=== PATIENT | female | born 1935 | race Caucasian/White ===

== ENCOUNTER 2017-02-02 23:52 | Emergency (ER) | payer MEDICARE, BC ==
[~2017-02-02 23:52] MED LIST: Nitroglycerin/D5W 25 MG/250 ML BOTTLE IV ONE; Potassium Chloride 100 ML IV ONE; Sodium Chloride 0.9% 1,000 ML IV ONE
[2017-02-03 00:09] VITALS: BP 190/69
[2017-02-03] MEDS ORDERED: Sodium Chloride 0.9% 1,000 ML IV ONE (00:11)
[2017-02-03] MEDS ORDERED: Sodium Chloride 0.9% 1,000 ML ONE ×2 (00:27→02:48)
[2017-02-03] MEDS ORDERED: Insulin Regular, Human 100 Units/ML 3 ML Vial ONE ×2 (00:33→01:10)
[2017-02-03] MEDS ORDERED: Potassium Chloride 100 ML ONE (01:10)
[2017-02-03] MEDS ORDERED: Sodium Chloride 0.9% 100 ML ONE (01:14)
[2017-02-03] MEDS ORDERED: Nitroglycerin/D5W 25 MG/250 ML BOTTLE ONE (01:37)
--- NOTE | 2017-02-03 02:26 | EDM.PDOC ---
ED HPI DIABETIC EMERGENCY - General Chief Complaint: Diabetic Complaint Stated Complaint: [facility] Time Seen by Provider: 02/03/17 00:00 Source of Information: Reports: Patient, EMS History Limitations: Reports: Physical impairment - History of Present Illness INITIAL COMMENTS - FREE TEXT/NARRATIVE: 81 year old female presents to the ED per [place] [facility].She became very weak at home and went down to the floor gently. She reports her legs will not hold her up. She is a type 2 diabetic and medics identified a blood sugar of 504 on scene. She missed her lantus dose at 1600 hrs today. She takes about 8 units of regular insulin with each meal and 25 units of Lantus at about 1600hrs daily. No apparent injuries. Paramedics report they have been called to her residence quite frequently as of late due tosimmilar prolblems. Family is in the process of seeking an assisted living placement. She reports generalized weakness. No fever or chills. No cough or sputum production. Has urinary frequency . Symptom Onset Date: 01/31/17 (Feel she's been getting worse over the last 3-4 days.) Timing/Duration: Reports: Day(s):, Getting worse Location, General: Reports: generalized Severity: moderate Improves with: Reports: None Worsens with: Reports: Movement Associated Symptoms: Reports: confusion, shortness of breath, weakness, malaise , loss of appetite (Nausea with no vomiting), nausea/vomiting. Denies: headaches, seizure, syncope (Gen.), chest pain (Daughter believes that she seemed confused on the phone her tonight.), cough, sputum, fever/chills (Chronic ), diaphoresis, rash Associated Symptoms (General): Reports: confusion, diaphoresis, loss of appetite , malaise, nausea/vomiting, shortness of breath, weakness. Denies: chest pain, cough, cough w sputum, fever/chills, headaches, rash, seizure, syncope Treatments OPERATIONS AND MAINTENANCE SPECIALIST: Reports: Other (see below) (Nausea with no vomiting no) - Related Data Allergies/ADRs: Allergies Allergy/AdvReac Type Severity Reaction Status Date / Time No Known Allergies Allergy Verified 02/03/17 00:06 Home Meds: Home Meds Insulin Lispro [Humalog] 8 units SQ 1300 12/11/15 [History] Rosuvastatin Calcium [Crestor] 20 mg PO DAILY 12/11/15 [History] Valsartan [Diovan] 160 mg PO DAILY 12/11/15 [History] amLODIPine [Norvasc] 10 mg PO DAILY 12/11/15 [History] Denosumab [Prolia] 1 ml SUBCUT ASDIRECTED 12/12/15 [History] Omeprazole [Prilosec] 20 mg PO ACBREAKFAST 12/12/15 [History] Vitamin B Complex 1 each PO DAILY 12/12/15 [History] Aspirin 81 mg PO DAILY 12/24/15 [History] Insulin Glargine,Hum.Rec.Anlog [Lantus Solostar] 25 units SQ 1600 12/24/15 [ History] Insulin Lispro [HumaLOG] 8 units SQ DAILY 12/24/15 [History] Lutein/Minerals/Vit A,C & E [Ocuvite] 1 tab PO DAILY 12/24/15 [History] Furosemide [Lasix] 40 mg PO DAILY #0 12/28/15 [Rx] Kenalog Cream 0 mg TOP BID 11/22/16 [History] Past Medical History HEENT 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: Cataract, Hard of hearing, Impaired vision, Macular degeneration Cardiovascular 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: Heart Failure, High cholesterol, Hypertension, PVD Respiratory 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: SOB Gastrointestinal 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: GERD Genitourinary 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: Chronic renal insuffiency (Stage IV), Urinary incontinence Other Genitourinary History: polyuria - CKD III [employer]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: Musculoskeletal 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: Osteoarthritis, Osteoporosis, Other (see below ) Other Musculoskeletal History: sciatic nerve pain Neurological 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: Neuropathy, diabetic Endocrine/Metabolic 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: Diabetes, type II, Obesity/BMI 30+ Hematologic 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: Anemia Other Hematologic History: previous anemia 5-6 yrs ago Dermatologic 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: Urticaria - Infectious Disease History Infectious Disease 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: Chicken pox - Past Surgical History HEENT Surgical 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: Cataract surgery Cardiovascular Surgical 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: None GI Surgical 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: Appendectomy, Cholecystectomy Other GI Surgeries/Procedures: hiatal hernia, cholecysectomy-1960 Appendix 1947 Female Surgical 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: Hysterectomy Other Female Surgeries/Procedures: x4 stillborn Endocrine Surgical 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: None Neurological Surgical 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: None Other Musculoskeletal Surgeries/Procedures:: 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 Social & Family History - Family History HEENT: Reports: Cataract, Macular degeneration Other HEENT Family History: mom, sister Neurological: Reports: Alzheimers disease Other Neurological Family History: dad Endocrine/Metabolic: Reports: Diabetes, type II Other Endocrine/Metabolic Family History: sister Dermatologic: Reports: None Oncologic: Reports: Breast Other Oncologic Family History: mother - Tobacco Use Smoking Status *Q: Never Smoker Second Hand Smoke Exposure: No - Caffeine Use Caffeine Use: Reports: Coffee, Soda, Tea - Recreational Drug Use Recreational Drug Use: No - Living Situation & Occupation Living situation: Reports: alone Occupation: retired ED ROS GENERAL - Review of Systems Review Of Systems: See Below Constitutional: Reports: malaise, weakness, fatigue, decreased appetite. Denies : fever, chills HEENT: Reports: Glasses, Vision change (Blurry at times.) Respiratory: Reports: Shortness of Breath. Denies: Wheezing, Pleuritic Chest Pain, Cough, Sputum, Hemoptysis Cardiovascular: Reports: Blood pressure problem, Dyspnea on exertion, Edema, Lightheadedness. Denies: Chest pain, Claudication, Orthopnea (Chronic hypertension), Palpitations Endocrine: Reports: fatigue, high glucose, polydypsia, polyuria GI/Abdominal: Denies: Abdominal pain, Difficulty swallowing, Distension, Flatus , Hematemesis, Hematochezia, Melena, Mucous in stool, Stool incontinence : Reports: frequency. Denies: hematuria, irregular menses, pain, urgency, urinary retention Musculoskeletal: Reports: neck pain, shoulder pain, back pain, joint pain (Low back pain knees and hips at times) Skin: Reports: pallor (Mild. Chronic anemia did). Denies: diaphoresis ( renal disease) Neurological: Reports: Confusion (According to her daughter.), Dizziness, Difficulty Walking, Weakness. Denies: Headache, Numbness, Seizure, Syncope, Tingling, Tremors, Trouble Speaking, Change in Speech, Gait Disturbance Psychiatric: Reports: Confusion Hematologic/Lymphatic: Reports: anemia (Due to chronic renal disease) ED EXAM GENERAL NO PERIP PULSE - Physical Exam Exam: See Below Exam Limited By: Altered mental status (Mildly confused. She can answer most questions. She knew her doses of insulin.) General Appearance: lethargic, mild distress Eye Exam: bilateral eye: normal inspection, PERRL, other Ears: normal TMs ([place] margins are mildly patent.) Throat/Mouth: Normal inspection, Normal lips, Normal oropharynx. No: Normal teeth Head: atraumatic, normocephalic Neck: normal inspection, full range of motion, tender lateral. No: lymphadenopathy (L), lymphadenopathy (R) (Mild bilaterally.) Respiratory/Chest: respiratory distress, decreased breath sounds (Mild tachypnea at rest. Area treated was diminished to the lower 30% of lung de guzman bilaterally. Breathing is fairly shallow.). No: rales, rhonchi, wheezing Cardiovascular: no murmur, no rub, irregularly irregular. No: normal peripheral pulses GI/Abdominal: abnormal bowel sounds: (Hypoactive bowel sounds.), other ( Moderately obese limiting ability to palpate solid organs. Firm to palpation.) Back Exam: normal inspection, decreased range of motion. No: full range of motion, CVA tenderness (L), CVA tenderness (R), muscle spasm Extremities: normal inspection, pedal edema (2+ lower extremities.). No: increased warmth, mottled, pallor, redness Neurological: oriented, no motor/sensory deficits, confused (Mildly confused.), slow to respond. No: normal reflexes (Areflexic) Psychiatric: flat affect Skin Exam: Warm, Dry, Intact, Pallor (Mild pallor.) EKG INTERPRETATION EKG Date: 02/03/17 Time: 00:15 Rhythm: NSR (First-degree AV block) Rate (beats/min): 82 (Occasional PVCs) Metter: normal P-wave: present QRS: other (Poor R-wave progression. Near Q-wave leads V1 V2.) ST-T: other (ST depression noted in V4 to V6 and lead 2. Cannot rule out ischemia.) QT: normal ND/PQ Interval: First degree AV block. EKG Interpretation Comments: Wandering baseline. Course - Vital Signs Last Recorded V/S: Last Vital Signs Temp 36.4 C 02/03/17 00:06 Pulse 84 02/03/17 00:06 Resp 23 H 02/03/17 00:06 BP 190/69 H 02/03/17 00:06 Pulse Ox 95 02/03/17 00:06 - Orders/Labs/Meds Orders: Active Orders 24 hr Category Date Time Status Blood Glucose Check, Bedside [] ONETIME Care 02/03/17 00:19 Active EKG Documentation Completion [RC] STAT Care 02/03/17 00:10 Active Chest 1V Frontal [CR] Stat Exams 02/03/17 00:10 Taken CULTURE BLOOD [BC] Stat Lab 02/03/17 01:00 Received CULTURE BLOOD [BC] Stat Lab 02/03/17 01:13 Received CULTURE URINE [RM] Stat Lab 02/03/17 00:40 Received Blood Culture x2 Reflex Set [OM.PC] Stat Oth 02/03/17 00:10 Ordered Labs: Laboratory Tests 02/03/17 02/03/17 02/03/17 Range/Units 00:14 00:14 00:14 WBC 9.96 (3.98-10.04) K/mm3 RBC 3.38 L (3.98-5.22) M/mm3 Hgb 10.1 L (11.2-15.7) gm/L Hct 27.8 L (34.1-44.9) % MCV 82.2 (79.4-94.8) fl MCH 29.9 (25.6-32.2) pg MCHC 36.3 H (32.2-35.5) g/dl RDW Std Deviation 34.6 L (36.4-46.3) fL Plt Count 170 L (182-369) K/mm3 MPV 10.7 (9.4-12.3) fl Neutrophils % (Manual) 84 H (40-60) % Band Neutrophils % 0 (0-10) % Lymphocytes % (Manual) 10 L (20-40) % Atypical Lymphs % 0 % Monocytes % (Manual) 4 (2-10) % Eosinophils % (Manual) 2 (0.7-5.8) % Basophils % (Manual) 0 L (0.1-1.2) Platelet Estimate Adequate RBC Morph Comment Normal PT 11.1 (8.0-13.0) SECONDS INR 1.02 Sodium 109 L* (136-145) mEq/L Potassium 3.5 (3.5-5.1) mEq/L Chloride 74 L (98-107) mEq/L Carbon Dioxide 24 (21-32) mEq/L Anion Gap 14.5 (5-15) BUN 62 H (7-18) mg/dL Creatinine 3.3 H (0.55-1.02) mg/dL Est Cr Clr Drug Dosing 10.93 mL/min Estimated GFR (MDRD) 13 (>60) mL/min BUN/Creatinine Ratio 18.8 H (14-18) Glucose 451 H (83-115) mg/dL Serum Osmolality 273 L (280-300) mosm/kg Calcium 8.4 L (8.5-10.1) mg/dL Magnesium 2.4 (1.8-2.4) mg/dl Total Bilirubin 0.6 (0.2-1.0) mg/dL AST 30 (15-37) U/L ALT 23 (14-59) U/L Alkaline Phosphatase 112 (46-116) U/L CK-MB (CK-2) 3.7 H (0-3.6) ng/ml Troponin I 0.034 (0.00-0.056) ng/mL C-Reactive Protein 0.9 (<1.0) mg/dL B-Natriuretic Peptide (0-100) pg/mL Total Protein 6.6 (6.4-8.2) g/dl Albumin 3.2 L (3.4-5.0) g/dl Globulin 3.4 gm/dL Albumin/Globulin Ratio 0.9 L (1-2) Urine Color (Yellow) Urine Appearance (Clear) Urine pH (5.0-8.0) Ur Specific [place] (1.005-1.030) Urine Protein (Negative) Urine Glucose (UA) (Negative) Urine Ketones (Negative) Urine Occult Blood (Negative) Urine Nitrite (Negative) Urine Bilirubin (Negative) Urine Urobilinogen (0.2-1.0) Ur Leukocyte Esterase (Negative) Urine RBC (0-5) /hpf Urine WBC (0-5) /hpf Ur Epithelial Cells (0-5) /hpf Ur Squamous Epith Cells (0-5) /hpf Urine Bacteria (FEW) /hpf Urine Mucus (FEW) /hpf Ketones (0.0-0.3) mM 02/03/17 02/03/17 02/03/17 Range/Units 00:14 00:14 00:40 WBC (3.98-10.04) K/mm3 RBC (3.98-5.22) M/mm3 Hgb (11.2-15.7) gm/L Hct (34.1-44.9) % MCV (79.4-94.8) fl MCH (25.6-32.2) pg MCHC (32.2-35.5) g/dl RDW Std Deviation (36.4-46.3) fL Plt Count (182-369) K/mm3 MPV (9.4-12.3) fl Neutrophils % (Manual) (40-60) % Band Neutrophils % (0-10) % Lymphocytes % (Manual) (20-40) % Atypical Lymphs % % Monocytes % (Manual) (2-10) % Eosinophils % (Manual) (0.7-5.8) % Basophils % (Manual) (0.1-1.2) Platelet Estimate RBC Morph Comment PT (8.0-13.0) SECONDS INR Sodium (136-145) mEq/L Potassium (3.5-5.1) mEq/L Chloride (98-107) mEq/L Carbon Dioxide (21-32) mEq/L Anion Gap (5-15) BUN (7-18) mg/dL Creatinine (0.55-1.02) mg/dL Est Cr Clr Drug Dosing mL/min Estimated GFR (MDRD) (>60) mL/min BUN/Creatinine Ratio (14-18) Glucose (83-115) mg/dL Serum Osmolality (280-300) mosm/kg Calcium (8.5-10.1) mg/dL Magnesium (1.8-2.4) mg/dl Total Bilirubin (0.2-1.0) mg/dL AST (15-37) U/L ALT (14-59) U/L Alkaline Phosphatase (46-116) U/L CK-MB (CK-2) (0-3.6) ng/ml Troponin I (0.00-0.056) ng/mL C-Reactive Protein (<1.0) mg/dL B-Natriuretic Peptide 134 H (0-100) pg/mL Total Protein (6.4-8.2) g/dl Albumin (3.4-5.0) g/dl Globulin gm/dL Albumin/Globulin Ratio (1-2) Urine Color Yellow (Yellow) Urine Appearance Clear (Clear) Urine pH 5.5 (5.0-8.0) Ur Specific [place] 1.010 (1.005-1.030) Urine Protein 1+ H (Negative) Urine Glucose (UA) 1+ H (Negative) Urine Ketones Negative (Negative) Urine Occult Blood 1+ H (Negative) Urine Nitrite Negative (Negative) Urine Bilirubin Negative (Negative) Urine Urobilinogen 0.2 (0.2-1.0) Ur Leukocyte Esterase Negative (Negative) Urine RBC Not seen (0-5) /hpf Urine WBC 0-5 (0-5) /hpf Ur Epithelial Cells 0-5 (0-5) /hpf Ur Squamous Epith Cells 0-5 (0-5) /hpf Urine Bacteria Not seen (FEW) /hpf Urine Mucus Not seen (FEW) /hpf Ketones 0.16 (0.0-0.3) mM Meds: Medications Discontinued Medications Generic Name Dose Route Start Last Admin Trade Name Freq PRN Reason Stop Dose Admin Sodium Chloride Confirm 02/03/17 00:27 Normal Saline Administered 02/03/17 00:28 Dose 1,000 mls @ as directed .ROUTE .STK-MED ONE Potassium Chloride Confirm 02/03/17 01:10 Kcl 10 Meq In Water 100 Ml Administered 02/03/17 01:11 Dose 100 mls @ as directed .ROUTE .STK-MED ONE Sodium Chloride Confirm 02/03/17 01:14 Normal Saline Administered 02/03/17 01:15 Dose 100 mls @ as directed .ROUTE .STK-MED ONE Nitroglycerin/Dextrose Confirm 02/03/17 01:37 Nitroglycerin 25 Mg/D5w 250 Ml Administered 02/03/17 01:38 Dose 25 mg in 250 mls @ as directed .ROUTE .STK-MED ONE Sodium Chloride 1,000 mls @ 500 mls/hr 02/03/17 00:11 Normal Saline IV 02/03/17 02:10 ONETIME ONE Sodium Chloride Confirm 02/03/17 02:48 Normal Saline Administered 02/03/17 02:49 Dose 1,000 mls @ as directed .ROUTE .STK-MED ONE Insulin Human Regular Confirm 02/03/17 00:33 Humulin R Administered 02/03/17 00:34 Dose 300 unit .ROUTE .STK-MED ONE Insulin Human Regular Confirm 02/03/17 01:10 Humulin R Administered 02/03/17 01:11 Dose 300 unit .ROUTE .STK-MED ONE - Radiology Interpretation Free Text/Narrative:: 81-year-old female presents to the ED per [place] [facility]. She had developed generalized weakness in her lower extremities and felt that she could no longer walk and let her self down to the floor be a furniture. She called 911. Has had frequent similar type problems the paramedics indicated that her home about 6 times in the last 10 days to help get her up off the floor. He is in the process of seeking assisted living program. Blood sugar on scene was to be 504. Paramedics administered nearly 500 mils of normal saline en route to [place]. Plan routine labs one view chest x-ray urinalysis by catheter. Our blood sugar recording in the ED was greater than 400. She'll therefore be given 10 units of Humalog regular insulin IV bolus. I will await the true lab value before considering insulin drip. Will continue to run normal saline at open. - Re-Assessments/Exams Free Text/Narrative Re-Assessment/Exam: 02/03/17 01:00 chest x-ray reveals mild cardiomegaly. Visualized portions of the lung de guzman suggest diffuse vascular congestion pattern with no pleural effusions. The computer system or [employer] system is down at this time for 3 hours of repair. Therefore labs will be coming piecemeal have to be put in by hand. Lab called over and serum potassium level was found to be 3.4. Therefore she will be given potassium chloride 10 mEq IV over 30 minutes. 02/03/17 01;10: Blood sugar recorded by lab was 452. We'll therefore start insulin drip at 2 units per hour. Blood pressure remains high on systolic side anywhere between 190 and 210. Will await to see if it settles down and see how bad her heart failure is. 02/03/17 01:35: Blood pressure remains around 202 systolic over 84. He'll start nitro drip at 10 mcg per minute. Her BNP returned at 134. White count was recorded at 9.96 with 74% neutrophils and no bands. Hemoglobin is 10.1 with hematocrit of 27.8. Platelets 170,000. CV is 82.2. Chemistry revealed albumin to be 3.2 AST is 30 BUN was elevated at 62 creatinine is elevated at 3.3 EGFR is not available at this time. Sodium was 109 potassium 3.5. Chloride 74 bicarbonate was 23.8. Glucose was 453. Magnesium 2.4 total protein 6.6. CRP was 0.9. Urinalysis returned showing 1+ blood 1+ glucose but no signs of infection. Serum ketones are elevated at 0.16 with normal being up to 0.3. Serum osmolality is low at 273. Hospitals currently on ICU and MedSurg diversion. Patient will require admission to hospital elsewhere and they have been to [facility] in [facility] in the past. He says with the daughter wishes month ago. I will therefore discuss case with on-call coordinator at [place]. 02/03/17 02:40: Care has been accepted by Dr. Zimmer colon and rectal surgeon hospitalist at [facility]. Patient will be transported to that facility per ground ambulance. Blood sugar is 350 at this time. We'll continue insulin drip at 2 units per hour. IV is currently only running at 100 mils per hour to 2 insulin drip and nitro drip. Blood pressure slowly came down to 139/54. Nitro drip was therefore reduced to 5 mcg per minute. Departure - Departure Time of Disposition: 02:55 Disposition: DC/Tfer to Acute Hospital 02 Condition: fair Clinical Impression: Hyperglycemia, Hyponatremia with decreased serum osmolality, Renal insufficiency, Chronic renal insufficiency, stage IV (severe), Systolic hypertension Forms: ED Department Discharge Additional Instructions: Patient transferred to [facility] in [place] per patient's request. Of note transfer was done because we are on diversion. - My Orders Last 24 Hours: My Active Orders 02/03/17 00:10 EKG Documentation Completion [RC] STAT Chest 1V Frontal [CR] Stat Blood Culture x2 Reflex Set [OM.PC] Stat 02/03/17 00:19 Blood Glucose Check, Bedside [RC] ONETIME 02/03/17 00:40 CULTURE URINE [RM] Stat 02/03/17 01:00 CULTURE BLOOD [BC] Stat 02/03/17 01:13 CULTURE BLOOD [BC] Stat - Assessment/Plan Last 24 Hours: My Active Orders 02/03/17 00:10 EKG Documentation Completion [RC] STAT Chest 1V Frontal [CR] Stat Blood Culture x2 Reflex Set [OM.PC] Stat 02/03/17 00:19 Blood Glucose Check, Bedside [RC] ONETIME 02/03/17 00:40 CULTURE URINE [RM] Stat 02/03/17 01:00 CULTURE BLOOD [BC] Stat 02/03/17 01:13 CULTURE BLOOD [BC] Stat
--- NOTE | 2017-02-03 09:12 | CR ---
Chest: Portable view of the chest was obtained. Comparison: Previous chest x-ray of 11/22/16. Heart size and mediastinum are within normal limits for portable technique. Bony structures are osteopenic. Degenerative spurring is noted within the spine. Questionable nodule within the right mid chest remains. Impression: 1. Continuing nodular density within the right mid chest. Chest CT has been previously recommended. Has this been performed? 2. Nothing acute is otherwise seen on portable chest x-ray. Diagnostic code #9
== END 2017-02-03 02:59 ==
LOC: JD.ED 23:52
DX: I13.0 Hypertensive heart and chronic kidney disease with heart failure and stage 1 through stage 4 chronic kidney disease, or unspecified chronic kidney disease (principal); E11.22 Type 2 diabetes mellitus with diabetic chronic kidney disease; E11.65 Type 2 diabetes mellitus with hyperglycemia; N18.4 Chronic kidney disease, stage 4 (severe); E87.1 Hypo-osmolality and hyponatremia; Z79.4 Long term (current) use of insulin; K21.9 Gastro-esophageal reflux disease without esophagitis; E78.00 Pure hypercholesterolemia, unspecified; M19.90 Unspecified osteoarthritis, unspecified site; M81.0 Age-related osteoporosis without current pathological fracture; Z79.82 Long term (current) use of aspirin; Z79.899 Other long term (current) drug therapy; Z90.49 Acquired absence of other specified parts of digestive tract; Z98.890 Other specified postprocedural states; Z90.710 Acquired absence of both cervix and uterus; Z89.422 Acquired absence of other left toe(s)
CPT/HCPCS: 36415; 71010; 80053; 81001; 82009; 82553; 82962; 83735; 83880; 83930; 84484; 85025; 85610; 86140; 87040; 87086; 93005; 96361; 96365; 96367; 96368; 96375; 99285; J1817; J3480; J7030; J7040

== ENCOUNTER 2018-10-06 14:09 | Inpatient (IN) | payer MEDICARE, BC, MEDICAID ==
[2018-10-06] MEDS ORDERED: Sodium Chloride 0.9% 500 ML IV ONE (14:46)
[2018-10-06] MEDS ORDERED: Sodium Chloride 0.9% 10 ML Syringe FLUSH PRN (14:46)
--- NOTE | 2018-10-06 15:10 | EDM.PDOC ---
ED HPI GENERAL MEDICAL PROBLEM - General Chief Complaint: General Stated Complaint: WEAKNESS AND ABNORMAL LABS Time Seen by Provider: 10/06/18 14:35 Source of Information: Reports: Patient, RN Notes Reviewed - History of Present Illness INITIAL COMMENTS - FREE TEXT/NARRATIVE: 83-year-old female has been brought here by wheelchair van for evaluation of generalized weakness, hyponatremia, elevated creatinine. She apparently had some labs done yesterday and showed a creatinine of 3.49, sodium 1:30. Also according to family and [facility] staff she is more weak, less alert than typical. There is no documentation of fever, vomiting or diarrhea. Patient does deny chest or abdominal pain on arrival to ED. - Related Data Allergies Allergy/AdvReac Type Severity Reaction Status Date / Time No Known Allergies Allergy Verified 07/14/18 15:12 Home Meds: Home Meds Rosuvastatin Calcium [Crestor] 20 mg PO DAILY 12/11/15 [History] amLODIPine [Norvasc] 10 mg PO DAILY 12/11/15 [History] Omeprazole [Prilosec] 20 mg PO ASDIRECTED 12/12/15 [History] Aspirin 81 mg PO DAILY 12/24/15 [History] Acetaminophen [Tylenol] 650 mg PO Q6H 07/14/18 [History] Furosemide [Lasix] 60 mg PO BID 07/14/18 [History] Insulin Aspart [NovoLOG] 8 units SUBCUT BID 07/14/18 [History] Losartan [Cozaar] 50 mg PO DAILY 07/14/18 [History] Nystatin [Nystatin Crm] 1 applic TOP BID PRN 07/14/18 [History] Tresiba Flextouch. 20 units SUBCUT DAILY 07/14/18 [History] Vit C/E/Zn/Coppr/Lutein/Zeaxan [Preservision Areds 2 Softgel] 1 tab PO BID 07/14 [History] guaiFENesin [Mucinex] 600 mg PO BID 07/14/18 [History] Bacitracin [Bacitracin Oint 1 GM] 22 gm TOP BID 3 Days #1 packet 07/18/18 [Rx] Saccharomyces Boulardii [Florastor] 250 mg PO BID #14 cap 07/18/18 [Rx] cephALEXin [Keflex] 500 mg PO Q12H #14 cap 10/21/18 [Rx] Past Medical History HEENT 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: Cataract, Hard of Hearing, Impaired Vision, Macular Degeneration Cardiovascular 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: Heart Failure, High Cholesterol, Hypertension, PVD Respiratory 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: SOB Gastrointestinal 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: GERD, Hiatal Hernia Genitourinary 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: Chronic Renal Insuffiency, Urinary Incontinence Other Genitourinary History: polyuria - CKD III [employer]IGN [employer]TE[employer]CE [employer]ER 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: Musculoskeletal 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: Osteoarthritis, Osteoporosis, Other (See Below ) Other Musculoskeletal History: sciatic nerve pain Neurological 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: Neuropathy, Diabetic Other Neuro History: hypo-osmolality, hyponatremia Endocrine/Metabolic 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: Diabetes, Type II, Obesity/BMI 30+ Other Endocrine/Metabolic History: chronic kidney disease Hematologic 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: Anemia Other Hematologic History: previous anemia 5-6 yrs ago Dermatologic 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: Urticaria - Infectious Disease History Infectious Disease 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: Chicken Pox - Past Surgical History HEENT Surgical 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: Cataract Surgery Cardiovascular Surgical 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: None Respiratory Surgical 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: None GI Surgical 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: Colonoscopy Female Surgical 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: Hysterectomy Endocrine Surgical 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: None Musculoskeletal Surgical 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: None Social & Family History - Family History HEENT: Reports: Cataract, Macular Degeneration Other HEENT Family History: mom, sister Neurological: Reports: Alzheimers Disease Other Neurological Family History: dad Endocrine/Metabolic: Reports: Diabetes, type II Other Endocrine/Metabolic Family History: sister Dermatologic: Reports: None Oncologic: Reports: Breast Other Oncologic Family History: mother - Tobacco Use Smoking Status *Q: Never Smoker - Caffeine Use Caffeine Use: Reports: None, Soda - Recreational Drug Use Recreational Drug Use: No - Living Situation & Occupation Living situation: Reports: Alone Occupation: Retired ED ROS GENERAL - Review of Systems Review Of Systems: See Below Constitutional: Denies: Fever, Chills HEENT: Denies: Throat Pain Respiratory: Denies: Shortness of Breath Cardiovascular: Denies: Chest Pain GI/Abdominal: Denies: Abdominal Pain, Diarrhea, Nausea, Vomiting Musculoskeletal: Reports: No Symptoms Skin: Reports: No Symptoms Neurological: Reports: Dizziness, Weakness (Generalized) ED EXAM, GENERAL - Physical Exam Exam: See Below General Appearance: Other (Somewhat drowsy, does open eyes when spoken to and does answer simple questions with simple yes and no type answers) Eye Exam: Bilateral Eye: PERRL Throat/Mouth: Normal Inspection, Normal Oropharynx Head: Atraumatic Neck: Supple, Full Range of Motion Respiratory/Chest: No Respiratory Distress, Lungs Clear, Normal Breath Sounds. No: Rhonchi, Wheezing Cardiovascular: Regular Rate, Rhythm GI/Abdominal: Soft, Non-Tender. No: Guarding Extremities: Normal Inspection, Normal Range of Motion. No: Pedal Edema, Leg Pain Neurological: No Motor/Sensory Deficits, Other (Awake, somewhat drowsy) Skin Exam: Warm, Dry, Normal Color, No Rash Course - Vital Signs Last Recorded V/S: Last Vital Signs Temp 98.2 F 10/06/18 14:33 Pulse 73 10/06/18 14:33 Resp 20 10/06/18 14:33 BP 157/58 H 10/06/18 14:33 Pulse Ox 92 L 10/06/18 14:33 - Orders/Labs/Meds Orders: Active Orders 24 hr Category Date Time Status Peripheral IV Care [RC] . DIRECTED Care 10/06/18 14:46 Active Chest 1V Frontal [CR] Stat Exams 10/06/18 15:10 Taken CULTURE URINE [RM] Stat Lab 10/06/18 16:26 Ordered Sodium Chloride 0.9% [Normal Saline] 250 ml Med 10/06/18 16:42 Active IV .BOLUS Sodium Chloride 0.9% [Saline Flush] Med 10/06/18 14:46 Active 10 ml FLUSH ASDIRECTED PRN cefTRIAXone [Rocephin] 1 gm Med 10/06/18 16:26 Active Sodium Chloride 0.9% [Normal Saline] 100 ml IV ONETIME Peripheral IV Insertion Adult [OM.PC] Stat Oth 10/06/18 14:46 Ordered Medication Orders Ceftriaxone Sodium 1 gm/ (Sodium Chloride) 100 mls @ 200 mls/hr IV ONETIME ONE Stop: 10/06/18 16:55 Last Admin: 10/06/18 16:31 Dose: 200 mls/hr Sodium Chloride (Normal Saline) 250 mls @ 999 mls/hr IV .BOLUS ONE Stop: 10/06/18 16:57 Sodium Chloride (Saline Flush) 10 ml FLUSH ASDIRECTED PRN PRN Reason: Keep Vein Open Last Admin: 10/06/18 15:05 Dose: 10 ml Labs: Laboratory Tests 10/06/18 10/06/18 10/06/18 Range/Units 14:25 14:55 14:55 WBC 3.46 L (3.98-10.04) K/mm3 RBC 3.45 L (3.98-5.22) M/mm3 Hgb 9.5 L (11.2-15.7) gm/L Hct 28.9 L (34.1-44.9) % MCV 83.8 (79.4-94.8) fl MCH 27.5 (25.6-32.2) pg MCHC 32.9 (32.2-35.5) g/dl RDW Std Deviation 45.5 (36.4-46.3) fL Plt Count 167 L (182-369) K/mm3 MPV 9.0 L (9.4-12.3) fl Neut % (Auto) 65.0 (34.0-71.1) % Lymph % (Auto) 15.6 L (19.3-51.7) % Swain % (Auto) 18.8 H (4.7-12.5) % Eos % (Auto) 0.3 L (0.7-5.8) Baso % (Auto) 0.0 L (0.1-1.2) % Neut # (Auto) 2.25 (1.56-6.13) K/mm3 Lymph # (Auto) 0.54 L (1.18-3.74) K/mm3 Swain # (Auto) 0.65 H (0.24-0.36) K/mm3 Eos # (Auto) 0.01 L (0.04-0.36) K/mm3 Baso # (Auto) 0.00 L (0.01-0.08) K/mm3 Manual Slide Review Abnormal smear Sodium (136-145) mEq/L Potassium (3.5-5.1) mEq/L Chloride (98-107) mEq/L Carbon Dioxide (21-32) mEq/L Anion Gap (5-15) BUN (7-18) mg/dL Creatinine (0.55-1.02) mg/dL Est Cr Clr Drug Dosing mL/min Estimated GFR (MDRD) (>60) mL/min BUN/Creatinine Ratio (14-18) Glucose (83-115) mg/dL Calcium (8.5-10.1) mg/dL Total Bilirubin (0.2-1.0) mg/dL AST (15-37) U/L ALT (14-59) U/L Alkaline Phosphatase (46-116) U/L C-Reactive Protein 12.7 H* (<1.0) mg/dL Total Protein (6.4-8.2) g/dl Albumin (3.4-5.0) g/dl Globulin gm/dL Albumin/Globulin Ratio (1-2) Urine Color Light yellow (Yellow) Urine Appearance Cloudy H (Clear) Urine pH 7.0 (5.0-8.0) Ur Specific [place] 1.020 (1.005-1.030) Urine Protein 2+ H (Negative) Urine Glucose (UA) Negative (Negative) Urine Ketones Negative (Negative) Urine Occult Blood 2+ H (Negative) Urine Nitrite Negative (Negative) Urine Bilirubin Negative (Negative) Urine Urobilinogen 0.2 (0.2-1.0) Ur Leukocyte Esterase 3+ H (Negative) Urine RBC 5-10 H (0-5) /hpf Urine WBC Too numerous to cnt H (0-5) /hpf Ur Epithelial Cells 0-5 (0-5) /hpf Urine Bacteria Many H (FEW) /hpf Urine Mucus Few (FEW) /hpf 10/06/18 Range/Units 14:55 WBC (3.98-10.04) K/mm3 RBC (3.98-5.22) M/mm3 Hgb (11.2-15.7) gm/L Hct (34.1-44.9) % MCV (79.4-94.8) fl MCH (25.6-32.2) pg MCHC (32.2-35.5) g/dl RDW Std Deviation (36.4-46.3) fL Plt Count (182-369) K/mm3 MPV (9.4-12.3) fl Neut % (Auto) (34.0-71.1) % Lymph % (Auto) (19.3-51.7) % Swain % (Auto) (4.7-12.5) % Eos % (Auto) (0.7-5.8) Baso % (Auto) (0.1-1.2) % Neut # (Auto) (1.56-6.13) K/mm3 Lymph # (Auto) (1.18-3.74) K/mm3 [place]ain # (Auto) (0.24-0.36) K/mm3 Eos # (Auto) (0.04-0.36) K/mm3 Baso # (Auto) (0.01-0.08) K/mm3 Manual Slide Review Sodium 125 L (136-145) mEq/L Potassium 3.5 (3.5-5.1) mEq/L Chloride 84 L (98-107) mEq/L Carbon Dioxide 32 (21-32) mEq/L Anion Gap 12.5 (5-15) BUN 92 H (7-18) mg/dL Creatinine 3.7 H (0.55-1.02) mg/dL Est Cr Clr Drug Dosing 9.43 mL/min Estimated GFR (MDRD) 12 (>60) mL/min BUN/Creatinine Ratio 24.9 H (14-18) Glucose 152 H (83-115) mg/dL Calcium 8.6 (8.5-10.1) mg/dL Total Bilirubin 0.4 (0.2-1.0) mg/dL AST 37 (15-37) U/L ALT 26 (14-59) U/L Alkaline Phosphatase 137 H (46-116) U/L C-Reactive Protein (<1.0) mg/dL Total Protein 8.0 (6.4-8.2) g/dl Albumin 2.7 L (3.4-5.0) g/dl Globulin 5.3 gm/dL Albumin/Globulin Ratio 0.5 L (1-2) Urine Color (Yellow) Urine Appearance (Clear) Urine pH (5.0-8.0) Ur Specific [place] (1.005-1.030) Urine Protein (Negative) Urine Glucose (UA) (Negative) Urine Ketones (Negative) Urine Occult Blood (Negative) Urine Nitrite (Negative) Urine Bilirubin (Negative) Urine Urobilinogen (0.2-1.0) Ur Leukocyte Esterase (Negative) Urine RBC (0-5) /hpf Urine WBC (0-5) /hpf Ur Epithelial Cells (0-5) /hpf Urine Bacteria (FEW) /hpf Urine Mucus (FEW) /hpf Meds: Medications Generic Name Dose Route Start Last Admin Trade Name Freq PRN Reason Stop Dose Admin Ceftriaxone Sodium 1 gm/ 100 mls @ 200 mls/hr 10/06/18 16:26 10/06/18 16:31 Sodium Chloride IV 10/06/18 16:55 200 mls/hr ONETIME ONE Administration Sodium Chloride 250 mls @ 999 mls/hr 10/06/18 16:42 Normal Saline IV 10/06/18 16:57 .BOLUS ONE Sodium Chloride 10 ml 10/06/18 14:46 10/06/18 15:05 Saline Flush FLUSH 10 ml ASDIRECTED PRN Administration Keep Vein Open Discontinued Medications Generic Name Dose Route Start Last Admin Trade Name David PRN Reason Stop Dose Admin Sodium Chloride 500 mls @ 999 mls/hr 10/06/18 14:46 10/06/18 15:04 Normal Saline IV 10/06/18 15:16 999 mls/hr .BOLUS ONE Administration - Re-Assessments/Exams Free Text/Narrative Re-Assessment/Exam: 10/06/18 16:25. UA does show significant UTI with increased WBCs and bacteria. White blood count 3500, creatinine today 3.7, BUN 92. Potassium 3.5. Estimated GFR only 12. We have given 1 L of normal saline, will give a further 250 mL bolus and then drop rate 150 an hour for now. Urine culture has been ordered and Rocephin 1 g IV is currently running. We'll admit Batsheva for further treatment. Her CODE STATUS is DNR/DNI. Family states that they and she do not want her to be a consideration for dialysis. Departure - Departure Time of Disposition: 16:47 Disposition: Admitted As Inpatient 68 Condition: Serious Clinical Impression: Hyponatremia Renal failure Qualifiers: Renal failure chronicity: acute on chronic Acute renal failure type: unspecified Chronic kidney disease stage: stage 5, not on chronic dialysis Qualified Code(s): N17.9 - Acute kidney failure, unspecified; N18.5 - Chronic kidney disease, stage 5 UTI (urinary tract infection) Qualifiers: Urinary tract infection type: acute cystitis Hematuria presence: without hematuria Qualified Code(s): N30.00 - Acute cystitis without hematuria - Discharge Information Referrals: Naren Kim MD [Primary Care Provider] - Forms: ED Department Discharge ED Communication - Discussed Case With (1) Discussed Case With (1): Admitting Provider (Dr Nguyen, decision to admit at about 16:40) - My Orders Last 24 Hours: My Active Orders 10/06/18 14:46 Peripheral IV Care [RC] . DIRECTED Sodium Chloride 0.9% [Saline Flush] 10 ml FLUSH ASDIRECTED PRN Peripheral IV Insertion Adult [OM.PC] Stat 10/06/18 15:10 Chest 1V Frontal [CR] Stat 10/06/18 16:26 CULTURE URINE [RM] Stat cefTRIAXone [Rocephin] 1 gm Sodium Chloride 0.9% [Normal Saline] 100 ml IV ONETIME 10/06/18 16:42 Sodium Chloride 0.9% [Normal Saline] 250 ml IV .BOLUS - Assessment/Plan Last 24 Hours: My Active Orders 10/06/18 14:46 Peripheral IV Care [RC] . DIRECTED Sodium Chloride 0.9% [Saline Flush] 10 ml FLUSH ASDIRECTED PRN Peripheral IV Insertion Adult [OM.PC] Stat 10/06/18 15:10 Chest 1V Frontal [CR] Stat 10/06/18 16:26 CULTURE URINE [RM] Stat cefTRIAXone [Rocephin] 1 gm Sodium Chloride 0.9% [Normal Saline] 100 ml IV ONETIME 10/06/18 16:42 Sodium Chloride 0.9% [Normal Saline] 250 ml IV .BOLUS
[2018-10-06] MEDS ORDERED: cefTRIAXone 1 GM in Sodium Chloride 0.9% 100 ML IV ONE (16:26)
[2018-10-06] MEDS ORDERED: Sodium Chloride 0.9% 250 ML IV ONE (16:42)
--- NOTE | 2018-10-06 16:54 | CR ---
Chest: Portable view of the chest was obtained. Comparison: Prior chest x-ray of 02/03/17. Heart size and mediastinum are normal. Lungs are clear. Bony structures are grossly intact. Impression: 1. Nothing acute is appreciated on portable chest x-ray. Diagnostic code #1
--- NOTE | 2018-10-06 18:01 | PCM.HP ---
H&P History of Present Illness - General Date of Service: 10/06/18 Admit Problem/Dx: Admission Diagnosis/Problem Admission Diagnosis/Problem Urinary tract infection Source of Information: Patient, Family, Old Records, Provider, RN Notes Reviewed History Limitations: Reports: Altered Mental Status - History of Present Illness Initial Comments - Free Text/Narative: This is an 83 yo elderly white female with past medical hx/o Impaired Hearing/ Vision, HF w/ Preserved EF of 65% 12/13/2015. HTN, HLD, PVD, SOB, GERD, Hital Hernia, CKD Stage 3, Urinary Incontinence, OA/DJD, Osteoporosis, DM2, Chronic Hyponatremia, Anemia, Urticaria and Obesity with BMI > 35 who comes in for evaluation of generalized weakness and reduced level of consciousness associated with elevated Cr but moderately low level of serum sodium. She had a repeat lab yesterday with similar abnormalities. No report of fever, chills, diarrhea or change in bowel habits. No further report of neurological deficits. Her initial work up in ED shows a CBC remarkable for WBC of 3.46, RBC of 3.45, Hgb of 9.5, Hct of 28.9, Platelet count of 167, MPV of 9.0, Lymphocyte of 15.6% , Monocytes of 18.8%, and Eosinophils of 0.3. Her chemistry is significant for Na of 125, Cl of 84, BUN of 92, Cr of 3.7, BS of 152, Alk Phos of 137, CRP of 12.7, and Albumin of 2.7. Her UA is suggestive of UTI. She is positive for MRSA screening. Patient is coming in primarily for Generalized Weakness 2/2 UTI, MECHELLE along with Moderate Hyponatremia. She is DNR/DNI. - Related Data Allergies/Adverse Reactions: Allergies Allergy/AdvReac Type Severity Reaction Status Date / Time No Known Allergies Allergy Verified 10/06/18 17:50 Home Medications: Home Meds Rosuvastatin Calcium [Crestor] 20 mg PO DAILY 12/11/15 [History] amLODIPine [Norvasc] 10 mg PO DAILY 12/11/15 [History] Omeprazole [Prilosec] 20 mg PO ASDIRECTED 12/12/15 [History] Aspirin 81 mg PO DAILY 12/24/15 [History] Acetaminophen [Tylenol] 650 mg PO Q6H 07/14/18 [History] Furosemide [Lasix] 60 mg PO BID 07/14/18 [History] Insulin Aspart [NovoLOG] 8 units SUBCUT BID 07/14/18 [History] Losartan [Cozaar] 50 mg PO DAILY 07/14/18 [History] Nystatin [Nystatin Crm] 1 applic TOP BID PRN 07/14/18 [History] Tresiba Flextouch. 20 units SUBCUT DAILY 07/14/18 [History] Vit C/E/Zn/Coppr/Lutein/Zeaxan [Preservision Areds 2 Softgel] 1 tab PO BID 07/14 [History] guaiFENesin [Mucinex] 600 mg PO BID 07/14/18 [History] Acetaminophen [Tylenol] 650 mg PO BID PRN 10/06/18 [History] Benzocaine/Menthol [Cepacol Sore Throat Lozenge] 1 each PO Q1H PRN 10/06/18 [ History] Calcium Carbonate [Tums] 1 - 2 tab PO Q6HR PRN 10/06/18 [History] Carbamide Peroxide [Debrox 6.5% Otic Soln] 5 drop EARBOTH BID 10/06/18 [History] Lutein/Minerals/Vit A,C & E [Ocuvite] 1 tab PO DAILY 10/06/18 [History] Polyvinyl Alcohol/Povidone/Pf [Refresh Classic Eye Drops] 1 drop EYEBOTH DAILY PRN 10/06/18 [History] metOLazone [Metolazone] 2.5 mg PO DAILY 10/06/18 [History] Past Medical History HEENT 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: Cataract, Hard of Hearing, Impaired Vision, Macular Degeneration Cardiovascular 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: Heart Failure, High Cholesterol, Hypertension, PVD Respiratory 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: SOB Gastrointestinal 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: GERD, Hiatal Hernia Genitourinary 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: Chronic Renal Insuffiency, Urinary Incontinence Other Genitourinary History: polyuria - CKD III [employer] 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: Musculoskeletal 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: Osteoarthritis, Osteoporosis, Other (See Below ) Other Musculoskeletal History: sciatic nerve pain Neurological 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: Neuropathy, Diabetic Other Neuro History: hypo-osmolality, hyponatremia Endocrine/Metabolic 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: Diabetes, Type II, Obesity/BMI 30+ Other Endocrine/Metabolic History: chronic kidney disease Hematologic 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: Anemia Other Hematologic History: previous anemia 5-6 yrs ago Dermatologic 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: Urticaria - Infectious Disease History Infectious Disease 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: Chicken Pox - Past Surgical History HEENT Surgical 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: Cataract Surgery Cardiovascular Surgical 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: None Respiratory Surgical 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: None GI Surgical 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: Colonoscopy Female Surgical 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: Hysterectomy Endocrine Surgical 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: None Musculoskeletal Surgical 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: None Social & Family History - Family History HEENT: Reports: Cataract, Macular Degeneration Other HEENT Family History: mom, sister Neurological: Reports: Alzheimers Disease Other Neurological Family History: dad Endocrine/Metabolic: Reports: Diabetes, type II Other Endocrine/Metabolic Family History: sister Dermatologic: Reports: None Oncologic: Reports: Breast Other Oncologic Family History: mother - Tobacco Use Smoking Status *Q: Never Smoker - Caffeine Use Caffeine Use: Reports: None, Soda - Recreational Drug Use Recreational Drug Use: No - Living Situation & Occupation Living situation: Reports: Alone Occupation: Retired H&P Review of Systems - Review of Systems: Review Of Systems: See Below General: Reports: Malaise, Weakness, Fatigue, Other (lethargic). Denies: Fever , Chills HEENT: Reports: No Symptoms Pulmonary: Denies: Shortness of Breath Cardiovascular: Reports: Edema. Denies: Chest Pain Gastrointestinal: Reports: Decreased Appetite. Denies: Abdominal Pain, Nausea, Vomiting Musculoskeletal: Denies: Neck Pain, Muscle Stiffness Skin: Denies: Cyanosis, Mottled, Pallor, Diaphoresis, Bruising Psychiatric: Denies: Anxiety, Agitation Neurological: Reports: Difficulty Walking, Weakness, Gait Disturbance. Denies: Confusion Hematologic/Lymphatic: Reports: No Symptoms Immunologic: Reports: No Symptoms Exam - Exam Exam: See Below - Vital Signs Vital Signs: Last Vital Signs Temp 36.8 C 10/06/18 14:33 Pulse 73 10/06/18 14:33 Resp 20 10/06/18 14:33 BP 157/58 H 10/06/18 14:33 Pulse Ox 92 L 10/06/18 14:33 Weight: 94.971 kg - Exam General: Alert, Cooperative, Mild Distress, Lethargic HEENT: Conjunctiva Clear, EACs Clear, EOMI, Hearing Intact, Mucosa Moist & [place]ar[place] , Nares Patent, Normal Nasal Septum, Posterior Pharynx Clear, Pupils Equal Neck: Supple, Trachea Midline Lungs: Normal Respiratory Effort, Decreased Breath Sounds Cardiovascular: Regular Rhythm, Irregular Rhythm, Gallop/S4 GI/Abdominal Exam: Normal Bowel Sounds, Soft, Non-Tender, No Distention, No Abnormal Bruit (Female) Exam: Deferred Rectal (Female) Exam: Deferred Back Exam: Normal Inspection, Decreased Range of Motion Extremities: Normal Inspection, Normal Range of Motion, Non-Tender, Normal Capillary Refill, Pedal Edema Peripheral Pulses: 2+: Dorsalis Pedis (L), Dorsalis Pedis (R) Skin: Warm, Dry, Intact Neuro Extensive - Mental Status: Oriented x3, Normal Cognition, Memory Intact Neuro Extensive - Motor, Sensory, Reflexes: CN II-XII Intact. No: Normal Gait Psychiatric: Alert, Normal Affect, Normal Mood - Patient Data Lab Results Last 24 hrs: Laboratory Results - last 24 hr 10/06/18 10/06/18 10/06/18 Range/Units 14:25 14:55 14:55 WBC 3.46 L (3.98-10.04) K/mm3 RBC 3.45 L (3.98-5.22) M/mm3 Hgb 9.5 L (11.2-15.7) gm/L Hct 28.9 L (34.1-44.9) % MCV 83.8 (79.4-94.8) fl MCH 27.5 (25.6-32.2) pg MCHC 32.9 (32.2-35.5) g/dl RDW Std Deviation 45.5 (36.4-46.3) fL Plt Count 167 L (182-369) K/mm3 MPV 9.0 L (9.4-12.3) fl Neut % (Auto) 65.0 (34.0-71.1) % Lymph % (Auto) 15.6 L (19.3-51.7) % [place] % (Auto) 18.8 H (4.7-12.5) % Eos % (Auto) 0.3 L (0.7-5.8) Baso % (Auto) 0.0 L (0.1-1.2) % Neut # (Auto) 2.25 (1.56-6.13) K/mm3 Lymph # (Auto) 0.54 L (1.18-3.74) K/mm3 [place] # (Auto) 0.65 H (0.24-0.36) K/mm3 Eos # (Auto) 0.01 L (0.04-0.36) K/mm3 Baso # (Auto) 0.00 L (0.01-0.08) K/mm3 Manual Slide Review Abnormal smear Sodium (136-145) mEq/L Potassium (3.5-5.1) mEq/L Chloride (98-107) mEq/L Carbon Dioxide (21-32) mEq/L Anion Gap (5-15) BUN (7-18) mg/dL Creatinine (0.55-1.02) mg/dL Est Cr Clr Drug Dosing mL/min Estimated GFR (MDRD) (>60) mL/min BUN/Creatinine Ratio (14-18) Glucose (83-115) mg/dL POC Glucose (83-110) mg/dL Calcium (8.5-10.1) mg/dL Total Bilirubin (0.2-1.0) mg/dL AST (15-37) U/L ALT (14-59) U/L Alkaline Phosphatase (46-116) U/L C-Reactive Protein 12.7 H* (<1.0) mg/dL Total Protein (6.4-8.2) g/dl Albumin (3.4-5.0) g/dl Globulin gm/dL Albumin/Globulin Ratio (1-2) Urine Color Light yellow (Yellow) Urine Appearance Cloudy H (Clear) Urine pH 7.0 (5.0-8.0) Ur Specific [place] 1.020 (1.005-1.030) Urine Protein 2+ H (Negative) Urine Glucose (UA) Negative (Negative) Urine Ketones Negative (Negative) Urine Occult Blood 2+ H (Negative) Urine Nitrite Negative (Negative) Urine Bilirubin Negative (Negative) Urine Urobilinogen 0.2 (0.2-1.0) Ur Leukocyte Esterase 3+ H (Negative) Urine RBC 5-10 H (0-5) /hpf Urine WBC Too numerous to cnt H (0-5) /hpf Ur Epithelial Cells 0-5 (0-5) /hpf Urine Bacteria Many H (FEW) /hpf Urine Mucus Few (FEW) /hpf 10/06/18 10/06/18 Range/Units 14:55 17:48 WBC (3.98-10.04) K/mm3 RBC (3.98-5.22) M/mm3 Hgb (11.2-15.7) gm/L Hct (34.1-44.9) % MCV (79.4-94.8) fl MCH (25.6-32.2) pg MCHC (32.2-35.5) g/dl RDW Std Deviation (36.4-46.3) fL Plt Count (182-369) K/mm3 MPV (9.4-12.3) fl Neut % (Auto) (34.0-71.1) % Lymph % (Auto) (19.3-51.7) % [place] % (Auto) (4.7-12.5) % Eos % (Auto) (0.7-5.8) Baso % (Auto) (0.1-1.2) % Neut # (Auto) (1.56-6.13) K/mm3 Lymph # (Auto) (1.18-3.74) K/mm3 [place] # (Auto) (0.24-0.36) K/mm3 Eos # (Auto) (0.04-0.36) K/mm3 Baso # (Auto) (0.01-0.08) K/mm3 Manual Slide Review Sodium 125 L (136-145) mEq/L Potassium 3.5 (3.5-5.1) mEq/L Chloride 84 L (98-107) mEq/L Carbon Dioxide 32 (21-32) mEq/L Anion Gap 12.5 (5-15) BUN 92 H (7-18) mg/dL Creatinine 3.7 H (0.55-1.02) mg/dL Est Cr Clr Drug Dosing 9.43 mL/min Estimated GFR (MDRD) 12 (>60) mL/min BUN/Creatinine Ratio 24.9 H (14-18) Glucose 152 H (83-115) mg/dL POC Glucose 128 H (83-110) mg/dL Calcium 8.6 (8.5-10.1) mg/dL Total Bilirubin 0.4 (0.2-1.0) mg/dL AST 37 (15-37) U/L ALT 26 (14-59) U/L Alkaline Phosphatase 137 H (46-116) U/L C-Reactive Protein (<1.0) mg/dL Total Protein 8.0 (6.4-8.2) g/dl Albumin 2.7 L (3.4-5.0) g/dl Globulin 5.3 gm/dL Albumin/Globulin Ratio 0.5 L (1-2) Urine Color (Yellow) Urine Appearance (Clear) Urine pH (5.0-8.0) Ur Specific [place] (1.005-1.030) Urine Protein (Negative) Urine Glucose (UA) (Negative) Urine Ketones (Negative) Urine Occult Blood (Negative) Urine Nitrite (Negative) Urine Bilirubin (Negative) Urine Urobilinogen (0.2-1.0) Ur Leukocyte Esterase (Negative) Urine RBC (0-5) /hpf Urine WBC (0-5) /hpf Ur Epithelial Cells (0-5) /hpf Urine Bacteria (FEW) /hpf Urine Mucus (FEW) /hpf Result Diagrams: 10/07/18 05:45 10/07/18 05:45 Problem List Initiated/Reviewed/Updated: Yes Orders Last 24hrs: Active Orders 24 hr Category Date Time Status Admission Status [Patient Status] [ADT] Routine ADT 10/06/18 16:53 Active ADA Diabetic [[place] [employer] Diet] [DIET Diet 10/06/18 Dinner Active ] Heart Healthy Diet [DIET] Diet 10/06/18 Dinner Active Renal Non-Dialysis Diet [DIET] Diet 10/06/18 Dinner Active CULTURE URINE [RM] Stat Lab 10/06/18 14:25 Received METH-RESIST S.AUR,MRSA BY PCR [MOLEC] Routine Lab 10/06/18 17:40 Received Sodium Chloride 0.9% [Saline Flush] Med 10/06/18 14:46 Active 10 ml FLUSH ASDIRECTED PRN Peripheral IV Insertion Adult [OM.PC] Stat Oth 10/06/18 14:46 Ordered Resuscitation Status Routine Resus Stat 10/06/18 17:48 Ordered Medication Orders Sodium Chloride (Saline Flush) 10 ml FLUSH ASDIRECTED PRN PRN Reason: Keep Vein Open Last Admin: 10/06/18 15:05 Dose: 10 ml Assessment/Plan Comment:: Assessment/Plan: Acute: UTI - Risk Factors: Urinary Incontinence - UA strongly positive - Received IV Rocephin in ED; will continue - Pending UA Cx/Sx MECHELLE - Acute on CKD - Risk Factors: on dual diuretics plus underlying chronic renal insufficiency - Baseline CKD Stage 3 - Cr 3.7; baseline of 2.5 07/18/2018 - Renal U/S in AM - IV hydration - Monitor renal function - Avoid nephrotoxic agents Moderate Hyponatremia - Na is 125 - She is on diuretics: lasix and metolazone - Hold diuretics - IV hydration and Thermotabs - Goal: Na at 135 or higher Generalized Weakness - 2/2 Above - PT/OT once she improve clinically Chronic: Impaired Hearing/Vision, HF w/ Preserved EF of 65% 12/13/2015. HTN, HLD , PVD, SOB, GERD, Hital Hernia, CKD Stage 3, Urinary Incontinence, OA/DJD, Osteoporosis, DM2, Chronic Hyponatremia, Anemia, Urticaria and Obesity with BMI > 35 Plan: Admit to [facility] Routine AM Labs Resume Some Home Meds PT/OT eval Mupirocine topical BIS to apply both nares for 5 days Accu-check AC/HS w/ ISS coverage Aspiration and Fall Precautions DVT/GI PPx: SCDs/H2B Renal U/S in AM r/o obstructive uropathy SW/CM for d/c planning Code status: DNR/DNI
[2018-10-06] MEDS ORDERED: Acetaminophen 325 MG Tab PO SCH (20:00)
[2018-10-06] MEDS ORDERED: Calcium Carbonate 500 MG Tab.Chew PO PRN (20:00)
[2018-10-06] MEDS ORDERED: Acetaminophen 325 MG Tab PO PRN ×2 (20:00→20:01)
[2018-10-06] MEDS ORDERED: Carboxymethylcellulose Sodium 1% Ophth Gel 15 ML Bottle EYEBOTH PRN (20:00)
[2018-10-06] MEDS ORDERED: HYDROmorphone 1 MG/ML Syringe IVPUSH PRN (20:05)
[2018-10-06] MEDS ORDERED: Acetaminophen/HYDROcodone 325-5 MG Tab PO PRN (20:05)
[2018-10-06] MEDS ORDERED: Ondansetron 4 MG/2 ML SDV IV PRN (20:05)
[2018-10-06] MEDS ORDERED: Bisacodyl 5 MG Tab PO PRN (20:05)
[2018-10-06] MEDS ORDERED: Docusate Sodium 100 MG Cap PO PRN (20:05)
[2018-10-06] MEDS ORDERED: Polyethylene Glycol 3350 Powder 17 GM Packet PO PRN (20:05)
[2018-10-06] MEDS ORDERED: LORazepam 2 MG/ML SDV IV PRN (20:05)
[2018-10-06] MEDS ORDERED: Temazepam 7.5 MG Cap PO PRN (20:05)
[2018-10-06] MEDS ORDERED: Albuterol/Ipratropium 3.0-0.5 MG/3 ML Neb Soln NEB PRN (20:05)
[2018-10-06] MEDS ORDERED: Promethazine 6.25 MG in Sodium Chloride 0.9% 50 ML IV PRN (20:05)
[2018-10-06] MEDS ORDERED: Sodium Chloride/Potassium Chloride Tab PO STA (20:30)
[2018-10-06] MEDS ORDERED: Sodium Chloride/Potassium Chloride Tab PO SCH (20:30)
[2018-10-06] MEDS ORDERED: Nystatin Crm 30 GM Tube TOP PRN (20:45)
[2018-10-06] MEDS ORDERED: Benzocaine/Cetylpyridinium/Menthol Lozenge MUCMEM PRN (20:45)
[2018-10-06] MEDS ORDERED: Famotidine 20 MG/2 ML SDV IVPUSH ONE (20:46)
[2018-10-06] MEDS: Bacitracin Oint 15 GM Tube TOP SCH (21:39)
[2018-10-06] MEDS: guaiFENesin 600 MG Tab.ER PO SCH (21:40)
[2018-10-06] MEDS: Multivitamins with Minerals/Folic Acid/Lutein/Zeaxanth Tab PO SCH (21:40)
[2018-10-06] MEDS: Carbamide Peroxide 6.5% Otic Soln 15 ML Bottle EARBOTH SCH (21:43)
[2018-10-06] MEDS: Sodium Chloride 0.9% 1,000 ML IV SCH (21:54)
[2018-10-06] MEDS: Insulin Lispro 100 Unit/ML 3 ML KwikPen SUBCUT SCH (21:55)
[2018-10-07] MEDS: Sodium Chloride 0.9% 1,000 ML IV SCH ×2 (06:08→21:58)
[2018-10-07] MEDS: Acetaminophen 325 MG Tab PO SCH ×3 (06:08→18:04)
[2018-10-07] MEDS: Insulin Lispro 100 Unit/ML 3 ML KwikPen SUBCUT SCH ×4 (06:15→21:59)
[2018-10-07] MEDS ORDERED: Non-Formulary Medication 1 Each (Lutein/Minerals/Vit A,C & E 1 TAB) PO SCH (09:00)
[2018-10-07] MEDS ORDERED: Insulin Glarg,Human.Rec.Analog 100 UNIT/ML ML SUBCUT SCH (09:00)
[2018-10-07] MEDS ORDERED: TRESIBA 20 UNIT SUBCUT SCH (09:00)
--- NOTE | 2018-10-07 09:23 | PCM.PN ---
- General Info Date of Service: 10/07/18 Admission Dx/Problem (Free Text): Admission Diagnosis/Problem Admission Diagnosis/Problem Urinary tract infection Subjective Update: Follow Up Functional Status: Reports: Pain Controlled, Tolerating Diet, Urinating. Denies : New Symptoms - Review of Systems General: Reports: Fatigue, Malaise, Other (somnolence). Denies: Fever, Chills HEENT: Reports: No Symptoms Pulmonary: Reports: Cough. Denies: Shortness of Breath Cardiovascular: Denies: Chest Pain, Dyspnea on Exertion, Edema, Lightheadedness Gastrointestinal: Denies: Abdominal Pain, Nausea, Vomiting Genitourinary: Reports: No Symptoms Musculoskeletal: Reports: No Symptoms Skin: Reports: Bruising (on knee). Denies: Cyanosis, Mottled, Pallor, Diaphoresis Neurological: Reports: Difficulty Walking, Weakness, Gait Disturbance. Denies: Confusion Psychiatric: Denies: No Symptoms, Depression, Anxiety, Hallucinations Systems Review Comment:: No significant overnight issues. She feels tired and exhausted after PT/OT session this morning. She requires 2 person assist with pivots. Her WBC and Na have improved. However her K dropped to 3. - Patient Data Vitals - Most Recent: Last Vital Signs Temp 37.4 C 10/07/18 07:29 Pulse 66 10/07/18 07:29 Resp 16 10/07/18 07:29 BP 148/54 H 10/07/18 07:29 Pulse Ox 89 L 10/07/18 07:29 Weight - Most Recent: 97.477 kg I&O - Last 24 Hours: Intake & Output 10/06/18 10/07/18 10/07/18 22:59 06:59 14:59 Intake Total 2480 Output Total 1100 Balance 1380 Lab Results Last 24 Hours: Laboratory Results - last 24 hr 10/06/18 10/06/18 10/06/18 Range/Units 14:25 14:55 14:55 WBC 3.46 L (3.98-10.04) K/mm3 RBC 3.45 L (3.98-5.22) M/mm3 Hgb 9.5 L (11.2-15.7) gm/L Hct 28.9 L (34.1-44.9) % MCV 83.8 (79.4-94.8) fl MCH 27.5 (25.6-32.2) pg MCHC 32.9 (32.2-35.5) g/dl RDW Std Deviation 45.5 (36.4-46.3) fL Plt Count 167 L (182-369) K/mm3 MPV 9.0 L (9.4-12.3) fl Neut % (Auto) 65.0 (34.0-71.1) % Lymph % (Auto) 15.6 L (19.3-51.7) % Williamson % (Auto) 18.8 H (4.7-12.5) % Eos % (Auto) 0.3 L (0.7-5.8) Baso % (Auto) 0.0 L (0.1-1.2) % Neut # (Auto) 2.25 (1.56-6.13) K/mm3 Lymph # (Auto) 0.54 L (1.18-3.74) K/mm3 Williamson # (Auto) 0.65 H (0.24-0.36) K/mm3 Eos # (Auto) 0.01 L (0.04-0.36) K/mm3 Baso # (Auto) 0.00 L (0.01-0.08) K/mm3 Manual Slide Review Abnormal smear Sodium (136-145) mEq/L Potassium (3.5-5.1) mEq/L Chloride (98-107) mEq/L Carbon Dioxide (21-32) mEq/L Anion Gap (5-15) BUN (7-18) mg/dL Creatinine (0.55-1.02) mg/dL Est Cr Clr Drug Dosing mL/min Estimated GFR (MDRD) (>60) mL/min BUN/Creatinine Ratio (14-18) Glucose (83-115) mg/dL POC Glucose (83-110) mg/dL Calcium (8.5-10.1) mg/dL Magnesium (1.8-2.4) mg/dl Total Bilirubin (0.2-1.0) mg/dL AST (15-37) U/L ALT (14-59) U/L Alkaline Phosphatase (46-116) U/L C-Reactive Protein 12.7 H* (<1.0) mg/dL Total Protein (6.4-8.2) g/dl Albumin (3.4-5.0) g/dl Globulin gm/dL Albumin/Globulin Ratio (1-2) Urine Color Light yellow (Yellow) Urine Appearance Cloudy H (Clear) Urine pH 7.0 (5.0-8.0) Ur Specific [place] 1.020 (1.005-1.030) Urine Protein 2+ H (Negative) Urine Glucose (UA) Negative (Negative) Urine Ketones Negative (Negative) Urine Occult Blood 2+ H (Negative) Urine Nitrite Negative (Negative) Urine Bilirubin Negative (Negative) Urine Urobilinogen 0.2 (0.2-1.0) Ur Leukocyte Esterase 3+ H (Negative) Urine RBC 5-10 H (0-5) /hpf Urine WBC Too numerous to cnt H (0-5) /hpf Ur Epithelial Cells 0-5 (0-5) /hpf Urine Bacteria Many H (FEW) /hpf Urine Mucus Few (FEW) /hpf MRSA (PCR) 10/06/18 10/06/18 10/06/18 Range/Units 14:55 17:40 17:48 WBC (3.98-10.04) K/mm3 RBC (3.98-5.22) M/mm3 Hgb (11.2-15.7) gm/L Hct (34.1-44.9) % MCV (79.4-94.8) fl MCH (25.6-32.2) pg MCHC (32.2-35.5) g/dl RDW Std Deviation (36.4-46.3) fL Plt Count (182-369) K/mm3 MPV (9.4-12.3) fl Neut % (Auto) (34.0-71.1) % Lymph % (Auto) (19.3-51.7) % Williamson % (Auto) (4.7-12.5) % Eos % (Auto) (0.7-5.8) Baso % (Auto) (0.1-1.2) % Neut # (Auto) (1.56-6.13) K/mm3 Lymph # (Auto) (1.18-3.74) K/mm3 Williamson # (Auto) (0.24-0.36) K/mm3 Eos # (Auto) (0.04-0.36) K/mm3 Baso # (Auto) (0.01-0.08) K/mm3 Manual Slide Review Sodium 125 L (136-145) mEq/L Potassium 3.5 (3.5-5.1) mEq/L Chloride 84 L (98-107) mEq/L Carbon Dioxide 32 (21-32) mEq/L Anion Gap 12.5 (5-15) BUN 92 H (7-18) mg/dL Creatinine 3.7 H (0.55-1.02) mg/dL Est Cr Clr Drug Dosing 9.43 mL/min Estimated GFR (MDRD) 12 (>60) mL/min BUN/Creatinine Ratio 24.9 H (14-18) Glucose 152 H (83-115) mg/dL POC Glucose 128 H (83-110) mg/dL Calcium 8.6 (8.5-10.1) mg/dL Magnesium (1.8-2.4) mg/dl Total Bilirubin 0.4 (0.2-1.0) mg/dL AST 37 (15-37) U/L ALT 26 (14-59) U/L Alkaline Phosphatase 137 H (46-116) U/L C-Reactive Protein (<1.0) mg/dL Total Protein 8.0 (6.4-8.2) g/dl Albumin 2.7 L (3.4-5.0) g/dl Globulin 5.3 gm/dL Albumin/Globulin Ratio 0.5 L (1-2) Urine Color (Yellow) Urine Appearance (Clear) Urine pH (5.0-8.0) Ur Specific [place] (1.005-1.030) Urine Protein (Negative) Urine Glucose (UA) (Negative) Urine Ketones (Negative) Urine Occult Blood (Negative) Urine Nitrite (Negative) Urine Bilirubin (Negative) Urine Urobilinogen (0.2-1.0) Ur Leukocyte Esterase (Negative) Urine RBC (0-5) /hpf Urine WBC (0-5) /hpf Ur Epithelial Cells (0-5) /hpf Urine Bacteria (FEW) /hpf Urine Mucus (FEW) /hpf MRSA (PCR) Positive H 10/06/18 10/07/18 10/07/18 Range/Units 21:42 05:45 05:45 WBC 5.11 (3.98-10.04) K/mm3 RBC 3.46 L (3.98-5.22) M/mm3 Hgb 9.3 L (11.2-15.7) gm/L Hct 29.0 L (34.1-44.9) % MCV 83.8 (79.4-94.8) fl MCH 26.9 (25.6-32.2) pg MCHC 32.1 L (32.2-35.5) g/dl RDW Std Deviation 45.1 (36.4-46.3) fL Plt Count 142 L (182-369) K/mm3 MPV 9.0 L (9.4-12.3) fl Neut % (Auto) 66.5 (34.0-71.1) % Lymph % (Auto) 14.3 L (19.3-51.7) % Williamson % (Auto) 18.2 H (4.7-12.5) % Eos % (Auto) 0.2 L (0.7-5.8) Baso % (Auto) 0.2 (0.1-1.2) % Neut # (Auto) 3.40 (1.56-6.13) K/mm3 Lymph # (Auto) 0.73 L (1.18-3.74) K/mm3 Williamson # (Auto) 0.93 H (0.24-0.36) K/mm3 Eos # (Auto) 0.01 L (0.04-0.36) K/mm3 Baso # (Auto) 0.01 (0.01-0.08) K/mm3 Manual Slide Review Normal smear Sodium 129 L (136-145) mEq/L Potassium 3.0 L (3.5-5.1) mEq/L Chloride 89 L (98-107) mEq/L Carbon Dioxide 30 (21-32) mEq/L Anion Gap 13.0 (5-15) BUN 85 H (7-18) mg/dL Creatinine 3.2 H (0.55-1.02) mg/dL Est Cr Clr Drug Dosing 10.90 mL/min Estimated GFR (MDRD) 14 (>60) mL/min BUN/Creatinine Ratio 26.6 H (14-18) Glucose 118 H (83-115) mg/dL POC Glucose 144 H (83-110) mg/dL Calcium 8.0 L (8.5-10.1) mg/dL Magnesium 2.2 (1.8-2.4) mg/dl Total Bilirubin (0.2-1.0) mg/dL AST (15-37) U/L ALT (14-59) U/L Alkaline Phosphatase (46-116) U/L C-Reactive Protein 11.0 H* (<1.0) mg/dL Total Protein (6.4-8.2) g/dl Albumin (3.4-5.0) g/dl Globulin gm/dL Albumin/Globulin Ratio (1-2) Urine Color (Yellow) Urine Appearance (Clear) Urine pH (5.0-8.0) Ur Specific [place] (1.005-1.030) Urine Protein (Negative) Urine Glucose (UA) (Negative) Urine Ketones (Negative) Urine Occult Blood (Negative) Urine Nitrite (Negative) Urine Bilirubin (Negative) Urine Urobilinogen (0.2-1.0) Ur Leukocyte Esterase (Negative) Urine RBC (0-5) /hpf Urine WBC (0-5) /hpf Ur Epithelial Cells (0-5) /hpf Urine Bacteria (FEW) /hpf Urine Mucus (FEW) /hpf MRSA (PCR) 10/07/18 Range/Units 05:45 WBC (3.98-10.04) K/mm3 RBC (3.98-5.22) M/mm3 Hgb (11.2-15.7) gm/L Hct (34.1-44.9) % MCV (79.4-94.8) fl MCH (25.6-32.2) pg MCHC (32.2-35.5) g/dl RDW Std Deviation (36.4-46.3) fL Plt Count (182-369) K/mm3 MPV (9.4-12.3) fl Neut % (Auto) (34.0-71.1) % Lymph % (Auto) (19.3-51.7) % [place] % (Auto) (4.7-12.5) % Eos % (Auto) (0.7-5.8) Baso % (Auto) (0.1-1.2) % Neut # (Auto) (1.56-6.13) K/mm3 Lymph # (Auto) (1.18-3.74) K/mm3 [place] # (Auto) (0.24-0.36) K/mm3 Eos # (Auto) (0.04-0.36) K/mm3 Baso # (Auto) (0.01-0.08) K/mm3 Manual Slide Review Sodium (136-145) mEq/L Potassium (3.5-5.1) mEq/L Chloride (98-107) mEq/L Carbon Dioxide (21-32) mEq/L Anion Gap (5-15) BUN (7-18) mg/dL Creatinine (0.55-1.02) mg/dL Est Cr Clr Drug Dosing mL/min Estimated GFR (MDRD) (>60) mL/min BUN/Creatinine Ratio (14-18) Glucose (83-115) mg/dL POC Glucose 147 H (83-110) mg/dL Calcium (8.5-10.1) mg/dL Magnesium (1.8-2.4) mg/dl Total Bilirubin (0.2-1.0) mg/dL AST (15-37) U/L ALT (14-59) U/L Alkaline Phosphatase (46-116) U/L C-Reactive Protein (<1.0) mg/dL Total Protein (6.4-8.2) g/dl Albumin (3.4-5.0) g/dl Globulin gm/dL Albumin/Globulin Ratio (1-2) Urine Color (Yellow) Urine Appearance (Clear) Urine pH (5.0-8.0) Ur Specific [place] (1.005-1.030) Urine Protein (Negative) Urine Glucose (UA) (Negative) Urine Ketones (Negative) Urine Occult Blood (Negative) Urine Nitrite (Negative) Urine Bilirubin (Negative) Urine Urobilinogen (0.2-1.0) Ur Leukocyte Esterase (Negative) Urine RBC (0-5) /hpf Urine WBC (0-5) /hpf Ur Epithelial Cells (0-5) /hpf Urine Bacteria (FEW) /hpf Urine Mucus (FEW) /hpf MRSA (PCR) Gopi Results Last 24 Hours: Microbiology 10/06/18 14:25 Urine Culture - Preliminary Urine, Catheterized Gram Negative Rods Med Orders - Current: Current Medications Acetaminophen (Tylenol) 650 mg PO BID PRN PRN Reason: Pain Acetaminophen (Tylenol) 650 mg PO Q6H SANJIV Last Admin: 10/07/18 06:08 Dose: 650 mg Hydrocodone Bitart/Acetaminophen (Jameson 325-5 Mg) 1 tab PO Q4H PRN PRN Reason: Pain (moderate 4-6) Albuterol/Ipratropium (Duoneb 3.0-0.5 Mg/3 Ml) 3 ml NEB Q4H PRN PRN Reason: Shortness Of Breath/wheezing Amlodipine Besylate (Norvasc) 10 mg PO DAILY [facility] Artificial Tears (Refresh Liquigel 1%) 0 ml EYEBOTH DAILY PRN PRN Reason: Dry Eyes Aspirin (Halfprin) 81 mg PO DAILY [facility] Bacitracin (Bacitracin Oint) 2 gm TOP TID [facility] Stop: 10/10/18 21:00 Last Admin: 10/06/18 21:39 Dose: 1 applic Benzocaine/Menthol (Cepacol Sore Throat) 1 lozenge MUCMEM Q1H PRN PRN Reason: SORE THROATE Bisacodyl (Dulcolax) 5 mg PO DAILY PRN PRN Reason: Constipation Calcium Carbonate/Glycine (Tums) 500 mg PO Q6H PRN PRN Reason: Indigestion Carbamide Perox/Anhydrous Glycerin (Debrox 6.5% Otic Soln) 0 ml EARBOTH BID [facility] Last Admin: 10/06/18 21:43 Dose: Not Given Docusate Sodium (Colace) 100 mg PO BID PRN PRN Reason: Constipation Famotidine (Pepcid) 20 mg PO Q48H [facility] Guaifenesin (Mucinex) 600 mg PO BID [facility] Last Admin: 10/06/18 21:40 Dose: 600 mg Hydromorphone HCl (Dilaudid) 0.25 mg IVPUSH Q2H PRN PRN Reason: Pain (severe 7-10) Promethazine HCl 6.25 mg/ (Sodium Chloride) 50.25 mls @ 100 mls/hr IV Q6H PRN PRN Reason: Nausea/Vomiting Sodium Chloride (Normal Saline) 1,000 mls @ 125 mls/hr IV ASDIRECTED [facility] Last Admin: 10/07/18 06:08 Dose: 125 mls/hr Ceftriaxone Sodium 1 gm/ (Sodium Chloride) 100 mls @ 200 mls/hr IV Q24H [facility] Insulin Glargine (Lantus) 20 unit SUBCUT DAILY [facility] Insulin Human Lispro (Humalog) 0 unit SUBCUT QIDACANDBED [facility]; Protocol Last Admin: 10/07/18 06:15 Dose: Not Given Lorazepam (Ativan) 0.25 mg IV Q6H PRN PRN Reason: Anxiety Losartan Potassium (Cozaar) 50 mg PO DAILY [facility] Metolazone (Zaroxolyn) 2.5 mg PO DAILY [facility] Nystatin (Nystatin Crm) 0 gm TOP BID PRN PRN Reason: ITCHING Ondansetron HCl (Zofran) 4 mg IV Q6H PRN PRN Reason: Nausea/Vomiting Oral Electrolytes (Thermotabs) 2 each PO TID [facility] Pantoprazole Sodium (Protonix) 40 mg PO Q48H [facility] Polyethylene Glycol (Miralax) 17 gm PO DAILY PRN PRN Reason: Constipation Rosuvastatin Calcium (Crestor) 20 mg PO DAILY [facility] Senna/Docusate Sodium (Senna Plus) 1 tab PO BID PRN PRN Reason: Constipation Sodium Chloride (Saline Flush) 10 ml FLUSH ASDIRECTED PRN PRN Reason: Keep Vein Open Last Admin: 10/06/18 15:05 Dose: 10 ml Temazepam (Restoril) 7.5 mg PO BEDTIME PRN PRN Reason: Sleep Vit A/Vit C/Vit E/Selen/Cu/Zn/Lutei (Icaps Mv) 1 tab PO BID [facility] Last Admin: 10/06/18 21:40 Dose: 1 tab Discontinued Medications Acetaminophen (Tylenol) 650 mg PO Q6H [facility] Last Admin: 10/06/18 20:13 Dose: 650 mg Acetaminophen (Tylenol) 650 mg PO Q4H PRN PRN Reason: Pain Famotidine (Pepcid) 20 mg IVPUSH ONETIME ONE Stop: 10/06/18 20:47 Last Admin: 10/06/18 21:40 Dose: 20 mg Sodium Chloride (Normal Saline) 500 mls @ 999 mls/hr IV .BOLUS ONE Stop: 10/06/18 15:16 Last Admin: 10/06/18 15:04 Dose: 999 mls/hr Ceftriaxone Sodium 1 gm/ (Sodium Chloride) 100 mls @ 200 mls/hr IV ONETIME ONE Stop: 10/06/18 16:55 Last Admin: 10/06/18 16:31 Dose: 200 mls/hr Sodium Chloride (Normal Saline) 250 mls @ 999 mls/hr IV .BOLUS ONE Stop: 10/06/18 16:57 Last Admin: 10/06/18 16:51 Dose: 300 mls/hr Non-Formulary Medication (Lutein/Minerals/Vit A,C & E) 1 tab PO DAILY SANJIV Oral Electrolytes (Thermotabs) 2 each PO ASDIRECTED SANJIV Oral Electrolytes (Thermotabs) 1 each PO NOW STA Stop: 10/06/18 20:31 Last Admin: 10/06/18 21:40 Dose: 1 each - Exam General: Alert, Cooperative, No Acute Distress HEENT: Pupils Equal, Pupils Reactive, Mucous Membr. Moist/[place] Neck: Supple Lungs: Normal Respiratory Effort, Decreased Breath Sounds Cardiovascular: Regular Rate, Regular Rhythm GI/Abdominal Exam: Normal Bowel Sounds, Soft, Non-Tender, No Organomegaly, No Distention, No Abnormal Bruit (Female) Exam: Deferred Back Exam: Normal Inspection, Decreased Range of Motion Extremities: Normal Range of Motion, Non-Tender, No Pedal Edema, Normal Capillary Refill Skin: Warm, Dry, Intact Neurological: No New Focal Deficit Psy/Mental Status: Alert, Normal Affect, Normal Mood - Problem List Review Problem List Initiated/Reviewed/Updated: Yes - My Orders Last 24 Hours: My Active Orders 10/06/18 17:48 Resuscitation Status Routine 10/06/18 18:09 Accu Check [Blood Glucose Check, Bedside] [RC] QIDACANDBED 10/06/18 20:00 Acetaminophen [Tylenol] 650 mg PO BID PRN Calcium Carbonate [Tums] 500 mg PO Q6H PRN Carboxymethylcellulose Sodium [Refresh Liquigel 1%] 0 ml EYEBOTH DAILY PRN 10/06/18 20:05 Oxygen Therapy [RC] PRN Up With Assistance [RC] ASDIRECTED VTE/DVT Education [RC] PER UNIT ROUTINE Vital Signs [RC] Q4H Consult to Case Management/Application Packaging Consultant [CONS] Routine Consult to Spiritual Care [CONS] Routine OT Evaluation and Treatment [CONS] Routine PT Evaluation and Treatment [CONS] Routine Acetaminophen/HYDROcodone [Jameson 325-5 MG] 1 tab PO Q4H PRN Albuterol/Ipratropium [DuoNeb 3.0-0.5 MG/3 ML] 3 ml NEB Q4H PRN Bisacodyl [Dulcolax] 5 mg PO DAILY PRN Docusate Sodium [Colace] 100 mg PO BID PRN Docusate Sodium/Sennosides [Senna Plus] 1 tab PO BID PRN HYDROmorphone [Dilaudid] 0.25 mg IVPUSH Q2H PRN LORazepam [Ativan] 0.25 mg IV Q6H PRN Ondansetron [Zofran] 4 mg IV Q6H PRN Polyethylene Glycol 3350 [MiraLAX] 17 gm PO DAILY PRN Promethazine [Phenergan] 6.25 mg Sodium Chloride 0.9% [Normal Saline] 50 ml IV Q6H Temazepam [Restoril] 7.5 mg PO BEDTIME PRN 10/06/18 20:07 RT Aerosol Therapy [RC] ASDIRECTED 10/06/18 20:15 Sodium Chloride 0.9% [Normal Saline] 1,000 ml IV ASDIRECTED 10/06/18 20:41 Sequential Compression Device [OM.PC] Routine 10/06/18 20:45 Benzocaine/Cetylpyrd/Menthol [Cepacol Sore Throat] 1 lozenge MUCMEM Q1H PRN Nystatin [Nystatin Crm] 0 gm TOP BID PRN 10/06/18 20:47 Precautions [COMM] Routine 10/06/18 21:00 Bacitracin [Bacitracin Oint] 2 gm TOP TID Carbamide Peroxide [Debrox 6.5% Otic Soln] 0 ml EARBOTH BID Multivitamins/Min/FA/Lut/Zeax [ICaps MV] 1 tab PO BID guaiFENesin [Mucinex] 600 mg PO BID 10/06/18 22:00 Insulin Lispro [HumaLOG] See Protocol SUBCUT QIDACANDBED 10/06/18 Dinner ADA Diabetic [[employer] Diet] [DIET] Heart Healthy Diet [DIET] Renal Non-Dialysis Diet [DIET] 10/07/18 06:00 Acetaminophen [Tylenol] 650 mg PO Q6H 10/07/18 09:00 Aspirin [Halfprin] 81 mg PO DAILY Famotidine [Pepcid] 20 mg PO Q48H Insulin Glarg,Human.Rec.Analog [LantUS] 20 unit SUBCUT DAILY Losartan [Cozaar] 50 mg PO DAILY Rosuvastatin [Crestor] 20 mg PO DAILY Sodium Chloride/KCl [Thermotabs] 2 each PO TID amLODIPine [Norvasc] 10 mg PO DAILY 10/07/18 16:00 cefTRIAXone [Rocephin] 1 gm Sodium Chloride 0.9% [Normal Saline] 100 ml IV Q24H 10/08/18 05:11 BASIC METABOLIC PANEL,BMP [CHEM] AM C-REACTIVE PROTEIN [CHEM] AM CBC WITH AUTO DIFF [HEME] AM MAGNESIUM [CHEM] AM 10/08/18 07:00 Pantoprazole [ProTONIX] 40 mg PO Q48H 10/09/18 05:11 BASIC METABOLIC PANEL,BMP [CHEM] AM C-REACTIVE PROTEIN [CHEM] AM CBC WITH AUTO DIFF [HEME] AM MAGNESIUM [CHEM] AM 10/10/18 05:11 BASIC METABOLIC PANEL,BMP [CHEM] AM C-REACTIVE PROTEIN [CHEM] AM CBC WITH AUTO DIFF [HEME] AM MAGNESIUM [CHEM] AM 10/10/18 09:00 metOLazone [Zaroxolyn] 2.5 mg PO DAILY - Plan Plan:: Assessment/Plan: Acute: UTI 2/2 GNR - Risk Factors: Urinary Incontinence - UA strongly positive - Received IV Rocephin in ED; will continue - Pending UA Cx/Sx MECHELLE, Slowly Improving - Acute on CKD - Risk Factors: on dual diuretics plus underlying chronic renal insufficiency - Baseline CKD Stage 3 - Cr 3.7--> 3.2; baseline of 2.5 07/18/2018 - Renal U/S in AM - IV hydration - Monitor Renal function - Avoid nephrotoxic agents Moderate Hyponatremia, Improved - Na is 125 --> 129 - She is on diuretics: lasix and metolazone - Hold diuretics - Continue IV hydration and Thermotabs - Goal: Na at 135 or higher Generalized Weakness - 2/2 Above - PT/OT once she improve clinically Chronic: Impaired Hearing/Vision, HF w/ Preserved EF of 65% 12/13/2015. HTN, HLD , PVD, SOB, GERD, Hital Hernia, CKD Stage 3, Urinary Incontinence, OA/DJD, Osteoporosis, DM2, Chronic Hyponatremia, Anemia, Urticaria and Obesity with BMI > 35 Plan: She is clinically stable Continue current treatment Routine AM Labs PT/OT eval Mupirocine topical BIS to apply both nares for 5 days Accu-check AC/HS w/ ISS coverage Aspiration and Fall Precautions DVT/GI PPx: SCDs/H2B Renal U/S in AM r/o obstructive uropathy SW/CM for d/c planning Code status: DNR/DNI
[2018-10-07] MEDS: Carbamide Peroxide 6.5% Otic Soln 15 ML Bottle EARBOTH SCH ×2 (09:25→21:57)
[2018-10-07] MEDS: Multivitamins with Minerals/Folic Acid/Lutein/Zeaxanth Tab PO SCH ×2 (09:26→21:58)
[2018-10-07] MEDS: Bacitracin Oint 15 GM Tube TOP SCH (09:26)
[2018-10-07] MEDS: Sodium Chloride/Potassium Chloride Tab PO SCH ×3 (09:27→21:58)
[2018-10-07] MEDS: amLODIPine 10 MG Tab PO SCH (09:29)
[2018-10-07] MEDS: Losartan 25 MG Tab PO SCH (09:29)
[2018-10-07] MEDS: Rosuvastatin 10 MG Tab PO SCH (09:29)
[2018-10-07] MEDS: Aspirin 81 MG Tab.EC PO SCH (09:29)
[2018-10-07] MEDS: guaiFENesin 600 MG Tab.ER PO SCH ×2 (09:30→21:58)
[2018-10-07] MEDS: Famotidine 20 MG Tab PO SCH (12:05)
[2018-10-07] MEDS: cefTRIAXone 1 GM in Sodium Chloride 0.9% 100 ML IV SCH (15:10)
[2018-10-07] MEDS: Mupirocin Oint 22 GM Tube TOP SCH (21:56)
[2018-10-08] MEDS: Acetaminophen 325 MG Tab PO SCH ×4 (01:02→17:56)
[2018-10-08] MEDS: Insulin Lispro 100 Unit/ML 3 ML KwikPen SUBCUT SCH ×4 (06:29→21:21)
[2018-10-08] MEDS: Modafinil 200 MG Tab PO SCH ×2 (06:36→09:58)
[2018-10-08] MEDS ORDERED: Pantoprazole 40 MG Tab.CR PO SCH (07:00)
--- NOTE | 2018-10-08 09:15 | PCM.PN ---
- General Info Date of Service: 10/08/18 Admission Dx/Problem (Free Text): Admission Diagnosis/Problem Admission Diagnosis/Problem Urinary tract infection Subjective Update: Follow Up Functional Status: Reports: Pain Controlled, Tolerating Diet, Urinating. Denies : New Symptoms - Review of Systems General: Denies: Fever, Chills Pulmonary: Reports: Cough. Denies: Shortness of Breath Cardiovascular: Denies: Chest Pain, Dyspnea on Exertion, Lightheadedness Gastrointestinal: Denies: Abdominal Pain, Nausea, Vomiting Genitourinary: Reports: No Symptoms Musculoskeletal: Reports: No Symptoms Skin: Reports: Bruising. Denies: Cyanosis, Pallor, Diaphoresis Neurological: Reports: Difficulty Walking, Weakness, Gait Disturbance. Denies: Confusion Psychiatric: Reports: No Symptoms. Denies: Depression, Anxiety, Agitation, Hallucinations Systems Review Comment:: No significant overnight or acute issues. She rested well and has not complaints this AM. She is more alert and wake. She ate her breakfast fairly. Her NA is now at 131. She is still a 2 person assist. - Patient Data Vitals - Most Recent: Last Vital Signs Temp 36.6 C 10/08/18 07:49 Pulse 72 10/08/18 07:49 Resp 14 10/08/18 07:49 BP 147/55 H 10/08/18 07:49 Pulse Ox 97 10/08/18 07:49 Weight - Most Recent: 99.11 kg I&O - Last 24 Hours: Intake & Output 10/07/18 10/08/18 10/08/18 22:59 06:59 14:59 Intake Total 2057 280 Output Total 600 Balance 1457 280 Lab Results Last 24 Hours: Laboratory Results - last 24 hr 10/07/18 10/07/18 10/07/18 Range/Units 10:41 17:59 21:12 WBC (3.98-10.04) K/mm3 RBC (3.98-5.22) M/mm3 Hgb (11.2-15.7) gm/L Hct (34.1-44.9) % MCV (79.4-94.8) fl MCH (25.6-32.2) pg MCHC (32.2-35.5) g/dl RDW Std Deviation (36.4-46.3) fL Plt Count (182-369) K/mm3 MPV (9.4-12.3) fl Neut % (Auto) (34.0-71.1) % Lymph % (Auto) (19.3-51.7) % [place] % (Auto) (4.7-12.5) % Eos % (Auto) (0.7-5.8) Baso % (Auto) (0.1-1.2) % Neut # (Auto) (1.56-6.13) K/mm3 Lymph # (Auto) (1.18-3.74) K/mm3 [place]ent # (Auto) (0.24-0.36) K/mm3 Eos # (Auto) (0.04-0.36) K/mm3 Baso # (Auto) (0.01-0.08) K/mm3 Manual Slide Review Sodium (136-145) mEq/L Potassium (3.5-5.1) mEq/L Chloride (98-107) mEq/L Carbon Dioxide (21-32) mEq/L Anion Gap (5-15) BUN (7-18) mg/dL Creatinine (0.55-1.02) mg/dL Est Cr Clr Drug Dosing mL/min Estimated GFR (MDRD) (>60) mL/min BUN/Creatinine Ratio (14-18) Glucose (83-115) mg/dL POC Glucose 131 H 233 H 184 H (83-110) mg/dL Calcium (8.5-10.1) mg/dL Magnesium (1.8-2.4) mg/dl C-Reactive Protein (<1.0) mg/dL 10/08/18 10/08/18 10/08/18 Range/Units 06:25 06:25 06:25 WBC 6.76 (3.98-10.04) K/mm3 RBC 3.43 L (3.98-5.22) M/mm3 Hgb 9.3 L (11.2-15.7) gm/L Hct 28.9 L (34.1-44.9) % MCV 84.3 (79.4-94.8) fl MCH 27.1 (25.6-32.2) pg MCHC 32.2 (32.2-35.5) g/dl RDW Std Deviation 45.9 (36.4-46.3) fL Plt Count 149 L (182-369) K/mm3 MPV 9.3 L (9.4-12.3) fl Neut % (Auto) 74.2 H (34.0-71.1) % Lymph % (Auto) 8.4 L (19.3-51.7) % [place] % (Auto) 11.7 (4.7-12.5) % Eos % (Auto) 5.2 (0.7-5.8) Baso % (Auto) 0.1 (0.1-1.2) % Neut # (Auto) 5.01 (1.56-6.13) K/mm3 Lymph # (Auto) 0.57 L (1.18-3.74) K/mm3 [place]ent # (Auto) 0.79 H (0.24-0.36) K/mm3 Eos # (Auto) 0.35 (0.04-0.36) K/mm3 Baso # (Auto) 0.01 (0.01-0.08) K/mm3 Manual Slide Review Abnormal smear Sodium 131 L (136-145) mEq/L Potassium 3.2 L (3.5-5.1) mEq/L Chloride 93 L (98-107) mEq/L Carbon Dioxide 27 (21-32) mEq/L Anion Gap 14.2 (5-15) BUN 76 H (7-18) mg/dL Creatinine 2.9 H (0.55-1.02) mg/dL Est Cr Clr Drug Dosing 12.03 mL/min Estimated GFR (MDRD) 16 (>60) mL/min BUN/Creatinine Ratio 26.2 H (14-18) Glucose 75 L (83-115) mg/dL POC Glucose 86 (83-110) mg/dL Calcium 7.9 L (8.5-10.1) mg/dL Magnesium 2.3 (1.8-2.4) mg/dl C-Reactive Protein 11.6 H* (<1.0) mg/dL Gopi Results Last 24 Hours: Microbiology 10/06/18 14:25 Urine Culture - Preliminary Urine, Catheterized Gram Negative Rods Med Orders - Current: Current Medications Acetaminophen (Tylenol) 650 mg PO BID PRN PRN Reason: Pain Acetaminophen (Tylenol) 650 mg PO Q6H [facility] Last Admin: 10/08/18 06:36 Dose: 650 mg Hydrocodone Bitart/Acetaminophen ([place] 325-5 Mg) 1 tab PO Q4H PRN PRN Reason: Pain (moderate 4-6) Albuterol/Ipratropium (Duoneb 3.0-0.5 Mg/3 Ml) 3 ml NEB Q4H PRN PRN Reason: Shortness Of Breath/wheezing Amlodipine Besylate (Norvasc) 10 mg PO DAILY [facility] Last Admin: 10/07/18 09:29 Dose: 10 mg Artificial Tears (Refresh Liquigel 1%) 0 ml EYEBOTH DAILY PRN PRN Reason: Dry Eyes Aspirin (Halfprin) 81 mg PO DAILY [facility] Last Admin: 10/07/18 09:29 Dose: 81 mg Benzocaine/Menthol (Cepacol Sore Throat) 1 lozenge MUCMEM Q1H PRN PRN Reason: SORE THROATE Bisacodyl (Dulcolax) 5 mg PO DAILY PRN PRN Reason: Constipation Calcium Carbonate/Glycine (Tums) 500 mg PO Q6H PRN PRN Reason: Indigestion Carbamide Perox/Anhydrous Glycerin (Debrox 6.5% Otic Soln) 0 ml EARBOTH BID [facility] Last Admin: 10/07/18 21:57 Dose: 5 drop Docusate Sodium (Colace) 100 mg PO BID PRN PRN Reason: Constipation Famotidine (Pepcid) 20 mg PO Q48H [facility] Last Admin: 10/07/18 12:05 Dose: 20 mg Guaifenesin (Mucinex) 600 mg PO BID [facility] Last Admin: 10/07/18 21:58 Dose: 600 mg Hydromorphone HCl (Dilaudid) 0.25 mg IVPUSH Q2H PRN PRN Reason: Pain (severe 7-10) Promethazine HCl 6.25 mg/ (Sodium Chloride) 50.25 mls @ 100 mls/hr IV Q6H PRN PRN Reason: Nausea/Vomiting Ceftriaxone Sodium 1 gm/ (Sodium Chloride) 100 mls @ 200 mls/hr IV Q24H [facility] Last Admin: 10/07/18 15:10 Dose: 200 mls/hr Sodium Chloride (Normal Saline) 1,000 mls @ 15 mls/hr IV ASDIRECTED [facility] Last Admin: 10/07/18 21:58 Dose: 15 mls/hr Insulin Glargine (Lantus) 20 unit SUBCUT DAILY [facility] Insulin Human Lispro (Humalog) 0 unit SUBCUT QIDACANDBED [facility]; Protocol Last Admin: 10/08/18 06:29 Dose: Not Given Lorazepam (Ativan) 0.25 mg IV Q6H PRN PRN Reason: Anxiety Losartan Potassium (Cozaar) 50 mg PO DAILY [facility] Last Admin: 10/07/18 09:29 Dose: 50 mg Metolazone (Zaroxolyn) 2.5 mg PO DAILY [facility] Modafinil (Provigil) 100 mg PO DAILY@0700 [facility] Mupirocin (Bactroban Oint) 0 gm TOP BID [facility] Stop: 10/12/18 09:01 Last Admin: 10/07/18 21:56 Dose: 1 applic Nystatin (Nystatin Crm) 0 gm TOP BID PRN PRN Reason: ITCHING Ondansetron HCl (Zofran) 4 mg IV Q6H PRN PRN Reason: Nausea/Vomiting Oral Electrolytes (Thermotabs) 2 each PO TID [facility] Last Admin: 10/07/18 21:58 Dose: 2 each Polyethylene Glycol (Miralax) 17 gm PO DAILY PRN PRN Reason: Constipation Rosuvastatin Calcium (Crestor) 20 mg PO DAILY [facility] Last Admin: 10/07/18 09:29 Dose: 20 mg Senna/Docusate Sodium (Senna Plus) 1 tab PO BID PRN PRN Reason: Constipation Sodium Chloride (Saline Flush) 10 ml FLUSH ASDIRECTED PRN PRN Reason: Keep Vein Open Last Admin: 10/06/18 15:05 Dose: 10 ml Temazepam (Restoril) 7.5 mg PO BEDTIME PRN PRN Reason: Sleep Vit A/Vit C/Vit E/Selen/Cu/Zn/Lutei (Icaps Mv) 1 tab PO BID [facility] Last Admin: 10/07/18 21:58 Dose: 1 tab Discontinued Medications Acetaminophen (Tylenol) 650 mg PO Q6H [facility] Last Admin: 10/06/18 20:13 Dose: 650 mg Acetaminophen (Tylenol) 650 mg PO Q4H PRN PRN Reason: Pain Bacitracin (Bacitracin Oint) 2 gm TOP TID [facility] Stop: 10/10/18 21:00 Last Admin: 10/07/18 09:26 Dose: 1 applic Famotidine (Pepcid) 20 mg IVPUSH ONETIME ONE Stop: 10/06/18 20:47 Last Admin: 10/06/18 21:40 Dose: 20 mg Sodium Chloride (Normal Saline) 500 mls @ 999 mls/hr IV .BOLUS ONE Stop: 10/06/18 15:16 Last Admin: 10/06/18 15:04 Dose: 999 mls/hr Ceftriaxone Sodium 1 gm/ (Sodium Chloride) 100 mls @ 200 mls/hr IV ONETIME ONE Stop: 10/06/18 16:55 Last Admin: 10/06/18 16:31 Dose: 200 mls/hr Sodium Chloride (Normal Saline) 250 mls @ 999 mls/hr IV .BOLUS ONE Stop: 10/06/18 16:57 Last Admin: 10/06/18 16:51 Dose: 300 mls/hr Sodium Chloride (Normal Saline) 1,000 mls @ 125 mls/hr IV ASDIRECTED [facility] Last Admin: 10/07/18 06:08 Dose: 125 mls/hr Insulin Glargine (Lantus) 20 unit SUBCUT DAILY [facility] Last Admin: 10/07/18 09:27 Dose: 20 unit Modafinil (Provigil) 100 mg PO DAILY [facility] Last Admin: 10/08/18 06:36 Dose: 100 mg Non-Formulary Medication (Lutein/Minerals/Vit A,C & E) 1 tab PO DAILY [facility] Oral Electrolytes (Thermotabs) 2 each PO ASDIRECTED [facility] Oral Electrolytes (Thermotabs) 1 each PO NOW STA Stop: 10/06/18 20:31 Last Admin: 10/06/18 21:40 Dose: 1 each Pantoprazole Sodium (Protonix) 40 mg PO Q48H [facility] - Exam General: Alert, Cooperative, No Acute Distress HEENT: Pupils Equal, Pupils Reactive, EOMI, Mucous Membr. Moist/[place] Neck: Supple Lungs: Decreased Breath Sounds Cardiovascular: Regular Rate, Regular Rhythm GI/Abdominal Exam: Normal Bowel Sounds, Soft, Non-Tender, No Organomegaly, No Distention, No Abnormal Bruit (Female) Exam: Deferred Back Exam: Normal Inspection, Decreased Range of Motion Extremities: Normal Inspection, Normal Range of Motion, Non-Tender, Normal Capillary Refill, Pedal Edema Peripheral Pulses: 1+: Dorsalis Pedis (L), Dorsalis Pedis (R) Skin: Warm, Dry, Intact Neurological: No New Focal Deficit Psy/Mental Status: Alert, Normal Affect, Normal Mood - Problem List Review Problem List Initiated/Reviewed/Updated: Yes - My Orders Last 24 Hours: My Active Orders 10/07/18 09:00 Aspirin [Halfprin] 81 mg PO DAILY Famotidine [Pepcid] 20 mg PO Q48H Losartan [Cozaar] 50 mg PO DAILY Rosuvastatin [Crestor] 20 mg PO DAILY Sodium Chloride/KCl [Thermotabs] 2 each PO TID amLODIPine [Norvasc] 10 mg PO DAILY 10/07/18 12:30 Sodium Chloride 0.9% [Normal Saline] 1,000 ml IV ASDIRECTED 10/07/18 12:50 Insulin Glarg,Human.Rec.Analog [LantUS] 20 unit SUBCUT DAILY 10/07/18 16:00 cefTRIAXone [Rocephin] 1 gm Sodium Chloride 0.9% [Normal Saline] 100 ml IV Q24H 10/07/18 21:00 Mupirocin Oint [Bactroban Oint] 0 gm TOP BID 10/07/18 23:18 Up With Assistance [RC] ASDIRECTED 10/07/18 Lunch Consistent Carbohydrate Diet [DIET] Protein Restricted Diet [DIET] 10/09/18 05:11 BASIC METABOLIC PANEL,BMP [CHEM] AM C-REACTIVE PROTEIN [CHEM] AM CBC WITH AUTO DIFF [HEME] AM MAGNESIUM [CHEM] AM 10/09/18 07:00 Modafinil [Provigil] 100 mg PO DAILY@0700 10/10/18 05:11 BASIC METABOLIC PANEL,BMP [CHEM] AM C-REACTIVE PROTEIN [CHEM] AM CBC WITH AUTO DIFF [HEME] AM MAGNESIUM [CHEM] AM 10/10/18 09:00 metOLazone [Zaroxolyn] 2.5 mg PO DAILY - Plan Plan:: Assessment/Plan: Acute: UTI 2/2 GNR - Risk Factors: Urinary Incontinence - UA strongly positive - Received IV Rocephin in ED; will continue - Pending UA Cx/Sx -pending further info MECHELLE, Continues to Improve - Acute on CKD - Risk Factors: on dual diuretics plus underlying chronic renal insufficiency - Baseline CKD Stage 3 - Cr 3.7--> 3.2 --> 2.9; baseline of 2.5 07/18/2018 - Renal U/S pending - IV hydration at KVO - Monitor Renal function - Avoid nephrotoxic agents Moderate Hyponatremia, Continues Improve - Na is 125 --> 129--> 131 - She is on diuretics: lasix and metolazone - Hold diuretics - Continue IV hydration and Thermotabs - Goal: Na at 135 or higher Generalized Weakness - 2/2 Above - Essentially the same - Encourage to eat more; nursing to assist with feeding - PT/OT once she improve clinically Chronic: Impaired Hearing/Vision, HF w/ Preserved EF of 65% 12/13/2015. HTN, HLD , PVD, SOB, GERD, Hital Hernia, CKD Stage 3, Urinary Incontinence, OA/DJD, Osteoporosis, DM2, Chronic Hyponatremia, Anemia, Urticaria and Obesity with BMI > 35 Plan: She remains clinically stable Continue current treatment Routine AM Labs PT/OT treatment Continue oral stimulant Accu-check AC/HS w/ ISS coverage Aspiration and Fall Precautions DVT/GI PPx: SCDs/H2B Renal U/S in AM r/o obstructive uropathy SW/CM for d/c planning Code status: DNR/DNI
[2018-10-08] MEDS ORDERED: Potassium Chloride 20 MEQ Tab.ER PO ONE (09:30)
[2018-10-08] MEDS: Losartan 25 MG Tab PO SCH (09:37)
[2018-10-08] MEDS: Rosuvastatin 10 MG Tab PO SCH (09:38)
[2018-10-08] MEDS: Multivitamins with Minerals/Folic Acid/Lutein/Zeaxanth Tab PO SCH ×2 (09:39→21:14)
[2018-10-08] MEDS: amLODIPine 10 MG Tab PO SCH (09:39)
[2018-10-08] MEDS: Sodium Chloride/Potassium Chloride Tab PO SCH ×3 (09:39→21:14)
[2018-10-08] MEDS: Aspirin 81 MG Tab.EC PO SCH (09:40)
[2018-10-08] MEDS: guaiFENesin 600 MG Tab.ER PO SCH ×2 (09:40→21:14)
[2018-10-08] MEDS: Mupirocin Oint 22 GM Tube TOP SCH ×2 (09:47→21:19)
[2018-10-08] MEDS: Insulin Glarg,Human.Rec.Analog 100 UNIT/ML ML SUBCUT SCH (09:50)
[2018-10-08] MEDS: Carbamide Peroxide 6.5% Otic Soln 15 ML Bottle EARBOTH SCH ×2 (09:51→21:19)
[2018-10-08] MEDS: cefTRIAXone 1 GM in Sodium Chloride 0.9% 100 ML IV SCH (15:02)
--- NOTE | 2018-10-08 15:07 | US ---
Renal ultrasound: Multiple real-time images of the kidneys were obtained. Comparison: Previous renal ultrasound of 12/12/15. Kidneys show no hydronephrosis. Cortices of both kidneys are slightly echogenic. Resistivity indices are elevated within both kidneys. Right kidney length is 10.4 cm and left kidney length is 9.5 cm. Prevoid bladder volume is 635 mL and postvoid bladder volume is 543 mL. Impression: 1. Findings within both kidneys compatible with nonspecific medical renal disease. 2. Significant post void residual within the bladder. Diagnostic code #3
[2018-10-08] MEDS: Sodium Chloride 0.9% 1,000 ML IV SCH (21:51)
[2018-10-09] MEDS: Acetaminophen 325 MG Tab PO SCH ×4 (00:22→17:33)
[2018-10-09] MEDS ORDERED: Modafinil 200 MG Tab PO SCH (07:00)
[2018-10-09] MEDS: Insulin Lispro 100 Unit/ML 3 ML KwikPen SUBCUT SCH ×4 (07:03→21:26)
[2018-10-09] MEDS: Multivitamins with Minerals/Folic Acid/Lutein/Zeaxanth Tab PO SCH ×2 (09:02→21:25)
[2018-10-09] MEDS: Rosuvastatin 10 MG Tab PO SCH (09:02)
[2018-10-09] MEDS: Sodium Chloride/Potassium Chloride Tab PO SCH ×3 (09:03→21:24)
--- NOTE | 2018-10-09 09:03 | PCM.PN ---
- General Info Date of Service: 10/09/18 Admission Dx/Problem (Free Text): Admission Diagnosis/Problem Admission Diagnosis/Problem Urinary tract infection Subjective Update: Follow Up Functional Status: Reports: Pain Controlled, Tolerating Diet, Ambulating, Urinating. Denies: New Symptoms - Review of Systems General: Reports: Weakness, Fatigue, Malaise. Denies: Fever, Chills HEENT: Denies: No Symptoms Pulmonary: Denies: Shortness of Breath, Cough Cardiovascular: Denies: Chest Pain, Palpitations, Dyspnea on Exertion, Edema, Lightheadedness Gastrointestinal: Denies: Abdominal Pain, Decreased Appetite, Nausea, Vomiting Genitourinary: Reports: No Symptoms Musculoskeletal: Reports: No Symptoms Skin: Denies: Cyanosis, Mottled, Pallor, Diaphoresis, Bruising, Rash Neurological: Reports: Difficulty Walking, Weakness, Gait Disturbance. Denies: Pre-Existing Deficit Psychiatric: Denies: Depression, Anxiety, Agitation, Hallucinations Systems Review Comment:: No significant overnight or acute issues. Her renal function continues to improve. She is afebrile w/o leukocytosis. She remains 2 person assist and with stand aid. She has not complaints this AM. - Patient Data Vitals - Most Recent: Last Vital Signs Temp 36.8 C 10/09/18 04:56 Pulse 81 10/09/18 04:56 Resp 16 10/09/18 04:56 BP 142/41 H 10/09/18 04:56 Pulse Ox 94 L 10/09/18 04:56 Weight - Most Recent: 99.11 kg I&O - Last 24 Hours: Intake & Output 10/08/18 10/09/18 10/09/18 22:59 06:59 14:59 Intake Total 1426 458 Output Total 750 Balance 1426 -292 Lab Results Last 24 Hours: Laboratory Results - last 24 hr 10/08/18 10/08/18 10/08/18 Range/Units 11:06 16:46 20:46 WBC (3.98-10.04) K/mm3 RBC (3.98-5.22) M/mm3 Hgb (11.2-15.7) gm/L Hct (34.1-44.9) % MCV (79.4-94.8) fl MCH (25.6-32.2) pg MCHC (32.2-35.5) g/dl RDW Std Deviation (36.4-46.3) fL Plt Count (182-369) K/mm3 MPV (9.4-12.3) fl Neut % (Auto) (34.0-71.1) % Lymph % (Auto) (19.3-51.7) % [place] % (Auto) (4.7-12.5) % Eos % (Auto) (0.7-5.8) Baso % (Auto) (0.1-1.2) % Neut # (Auto) (1.56-6.13) K/mm3 Lymph # (Auto) (1.18-3.74) K/mm3 [place] # (Auto) (0.24-0.36) K/mm3 Eos # (Auto) (0.04-0.36) K/mm3 Baso # (Auto) (0.01-0.08) K/mm3 Manual Slide Review Sodium (136-145) mEq/L Potassium (3.5-5.1) mEq/L Chloride (98-107) mEq/L Carbon Dioxide (21-32) mEq/L Anion Gap (5-15) BUN (7-18) mg/dL Creatinine (0.55-1.02) mg/dL Est Cr Clr Drug Dosing mL/min Estimated GFR (MDRD) (>60) mL/min BUN/Creatinine Ratio (14-18) Glucose (83-115) mg/dL POC Glucose 213 H 170 H 175 H (83-110) mg/dL Calcium (8.5-10.1) mg/dL Magnesium (1.8-2.4) mg/dl C-Reactive Protein (<1.0) mg/dL 10/09/18 10/09/18 10/09/18 Range/Units 06:12 06:12 06:48 WBC 6.70 (3.98-10.04) K/mm3 RBC 3.53 L (3.98-5.22) M/mm3 Hgb 9.6 L (11.2-15.7) gm/L Hct 29.7 L (34.1-44.9) % MCV 84.1 (79.4-94.8) fl MCH 27.2 (25.6-32.2) pg MCHC 32.3 (32.2-35.5) g/dl RDW Std Deviation 46.1 (36.4-46.3) fL Plt Count 137 L (182-369) K/mm3 MPV 8.4 L (9.4-12.3) fl Neut % (Auto) 72.1 H (34.0-71.1) % Lymph % (Auto) 9.1 L (19.3-51.7) % [place] % (Auto) 10.4 (4.7-12.5) % Eos % (Auto) 8.1 H (0.7-5.8) Baso % (Auto) 0.0 L (0.1-1.2) % Neut # (Auto) 4.83 (1.56-6.13) K/mm3 Lymph # (Auto) 0.61 L (1.18-3.74) K/mm3 [place] # (Auto) 0.70 H (0.24-0.36) K/mm3 Eos # (Auto) 0.54 H (0.04-0.36) K/mm3 Baso # (Auto) 0.00 L (0.01-0.08) K/mm3 Manual Slide Review Abnormal smear Sodium 129 L (136-145) mEq/L Potassium 3.9 (3.5-5.1) mEq/L Chloride 93 L (98-107) mEq/L Carbon Dioxide 27 (21-32) mEq/L Anion Gap 12.9 (5-15) BUN 54 H (7-18) mg/dL Creatinine 2.5 H (0.55-1.02) mg/dL Est Cr Clr Drug Dosing 13.96 mL/min Estimated GFR (MDRD) 18 (>60) mL/min BUN/Creatinine Ratio 21.6 H (14-18) Glucose 92 (83-115) mg/dL POC Glucose 107 (83-110) mg/dL Calcium 8.1 L (8.5-10.1) mg/dL Magnesium 2.1 (1.8-2.4) mg/dl C-Reactive Protein 8.0 H* (<1.0) mg/dL Gopi Results Last 24 Hours: Microbiology 10/06/18 14:25 Urine Culture - Preliminary Urine, Catheterized Gram Negative Rods Med Orders - Current: Current Medications Acetaminophen (Tylenol) 650 mg PO BID PRN PRN Reason: Pain Acetaminophen (Tylenol) 650 mg PO Q6H [facility] Last Admin: 10/09/18 07:30 Dose: 650 mg Hydrocodone Bitart/Acetaminophen (Thayne 325-5 Mg) 1 tab PO Q4H PRN PRN Reason: Pain (moderate 4-6) Albuterol/Ipratropium (Duoneb 3.0-0.5 Mg/3 Ml) 3 ml NEB Q4H PRN PRN Reason: Shortness Of Breath/wheezing Amlodipine Besylate (Norvasc) 10 mg PO DAILY [facility] Last Admin: 10/08/18 09:39 Dose: 10 mg Artificial Tears (Refresh Liquigel 1%) 0 ml EYEBOTH DAILY PRN PRN Reason: Dry Eyes Aspirin (Halfprin) 81 mg PO DAILY [facility] Last Admin: 10/08/18 09:40 Dose: 81 mg Benzocaine/Menthol (Cepacol Sore Throat) 1 lozenge MUCMEM Q1H PRN PRN Reason: SORE THROATE Bisacodyl (Dulcolax) 5 mg PO DAILY PRN PRN Reason: Constipation Calcium Carbonate/Glycine (Tums) 500 mg PO Q6H PRN PRN Reason: Indigestion Carbamide Perox/Anhydrous Glycerin (Debrox 6.5% Otic Soln) 0 ml EARBOTH BID [facility] Last Admin: 10/08/18 21:19 Dose: 5 drop Docusate Sodium (Colace) 100 mg PO BID PRN PRN Reason: Constipation Famotidine (Pepcid) 20 mg PO Q48H [facility] Last Admin: 10/07/18 12:05 Dose: 20 mg Guaifenesin (Mucinex) 600 mg PO BID [facility] Last Admin: 10/08/18 21:14 Dose: 600 mg Hydromorphone HCl (Dilaudid) 0.25 mg IVPUSH Q2H PRN PRN Reason: Pain (severe 7-10) Promethazine HCl 6.25 mg/ (Sodium Chloride) 50.25 mls @ 100 mls/hr IV Q6H PRN PRN Reason: Nausea/Vomiting Ceftriaxone Sodium 1 gm/ (Sodium Chloride) 100 mls @ 200 mls/hr IV Q24H [facility] Last Admin: 10/08/18 15:02 Dose: 200 mls/hr Sodium Chloride (Normal Saline) 1,000 mls @ 15 mls/hr IV ASDIRECTED [facility] Last Admin: 10/08/18 21:51 Dose: 15 mls/hr Insulin Glargine (Lantus) 20 unit SUBCUT DAILY [facility] Last Admin: 10/08/18 09:50 Dose: 20 units Insulin Human Lispro (Humalog) 0 unit SUBCUT QIDACANDBED [facility]; Protocol Last Admin: 10/09/18 07:03 Dose: Not Given Lorazepam (Ativan) 0.25 mg IV Q6H PRN PRN Reason: Anxiety Losartan Potassium (Cozaar) 50 mg PO DAILY [facility] Last Admin: 10/08/18 09:37 Dose: 50 mg Magnesium Sulfate (Pharmacy To Dose - Magnesium Replacement) 0 dose .XX ASDIRECTED PRN PRN Reason: RX TO WATCH MAG Metolazone (Zaroxolyn) 2.5 mg PO DAILY [facility] Modafinil (Provigil) 100 mg PO DAILY@0700 [facility] Last Admin: 10/09/18 07:30 Dose: 100 mg Mupirocin (Bactroban Oint) 0 gm TOP BID [facility] Stop: 10/12/18 09:01 Last Admin: 10/08/18 21:19 Dose: 1 applic Nystatin (Nystatin Crm) 0 gm TOP BID PRN PRN Reason: ITCHING Ondansetron HCl (Zofran) 4 mg IV Q6H PRN PRN Reason: Nausea/Vomiting Oral Electrolytes (Thermotabs) 2 each PO TID [facility] Last Admin: 10/08/18 21:14 Dose: 2 each Polyethylene Glycol (Miralax) 17 gm PO DAILY PRN PRN Reason: Constipation Potassium Chloride (Pharmacy To Dose - Potassium Replacement) 0 dose .XX ASDIRECTED PRN PRN Reason: RX TO WATCH K Rosuvastatin Calcium (Crestor) 20 mg PO DAILY [facility] Last Admin: 10/08/18 09:38 Dose: 20 mg Senna/Docusate Sodium (Senna Plus) 1 tab PO BID PRN PRN Reason: Constipation Sodium Chloride (Saline Flush) 10 ml FLUSH ASDIRECTED PRN PRN Reason: Keep Vein Open Last Admin: 10/06/18 15:05 Dose: 10 ml Temazepam (Restoril) 7.5 mg PO BEDTIME PRN PRN Reason: Sleep Vit A/Vit C/Vit E/Selen/Cu/Zn/Lutei (Icaps Mv) 1 tab PO BID [facility] Last Admin: 10/08/18 21:14 Dose: 1 tab Discontinued Medications Acetaminophen (Tylenol) 650 mg PO Q6H [facility] Last Admin: 10/06/18 20:13 Dose: 650 mg Acetaminophen (Tylenol) 650 mg PO Q4H PRN PRN Reason: Pain Bacitracin (Bacitracin Oint) 2 gm TOP TID SANJIV Stop: 10/10/18 21:00 Last Admin: 10/07/18 09:26 Dose: 1 applic Famotidine (Pepcid) 20 mg IVPUSH ONETIME ONE Stop: 10/06/18 20:47 Last Admin: 10/06/18 21:40 Dose: 20 mg Sodium Chloride (Normal Saline) 500 mls @ 999 mls/hr IV .BOLUS ONE Stop: 10/06/18 15:16 Last Admin: 10/06/18 15:04 Dose: 999 mls/hr Ceftriaxone Sodium 1 gm/ (Sodium Chloride) 100 mls @ 200 mls/hr IV ONETIME ONE Stop: 10/06/18 16:55 Last Admin: 10/06/18 16:31 Dose: 200 mls/hr Sodium Chloride (Normal Saline) 250 mls @ 999 mls/hr IV .BOLUS ONE Stop: 10/06/18 16:57 Last Admin: 10/06/18 16:51 Dose: 300 mls/hr Sodium Chloride (Normal Saline) 1,000 mls @ 125 mls/hr IV ASDIRECTED [facility] Last Admin: 10/07/18 06:08 Dose: 125 mls/hr Insulin Glargine (Lantus) 20 unit SUBCUT DAILY [facility] Last Admin: 10/07/18 09:27 Dose: 20 unit Modafinil (Provigil) 100 mg PO DAILY [facility] Last Admin: 10/08/18 09:58 Dose: Not Given Non-Formulary Medication (Lutein/Minerals/Vit A,C & E) 1 tab PO DAILY [facility] Oral Electrolytes (Thermotabs) 2 each PO ASDIRECTED [facility] Oral Electrolytes (Thermotabs) 1 each PO NOW STA Stop: 10/06/18 20:31 Last Admin: 10/06/18 21:40 Dose: 1 each Pantoprazole Sodium (Protonix) 40 mg PO Q48H [facility] Potassium Chloride (Klor-Con M20) 40 meq PO ONETIME ONE Stop: 10/08/18 09:31 Last Admin: 10/08/18 09:36 Dose: 40 meq - Exam General: Alert, Oriented (x 2 only), Cooperative, No Acute Distress, Sedated HEENT: Pupils Equal, Pupils Reactive, EOMI, Mucous Membr. Moist/[place] Neck: Supple, Trachea Midline Lungs: Normal Respiratory Effort, Decreased Breath Sounds Cardiovascular: Regular Rate, Regular Rhythm GI/Abdominal Exam: Normal Bowel Sounds, Non-Tender, No Organomegaly, No Distention, No Abnormal Bruit, No Mass (Female) Exam: Deferred Back Exam: Normal Inspection, Decreased Range of Motion Extremities: Normal Inspection, Normal Range of Motion, Non-Tender, No Pedal Edema, Normal Capillary Refill Peripheral Pulses: 2+: Dorsalis Pedis (L), Dorsalis Pedis (R) Skin: Warm, Dry, Intact Neurological: No New Focal Deficit Psy/Mental Status: Alert, Normal Affect, Normal Mood - Problem List Review Problem List Initiated/Reviewed/Updated: Yes - My Orders Last 24 Hours: My Active Orders 10/08/18 09:30 Pharmacy to Dose - Magnesium R [Pharmacy to Dose - Magnesium Replacement] 0 dose .XX ASDIRECTED PRN Pharmacy to Dose - Potassium R [Pharmacy to Dose - Potassium Replacement] 0 dose .XX ASDIRECTED PRN 10/09/18 07:00 Modafinil [Provigil] 100 mg PO DAILY@0700 10/10/18 05:11 BASIC METABOLIC PANEL,BMP [CHEM] AM C-REACTIVE PROTEIN [CHEM] AM CBC WITH AUTO DIFF [HEME] AM MAGNESIUM [CHEM] AM 10/10/18 09:00 metOLazone [Zaroxolyn] 2.5 mg PO DAILY - Plan Plan:: Assessment/Plan: Acute: UTI 2/2 Pseudomonas Aeruginosa, Improving - Risk Factors: Urinary Incontinence - UA strongly positive - CRP is 12.7 --> 11.6 --> 8 - Received IV Rocephin in ED; d/c and switch to low dose levaquin MECHELLE, Continues to Improve - Acute on CKD - Risk Factors: on dual diuretics plus underlying chronic renal insufficiency - Baseline CKD Stage 3 - Hold ARB - Cr 3.7--> 3.2 --> 2.9--> 2.5; baseline of 2.5 07/18/2018 - Renal U/S showed no obstructive uropathy - IV hydration at KVO - Continue to monitor renal function and avoid nephrotoxic agents Moderate Hyponatremia, Persistent - Na is 125 --> 129--> 131--> 129 - She is on diuretics: lasix and metolazone - Hold diuretics - Continue IV hydration and Thermotabs - Goal: Na at 135 or higher Generalized Weakness - 2/2 Above - Essentially the same - Check Vit D and Thyroid Panel - Encourage to eat more; nursing to assist with feeding - PT/OT once she improve clinically Hyperglycemia with DM2 - BS is fairly controlled - On ISS and LA Insulin Chronic: Impaired Hearing/Vision, HF w/ Preserved EF of 65% 12/13/2015. HTN, HLD , PVD, SOB, GERD, Hital Hernia, CKD Stage 3, Urinary Incontinence, OA/DJD, Osteoporosis, Chronic Hyponatremia, Anemia, Urticaria and Obesity with BMI > 35 Plan: She remains clinically stable Continue current treatment Routine AM Labs PT/OT treatment Continue oral stimulant; will up dose to 200 mg po daily Accu-check AC/HS w/ ISS coverage Aspiration and Fall Precautions DVT/GI PPx: SCDs/H2B SW/CM for d/c planning Code status: DNR/DNI LOS anticipate > 96hrs due to slow response to treatment
[2018-10-09] MEDS: Aspirin 81 MG Tab.EC PO SCH (09:04)
[2018-10-09] MEDS: Losartan 25 MG Tab PO SCH (09:05)
[2018-10-09] MEDS: guaiFENesin 600 MG Tab.ER PO SCH ×2 (09:06→21:24)
[2018-10-09] MEDS: amLODIPine 10 MG Tab PO SCH (09:07)
[2018-10-09] MEDS: Famotidine 20 MG Tab PO SCH (09:16)
[2018-10-09] MEDS: Mupirocin Oint 22 GM Tube TOP SCH ×2 (09:17→21:25)
[2018-10-09] MEDS: Carbamide Peroxide 6.5% Otic Soln 15 ML Bottle EARBOTH SCH ×2 (09:19→21:26)
[2018-10-09] MEDS: Insulin Glarg,Human.Rec.Analog 100 UNIT/ML ML SUBCUT SCH (09:20)
[2018-10-09] MEDS ORDERED: Levofloxacin/Dextrose 5%-Water 250 MG in Premix Bag 1 BAG IV ONE (11:22)
[2018-10-09] MEDS: Sodium Chloride 0.9% 1,000 ML IV SCH (21:34)
[2018-10-10] MEDS: Acetaminophen 325 MG Tab PO SCH ×4 (00:16→17:08)
[2018-10-10] MEDS: Insulin Lispro 100 Unit/ML 3 ML KwikPen SUBCUT SCH ×4 (06:13→21:23)
[2018-10-10] MEDS: Modafinil 200 MG Tab PO SCH (06:13)
--- NOTE | 2018-10-10 08:01 | PCM.PN ---
- General Info Date of Service: 10/10/18 Admission Dx/Problem (Free Text): Admission Diagnosis/Problem Admission Diagnosis/Problem Urinary tract infection Subjective Update: Follow Up Functional Status: Reports: Pain Controlled, Tolerating Diet, Ambulating, Urinating. Denies: New Symptoms - Review of Systems General: Reports: Weakness. Denies: Fever, Fatigue, Malaise, Chills HEENT: Reports: No Symptoms Pulmonary: Reports: Cough (chronic). Denies: Shortness of Breath Cardiovascular: Denies: Chest Pain, Palpitations, Dyspnea on Exertion, Edema, Lightheadedness Gastrointestinal: Denies: Abdominal Pain, Decreased Appetite, Nausea, Vomiting Genitourinary: Reports: No Symptoms Musculoskeletal: Reports: No Symptoms Skin: Denies: Cyanosis, Diaphoresis, Bruising Neurological: Reports: Difficulty Walking, Weakness, Gait Disturbance. Denies: Confusion Psychiatric: Denies: Depression, Anxiety, Agitation, Hallucinations Systems Review Comment:: No overnight or acute issues. She is alert, awake and engaging this AM. She is afebrile w/o leukocytosis. Her sodium remains at 129 but CRP is down to 5.3. She has no complaints this AM. - Patient Data Vitals - Most Recent: Last Vital Signs Temp 37.5 C 10/10/18 07:48 Pulse 72 10/10/18 07:48 Resp 16 10/10/18 07:48 BP 154/84 H 10/10/18 07:48 Pulse Ox 94 L 10/10/18 07:48 Weight - Most Recent: 100.561 kg I&O - Last 24 Hours: Intake & Output 10/09/18 10/10/18 10/10/18 22:59 06:59 14:59 Intake Total 1100 835 Output Total 3 600 Balance 1097 235 Lab Results Last 24 Hours: Laboratory Results - last 24 hr 10/09/18 10/09/18 10/09/18 Range/Units 06:12 11:05 16:33 WBC (3.98-10.04) K/mm3 RBC (3.98-5.22) M/mm3 Hgb (11.2-15.7) gm/L Hct (34.1-44.9) % MCV (79.4-94.8) fl MCH (25.6-32.2) pg MCHC (32.2-35.5) g/dl RDW Std Deviation (36.4-46.3) fL Plt Count (182-369) K/mm3 MPV (9.4-12.3) fl Neut % (Auto) (34.0-71.1) % Lymph % (Auto) (19.3-51.7) % [place] % (Auto) (4.7-12.5) % Eos % (Auto) (0.7-5.8) Baso % (Auto) (0.1-1.2) % Neut # (Auto) (1.56-6.13) K/mm3 Lymph # (Auto) (1.18-3.74) K/mm3 [place] # (Auto) (0.24-0.36) K/mm3 Eos # (Auto) (0.04-0.36) K/mm3 Baso # (Auto) (0.01-0.08) K/mm3 Sodium 129 L (136-145) mEq/L Potassium 3.9 (3.5-5.1) mEq/L Chloride 93 L (98-107) mEq/L Carbon Dioxide 27 (21-32) mEq/L Anion Gap 12.9 (5-15) BUN (7-18) mg/dL Creatinine (0.55-1.02) mg/dL Est Cr Clr Drug Dosing mL/min Estimated GFR (MDRD) (>60) mL/min BUN/Creatinine Ratio (14-18) Glucose (83-115) mg/dL POC Glucose 201 H 168 H (83-110) mg/dL Calcium (8.5-10.1) mg/dL Magnesium (1.8-2.4) mg/dl C-Reactive Protein (<1.0) mg/dL Free T4 (0.76-1.46) ng/dL TSH 3rd Generation (0.358-3.74) uIU/mL 10/09/18 10/10/18 10/10/18 Range/Units 21:20 05:21 05:21 WBC 6.38 (3.98-10.04) K/mm3 RBC 3.48 L (3.98-5.22) M/mm3 Hgb 9.4 L (11.2-15.7) gm/L Hct 29.3 L (34.1-44.9) % MCV 84.2 (79.4-94.8) fl MCH 27.0 (25.6-32.2) pg MCHC 32.1 L (32.2-35.5) g/dl RDW Std Deviation 45.8 (36.4-46.3) fL Plt Count 145 L (182-369) K/mm3 MPV 8.5 L (9.4-12.3) fl Neut % (Auto) 69.2 (34.0-71.1) % Lymph % (Auto) 11.4 L (19.3-51.7) % [place] % (Auto) 12.4 (4.7-12.5) % Eos % (Auto) 6.3 H (0.7-5.8) Baso % (Auto) 0.2 (0.1-1.2) % Neut # (Auto) 4.42 (1.56-6.13) K/mm3 Lymph # (Auto) 0.73 L (1.18-3.74) K/mm3 [place] # (Auto) 0.79 H (0.24-0.36) K/mm3 Eos # (Auto) 0.40 H (0.04-0.36) K/mm3 Baso # (Auto) 0.01 (0.01-0.08) K/mm3 Sodium 129 L (136-145) mEq/L Potassium 4.0 (3.5-5.1) mEq/L Chloride 94 L (98-107) mEq/L Carbon Dioxide 26 (21-32) mEq/L Anion Gap 13.0 (5-15) BUN 60 H (7-18) mg/dL Creatinine 2.3 H (0.55-1.02) mg/dL Est Cr Clr Drug Dosing 15.17 mL/min Estimated GFR (MDRD) 20 (>60) mL/min BUN/Creatinine Ratio 26.1 H (14-18) Glucose 71 L (83-115) mg/dL POC Glucose 85 (83-110) mg/dL Calcium 8.4 L (8.5-10.1) mg/dL Magnesium 2.2 (1.8-2.4) mg/dl C-Reactive Protein 5.3 H* (<1.0) mg/dL Free T4 1.22 (0.76-1.46) ng/dL TSH 3rd Generation 0.901 (0.358-3.74) uIU/mL 10/10/18 Range/Units 06:07 WBC (3.98-10.04) K/mm3 RBC (3.98-5.22) M/mm3 Hgb (11.2-15.7) gm/L Hct (34.1-44.9) % MCV (79.4-94.8) fl MCH (25.6-32.2) pg MCHC (32.2-35.5) g/dl RDW Std Deviation (36.4-46.3) fL Plt Count (182-369) K/mm3 MPV (9.4-12.3) fl Neut % (Auto) (34.0-71.1) % Lymph % (Auto) (19.3-51.7) % [place] % (Auto) (4.7-12.5) % Eos % (Auto) (0.7-5.8) Baso % (Auto) (0.1-1.2) % Neut # (Auto) (1.56-6.13) K/mm3 Lymph # (Auto) (1.18-3.74) K/mm3 [place] # (Auto) (0.24-0.36) K/mm3 Eos # (Auto) (0.04-0.36) K/mm3 Baso # (Auto) (0.01-0.08) K/mm3 Sodium (136-145) mEq/L Potassium (3.5-5.1) mEq/L Chloride (98-107) mEq/L Carbon Dioxide (21-32) mEq/L Anion Gap (5-15) BUN (7-18) mg/dL Creatinine (0.55-1.02) mg/dL Est Cr Clr Drug Dosing mL/min Estimated GFR (MDRD) (>60) mL/min BUN/Creatinine Ratio (14-18) Glucose (83-115) mg/dL POC Glucose 87 (83-110) mg/dL Calcium (8.5-10.1) mg/dL Magnesium (1.8-2.4) mg/dl C-Reactive Protein (<1.0) mg/dL Free T4 (0.76-1.46) ng/dL TSH 3rd Generation (0.358-3.74) uIU/mL Gopi Results Last 24 Hours: Microbiology 10/06/18 14:25 Urine Culture - Final Urine, Catheterized Pseudomonas Aeruginosa Med Orders - Current: Current Medications Acetaminophen (Tylenol) 650 mg PO BID PRN PRN Reason: Pain Acetaminophen (Tylenol) 650 mg PO Q6H [facility] Last Admin: 10/10/18 06:13 Dose: 650 mg Hydrocodone Bitart/Acetaminophen (Letcher 325-5 Mg) 1 tab PO Q4H PRN PRN Reason: Pain (moderate 4-6) Albuterol/Ipratropium (Duoneb 3.0-0.5 Mg/3 Ml) 3 ml NEB Q4H PRN PRN Reason: Shortness Of Breath/wheezing Amlodipine Besylate (Norvasc) 10 mg PO DAILY [facility] Last Admin: 10/09/18 09:07 Dose: 10 mg Artificial Tears (Refresh Liquigel 1%) 0 ml EYEBOTH DAILY PRN PRN Reason: Dry Eyes Aspirin (Halfprin) 81 mg PO DAILY [facility] Last Admin: 10/09/18 09:04 Dose: 81 mg Benzocaine/Menthol (Cepacol Sore Throat) 1 lozenge MUCMEM Q1H PRN PRN Reason: SORE THROATE Bisacodyl (Dulcolax) 5 mg PO DAILY PRN PRN Reason: Constipation Calcium Carbonate/Glycine (Tums) 500 mg PO Q6H PRN PRN Reason: Indigestion Carbamide Perox/Anhydrous Glycerin (Debrox 6.5% Otic Soln) 0 ml EARBOTH BID [facility] Last Admin: 10/09/18 21:26 Dose: 5 drop Docusate Sodium (Colace) 100 mg PO BID PRN PRN Reason: Constipation Famotidine (Pepcid) 20 mg PO Q48H [facility] Last Admin: 10/09/18 09:16 Dose: 20 mg Guaifenesin (Mucinex) 600 mg PO BID [facility] Last Admin: 10/09/18 21:24 Dose: 600 mg Hydromorphone HCl (Dilaudid) 0.25 mg IVPUSH Q2H PRN PRN Reason: Pain (severe 7-10) Promethazine HCl 6.25 mg/ (Sodium Chloride) 50.25 mls @ 100 mls/hr IV Q6H PRN PRN Reason: Nausea/Vomiting Sodium Chloride (Normal Saline) 1,000 mls @ 15 mls/hr IV ASDIRECTED [facility] Last Admin: 10/09/18 21:34 Dose: 15 mls/hr Insulin Glargine (Lantus) 20 unit SUBCUT DAILY [facility] Last Admin: 10/09/18 09:20 Dose: 20 units Insulin Human Lispro (Humalog) 0 unit SUBCUT QIDACANDBED [facility]; Protocol Last Admin: 10/10/18 06:13 Dose: Not Given Levofloxacin (Levaquin) 250 mg PO Q24H [facility] Lorazepam (Ativan) 0.25 mg IV Q6H PRN PRN Reason: Anxiety Losartan Potassium (Cozaar) 50 mg PO DAILY [facility] Magnesium Sulfate (Pharmacy To Dose - Magnesium Replacement) 0 dose .XX ASDIRECTED PRN PRN Reason: RX TO WATCH MAG Metolazone (Zaroxolyn) 2.5 mg PO DAILY [facility] Modafinil (Provigil) 200 mg PO DAILY@0700 [facility] Last Admin: 10/10/18 06:13 Dose: 200 mg Mupirocin (Bactroban Oint) 0 gm TOP BID [facility] Stop: 10/12/18 09:01 Last Admin: 10/09/18 21:25 Dose: 1 applic Nystatin (Nystatin Crm) 0 gm TOP BID PRN PRN Reason: ITCHING Ondansetron HCl (Zofran) 4 mg IV Q6H PRN PRN Reason: Nausea/Vomiting Oral Electrolytes (Thermotabs) 2 each PO TID [facility] Last Admin: 10/09/18 21:24 Dose: 2 each Polyethylene Glycol (Miralax) 17 gm PO DAILY PRN PRN Reason: Constipation Potassium Chloride (Pharmacy To Dose - Potassium Replacement) 0 dose .XX ASDIRECTED PRN PRN Reason: RX TO WATCH K Rosuvastatin Calcium (Crestor) 20 mg PO DAILY [facility] Last Admin: 10/09/18 09:02 Dose: 20 mg Senna/Docusate Sodium (Senna Plus) 1 tab PO BID PRN PRN Reason: Constipation Sodium Chloride (Saline Flush) 10 ml FLUSH ASDIRECTED PRN PRN Reason: Keep Vein Open Last Admin: 10/06/18 15:05 Dose: 10 ml Temazepam (Restoril) 7.5 mg PO BEDTIME PRN PRN Reason: Sleep Vit A/Vit C/Vit E/Selen/Cu/Zn/Lutei (Icaps Mv) 1 tab PO BID [facility] Last Admin: 10/09/18 21:25 Dose: 1 tab Discontinued Medications Acetaminophen (Tylenol) 650 mg PO Q6H [facility] Last Admin: 10/06/18 20:13 Dose: 650 mg Acetaminophen (Tylenol) 650 mg PO Q4H PRN PRN Reason: Pain Bacitracin (Bacitracin Oint) 2 gm TOP TID SANJIV Stop: 10/10/18 21:00 Last Admin: 10/07/18 09:26 Dose: 1 applic Famotidine (Pepcid) 20 mg IVPUSH ONETIME ONE Stop: 10/06/18 20:47 Last Admin: 10/06/18 21:40 Dose: 20 mg Sodium Chloride (Normal Saline) 500 mls @ 999 mls/hr IV .BOLUS ONE Stop: 10/06/18 15:16 Last Admin: 10/06/18 15:04 Dose: 999 mls/hr Ceftriaxone Sodium 1 gm/ (Sodium Chloride) 100 mls @ 200 mls/hr IV ONETIME ONE Stop: 10/06/18 16:55 Last Admin: 10/06/18 16:31 Dose: 200 mls/hr Sodium Chloride (Normal Saline) 250 mls @ 999 mls/hr IV .BOLUS ONE Stop: 10/06/18 16:57 Last Admin: 10/06/18 16:51 Dose: 300 mls/hr Sodium Chloride (Normal Saline) 1,000 mls @ 125 mls/hr IV ASDIRECTED [facility] Last Admin: 10/07/18 06:08 Dose: 125 mls/hr Ceftriaxone Sodium 1 gm/ (Sodium Chloride) 100 mls @ 200 mls/hr IV Q24H [facility] Last Admin: 10/08/18 15:02 Dose: 200 mls/hr Levofloxacin/Dextrose 250 mg/ (Premix) 50 mls @ 50 mls/hr IV ONETIME ONE Stop: 10/09/18 12:21 Last Admin: 10/09/18 12:11 Dose: 50 mls/hr Insulin Glargine (Lantus) 20 unit SUBCUT DAILY [facility] Last Admin: 10/07/18 09:27 Dose: 20 unit Losartan Potassium (Cozaar) 50 mg PO DAILY [facility] Last Admin: 10/09/18 09:05 Dose: 50 mg Modafinil (Provigil) 100 mg PO DAILY [facility] Last Admin: 10/08/18 09:58 Dose: Not Given Modafinil (Provigil) 100 mg PO DAILY@0700 [facility] Last Admin: 10/09/18 07:30 Dose: 100 mg Non-Formulary Medication (Lutein/Minerals/Vit A,C & E) 1 tab PO DAILY [facility] Oral Electrolytes (Thermotabs) 2 each PO ASDIRECTED [facility] Oral Electrolytes (Thermotabs) 1 each PO NOW STA Stop: 10/06/18 20:31 Last Admin: 10/06/18 21:40 Dose: 1 each Pantoprazole Sodium (Protonix) 40 mg PO Q48H [facility] Potassium Chloride (Klor-Con M20) 40 meq PO ONETIME ONE Stop: 10/08/18 09:31 Last Admin: 10/08/18 09:36 Dose: 40 meq - Exam General: Alert, Cooperative, No Acute Distress, Other (Morbidly Obese) HEENT: Pupils Equal, Pupils Reactive, EOMI, Mucous Membr. Moist/[place] Neck: Supple, No JVD, No Thyromegaly Lungs: Clear to Auscultation, Normal Respiratory Effort, Decreased Breath Sounds Cardiovascular: Regular Rate, Regular Rhythm GI/Abdominal Exam: Normal Bowel Sounds, Soft, Non-Tender, No Organomegaly, No Distention, No Abnormal Bruit, No Mass (Female) Exam: Deferred Back Exam: Normal Inspection, Decreased Range of Motion Extremities: Normal Inspection, Normal Range of Motion, Non-Tender, No Pedal Edema, Normal Capillary Refill Peripheral Pulses: 2+: Dorsalis Pedis (L), Dorsalis Pedis (R) Skin: Warm, Dry, Intact Neurological: No New Focal Deficit (limited due to body habitus and baseline generlaized weakness). No: Normal Gait Psy/Mental Status: Alert, Normal Affect, Normal Mood - Problem List Review Problem List Initiated/Reviewed/Updated: Yes - My Orders Last 24 Hours: My Active Orders 10/10/18 05:21 BASIC METABOLIC PANEL,BMP [CHEM] AM C-REACTIVE PROTEIN [CHEM] AM MAGNESIUM [CHEM] AM T4 FREE [CHEM] AM TSH [CHEM] AM VITAMIN D,25-HYDROXY [CHEM] AM 10/10/18 07:00 Modafinil [Provigil] 200 mg PO DAILY@0700 10/10/18 09:00 metOLazone [Zaroxolyn] 2.5 mg PO DAILY 10/10/18 12:00 levoFLOXacin [Levaquin] 250 mg PO Q24H 10/11/18 09:00 Losartan [Cozaar] 50 mg PO DAILY - Plan Plan:: Assessment/Plan: Acute: UTI 2/2 Pseudomonas Aeruginosa, Improving - Risk Factors: Urinary Incontinence - UA strongly positive - CRP is 12.7 --> 11.6 --> 8 - Received IV Rocephin in ED; d/c and switch to low dose levaquin Moderate Hyponatremia, Persistent - Na is 125 --> 129--> 131--> 129 - She is on diuretics: lasix and metolazone - Hold diuretics - Continue IV hydration and Thermotabs - She is also on salt restrictions duet to heart healthy diet - Goal: Na at 135 or higher Hypersomnolence, Improved - This is chronic per her NH caregiver/nurse - She is not receiving sleeping pills, narcotic or benzos - She has been getting stimulant; more alert/awake and engaging Chronic Cough - This is chronic per NH caregiver/nurse and has been going on for over a year now w/o formally evaluation - She is on Mucinex 600 mg po BID; will continue - THREAD DRESSER eval for underlying oropharyngeal dysfunction to prevent aspiration in the setting of hypersomnolence Generalized Weakness - 2/2 Above - Essentially the same; she at baseline e/ pivot and 2 person assists per NH caregiver who knows her very well - Vit D- pending - Thyroid Panel (normal) - Encourage to eat more; nursing to assist with feeding - PT/OT once she improve clinically Resolved: S/p MECHELLE, - Acute on CKD - Risk Factors: on dual diuretics plus underlying chronic renal insufficiency - Baseline CKD Stage 3 - Hold ARB but resume lasix; start metolazone at a later date - Cr 3.7--> 3.2 --> 2.9--> 2.5--> 2.3; baseline of 2.5 07/18/2018 - Renal U/S showed no obstructive uropathy - IV hydration at KVO - Continue to monitor renal function and avoid nephrotoxic agents S/p Hyperglycemia with DM2 - BS is fairly controlled - On ISS and LA Insulin Chronic: Impaired Hearing/Vision, HF w/ Preserved EF of 65% 12/13/2015, HTN, HLD , PVD, SOB, GERD, Hiatal Hernia, CKD Stage 3, Urinary Incontinence, OA/DJD, Osteoporosis, Chronic Hyponatremia, Anemia, Urticaria and Obesity with BMI > 35 Plan: She remains clinically stable Continue current treatment Routine AM Labs PT/OT if services available Accu-check AC/HS w/ ISS coverage Aspiration and Fall Precautions THREAD DRESSER consult DVT/GI PPx: SCDs/H2B SW/CM for d/c planning Code status: DNR/DNI LOS > 96hrs due to slow response to treatment w/ possible discharge in AM
[2018-10-10] MEDS ORDERED: Metolazone 2.5 MG Tab PO SCH (09:00)
[2018-10-10] MEDS: amLODIPine 10 MG Tab PO SCH (09:05)
[2018-10-10] MEDS: Sodium Chloride/Potassium Chloride Tab PO SCH ×3 (09:05→21:18)
[2018-10-10] MEDS: Rosuvastatin 10 MG Tab PO SCH (09:05)
[2018-10-10] MEDS: Aspirin 81 MG Tab.EC PO SCH (09:05)
[2018-10-10] MEDS: Multivitamins with Minerals/Folic Acid/Lutein/Zeaxanth Tab PO SCH ×2 (09:05→21:18)
[2018-10-10] MEDS: Bumetanide 1 MG/4 ML MDV IVPUSH SCH (09:06)
[2018-10-10] MEDS: guaiFENesin 600 MG Tab.ER PO SCH ×2 (09:06→21:18)
[2018-10-10] MEDS: Mupirocin Oint 22 GM Tube TOP SCH ×2 (09:07→21:21)
[2018-10-10] MEDS: Carbamide Peroxide 6.5% Otic Soln 15 ML Bottle EARBOTH SCH ×2 (09:07→21:18)
[2018-10-10] MEDS: Insulin Glarg,Human.Rec.Analog 100 UNIT/ML ML SUBCUT SCH (09:08)
[2018-10-10] MEDS: Levofloxacin 250 MG Tab PO SCH (11:35)
[2018-10-11] MEDS: Acetaminophen 325 MG Tab PO SCH ×3 (01:35→11:00)
[2018-10-11] MEDS: Modafinil 200 MG Tab PO SCH (06:37)
[2018-10-11] MEDS: Insulin Lispro 100 Unit/ML 3 ML KwikPen SUBCUT SCH (06:59)
[2018-10-11] MEDS: guaiFENesin 600 MG Tab.ER PO SCH (08:44)
[2018-10-11] MEDS: Aspirin 81 MG Tab.EC PO SCH (08:44)
[2018-10-11] MEDS: amLODIPine 10 MG Tab PO SCH (08:45)
[2018-10-11 08:46] VITALS: BP 152/82
[2018-10-11] MEDS: Sodium Chloride/Potassium Chloride Tab PO SCH (08:46)
[2018-10-11] MEDS: Multivitamins with Minerals/Folic Acid/Lutein/Zeaxanth Tab PO SCH (08:46)
[2018-10-11] MEDS: Rosuvastatin 10 MG Tab PO SCH (08:46)
[2018-10-11] MEDS: Carbamide Peroxide 6.5% Otic Soln 15 ML Bottle EARBOTH SCH (08:47)
[2018-10-11] MEDS: Mupirocin Oint 22 GM Tube TOP SCH (08:48)
[2018-10-11] MEDS: Bumetanide 1 MG/4 ML MDV IVPUSH SCH (08:51)
[2018-10-11] MEDS: Insulin Glarg,Human.Rec.Analog 100 UNIT/ML ML SUBCUT SCH (08:53)
[2018-10-11] MEDS: Famotidine 20 MG Tab PO SCH (08:58)
[2018-10-11] MEDS ORDERED: Losartan 25 MG Tab PO SCH (09:00)
--- NOTE | 2018-10-11 09:29 | PCM.DCSUM1 ---
Discharge Summary - Hospital Course HPI Initial Comments: 83-year-old female has been brought here by wheelchair van for evaluation of generalized weakness, hyponatremia, elevated creatinine. She apparently had some labs done yesterday and showed a creatinine of 3.49, sodium 1:30. Also according to family and correction staff she is more weak, less alert than typical. There is no documentation of fever, vomiting or diarrhea. Patient does deny chest or abdominal pain on arrival to ED. Diagnosis: Stroke: No Modified [place] Scale: No Symptoms at All Modified [place] Scale Score: 0 - Discharge Data Discharge Date: 10/11/18 (ADMIT 10/06/18) Discharge Disposition: DC/Tfer to SNF 03 Condition: Fair - Patient Summary/Data Operative Procedure(s) Performed: none Complications: none Consults: Consultations 10/06/18 20:05 Consult to Case Management/Section Leader [CONS] Routine Consult to Spiritual Care [CONS] Routine OT Evaluation and Treatment [CONS] Routine PT Evaluation and Treatment [CONS] Routine 10/10/18 09:22 ACCOUNTANT Eval and Treat [ACCOUNTANT Evaluation and Treatment] [CONS] Routine Labs Pending at D/C: Vit D Recommended Follow-up Testing/Procedures: Skilled PT & OT to eval and treat when returning to [facility]. Follow up with PCP in 7-10 days: -Recommend discussing Lantus dosage; AM glucose down to 60's-80's but stable throughout day -Refills of Provigil Planned Operative Procedure(s) after DC: none Hospital Course: Assessment/Plan: Acute: UTI 2/2 Pseudomonas Aeruginosa, Improving - Risk Factors: Urinary Incontinence - UA strongly positive - CRP is 12.7 --> 11.6 --> 8--> 4.1 - Received IV Rocephin in ED; d/c and switch to low dose levaquin Moderate Hyponatremia, Persistent - Na is 125 --> 129--> 131--> 129--> 130 - She is on diuretics: lasix and metolazone - Hold diuretics - Continue IV hydration and Thermotabs - She is also on salt restrictions duet to heart healthy diet - Goal: Na at 135 or higher Hypersomnolence, Improved - This is chronic per her NH caregiver/nurse - She is not receiving sleeping pills, narcotic or benzos - She has been getting stimulant; more alert/awake and engaging Chronic Cough - This is chronic per NH caregiver/nurse and has been going on for over a year now w/o formally evaluation - She is on Mucinex 600 mg po BID; will continue - ACCOUNTANT eval for underlying oropharyngeal dysfunction to prevent aspiration in the setting of hypersomnolence Generalized Weakness - 2/2 Above - Essentially the same; she at baseline e/ pivot and 2 person assists per NH caregiver who knows her very well - Vit D- pending - Thyroid Panel (normal) - Encourage to eat more; nursing to assist with feeding - PT/OT once she improve clinically Resolved: S/p MECHELLE, - Acute on CKD - Risk Factors: on dual diuretics plus underlying chronic renal insufficiency - Baseline CKD Stage 3 - Hold ARB but resume lasix; start metolazone at a later date - Cr 3.7--> 3.2 --> 2.9--> 2.5--> 2.3; baseline of 2.5 07/18/2018 - Renal U/S showed no obstructive uropathy - IV hydration at O - Continue to monitor renal function and avoid nephrotoxic agents S/p Hyperglycemia with DM2 - BS is fairly controlled - On ISS and LA Insulin Chronic: Impaired Hearing/Vision, HF w/ Preserved EF of 65% 12/13/2015, HTN, HLD , PVD, SOB, GERD, Hiatal Hernia, CKD Stage 3, Urinary Incontinence, OA/DJD, Osteoporosis, Chronic Hyponatremia, Anemia, Urticaria and Obesity with BMI > 35 Plan: She remains clinically stable Continue current treatment Routine AM Labs PT/OT if services available Accu-check AC/HS w/ ISS coverage Aspiration and Fall Precautions ACCOUNTANT consult DVT/GI PPx: SCDs/H2B SW/CM for d/c planning Code status: DNR/DNI LOS > 96hrs due to slow response to treatment w/ possible discharge in AM Sara did OK here after being admitted for UTI 2/2 Pseudomonas Aeruginosa. She was given Levaquin, which the culture showed sensitivity to, and will continue this treatment for 2 more days after discharge for completion of treatment. She will also be sent home with bactroban BID x1 more day to complete treatment of MRSA in the nares. She was also found to have hypersomnolence while here and was started on Provigil with much improvement. Will send her home with a prescription for 10 days, and she can then receive refills from her PCP in the future. Recommended to f/u with PCP in 7-10 days; can recheck sodium at that time, as she was hyponatremic while here. Also recommend discussing Lantus dosage with PCP, as her AM glucose goes down to 60's-80's but then is stable throughout day. With her generalized weakness, it is recommended by PT that PT & OT to eval and treat when returning to [facility]. - Patient Instructions Diet: Diabetic Diet Activity: As Tolerated Driving: Do Not Drive Showering/Bathing: May Shower Notify Provider of: Fever, Nausea and/or Vomiting - Discharge Plan *PRESCRIPTION DRUG MONITORING PROGRAM REVIEWED*: Not Applicable *COPY OF PRESCRIPTION DRUG MONITORING REPORT IN PATIENT ALAINA: Not Applicable Prescriptions/Med Rec: levoFLOXacin [Levaquin] 250 mg PO Q24H 2 Days #2 tablet Modafinil [Provigil] 100 mg PO DAILY@0700 10 Days #10 tablet Mupirocin Oint [Bactroban Oint] 0 gm TOP BID 1 Days #1 tube Saccharomyces Boulardii [Florastor] 250 mg PO BID 12 Days #24 capsule Home Medications: Home Meds Rosuvastatin Calcium [Crestor] 20 mg PO DAILY 12/11/15 [History] amLODIPine [Norvasc] 10 mg PO DAILY 12/11/15 [History] Omeprazole [Prilosec] 20 mg PO ASDIRECTED 12/12/15 [History] Aspirin 81 mg PO DAILY 12/24/15 [History] Acetaminophen [Tylenol] 650 mg PO Q6H 07/14/18 [History] Furosemide [Lasix] 60 mg PO BID 07/14/18 [History] Insulin Aspart [NovoLOG] 8 units SUBCUT BID 07/14/18 [History] Losartan [Cozaar] 50 mg PO DAILY 07/14/18 [History] Nystatin [Nystatin Crm] 1 applic TOP BID PRN 07/14/18 [History] Tresiba Flextouch. 20 units SUBCUT DAILY 07/14/18 [History] Vit C/E/Zn/Coppr/Lutein/Zeaxan [Preservision Areds 2 Softgel] 1 tab PO BID 07/14 [History] guaiFENesin [Mucinex] 600 mg PO BID 07/14/18 [History] Acetaminophen [Tylenol] 650 mg PO BID PRN 10/06/18 [History] Benzocaine/Menthol [Cepacol Sore Throat Lozenge] 1 each PO Q1H PRN 10/06/18 [ History] Calcium Carbonate [Tums] 1 - 2 tab PO Q6HR PRN 10/06/18 [History] Carbamide Peroxide [Debrox 6.5% Otic Soln] 5 drop EARBOTH BID 10/06/18 [History] Lutein/Minerals/Vit A,C & E [Ocuvite] 1 tab PO DAILY 10/06/18 [History] Polyvinyl Alcohol/Povidone/Pf [Refresh Classic Eye Drops] 1 drop EYEBOTH DAILY PRN 10/06/18 [History] metOLazone [Metolazone] 2.5 mg PO DAILY 10/06/18 [History] Modafinil [Provigil] 100 mg PO DAILY@0700 10 Days #10 tablet 10/11/18 [Rx] Mupirocin Oint [Bactroban Oint] 0 gm TOP BID 1 Days #1 tube 10/11/18 [Rx] Saccharomyces Boulardii [Florastor] 250 mg PO BID 12 Days #24 capsule 10/11/18 [ Rx] levoFLOXacin [Levaquin] 250 mg PO Q24H 2 Days #2 tablet 10/11/18 [Rx] Oxygen Therapy Mode: Room Air Patient Handouts: Hyponatremia, [id number], Urinary Tract Infection, Adult, [id number] Referrals: Naren Kim MD [Primary Care Provider] - (please schedule follow up appointment within 1-2 weeks) - Discharge Summary/Plan Comment DC Time >30 min.: Yes (40) - General Info Date of Service: 10/11/18 Admission Dx/Problem (Free Text: Admission Diagnosis/Problem Admission Diagnosis/Problem Urinary tract infection Subjective Update: In to see Sara. She is laying in bed and is sleeping. She awakens when I call her name. She is a bit groggy, but it is early and she just woke up. She states she is feeling well today and is ready to go back to [facility].All questions were answered. She will be going home with Provigil for energy, Bactroban x1 day for completion of MRSA tx, and Levaquin x2 days for completion of UTI treatment. Functional Status: Reports: Pain Controlled, Tolerating Diet, Ambulating ( assistance and FWW), Urinating - Review of Systems General: Reports: Weakness, Fatigue. Denies: Fever, Chills HEENT: Reports: No Symptoms Pulmonary: Reports: Cough (chronic). Denies: Shortness of Breath Cardiovascular: Reports: No Symptoms. Denies: Chest Pain Gastrointestinal: Reports: No Symptoms. Denies: Abdominal Pain, Diarrhea, Nausea, Vomiting Genitourinary: Reports: No Symptoms. Denies: Dysuria, Frequency, Burning, Pain , Urgency Musculoskeletal: Reports: No Symptoms Skin: Reports: No Symptoms Neurological: Reports: Difficulty Walking, Weakness, Gait Disturbance Psychiatric: Reports: No Symptoms - Patient Data Vitals - Most Recent: Last Vital Signs Temp 97.7 F 10/11/18 08:31 Pulse 74 10/11/18 08:31 Resp 12 10/11/18 08:31 BP 152/82 H 10/11/18 08:45 Pulse Ox 100 10/11/18 08:31 Weight - Most Recent: 215 lb 1.6 oz I&O - Last 24 hours: Intake & Output 10/10/18 10/11/18 10/11/18 22:59 06:59 14:59 Intake Total 829 280 Output Total 700 300 Balance 129 -20 Lab Results - Last 24 hrs: Laboratory Results - last 24 hr 10/10/18 10/10/18 10/10/18 Range/Units 11:17 17:07 20:37 WBC (3.98-10.04) K/mm3 RBC (3.98-5.22) M/mm3 Hgb (11.2-15.7) gm/L Hct (34.1-44.9) % MCV (79.4-94.8) fl MCH (25.6-32.2) pg MCHC (32.2-35.5) g/dl RDW Std Deviation (36.4-46.3) fL Plt Count (182-369) K/mm3 MPV (9.4-12.3) fl Neut % (Auto) (34.0-71.1) % Lymph % (Auto) (19.3-51.7) % Logan % (Auto) (4.7-12.5) % Eos % (Auto) (0.7-5.8) Baso % (Auto) (0.1-1.2) % Neut # (Auto) (1.56-6.13) K/mm3 Lymph # (Auto) (1.18-3.74) K/mm3 Logan # (Auto) (0.24-0.36) K/mm3 Eos # (Auto) (0.04-0.36) K/mm3 Baso # (Auto) (0.01-0.08) K/mm3 POC Glucose 180 H 176 H 205 H (83-110) mg/dL 10/11/18 10/11/18 10/11/18 Range/Units 06:32 07:43 09:10 WBC 5.77 (3.98-10.04) K/mm3 RBC 3.36 L (3.98-5.22) M/mm3 Hgb 9.2 L (11.2-15.7) gm/L Hct 28.4 L (34.1-44.9) % MCV 84.5 (79.4-94.8) fl MCH 27.4 (25.6-32.2) pg MCHC 32.4 (32.2-35.5) g/dl RDW Std Deviation 46.7 H (36.4-46.3) fL Plt Count 169 L (182-369) K/mm3 MPV 9.4 (9.4-12.3) fl Neut % (Auto) 63.2 (34.0-71.1) % Lymph % (Auto) 15.3 L (19.3-51.7) % Logan % (Auto) 12.7 H (4.7-12.5) % Eos % (Auto) 8.1 H (0.7-5.8) Baso % (Auto) 0.2 (0.1-1.2) % Neut # (Auto) 3.65 (1.56-6.13) K/mm3 Lymph # (Auto) 0.88 L (1.18-3.74) K/mm3 Logan # (Auto) 0.73 H (0.24-0.36) K/mm3 Eos # (Auto) 0.47 H (0.04-0.36) K/mm3 Baso # (Auto) 0.01 (0.01-0.08) K/mm3 POC Glucose 64 L 80 L (83-110) mg/dL Med Orders - Current: Current Medications Acetaminophen (Tylenol) 650 mg PO BID PRN PRN Reason: Pain Acetaminophen (Tylenol) 650 mg PO Q6H [facility] Last Admin: 10/11/18 06:37 Dose: 650 mg Hydrocodone Bitart/Acetaminophen ([place] 325-5 Mg) 1 tab PO Q4H PRN PRN Reason: Pain (moderate 4-6) Albuterol/Ipratropium (Duoneb 3.0-0.5 Mg/3 Ml) 3 ml NEB Q4H PRN PRN Reason: Shortness Of Breath/wheezing Amlodipine Besylate (Norvasc) 10 mg PO DAILY [facility] Last Admin: 10/11/18 08:45 Dose: 10 mg Artificial Tears (Refresh Liquigel 1%) 0 ml EYEBOTH DAILY PRN PRN Reason: Dry Eyes Aspirin (Halfprin) 81 mg PO DAILY [facility] Last Admin: 10/11/18 08:44 Dose: 81 mg Benzocaine/Menthol (Cepacol Sore Throat) 1 lozenge MUCMEM Q1H PRN PRN Reason: SORE THROATE Bisacodyl (Dulcolax) 5 mg PO DAILY PRN PRN Reason: Constipation Last Admin: 10/10/18 17:12 Dose: 5 mg Bumetanide (Bumex) 0.5 mg IVPUSH DAILY [facility] Last Admin: 10/11/18 08:51 Dose: 0.5 mg Calcium Carbonate/Glycine (Tums) 500 mg PO Q6H PRN PRN Reason: Indigestion Carbamide Perox/Anhydrous Glycerin (Debrox 6.5% Otic Soln) 0 ml EARBOTH BID [facility] Last Admin: 10/11/18 08:47 Dose: 5 drop Docusate Sodium (Colace) 100 mg PO BID PRN PRN Reason: Constipation Famotidine (Pepcid) 20 mg PO Q48H [facility] Last Admin: 10/11/18 08:58 Dose: 20 mg Guaifenesin (Mucinex) 600 mg PO BID [facility] Last Admin: 10/11/18 08:44 Dose: 600 mg Hydromorphone HCl (Dilaudid) 0.25 mg IVPUSH Q2H PRN PRN Reason: Pain (severe 7-10) Promethazine HCl 6.25 mg/ (Sodium Chloride) 50.25 mls @ 100 mls/hr IV Q6H PRN PRN Reason: Nausea/Vomiting Insulin Glargine (Lantus) 20 unit SUBCUT DAILY [facility] Last Admin: 10/11/18 08:53 Dose: 20 units Insulin Human Lispro (Humalog) 0 unit SUBCUT QIDACANDBED [facility]; Protocol Last Admin: 10/11/18 06:59 Dose: Not Given Levofloxacin (Levaquin) 250 mg PO Q24H [facility] Last Admin: 10/10/18 11:35 Dose: 250 mg Lorazepam (Ativan) 0.25 mg IV Q6H PRN PRN Reason: Anxiety Losartan Potassium (Cozaar) 50 mg PO DAILY [facility] Last Admin: 10/11/18 08:45 Dose: 50 mg Magnesium Sulfate (Pharmacy To Dose - Magnesium Replacement) 0 dose .XX ASDIRECTED PRN PRN Reason: RX TO WATCH MAG Metolazone (Zaroxolyn) 2.5 mg PO DAILY [facility] Modafinil (Provigil) 200 mg PO DAILY@0700 [facility] Last Admin: 10/11/18 06:37 Dose: 200 mg Mupirocin (Bactroban Oint) 0 gm TOP BID [facility] Stop: 10/12/18 09:01 Last Admin: 10/11/18 08:48 Dose: 1 applic Nystatin (Nystatin Crm) 0 gm TOP BID PRN PRN Reason: ITCHING Ondansetron HCl (Zofran) 4 mg IV Q6H PRN PRN Reason: Nausea/Vomiting Oral Electrolytes (Thermotabs) 2 each PO TID [facility] Last Admin: 10/11/18 08:46 Dose: 2 each Polyethylene Glycol (Miralax) 17 gm PO DAILY PRN PRN Reason: Constipation Potassium Chloride (Pharmacy To Dose - Potassium Replacement) 0 dose .XX ASDIRECTED PRN PRN Reason: RX TO WATCH K Rosuvastatin Calcium (Crestor) 20 mg PO DAILY [facility] Last Admin: 10/11/18 08:46 Dose: 20 mg Senna/Docusate Sodium (Senna Plus) 1 tab PO BID PRN PRN Reason: Constipation Last Admin: 10/11/18 06:37 Dose: 1 tab Sodium Chloride (Saline Flush) 10 ml FLUSH ASDIRECTED PRN PRN Reason: Keep Vein Open Last Admin: 10/06/18 15:05 Dose: 10 ml Temazepam (Restoril) 7.5 mg PO BEDTIME PRN PRN Reason: Sleep Vit A/Vit C/Vit E/Selen/Cu/Zn/Lutei (Icaps Mv) 1 tab PO BID [facility] Last Admin: 10/11/18 08:46 Dose: 1 tab Discontinued Medications Acetaminophen (Tylenol) 650 mg PO Q6H [facility] Last Admin: 10/06/18 20:13 Dose: 650 mg Acetaminophen (Tylenol) 650 mg PO Q4H PRN PRN Reason: Pain Bacitracin (Bacitracin Oint) 2 gm TOP TID [facility] Stop: 10/10/18 21:00 Last Admin: 10/07/18 09:26 Dose: 1 applic Famotidine (Pepcid) 20 mg IVPUSH ONETIME ONE Stop: 10/06/18 20:47 Last Admin: 10/06/18 21:40 Dose: 20 mg Sodium Chloride (Normal Saline) 500 mls @ 999 mls/hr IV .BOLUS ONE Stop: 10/06/18 15:16 Last Admin: 10/06/18 15:04 Dose: 999 mls/hr Ceftriaxone Sodium 1 gm/ (Sodium Chloride) 100 mls @ 200 mls/hr IV ONETIME ONE Stop: 10/06/18 16:55 Last Admin: 10/06/18 16:31 Dose: 200 mls/hr Sodium Chloride (Normal Saline) 250 mls @ 999 mls/hr IV .BOLUS ONE Stop: 10/06/18 16:57 Last Admin: 10/06/18 16:51 Dose: 300 mls/hr Sodium Chloride (Normal Saline) 1,000 mls @ 125 mls/hr IV ASDIRECTED [facility] Last Admin: 10/07/18 06:08 Dose: 125 mls/hr Ceftriaxone Sodium 1 gm/ (Sodium Chloride) 100 mls @ 200 mls/hr IV Q24H [facility] Last Admin: 10/08/18 15:02 Dose: 200 mls/hr Sodium Chloride (Normal Saline) 1,000 mls @ 15 mls/hr IV ASDIRECTED [facility] Last Admin: 10/09/18 21:34 Dose: 15 mls/hr Levofloxacin/Dextrose 250 mg/ (Premix) 50 mls @ 50 mls/hr IV ONETIME ONE Stop: 10/09/18 12:21 Last Admin: 10/09/18 12:11 Dose: 50 mls/hr Insulin Glargine (Lantus) 20 unit SUBCUT DAILY [facility] Last Admin: 10/07/18 09:27 Dose: 20 unit Losartan Potassium (Cozaar) 50 mg PO DAILY [facility] Last Admin: 10/09/18 09:05 Dose: 50 mg Metolazone (Zaroxolyn) 2.5 mg PO DAILY [facility] Modafinil (Provigil) 100 mg PO DAILY [facility] Last Admin: 10/08/18 09:58 Dose: Not Given Modafinil (Provigil) 100 mg PO DAILY@0700 [facility] Last Admin: 10/09/18 07:30 Dose: 100 mg Non-Formulary Medication (Lutein/Minerals/Vit A,C & E) 1 tab PO DAILY [facility] Oral Electrolytes (Thermotabs) 2 each PO ASDIRECTED [facility] Oral Electrolytes (Thermotabs) 1 each PO NOW STA Stop: 10/06/18 20:31 Last Admin: 10/06/18 21:40 Dose: 1 each Pantoprazole Sodium (Protonix) 40 mg PO Q48H [facility] Potassium Chloride (Klor-Con M20) 40 meq PO ONETIME ONE Stop: 10/08/18 09:31 Last Admin: 10/08/18 09:36 Dose: 40 meq - Exam Quality Assessment: Reports: DVT Prophylaxis General: Reports: Alert, Oriented, Cooperative, No Acute Distress HEENT: Reports: Pupils Equal, Pupils Reactive, EOMI, Mucous Membr. Moist/[place] Neck: Reports: Supple Lungs: Reports: Normal Respiratory Effort, Wheezing Cardiovascular: Reports: Regular Rate, Regular Rhythm GI/Abdominal Exam: Normal Bowel Sounds, Soft, Non-Tender, No Organomegaly, No Distention, No Abnormal Bruit, No Mass, Pelvis Stable (Female) Exam: Deferred Rectal (Female) Exam: Deferred Back Exam: Reports: Normal Inspection Extremities: Normal Inspection, Normal Range of Motion, Non-Tender, No Pedal Edema, Normal Capillary Refill Skin: Reports: Warm, Dry, Intact Neurological: Reports: No New Focal Deficit Psy/Mental Status: Reports: Alert, Normal Affect, Normal Mood
[2018-10-11] MEDS: Levofloxacin 250 MG Tab PO SCH (11:00)
[2018-10-11 15:59] LABS: VITAMIN D,25-HYDROXY 13.1 ng/ml (30.0-100.0)
[2018-10-12] MEDS ORDERED: Metolazone 2.5 MG Tab PO SCH (09:00)
== END 2018-10-11 11:30 | DRG 690 ==
LOC: JD.ED 14:09 → JD.MS 16:53
PROVIDERS: ADMIT Internal Medicine; ATTEND Internal Medicine
DX: N39.0 Urinary tract infection, site not specified (principal); N17.9 Acute kidney failure, unspecified; N30.00 Acute cystitis without hematuria; E87.1 Hypo-osmolality and hyponatremia; I13.2 Hypertensive heart and chronic kidney disease with heart failure and with stage 5 chronic kidney disease, or end stage renal disease; N18.5 Chronic kidney disease, stage 5; R06.02 Shortness of breath; I50.32 Chronic diastolic (congestive) heart failure; I13.0 Hypertensive heart and chronic kidney disease with heart failure and stage 1 through stage 4 chronic kidney disease, or unspecified chronic kidney disease; B96.5 Pseudomonas (aeruginosa) (mallei) (pseudomallei) as the cause of diseases classified elsewhere; I50.9 Heart failure, unspecified; I73.9 Peripheral vascular disease, unspecified; K21.9 Gastro-esophageal reflux disease without esophagitis; E11.22 Type 2 diabetes mellitus with diabetic chronic kidney disease; R32 Unspecified urinary incontinence; M19.90 Unspecified osteoarthritis, unspecified site; M81.0 Age-related osteoporosis without current pathological fracture; E11.40 Type 2 diabetes mellitus with diabetic neuropathy, unspecified; E78.5 Hyperlipidemia, unspecified; E86.0 Dehydration; E78.00 Pure hypercholesterolemia, unspecified; N18.3 Chronic kidney disease, stage 3 (moderate); R05 Cough; E11.65 Type 2 diabetes mellitus with hyperglycemia; E66.9 Obesity, unspecified; R42 Dizziness and giddiness; R53.1 Weakness; Z68.38 Body mass index [BMI] 38.0-38.9, adult; D64.9 Anemia, unspecified; K44.9 Diaphragmatic hernia without obstruction or gangrene; L50.9 Urticaria, unspecified; H35.30 Unspecified macular degeneration; H54.7 Unspecified visual loss; H91.90 Unspecified hearing loss, unspecified ear; Z66 Do not resuscitate; Z90.710 Acquired absence of both cervix and uterus; Z79.899 Other long term (current) drug therapy; Z79.4 Long term (current) use of insulin; Z79.82 Long term (current) use of aspirin; Z22.322 Carrier or suspected carrier of Methicillin resistant Staphylococcus aureus
CPT/HCPCS: 36415; 71045; 71045-26; 76770; 76770-26; 80048; 80053; 81001; 82306; 82962; 83735; 84439; 84443; 85025; 86140; 87086; 87088; 87186; 87641; 92610-GN; 96361; 96365; 97110-GO; 97110-GP; 97162-GP; 97166-GO; 97530-GO; 97530-GP; 99284; 99285-25; A9270-GY; J0696; J1815; J1956; J3490; J7030; J7040

== ENCOUNTER 2018-11-22 14:53 | Inpatient (IN) | payer MEDICARE, BC, MEDICAID ==
[2018-11-22] MEDS ORDERED: Sodium Chloride 0.9% 10 ML Syringe FLUSH PRN (15:38)
--- NOTE | 2018-11-22 15:50 | EDM.PDOC ---
ED HPI GENERAL MEDICAL PROBLEM - General Chief Complaint: General Stated Complaint: [facility] Time Seen by Provider: 11/22/18 15:05 Source of Information: Reports: Patient, Family, Correction Records, RN Notes Reviewed (Daughter) - History of Present Illness INITIAL COMMENTS - FREE TEXT/NARRATIVE: 83-year-old female spends brought over by ambulance from [facility] for evaluation of altered mental status, generalized weakness, hyponatremia , hypokalemia, continued anemia. She does have history of chronic anemia, quite severe renal insufficiency, diabetes, hypertension. Did have a hospital admission in about 6 weeks ago with similar symptoms and findings. She had lab work drawn at the [facility] this past morning is stated to have revealed low sodium of 121, low potassium of 3.1, hemoglobin 7.7. Daughter states that she seems rolled drowsy today although not as severe as it was 6 weeks ago. In at her admission record for 6 weeks ago she also did have significant UTI at that time. There is no report of recent fever. Patient is not aware, there is no stated history of vomiting or diarrhea. She denies current chest or abdominal discomfort. - Related Data Allergies Allergy/AdvReac Type Severity Reaction Status Date / Time No Known Allergies Allergy Verified 11/22/18 20:09 Home Meds: Home Meds Rosuvastatin Calcium [Crestor] 20 mg PO DAILY 12/11/15 [History] amLODIPine [Norvasc] 10 mg PO DAILY 12/11/15 [History] Omeprazole [Prilosec] 20 mg PO ASDIRECTED 12/12/15 [History] Aspirin 81 mg PO DAILY 12/24/15 [History] Acetaminophen [Tylenol] 650 mg PO Q6H 07/14/18 [History] Furosemide [Lasix] 60 mg PO BID 07/14/18 [History] Insulin Aspart [NovoLOG] 8 units SUBCUT BID 07/14/18 [History] Losartan [Cozaar] 50 mg PO DAILY 07/14/18 [History] Nystatin [Nystatin Crm] 1 applic TOP BID PRN 07/14/18 [History] Tresiba Flextouch. 20 units SUBCUT DAILY 07/14/18 [History] Vit C/E/Zn/Coppr/Lutein/Zeaxan [Preservision Areds 2 Softgel] 1 tab PO BID 07/14 [History] guaiFENesin [Mucinex] 600 mg PO BID 07/14/18 [History] Acetaminophen [Tylenol] 650 mg PO BID PRN 10/06/18 [History] Benzocaine/Menthol [Cepacol Sore Throat Lozenge] 1 each PO Q1H PRN 10/06/18 [ History] Calcium Carbonate [Tums] 1 - 2 tab PO Q6HR PRN 10/06/18 [History] Carbamide Peroxide [Debrox 6.5% Otic Soln] 5 drop EARBOTH BID 10/06/18 [History] Lutein/Minerals/Vit A,C & E [Ocuvite] 1 tab PO DAILY 10/06/18 [History] Polyvinyl Alcohol/Povidone/Pf [Refresh Classic Eye Drops] 1 drop EYEBOTH DAILY PRN 10/06/18 [History] metOLazone [Metolazone] 2.5 mg PO DAILY 10/06/18 [History] Modafinil [Provigil] 100 mg PO DAILY@0700 10 Days #10 tablet 10/11/18 [Rx] Mupirocin Oint [Bactroban Oint] 0 gm TOP BID 1 Days #1 tube 10/11/18 [Rx] Saccharomyces Boulardii [Florastor] 250 mg PO BID 12 Days #24 capsule 10/11/18 [ Rx] levoFLOXacin [Levaquin] 250 mg PO Q24H 2 Days #2 tablet 10/11/18 [Rx] Past Medical History HEENT 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: Cataract, Hard of Hearing, Impaired Vision, Macular Degeneration Other HEENT History: cough Cardiovascular 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: Heart Failure, High Cholesterol, Hypertension, PVD Respiratory 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: SOB Gastrointestinal 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: GERD, Hiatal Hernia Genitourinary 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: Chronic Renal Insuffiency, Urinary Incontinence Other Genitourinary History: polyuria - CKD III 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: Musculoskeletal 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: Osteoarthritis, Osteoporosis, Other (See Below ) Other Musculoskeletal History: sciatic nerve pain Neurological 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: Neuropathy, Diabetic Other Neuro History: hypo-osmolality, hyponatremia Endocrine/Metabolic 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: Diabetes, Type II, Obesity/BMI 30+ Other Endocrine/Metabolic History: chronic kidney disease Hematologic 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: Anemia Other Hematologic History: previous anemia 5-6 yrs ago Dermatologic 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: Urticaria Other Dermatologic History: tinea unguium-onchomycosis - Infectious Disease History Infectious Disease 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: Chicken Pox - Past Surgical History HEENT Surgical 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: Cataract Surgery Cardiovascular Surgical 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: None Respiratory Surgical 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: None GI Surgical 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: Colonoscopy Female Surgical 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: Hysterectomy Endocrine Surgical 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: None Musculoskeletal Surgical 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: None Social & Family History - Family History HEENT: Reports: Cataract, Macular Degeneration Other HEENT Family History: mom, sister Neurological: Reports: Alzheimers Disease Other Neurological Family History: dad Endocrine/Metabolic: Reports: Diabetes, type II Other Endocrine/Metabolic Family History: sister Dermatologic: Reports: None Oncologic: Reports: Breast Other Oncologic Family History: mother - Tobacco Use Smoking Status *Q: Unknown Ever Smoked - Caffeine Use Caffeine Use: Reports: None - Recreational Drug Use Recreational Drug Use: No - Living Situation & Occupation Living situation: Reports: Alone Occupation: Retired ED ROS GENERAL - Review of Systems Review Of Systems: See Below Constitutional: Denies: Fever, Chills, Diaphoresis HEENT: Denies: Sinus Problem, Throat Pain Respiratory: Reports: Cough. Denies: Shortness of Breath Cardiovascular: Denies: Chest Pain (Occasional) GI/Abdominal: Denies: Abdominal Pain, Diarrhea, Nausea, Vomiting : Reports: No Symptoms Musculoskeletal: Reports: No Symptoms Skin: Denies: Rash Neurological: Reports: Dizziness, Difficulty Walking, Weakness (Generalized), Other (Decreased alertness today, onset unknown at this time). Denies: Trouble Speaking ED EXAM, GENERAL - Physical Exam Exam: See Below General Appearance: Alert, No Apparent Distress, Other (Moderately drowsy, she does make eye contact does answer simple questions) Eye Exam: Bilateral Eye: PERRL Throat/Mouth: Normal Inspection, Normal Oropharynx Head: Atraumatic, Facial Swelling (Mild) Neck: Supple Respiratory/Chest: No Respiratory Distress, Lungs Clear, Normal Breath Sounds Cardiovascular: Regular Rate, Rhythm GI/Abdominal: Soft, Non-Tender. No: Guarding Extremities: Pedal Edema (Moderate bilateral) Neurological: No Motor/Sensory Deficits, Other (Moderately drowsy, she does answer simple questions appropriately) Skin Exam: Warm, Dry, Normal Color Course - Vital Signs Last Recorded V/S: Last Vital Signs Temp 97.3 F 11/22/18 15:05 Pulse 57 L 11/22/18 15:05 Resp 12 11/22/18 15:05 BP 127/46 L 11/22/18 15:05 Pulse Ox 94 L 11/22/18 15:05 - Orders/Labs/Meds Orders: Active Orders 24 hr Category Date Time Status Insert Beckman Catheter [Insert Urinary Catheter] [OM.PC] Care 11/22/18 16:38 Ordered Stat CULTURE URINE [RM] Stat Lab 11/22/18 16:01 Received Sodium Chloride 0.9% [Saline Flush] Med 11/22/18 15:38 Active 10 ml FLUSH ASDIRECTED PRN Peripheral IV Insertion Adult [OM.PC] Stat Oth 11/22/18 15:38 Ordered Medication Orders Acetaminophen (Tylenol) 650 mg PO Q4H PRN PRN Reason: Pain (Mild 1-3)/fever Albuterol (Proventil Neb Soln) 2.5 mg NEB Q2H PRN PRN Reason: Shortness Of Breath/wheezing Albuterol/Ipratropium (Duoneb 3.0-0.5 Mg/3 Ml) 3 ml NEB Q4H PRN PRN Reason: Shortness Of Breath/wheezing Bisacodyl (Dulcolax) 5 mg PO DAILY PRN PRN Reason: Constipation Dextrose/Water (Dextrose 50% In Water) 50 ml IVPUSH ASDIRECTED PRN PRN Reason: Hypoglycemia Docusate Sodium (Colace) 100 mg PO BID PRN PRN Reason: Constipation Famotidine (Pepcid) 20 mg PO BID [facility] Promethazine HCl 6.25 mg/ (Sodium Chloride) 50.25 mls @ 100 mls/hr IV Q6H PRN PRN Reason: Nausea/Vomiting Sodium Chloride (Normal Saline) 1,000 mls @ 125 mls/hr IV ASDIRECTED SANJIV Potassium Chloride 10 meq/ (Premix) 100 mls @ 100 mls/hr IV Q1H SANJIV Stop: 11/22/18 23:44 Ceftriaxone Sodium 1 gm/ (Sodium Chloride) 100 mls @ 200 mls/hr IV Q24H [facility] Insulin Human Lispro (Humalog) 0 unit SUBCUT QIDACANDBED [facility]; Protocol Lorazepam (Ativan) 2 mg IVPUSH Q4H PRN PRN Reason: Seizures Magnesium Hydroxide (Milk Of Magnesia) 30 ml PO Q12H PRN PRN Reason: Constipation Oral Electrolytes (Thermotabs) 2 each PO TID SANJIV Polyethylene Glycol (Miralax) 17 gm PO DAILY PRN PRN Reason: Constipation Promethazine HCl (Phenergan) 25 mg PO Q6H PRN PRN Reason: Nausea/Vomiting Saccharomyces Boulardii (Florastor) 250 mg PO BID SANJIV Senna/Docusate Sodium (Senna Plus) 1 tab PO BID PRN PRN Reason: Constipation Sodium Chloride (Saline Flush) 10 ml FLUSH ASDIRECTED PRN PRN Reason: Keep Vein Open Last Admin: 11/22/18 16:58 Dose: 10 ml Labs: Laboratory Tests 11/22/18 11/22/18 11/22/18 Range/Units 16:24 16:32 16:41 WBC (3.98-10.04) K/mm3 RBC (3.98-5.22) M/mm3 Hgb (11.2-15.7) gm/L Hct (34.1-44.9) % MCV (79.4-94.8) fl MCH (25.6-32.2) pg MCHC (32.2-35.5) g/dl RDW Std Deviation (36.4-46.3) fL Plt Count (182-369) K/mm3 MPV (9.4-12.3) fl Neut % (Auto) (34.0-71.1) % Lymph % (Auto) (19.3-51.7) % [place] % (Auto) (4.7-12.5) % Eos % (Auto) (0.7-5.8) Baso % (Auto) (0.1-1.2) % Neut # (Auto) (1.56-6.13) K/mm3 Lymph # (Auto) (1.18-3.74) K/mm3 [place] # (Auto) (0.24-0.36) K/mm3 Eos # (Auto) (0.04-0.36) K/mm3 Baso # (Auto) (0.01-0.08) K/mm3 Sodium (136-145) mEq/L Potassium (3.5-5.1) mEq/L Chloride (98-107) mEq/L Carbon Dioxide (21-32) mEq/L Anion Gap (5-15) BUN (7-18) mg/dL Creatinine (0.55-1.02) mg/dL Est Cr Clr Drug Dosing Estimated GFR (MDRD) (>60) mL/min BUN/Creatinine Ratio (14-18) Glucose (83-115) mg/dL POC Glucose 94 (83-110) mg/dL Calcium (8.5-10.1) mg/dL Total Bilirubin (0.2-1.0) mg/dL AST (15-37) U/L ALT (14-59) U/L Alkaline Phosphatase (46-116) U/L C-Reactive Protein 2.8 H* (<1.0) mg/dL Total Protein (6.4-8.2) g/dl Albumin (3.4-5.0) g/dl Globulin gm/dL Albumin/Globulin Ratio (1-2) Urine Color Light yellow (Yellow) Urine Appearance Cloudy H (Clear) Urine pH 6.5 (5.0-8.0) Ur Specific [place] 1.015 (1.005-1.030) Urine Protein 2+ H (Negative) Urine Glucose (UA) Negative (Negative) Urine Ketones Negative (Negative) Urine Occult Blood 2+ H (Negative) Urine Nitrite Negative (Negative) Urine Bilirubin Negative (Negative) Urine Urobilinogen 0.2 (0.2-1.0) Ur Leukocyte Esterase 3+ H (Negative) Urine RBC 5-10 H (0-5) /hpf Urine WBC >100 H (0-5) /hpf Ur Epithelial Cells Not seen (0-5) /hpf Urine Bacteria Moderate H (FEW) /hpf Urine Mucus Not seen (FEW) /hpf 11/22/18 11/22/18 Range/Units 16:41 16:41 WBC 6.08 (3.98-10.04) K/mm3 RBC 2.95 L (3.98-5.22) M/mm3 Hgb 8.2 L (11.2-15.7) gm/L Hct 24.7 L (34.1-44.9) % MCV 83.7 (79.4-94.8) fl MCH 27.8 (25.6-32.2) pg MCHC 33.2 (32.2-35.5) g/dl RDW Std Deviation 43.9 (36.4-46.3) fL Plt Count 130 L (182-369) K/mm3 MPV 9.1 L (9.4-12.3) fl Neut % (Auto) 59.1 (34.0-71.1) % Lymph % (Auto) 21.5 (19.3-51.7) % [place] % (Auto) 14.8 H (4.7-12.5) % Eos % (Auto) 4.1 (0.7-5.8) Baso % (Auto) 0.3 (0.1-1.2) % Neut # (Auto) 3.59 (1.56-6.13) K/mm3 Lymph # (Auto) 1.31 (1.18-3.74) K/mm3 [place] # (Auto) 0.90 H (0.24-0.36) K/mm3 Eos # (Auto) 0.25 (0.04-0.36) K/mm3 Baso # (Auto) 0.02 (0.01-0.08) K/mm3 Sodium 120 L (136-145) mEq/L Potassium 3.0 L (3.5-5.1) mEq/L Chloride 81 L (98-107) mEq/L Carbon Dioxide 29 (21-32) mEq/L Anion Gap 13.0 (5-15) BUN 89 H (7-18) mg/dL Creatinine 3.5 H (0.55-1.02) mg/dL Est Cr Clr Drug Dosing TNP Estimated GFR (MDRD) 13 (>60) mL/min BUN/Creatinine Ratio 25.4 H (14-18) Glucose 78 L (83-115) mg/dL POC Glucose (83-110) mg/dL Calcium 9.1 (8.5-10.1) mg/dL Total Bilirubin 0.4 (0.2-1.0) mg/dL AST 28 (15-37) U/L ALT 28 (14-59) U/L Alkaline Phosphatase 169 H (46-116) U/L C-Reactive Protein (<1.0) mg/dL Total Protein 7.2 (6.4-8.2) g/dl Albumin 2.7 L (3.4-5.0) g/dl Globulin 4.5 gm/dL Albumin/Globulin Ratio 0.6 L (1-2) Urine Color (Yellow) Urine Appearance (Clear) Urine pH (5.0-8.0) Ur Specific [place] (1.005-1.030) Urine Protein (Negative) Urine Glucose (UA) (Negative) Urine Ketones (Negative) Urine Occult Blood (Negative) Urine Nitrite (Negative) Urine Bilirubin (Negative) Urine Urobilinogen (0.2-1.0) Ur Leukocyte Esterase (Negative) Urine RBC (0-5) /hpf Urine WBC (0-5) /hpf Ur Epithelial Cells (0-5) /hpf Urine Bacteria (FEW) /hpf Urine Mucus (FEW) /hpf Meds: Medications Generic Name Dose Route Start Last Admin Trade Name Freq PRN Reason Stop Dose Admin Acetaminophen 650 mg 11/22/18 18:32 Tylenol PO Q4H PRN Pain (Mild 1-3)/fever Albuterol 2.5 mg 11/22/18 18:32 Proventil Neb Soln NEB Q2H PRN Shortness Of Breath/wheezing Albuterol/Ipratropium 3 ml 11/22/18 18:32 Duoneb 3.0-0.5 Mg/3 Ml NEB Q4H PRN Shortness Of Breath/wheezing Bisacodyl 5 mg 11/22/18 18:32 Dulcolax PO DAILY PRN Constipation Dextrose/Water 50 ml 11/22/18 18:39 Dextrose 50% In Water IVPUSH ASDIRECTED PRN Hypoglycemia Docusate Sodium 100 mg 11/22/18 18:32 Colace PO BID PRN Constipation Famotidine 20 mg 11/23/18 09:00 Pepcid PO BID [facility] Promethazine HCl 6.25 mg/ 50.25 mls @ 100 mls/hr 11/22/18 18:32 Sodium Chloride IV Q6H PRN Nausea/Vomiting Sodium Chloride 1,000 mls @ 125 mls/hr 11/22/18 18:45 Normal Saline IV ASDIRECTED [facility] Potassium Chloride 10 meq/ 100 mls @ 100 mls/hr 11/22/18 18:45 Premix IV 11/22/18 23:44 Q1H [facility] Ceftriaxone Sodium 1 gm/ 100 mls @ 200 mls/hr 11/23/18 09:00 Sodium Chloride IV Q24H [facility] Insulin Human Lispro 0 unit 11/22/18 22:00 Humalog SUBCUT QIDACANDBED [facility] Protocol Lorazepam 2 mg 11/22/18 19:27 Ativan IVPUSH Q4H PRN Seizures Magnesium Hydroxide 30 ml 11/22/18 18:32 Milk Of Magnesia PO Q12H PRN Constipation Oral Electrolytes 2 each 11/22/18 21:00 Thermotabs PO TID SANJIV Polyethylene Glycol 17 gm 11/22/18 18:32 Miralax PO DAILY PRN Constipation Promethazine HCl 25 mg 11/22/18 18:32 Phenergan PO Q6H PRN Nausea/Vomiting Saccharomyces Boulardii 250 mg 11/22/18 21:00 Florastor PO BID SANJIV Senna/Docusate Sodium 1 tab 11/22/18 18:32 Senna Plus PO BID PRN Constipation Sodium Chloride 10 ml 11/22/18 15:38 11/22/18 16:58 Saline Flush FLUSH 10 ml ASDIRECTED PRN Administration Keep Vein Open Discontinued Medications Generic Name Dose Route Start Last Admin Trade Name Freq PRN Reason Stop Dose Admin Sodium Chloride 500 mls @ 999 mls/hr 11/22/18 16:14 11/22/18 16:56 Normal Saline IV 11/22/18 16:44 999 mls/hr .BOLUS ONE Administration Potassium Chloride 10 meq/ 100 mls @ 50 mls/hr 11/22/18 16:15 11/22/18 16:56 Premix IV 11/22/18 18:14 100 mls/hr ASDIRECTED ONE Administration Ceftriaxone Sodium 1 gm/ 100 mls @ 200 mls/hr 11/22/18 17:42 11/22/18 18:11 Sodium Chloride IV 11/22/18 18:11 200 mls/hr ONETIME ONE Administration Departure - Departure Time of Disposition: 17:25 Disposition: Admitted As Inpatient 68 Clinical Impression: Hyponatremia, UTI, Urinary tract infectious disease, Hypokalemia, Renal insufficiency Altered mental status Qualifiers: Altered mental status type: transient alteration of awareness Qualified Code(s) : R40.4 - Transient alteration of awareness - Discharge Information ED Communication - Discussed Case With (1) Discussed Case With (1): Admitting Provider (Dr Nguyen, decision to admit at about 17:25) - My Orders Last 24 Hours: My Active Orders 11/22/18 15:38 Sodium Chloride 0.9% [Saline Flush] 10 ml FLUSH ASDIRECTED PRN Peripheral IV Insertion Adult [OM.PC] Stat 11/22/18 16:01 CULTURE URINE [RM] Stat 11/22/18 16:38 Insert Beckman Catheter [Insert Urinary Catheter] [OM.PC] Stat - Assessment/Plan Last 24 Hours: My Active Orders 11/22/18 15:38 Sodium Chloride 0.9% [Saline Flush] 10 ml FLUSH ASDIRECTED PRN Peripheral IV Insertion Adult [OM.PC] Stat 11/22/18 16:01 CULTURE URINE [RM] Stat 11/22/18 16:38 Insert Beckman Catheter [Insert Urinary Catheter] [OM.PC] Stat
[2018-11-22] MEDS ORDERED: Sodium Chloride 0.9% 500 ML IV ONE (16:14)
[2018-11-22] MEDS ORDERED: Potassium Chloride 10 MEQ in Premix Bag 1 BAG IV ONE (16:15)
[2018-11-22] MEDS ORDERED: cefTRIAXone 1 GM in Sodium Chloride 0.9% 100 ML IV ONE (17:42)
--- NOTE | 2018-11-22 18:27 | PCM.HP ---
H&P History of Present Illness - General Date of Service: 11/22/18 Admit Problem/Dx: Admission Diagnosis/Problem Admission Diagnosis/Problem Hyponatremia Source of Information: Family, Provider History Limitations: Reports: Altered Mental Status - History of Present Illness Initial Comments - Free Text/Narative: This is an 83 yo female well known to this service with past medical h/o Impaired Hearing/Vision, HF w/ Preserved EF of 65% (), HTN, HLD, PVD, SOB, GERD, Hiatal Hernia, CKD III, Urinary Incontinence, OA/DJD, Osteoporosis, DM2, Chronic Hyponatremia, Anemia, Urticaria and Obesity with BMI > 35 who comes in for Anemia, Generalized Weakness, AMS, Hyponatremia, Hypokalemia. She had similar issues at her prior hospital admission about 6 weeks ago. History obtained in ED by [facility] staff and daughter. Daughter states she was very drowsy today, but not as severe as it was 6 weeks ago. No F/C, abdominal pain, N /V/D, CP, SOB, or other GI/ complaints. She had lab work drawn at the [facility] this past morning is stated to have revealed low sodium of 121, low potassium of 3.1, hemoglobin 7.7. Her initial work up in ED shows a CBC remarkable for WBC for RBC 2.95, Hgb 8.2, Hct 24.7, Plt 130, MPV 9.1, [place] 14.8%. Her chemistry is significant for Na 120, K 3, Cl 81, BUN 89, Cr 3.5, GFR 13, Glu 78, Alk Phos 169, CRP 2.8, Albumin 2.7. Her UA is suggestive of UTI. She is subsequently admitted to the medical floor. She is DNR/DNI. Her PCP is Dr. Kim. She is from [facility]. - Related Data Allergies/Adverse Reactions: Allergies Allergy/AdvReac Type Severity Reaction Status Date / Time No Known Allergies Allergy Verified 11/22/18 20:09 Home Medications: Home Meds Rosuvastatin Calcium [Crestor] 20 mg PO DAILY 12/11/15 [History] amLODIPine [Norvasc] 10 mg PO DAILY 12/11/15 [History] Omeprazole [Prilosec] 20 mg PO ASDIRECTED 03/16/16 [History] Aspirin 81 mg PO DAILY 12/24/15 [History] Acetaminophen [Tylenol] 650 mg PO Q6H 07/14/18 [History] Furosemide [Lasix] 60 mg PO BID 07/14/18 [History] Insulin Aspart [NovoLOG] 8 units SUBCUT BID 07/14/18 [History] Losartan [Cozaar] 50 mg PO DAILY 07/14/18 [History] Nystatin [Nystatin Crm] 1 applic TOP BID PRN 07/14/18 [History] Tresiba Flextouch. 20 units SUBCUT DAILY 07/14/18 [History] Vit C/E/Zn/Coppr/Lutein/Zeaxan [Preservision Areds 2 Softgel] 1 tab PO BID 07/14 [History] guaiFENesin [Mucinex] 600 mg PO BID 07/14/18 [History] Acetaminophen [Tylenol] 650 mg PO BID PRN 10/06/18 [History] Benzocaine/Menthol [Cepacol Sore Throat Lozenge] 1 each PO Q1H PRN 10/06/18 [ History] Calcium Carbonate [Tums] 1 - 2 tab PO Q6HR PRN 10/06/18 [History] Carbamide Peroxide [Debrox 6.5% Otic Soln] 5 drop EARBOTH BID 10/06/18 [History] Lutein/Minerals/Vit A,C & E [Ocuvite] 1 tab PO DAILY 10/06/18 [History] Polyvinyl Alcohol/Povidone/Pf [Refresh Classic Eye Drops] 1 drop EYEBOTH DAILY PRN 10/06/18 [History] metOLazone [Metolazone] 2.5 mg PO DAILY 10/06/18 [History] Modafinil [Provigil] 100 mg PO DAILY@0700 10 Days #10 tablet 10/11/18 [Rx] Mupirocin Oint [Bactroban Oint] 0 gm TOP BID 1 Days #1 tube 10/11/18 [Rx] Saccharomyces Boulardii [Florastor] 250 mg PO BID 12 Days #24 capsule 10/11/18 [ Rx] levoFLOXacin [Levaquin] 250 mg PO Q24H 2 Days #2 tablet 10/11/18 [Rx] Past Medical History HEENT 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: Cataract, Hard of Hearing, Impaired Vision, Macular Degeneration Other HEENT History: cough Cardiovascular 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: Heart Failure, High Cholesterol, Hypertension, PVD Respiratory 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: SOB Gastrointestinal 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: GERD, Hiatal Hernia Genitourinary 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: Chronic Renal Insuffiency, Urinary Incontinence Other Genitourinary History: polyuria - CKD III MANAGER GAMING 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: Musculoskeletal 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: Osteoarthritis, Osteoporosis, Other (See Below ) Other Musculoskeletal History: sciatic nerve pain Neurological 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: Neuropathy, Diabetic Other Neuro History: hypo-osmolality, hyponatremia Endocrine/Metabolic 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: Diabetes, Type II, Obesity/BMI 30+ Other Endocrine/Metabolic History: chronic kidney disease Hematologic 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: Anemia Other Hematologic History: previous anemia 5-6 yrs ago Dermatologic 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: Urticaria Other Dermatologic History: tinea unguium-onchomycosis - Infectious Disease History Infectious Disease 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: Chicken Pox - Past Surgical History HEENT Surgical 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: Cataract Surgery Cardiovascular Surgical 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: None Respiratory Surgical 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: None GI Surgical 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: Colonoscopy Female Surgical 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: Hysterectomy Endocrine Surgical 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: None Musculoskeletal Surgical 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: None Social & Family History - Family History HEENT: Reports: Cataract, Macular Degeneration Other HEENT Family History: mom, sister Neurological: Reports: Alzheimers Disease Other Neurological Family History: dad Endocrine/Metabolic: Reports: Diabetes, type II Other Endocrine/Metabolic Family History: sister Dermatologic: Reports: None Oncologic: Reports: Breast Other Oncologic Family History: mother - Tobacco Use Smoking Status *Q: Unknown Ever Smoked - Caffeine Use Caffeine Use: Reports: None - Recreational Drug Use Recreational Drug Use: No - Living Situation & Occupation Living situation: Reports: Alone Occupation: Retired H&P Review of Systems - Review of Systems: Review Of Systems: See Below General: Reports: Weakness, Fatigue. Denies: Fever, Chills HEENT: Reports: No Symptoms Pulmonary: Reports: No Symptoms. Denies: Shortness of Breath, Cough Cardiovascular: Reports: Edema, Blood Pressure Problem. Denies: Chest Pain Gastrointestinal: Reports: No Symptoms. Denies: Abdominal Pain, Diarrhea, Nausea, Vomiting Genitourinary: Reports: No Symptoms. Denies: Dysuria, Frequency, Burning, Pain , Urgency Musculoskeletal: Reports: No Symptoms Skin: Reports: No Symptoms Psychiatric: Reports: No Symptoms, Confusion (mild; unsure of year) Neurological: Reports: Confusion (mild; unsure of year), Dizziness, Trouble Speaking, Difficulty Walking, Weakness Hematologic/Lymphatic: Reports: No Symptoms Immunologic: Reports: No Symptoms Exam - Exam Exam: See Below - Vital Signs Vital Signs: Last Vital Signs Temp 97.3 F 11/22/18 15:05 Pulse 57 L 11/22/18 15:05 Resp 12 11/22/18 15:05 BP 127/46 L 11/22/18 15:05 Pulse Ox 94 L 11/22/18 15:05 Weight: 215 lb - Exam Quality Assessment: Urinary Catheter, DVT Prophylaxis General: Alert. No: Oriented (unsure of date) HEENT: Conjunctiva Clear, EACs Clear, EOMI, Hearing Intact, Mucosa Moist & [place] , Nares Patent, Normal Nasal Septum, Posterior Pharynx Clear, PERRLA Neck: Supple, Trachea Midline, 2 Lungs: Clear to Auscultation, Normal Respiratory Effort Cardiovascular: Regular Rate, Regular Rhythm GI/Abdominal Exam: Normal Bowel Sounds, Soft, Non-Tender, No Organomegaly, No Distention, No Abnormal Bruit, No Mass, Pelvis Stable (Female) Exam: Deferred Rectal (Female) Exam: Deferred Back Exam: Normal Inspection Extremities: Normal Inspection, Normal Range of Motion, Non-Tender, Normal Capillary Refill, Pedal Edema Peripheral Pulses: 1+: Posterior Tibial (L), Posterior Tibial (R), Dorsalis Pedis (L), Dorsalis Pedis (R) Skin: Warm, Dry, Intact Neurological: Cranial Nerves Intact (grossly) Neuro Extensive - Mental Status: No: Alert Psychiatric: No: Alert (unsure of date) - Patient Data Lab Results Last 24 hrs: Laboratory Results - last 24 hr 11/22/18 11/22/18 11/22/18 Range/Units 16:24 16:32 16:41 WBC (3.98-10.04) K/mm3 RBC (3.98-5.22) M/mm3 Hgb (11.2-15.7) gm/L Hct (34.1-44.9) % MCV (79.4-94.8) fl MCH (25.6-32.2) pg MCHC (32.2-35.5) g/dl RDW Std Deviation (36.4-46.3) fL Plt Count (182-369) K/mm3 MPV (9.4-12.3) fl Neut % (Auto) (34.0-71.1) % Lymph % (Auto) (19.3-51.7) % [place] % (Auto) (4.7-12.5) % Eos % (Auto) (0.7-5.8) Baso % (Auto) (0.1-1.2) % Neut # (Auto) (1.56-6.13) K/mm3 Lymph # (Auto) (1.18-3.74) K/mm3 [place] # (Auto) (0.24-0.36) K/mm3 Eos # (Auto) (0.04-0.36) K/mm3 Baso # (Auto) (0.01-0.08) K/mm3 Sodium (136-145) mEq/L Potassium (3.5-5.1) mEq/L Chloride (98-107) mEq/L Carbon Dioxide (21-32) mEq/L Anion Gap (5-15) BUN (7-18) mg/dL Creatinine (0.55-1.02) mg/dL Est Cr Clr Drug Dosing Estimated GFR (MDRD) (>60) mL/min BUN/Creatinine Ratio (14-18) Glucose (83-115) mg/dL POC Glucose 94 (83-110) mg/dL Calcium (8.5-10.1) mg/dL Total Bilirubin (0.2-1.0) mg/dL AST (15-37) U/L ALT (14-59) U/L Alkaline Phosphatase (46-116) U/L C-Reactive Protein 2.8 H* (<1.0) mg/dL Total Protein (6.4-8.2) g/dl Albumin (3.4-5.0) g/dl Globulin gm/dL Albumin/Globulin Ratio (1-2) Urine Color Light yellow (Yellow) Urine Appearance Cloudy H (Clear) Urine pH 6.5 (5.0-8.0) Ur Specific [place] 1.015 (1.005-1.030) Urine Protein 2+ H (Negative) Urine Glucose (UA) Negative (Negative) Urine Ketones Negative (Negative) Urine Occult Blood 2+ H (Negative) Urine Nitrite Negative (Negative) Urine Bilirubin Negative (Negative) Urine Urobilinogen 0.2 (0.2-1.0) Ur Leukocyte Esterase 3+ H (Negative) Urine RBC 5-10 H (0-5) /hpf Urine WBC >100 H (0-5) /hpf Ur Epithelial Cells Not seen (0-5) /hpf Urine Bacteria Moderate H (FEW) /hpf Urine Mucus Not seen (FEW) /hpf 11/22/18 11/22/18 Range/Units 16:41 16:41 WBC 6.08 (3.98-10.04) K/mm3 RBC 2.95 L (3.98-5.22) M/mm3 Hgb 8.2 L (11.2-15.7) gm/L Hct 24.7 L (34.1-44.9) % MCV 83.7 (79.4-94.8) fl MCH 27.8 (25.6-32.2) pg MCHC 33.2 (32.2-35.5) g/dl RDW Std Deviation 43.9 (36.4-46.3) fL Plt Count 130 L (182-369) K/mm3 MPV 9.1 L (9.4-12.3) fl Neut % (Auto) 59.1 (34.0-71.1) % Lymph % (Auto) 21.5 (19.3-51.7) % [place] % (Auto) 14.8 H (4.7-12.5) % Eos % (Auto) 4.1 (0.7-5.8) Baso % (Auto) 0.3 (0.1-1.2) % Neut # (Auto) 3.59 (1.56-6.13) K/mm3 Lymph # (Auto) 1.31 (1.18-3.74) K/mm3 [place] # (Auto) 0.90 H (0.24-0.36) K/mm3 Eos # (Auto) 0.25 (0.04-0.36) K/mm3 Baso # (Auto) 0.02 (0.01-0.08) K/mm3 Sodium 120 L (136-145) mEq/L Potassium 3.0 L (3.5-5.1) mEq/L Chloride 81 L (98-107) mEq/L Carbon Dioxide 29 (21-32) mEq/L Anion Gap 13.0 (5-15) BUN 89 H (7-18) mg/dL Creatinine 3.5 H (0.55-1.02) mg/dL Est Cr Clr Drug Dosing TNP Estimated GFR (MDRD) 13 (>60) mL/min BUN/Creatinine Ratio 25.4 H (14-18) Glucose 78 L (83-115) mg/dL POC Glucose (83-110) mg/dL Calcium 9.1 (8.5-10.1) mg/dL Total Bilirubin 0.4 (0.2-1.0) mg/dL AST 28 (15-37) U/L ALT 28 (14-59) U/L Alkaline Phosphatase 169 H (46-116) U/L C-Reactive Protein (<1.0) mg/dL Total Protein 7.2 (6.4-8.2) g/dl Albumin 2.7 L (3.4-5.0) g/dl Globulin 4.5 gm/dL Albumin/Globulin Ratio 0.6 L (1-2) Urine Color (Yellow) Urine Appearance (Clear) Urine pH (5.0-8.0) Ur Specific [place] (1.005-1.030) Urine Protein (Negative) Urine Glucose (UA) (Negative) Urine Ketones (Negative) Urine Occult Blood (Negative) Urine Nitrite (Negative) Urine Bilirubin (Negative) Urine Urobilinogen (0.2-1.0) Ur Leukocyte Esterase (Negative) Urine RBC (0-5) /hpf Urine WBC (0-5) /hpf Ur Epithelial Cells (0-5) /hpf Urine Bacteria (FEW) /hpf Urine Mucus (FEW) /hpf Result Diagrams: 11/22/18 16:41 11/22/18 16:41 - Problem List (1) Hypokalemia SNOMED Code(s): 72566011 ICD Code: E87.6 - HYPOKALEMIA Status: Acute Priority: High Current Visit: Yes (2) Hyponatremia SNOMED Code(s): 08842158 ICD Code: E87.1 - HYPO-OSMOLALITY AND HYPONATREMIA Status: Acute Priority : High Current Visit: Yes (3) Mental status change SNOMED Code(s): 450656616 ICD Code: R41.82 - ALTERED MENTAL STATUS, UNSPECIFIED Status: Acute Priority: High Current Visit: Yes Qualifiers: Altered mental status type: transient alteration of awareness Qualified Code(s): R40.4 - Transient alteration of awareness (4) Renal insufficiency SNOMED Code(s): 560144787, 382161341 ICD Code: N28.9 - DISORDER OF KIDNEY AND URETER, UNSPECIFIED Status: Acute Priority: High Current Visit: Yes Onset Date: 12/11/15 Problem Details : - Acute on Chronic Kidney Disease (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) - Baseline Cr is 1.9 as of Jun 2015 (2.6 on admission); Today Cr is 2.2 - Renal U/S: No hydronephrosis or mass - Continue Strict Is/Os - Continue to avoid nephrotoxic agents if all possible - Has overt proteinuria (5) UTI, Urinary tract infectious disease SNOMED Code(s): 24250778 ICD Code: N39.0 - URINARY TRACT INFECTION, SITE NOT SPECIFIED Status: Acute Priority: High Current Visit: Yes Onset Date: 12/11/15 Problem Details: - UA + - On Levaquin IV - x 3 more doses to complete treatment - Was GPC+ last time (6) Anemia SNOMED Code(s): 857154695 ICD Code: D64.9 - ANEMIA, UNSPECIFIED Status: Acute Priority: High Current Visit: Yes Qualifiers: Anemia type: unspecified type Qualified Code(s): D64.9 - Anemia, unspecified Problem List Initiated/Reviewed/Updated: Yes Orders Last 24hrs: Active Orders 24 hr Category Date Time Status Admission Status [Patient Status] [ADT] Routine ADT 11/22/18 18:12 Active EKG 12 Lead [EKG Documentation Completion] [RC] STAT Care 11/22/18 15:38 Active Insert Beckman Catheter [Insert Urinary Catheter] [OM.PC] Care 11/22/18 16:38 Ordered Stat POC Glucose [Blood Glucose Check, Bedside] [RC] ONETIME Care 11/22/18 16:13 Active Peripheral IV Care [RC] . DIRECTED Care 11/22/18 15:38 Active Urinary Catheter Assessment [RC] ASDIRECTED Care 11/22/18 16:38 Active CULTURE URINE [RM] Stat Lab 11/22/18 16:01 Received Sodium Chloride 0.9% [Saline Flush] Med 11/22/18 15:38 Active 10 ml FLUSH ASDIRECTED PRN Peripheral IV Insertion Adult [OM.PC] Stat Oth 11/22/18 15:38 Ordered Medication Orders Sodium Chloride (Saline Flush) 10 ml FLUSH ASDIRECTED PRN PRN Reason: Keep Vein Open Last Admin: 11/22/18 16:58 Dose: 10 ml Assessment/Plan Comment:: Assessment/Plan: Acute: UTI - Risk Factors: Urinary Incontinence - UA strongly positive - CRP 2.8 - Received IV Rocephin in ED; will continue - Urine culture pending - Beckman catheter MECHELLE - Acute on CKD - Risk Factors: on dual diuretics plus underlying chronic renal insufficiency - Baseline CKD Stage 3 - Cr 3.5; baseline usually around 2.5 per past labs - Renal U/S on 10/08/18: -1. Findings within both kidneys compatible with nonspecific medical renal disease. -2. Significant post void residual within the bladder. - IVF - Monitor renal function - Avoid nephrotoxic agents Hyponatremia - Na is 120 - She is on diuretics: lasix and metolazone - Hold diuretics - IVF and Thermotabs - Goal: Na at 135 or higher Hypokalemia -K is 3 -Monitor -Replenish PRN Anemia, Improving -Acute on Chronic -Hgb 7.7 at [facility], 8.2 in ED -Monitor; Replenish w/ PRBCs PRN Generalized Weakness - 2/2 Above - PT/OT once she improve clinically Mild Confusion -Likely 2/2 above -Aspiration and Fall precautions -Bedside swallow eval -INTERNATIONAL ACCOUNT EXECUTIVE 10/11/18 recommends NDD2 diet w/ thin liquids--> NPO until bedside complete Chronic: Impaired Hearing/Vision HF w/ Preserved EF of 65% 12/13/2015 HTN HLD -Lipid Panel Pending PVD SOB GERD Hiatal Hernia CKD III Urinary Incontinence OA/DJD Osteoporosis DM2 -A1C pending -Glucose check QID and ISS Chronic Hyponatremia Anemia Urticaria Obesity with BMI > 35 Plan: Admit to [facility] w/ telemetry Contact (MRSA positive in past), Aspiration, and Fall Precautions Routine AM Labs Resume Some Home Meds ADA, Heart Healthy Diet DVT/GI Prophylaxis: SCDs/H2B SW/CM PT/OT Code status: DNR/DNI; PCP: Dr. Julio Casarez is from [facility]
[2018-11-22] MEDS ORDERED: Albuterol/Ipratropium 3.0-0.5 MG/3 ML Neb Soln NEB PRN (18:32)
[2018-11-22] MEDS ORDERED: Polyethylene Glycol 3350 Powder 17 GM Packet PO PRN (18:32)
[2018-11-22] MEDS ORDERED: Docusate Sodium 100 MG Cap PO PRN (18:32)
[2018-11-22] MEDS ORDERED: Promethazine 25 MG Tab PO PRN (18:32)
[2018-11-22] MEDS ORDERED: Bisacodyl 5 MG Tab PO PRN (18:32)
[2018-11-22] MEDS ORDERED: Albuterol 0.083% 2.5 MG/3 ML Neb Soln NEB PRN (18:32)
[2018-11-22] MEDS ORDERED: Acetaminophen 325 MG Tab PO PRN (18:32)
[2018-11-22] MEDS ORDERED: Magnesium Hydroxide 400 MG/5 ML Susp 30 ML Cup PO PRN (18:32)
[2018-11-22] MEDS ORDERED: Promethazine 6.25 MG in Sodium Chloride 0.9% 50 ML IV PRN (18:32)
[2018-11-22] MEDS ORDERED: 50% Dextrose in Water 50 ML Syringe IVPUSH PRN (18:39)
[2018-11-22] MEDS ORDERED: Potassium Chloride 10 MEQ in Premix Bag 1 BAG IV SCH (18:45)
[2018-11-22] MEDS ORDERED: LORazepam 2 MG/ML SDV IVPUSH PRN (19:27)
[2018-11-22] MEDS: Sodium Chloride/Potassium Chloride Tab PO SCH (21:33)
[2018-11-22] MEDS: Saccharomyces Boulardii (Probiotic) 250 MG Cap PO SCH (21:33)
[2018-11-22] MEDS: Potassium Chloride 10 MEQ in Premix Bag 1 BAG IV SCH ×3 (21:33→23:40)
[2018-11-22] MEDS: Insulin Lispro 100 UNIT/ML 10 ML VIAL SUBCUT SCH (21:36)
[2018-11-23] MEDS: Potassium Chloride 10 MEQ in Premix Bag 1 BAG IV SCH ×2 (00:43→01:40)
[2018-11-23] MEDS: Sodium Chloride 0.9% 1,000 ML IV SCH ×3 (01:39→17:12)
[2018-11-23] MEDS: Insulin Lispro 100 UNIT/ML 10 ML VIAL SUBCUT SCH ×4 (06:38→21:46)
[2018-11-23 07:53] LABS: HEMOGLOBIN A1C 7.7 % (4.50-6.20)
[2018-11-23] MEDS: Saccharomyces Boulardii (Probiotic) 250 MG Cap PO SCH ×2 (08:17→21:28)
[2018-11-23] MEDS: Sodium Chloride/Potassium Chloride Tab PO SCH ×3 (08:17→21:28)
[2018-11-23] MEDS: Famotidine 20 MG Tab PO SCH (08:22)
[2018-11-23] MEDS ORDERED: Nystatin Crm 30 GM Tube TOP PRN (12:18)
[2018-11-23] MEDS ORDERED: Carboxymethylcellulose Sodium 1% Ophth Gel 15 ML Bottle EYEBOTH PRN (12:18)
[2018-11-23] MEDS ORDERED: Acetaminophen 325 MG Tab PO PRN (12:18)
--- NOTE | 2018-11-23 13:07 | PCM.SN ---
- Free Text/Narrative Note: Patient low blood glucose levels have been brought to my attention. We reviewed her MAR overnight and she has not gotten any diabetic medications. She in fact on hypoglycemic protocol. The only inpatient medication concerning to me was her low dose ISS. I suspect this was due to her being npo status (she was altered on presentation) and lingering effects of her Tresiba she had from the [facility] before she was brought over. She is now alert, awake and actively having her lunch in bed. I do not expect her current trend of glucose will continue.
[2018-11-23] MEDS: Acetaminophen 325 MG Tab PO SCH ×4 (14:28→23:35)
[2018-11-23] MEDS ORDERED: cefTRIAXone 1 GM in Sodium Chloride 0.9% 100 ML IV SCH (17:30)
[2018-11-23] MEDS ORDERED: Saccharomyces Boulardii (Probiotic) 250 MG Cap PO SCH (21:00)
--- NOTE | 2018-11-23 21:13 | PCM.PN ---
- General Info Date of Service: 11/23/18 Admission Dx/Problem (Free Text): Admission Diagnosis/Problem Admission Diagnosis/Problem Hyponatremia Subjective Update: Sara is overall doing well, no current complaints. Sodium improving, continue Thermotabs. Urine culture pending- continue Rocephin. Updated by nursing there is maria alejandra blood coming out of urinary catheter. Bonner will be D/C'd for now as this is likely 2/2 trauma, as she apparently pulls on the bonner when she has episodes of confusion. No other concerns at this time. - Review of Systems General: Reports: Weakness, Fatigue. Denies: Fever, Chills HEENT: Reports: No Symptoms Pulmonary: Reports: No Symptoms. Denies: Shortness of Breath, Cough Cardiovascular: Reports: Edema. Denies: Chest Pain Gastrointestinal: Reports: No Symptoms. Denies: Abdominal Pain, Diarrhea, Nausea, Vomiting Genitourinary: Reports: No Symptoms. Denies: Dysuria, Frequency, Burning, Pain , Urgency Musculoskeletal: Reports: No Symptoms Skin: Reports: No Symptoms Neurological: Reports: No Symptoms Psychiatric: Reports: No Symptoms - Patient Data Vitals - Most Recent: Last Vital Signs Temp 98.1 F 11/23/18 15:18 Pulse 63 11/23/18 20:23 Resp 16 11/23/18 20:23 BP 137/88 11/23/18 20:23 Pulse Ox 100 11/23/18 20:23 Weight - Most Recent: 214 lb 6.393 oz I&O - Last 24 Hours: Intake & Output 11/23/18 11/23/18 11/23/18 06:59 14:59 22:59 Intake Total 1372 889 Output Total 1050 600 Balance 322 289 Lab Results Last 24 Hours: Laboratory Results - last 24 hr 11/22/18 11/23/18 11/23/18 Range/Units 21:27 06:27 06:29 WBC 6.04 (3.98-10.04) K/mm3 RBC 2.87 L (3.98-5.22) M/mm3 Hgb 8.1 L (11.2-15.7) gm/L Hct 24.1 L (34.1-44.9) % MCV 84.0 (79.4-94.8) fl MCH 28.2 (25.6-32.2) pg MCHC 33.6 (32.2-35.5) g/dl RDW Std Deviation 44.5 (36.4-46.3) fL Plt Count 113 L (182-369) K/mm3 MPV 10.0 (9.4-12.3) fl Neut % (Auto) 69.3 (34.0-71.1) % Lymph % (Auto) 15.9 L (19.3-51.7) % [place] % (Auto) 9.9 (4.7-12.5) % Eos % (Auto) 4.5 (0.7-5.8) Baso % (Auto) 0.2 (0.1-1.2) % Neut # (Auto) 4.19 (1.56-6.13) K/mm3 Lymph # (Auto) 0.96 L (1.18-3.74) K/mm3 [place] # (Auto) 0.60 H (0.24-0.36) K/mm3 Eos # (Auto) 0.27 (0.04-0.36) K/mm3 Baso # (Auto) 0.01 (0.01-0.08) K/mm3 Sodium (136-145) mEq/L Potassium (3.5-5.1) mEq/L Chloride (98-107) mEq/L Carbon Dioxide (21-32) mEq/L Anion Gap (5-15) BUN (7-18) mg/dL Creatinine (0.55-1.02) mg/dL Est Cr Clr Drug Dosing mL/min Estimated GFR (MDRD) (>60) mL/min BUN/Creatinine Ratio (14-18) Glucose (83-115) mg/dL POC Glucose 72 L 57 L (83-110) mg/dL Hemoglobin A1c (4.50-6.20) % Calcium (8.5-10.1) mg/dL Magnesium (1.8-2.4) mg/dl C-Reactive Protein (<1.0) mg/dL Triglycerides (<150) mg/dL Cholesterol (<200) mg/dL LDL Cholesterol Direct (<100) mg/dL HDL Cholesterol (40-59) mg/dL 11/23/18 11/23/18 11/23/18 Range/Units 06:29 06:29 08:03 WBC (3.98-10.04) K/mm3 RBC (3.98-5.22) M/mm3 Hgb (11.2-15.7) gm/L Hct (34.1-44.9) % MCV (79.4-94.8) fl MCH (25.6-32.2) pg MCHC (32.2-35.5) g/dl RDW Std Deviation (36.4-46.3) fL Plt Count (182-369) K/mm3 MPV (9.4-12.3) fl Neut % (Auto) (34.0-71.1) % Lymph % (Auto) (19.3-51.7) % [place] % (Auto) (4.7-12.5) % Eos % (Auto) (0.7-5.8) Baso % (Auto) (0.1-1.2) % Neut # (Auto) (1.56-6.13) K/mm3 Lymph # (Auto) (1.18-3.74) K/mm3 [place] # (Auto) (0.24-0.36) K/mm3 Eos # (Auto) (0.04-0.36) K/mm3 Baso # (Auto) (0.01-0.08) K/mm3 Sodium 124 L (136-145) mEq/L Potassium 3.5 (3.5-5.1) mEq/L Chloride 88 L (98-107) mEq/L Carbon Dioxide 27 (21-32) mEq/L Anion Gap 12.5 (5-15) BUN 80 H (7-18) mg/dL Creatinine 2.9 H (0.55-1.02) mg/dL Est Cr Clr Drug Dosing 12.03 mL/min Estimated GFR (MDRD) 16 (>60) mL/min BUN/Creatinine Ratio 27.6 H (14-18) Glucose 45 L (83-115) mg/dL POC Glucose 70 L (83-110) mg/dL Hemoglobin A1c 7.70 H (4.50-6.20) % Calcium 8.6 (8.5-10.1) mg/dL Magnesium 2.2 (1.8-2.4) mg/dl C-Reactive Protein 3.0 H* (<1.0) mg/dL Triglycerides 25 (<150) mg/dL Cholesterol 56 (<200) mg/dL LDL Cholesterol Direct 24 (<100) mg/dL HDL Cholesterol 34.0 L (40-59) mg/dL 11/23/18 11/23/18 11/23/18 Range/Units 08:55 11:40 17:07 WBC (3.98-10.04) K/mm3 RBC (3.98-5.22) M/mm3 Hgb (11.2-15.7) gm/L Hct (34.1-44.9) % MCV (79.4-94.8) fl MCH (25.6-32.2) pg MCHC (32.2-35.5) g/dl RDW Std Deviation (36.4-46.3) fL Plt Count (182-369) K/mm3 MPV (9.4-12.3) fl Neut % (Auto) (34.0-71.1) % Lymph % (Auto) (19.3-51.7) % [place] % (Auto) (4.7-12.5) % Eos % (Auto) (0.7-5.8) Baso % (Auto) (0.1-1.2) % Neut # (Auto) (1.56-6.13) K/mm3 Lymph # (Auto) (1.18-3.74) K/mm3 [place] # (Auto) (0.24-0.36) K/mm3 Eos # (Auto) (0.04-0.36) K/mm3 Baso # (Auto) (0.01-0.08) K/mm3 Sodium (136-145) mEq/L Potassium (3.5-5.1) mEq/L Chloride (98-107) mEq/L Carbon Dioxide (21-32) mEq/L Anion Gap (5-15) BUN (7-18) mg/dL Creatinine (0.55-1.02) mg/dL Est Cr Clr Drug Dosing mL/min Estimated GFR (MDRD) (>60) mL/min BUN/Creatinine Ratio (14-18) Glucose (83-115) mg/dL POC Glucose 83 80 L 158 H (83-110) mg/dL Hemoglobin A1c (4.50-6.20) % Calcium (8.5-10.1) mg/dL Magnesium (1.8-2.4) mg/dl C-Reactive Protein (<1.0) mg/dL Triglycerides (<150) mg/dL Cholesterol (<200) mg/dL LDL Cholesterol Direct (<100) mg/dL HDL Cholesterol (40-59) mg/dL Med Orders - Current: Current Medications Acetaminophen (Tylenol) 650 mg PO Q4H PRN PRN Reason: Pain (Mild 1-3)/fever Acetaminophen (Tylenol) 650 mg PO Q6H [facility] Last Admin: 11/23/18 18:13 Dose: Not Given Albuterol (Proventil Neb Soln) 2.5 mg NEB Q2H PRN PRN Reason: Shortness Of Breath/wheezing Albuterol/Ipratropium (Duoneb 3.0-0.5 Mg/3 Ml) 3 ml NEB Q4H PRN PRN Reason: Shortness Of Breath/wheezing Amlodipine Besylate (Norvasc) 10 mg PO DAILY [facility] Artificial Tears (Refresh Liquigel 1%) 0 ml EYEBOTH DAILY PRN PRN Reason: Dry Eyes Aspirin (Aspirin) 81 mg PO DAILY [facility] Bisacodyl (Dulcolax) 5 mg PO DAILY PRN PRN Reason: Constipation Dextrose/Water (Dextrose 50% In Water) 50 ml IVPUSH ASDIRECTED PRN PRN Reason: Hypoglycemia Docusate Sodium (Colace) 100 mg PO BID PRN PRN Reason: Constipation Famotidine (Pepcid) 20 mg PO Q48H [facility] Last Admin: 11/23/18 08:22 Dose: 20 mg Guaifenesin (Mucinex) 600 mg PO BID [facility] Promethazine HCl 6.25 mg/ (Sodium Chloride) 50.25 mls @ 100 mls/hr IV Q6H PRN PRN Reason: Nausea/Vomiting Sodium Chloride (Normal Saline) 1,000 mls @ 125 mls/hr IV ASDIRECTED [facility] Last Admin: 11/23/18 17:12 Dose: 125 mls/hr Ceftriaxone Sodium 1 gm/ (Sodium Chloride) 100 mls @ 200 mls/hr IV Q24H [facility] Last Admin: 11/23/18 17:12 Dose: 200 mls/hr Insulin Human Lispro (Humalog) 0 unit SUBCUT QIDACANDBED [facility]; Protocol Last Admin: 11/23/18 17:31 Dose: 1 unit Lorazepam (Ativan) 2 mg IVPUSH Q4H PRN PRN Reason: Seizures Magnesium Hydroxide (Milk Of Magnesia) 30 ml PO Q12H PRN PRN Reason: Constipation Modafinil (Provigil) 100 mg PO DAILY@0700 [facility] Nystatin (Nystatin Crm) 0 gm TOP BID PRN PRN Reason: Itching Oral Electrolytes (Thermotabs) 2 each PO TID [facility] Last Admin: 11/23/18 14:28 Dose: 2 each Polyethylene Glycol (Miralax) 17 gm PO DAILY PRN PRN Reason: Constipation Promethazine HCl (Phenergan) 25 mg PO Q6H PRN PRN Reason: Nausea/Vomiting Saccharomyces Boulardii (Florastor) 250 mg PO BID [facility] Last Admin: 11/23/18 08:17 Dose: 250 mg Senna/Docusate Sodium (Senna Plus) 1 tab PO BID PRN PRN Reason: Constipation Sodium Chloride (Saline Flush) 10 ml FLUSH ASDIRECTED PRN PRN Reason: Keep Vein Open Last Admin: 11/22/18 16:58 Dose: 10 ml Discontinued Medications Acetaminophen (Tylenol) 650 mg PO BID PRN PRN Reason: Pain Sodium Chloride (Normal Saline) 500 mls @ 999 mls/hr IV .BOLUS ONE Stop: 11/22/18 16:44 Last Admin: 11/22/18 16:56 Dose: 999 mls/hr Potassium Chloride 10 meq/ (Premix) 100 mls @ 50 mls/hr IV ASDIRECTED ONE Stop: 11/22/18 18:14 Last Admin: 11/22/18 16:56 Dose: 100 mls/hr Ceftriaxone Sodium 1 gm/ (Sodium Chloride) 100 mls @ 200 mls/hr IV ONETIME ONE Stop: 11/22/18 18:11 Last Admin: 11/22/18 18:11 Dose: 200 mls/hr Potassium Chloride 10 meq/ (Premix) 100 mls @ 100 mls/hr IV Q1H [facility] Stop: 11/23/18 02:29 Last Admin: 11/23/18 01:40 Dose: 100 mls/hr Saccharomyces Boulardii (Florastor) 250 mg PO BID [facility] - Exam Quality Assessment: DVT Prophylaxis. No: Urine Catheter (D/C'd; had maria alejandra blood coming out today likely 2/2 trauma) General: Alert HEENT: Pupils Equal, Pupils Reactive, EOMI, Mucous Membr. Moist/Bernice Neck: Supple Lungs: Clear to Auscultation, Normal Respiratory Effort Cardiovascular: Regular Rate, Regular Rhythm GI/Abdominal Exam: Normal Bowel Sounds, Soft, Non-Tender, No Organomegaly, No Distention, No Abnormal Bruit, No Mass, Pelvis Stable (Female) Exam: Deferred Back Exam: Normal Inspection Extremities: Normal Inspection, Normal Range of Motion, Non-Tender, Normal Capillary Refill, Pedal Edema Peripheral Pulses: 1+: Posterior Tibial (L), Posterior Tibial (R), Dorsalis Pedis (L), Dorsalis Pedis (R) Skin: Warm, Dry, Intact Neurological: No New Focal Deficit Psy/Mental Status: Alert - Problem List & Annotations (1) Hypokalemia SNOMED Code(s): 45180408 Code(s): E87.6 - HYPOKALEMIA Status: Acute Priority: High Current Visit : Yes (2) Hyponatremia SNOMED Code(s): 35029926 Code(s): E87.1 - HYPO-OSMOLALITY AND HYPONATREMIA Status: Acute Priority : High Current Visit: Yes (3) Mental status change SNOMED Code(s): 168187497 Code(s): R41.82 - ALTERED MENTAL STATUS, UNSPECIFIED Status: Acute Priority: High Current Visit: Yes Qualifiers: Altered mental status type: transient alteration of awareness Qualified Code(s): R40.4 - Transient alteration of awareness (4) Renal insufficiency SNOMED Code(s): 278819147, 253372781 Code(s): N28.9 - DISORDER OF KIDNEY AND URETER, UNSPECIFIED Status: Acute Priority: High Current Visit: Yes Onset Date: 12/11/15 Annotation/ Comment:: - Acute on Chronic Kidney Disease (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) - Baseline Cr is 1.9 as of Jun 2015 (2.6 on admission); Today Cr is 2.2 - Renal U/S: No hydronephrosis or mass - Continue Strict Is/Os - Continue to avoid nephrotoxic agents if all possible - Has overt proteinuria (5) UTI, Urinary tract infectious disease SNOMED Code(s): 38783747 Code(s): N39.0 - URINARY TRACT INFECTION, SITE NOT SPECIFIED Status: Acute Priority: High Current Visit: Yes Onset Date: 12/11/15 Annotation/ Comment:: - UA + - On Levaquin IV - x 3 more doses to complete treatment - Was GPC+ last time (6) Anemia SNOMED Code(s): 576015935 Code(s): D64.9 - ANEMIA, UNSPECIFIED Status: Acute Priority: High Current Visit: Yes Qualifiers: Anemia type: unspecified type Qualified Code(s): D64.9 - Anemia, unspecified - Problem List Review Problem List Initiated/Reviewed/Updated: Yes - My Orders Last 24 Hours: My Active Orders 11/22/18 21:00 Saccharomyces Boulardii [Florastor] 250 mg PO BID Sodium Chloride/KCl [Thermotabs] 2 each PO TID 11/22/18 22:00 Insulin Lispro [HumaLOG] See Protocol SUBCUT QIDACANDBED 11/23/18 09:00 Famotidine [Pepcid] 20 mg PO Q48H 11/23/18 17:30 cefTRIAXone [Rocephin] 1 gm Sodium Chloride 0.9% [Normal Saline] 100 ml IV Q24H 11/23/18 18:50 Remove Bonner Catheter [Urinary Catheter Removal] [RC] Per Unit Routine 11/24/18 05:11 BASIC METABOLIC PANEL,BMP [CHEM] AM C-REACTIVE PROTEIN [CHEM] AM CBC WITH AUTO DIFF [HEME] AM MAGNESIUM [CHEM] AM 11/25/18 05:11 BASIC METABOLIC PANEL,BMP [CHEM] AM C-REACTIVE PROTEIN [CHEM] AM CBC WITH AUTO DIFF [HEME] AM MAGNESIUM [CHEM] AM 11/26/18 05:11 BASIC METABOLIC PANEL,BMP [CHEM] AM C-REACTIVE PROTEIN [CHEM] AM CBC WITH AUTO DIFF [HEME] AM MAGNESIUM [CHEM] AM 11/27/18 05:11 BASIC METABOLIC PANEL,BMP [CHEM] AM C-REACTIVE PROTEIN [CHEM] AM CBC WITH AUTO DIFF [HEME] AM MAGNESIUM [CHEM] AM - Plan Plan:: Assessment/Plan: Acute: UTI - Risk Factors: Urinary Incontinence - UA strongly positive - CRP 2.8--> 3 - Received IV Rocephin in ED; will continue - Urine culture pending - Bonner catheter--> D/C'd today d/t maria alejandra blood likely 2/2 trauma (gets confused at times and pulls on it) MECHELLE, Improving - Acute on CKD - Risk Factors: on dual diuretics plus underlying chronic renal insufficiency - Baseline CKD Stage 3 - Cr 3.5-->2.9; baseline usually around 2.5 per past labs - Renal U/S on 10/08/18: -1. Findings within both kidneys compatible with nonspecific medical renal disease. -2. Significant post void residual within the bladder. - IVF - Monitor renal function - Avoid nephrotoxic agents Hyponatremia, Improving - Na is 120-->124 - She is on diuretics: lasix and metolazone - Hold diuretics - IVF and Thermotabs - Goal: Na at 135 or higher Anemia, Stable -Acute on Chronic -Hgb 7.7 at [facility], 8.2 in ED -Monitor; Replenish w/ PRBCs PRN Generalized Weakness - 2/2 Above - PT/OT once she improve clinically Mild Confusion -Likely 2/2 above -Aspiration and Fall precautions -Bedside swallow eval -GENETIC COUNSELOR 10/11/18 recommends NDD2 diet w/ thin liquids--> NPO until bedside complete Resolved: Hypokalemia -K is 3-->3.5 -Monitor -Replenish PRN Chronic: Impaired Hearing/Vision HF w/ Preserved EF of 65% 12/13/2015 HTN HLD -Lipid Panel WNL except HDL low at 34 PVD SOB GERD Hiatal Hernia CKD III Urinary Incontinence OA/DJD Osteoporosis DM2, Uncontrolled -A1C 7.7 -Glucose check QID and ISS -Diabetic Education Chronic Hyponatremia Anemia Urticaria Obesity with BMI > 35 Plan: Admit to [facility] w/ telemetry Contact (MRSA positive in past), Aspiration, and Fall Precautions Routine AM Labs Resume Some Home Meds ADA, Heart Healthy Diet DVT/GI Prophylaxis: SCDs/H2B SW/CM PT/OT Code status: DNR/DNI; PCP: Dr. Julio Casarez is from [facility]
[2018-11-23] MEDS: guaiFENesin 600 MG Tab.ER PO SCH (21:28)
[2018-11-24] MEDS: Sodium Chloride 0.9% 1,000 ML IV SCH ×2 (02:08→09:04)
[2018-11-24] MEDS: Acetaminophen 325 MG Tab PO SCH ×3 (06:31→17:46)
[2018-11-24] MEDS: Modafinil 200 MG Tab PO SCH (06:31)
[2018-11-24] MEDS: guaiFENesin 600 MG Tab.ER PO SCH ×2 (09:03→21:22)
[2018-11-24] MEDS: Aspirin 81 MG Tab.Chew PO SCH (09:03)
[2018-11-24] MEDS: amLODIPine 10 MG Tab PO SCH (09:03)
[2018-11-24] MEDS: Saccharomyces Boulardii (Probiotic) 250 MG Cap PO SCH ×2 (09:03→21:22)
[2018-11-24] MEDS: Insulin Lispro 100 UNIT/ML 10 ML VIAL SUBCUT SCH (09:04)
[2018-11-24] MEDS: Sodium Chloride/Potassium Chloride Tab PO SCH ×3 (09:23→21:22)
[2018-11-24] MEDS ORDERED: Piperacillin/Tazobactam 4.5 GM in Sodium Chloride 0.9% 100 ML IV ONE (10:00)
[2018-11-24] MEDS ORDERED: Sodium Chloride 0.9% 250 ML IV SCH (11:15)
[2018-11-24] MEDS: Insulin Lispro 100 Units/ML 3 ML Vial SUBCUT SCH ×3 (12:47→22:08)
[2018-11-24] MEDS ORDERED: Furosemide 40 MG/4 ML VIAL IVPUSH ONE (17:20)
--- NOTE | 2018-11-24 19:55 | PCM.PN ---
- General Info Date of Service: 11/24/18 Admission Dx/Problem (Free Text): Admission Diagnosis/Problem Admission Diagnosis/Problem Hyponatremia Subjective Update: In to see Sara. She is sitting up in bed watching TV. No current complaints. She seems to be situationally confused as she wasn't sure why she was here. However, she is A+O x3. She did have maria alejandra blood coming out of her urinary catheter yesterday likely 2/2 trauma (she gets confused at time and pulls it), so it was D/C'd. However, this AM she continues to bleed and her Hgb dropped to 6.9. Therefore she was given 2U of blood today and her ASA was held. She will be on SCDs for DVT ppx. She is now on continuous bladder irrigation with improvement. Will continue to monitor her Hgb and give PRBCs PRN. No other concerns from nursing at this time. Functional Status: Reports: Pain Controlled, Tolerating Diet, Ambulating, Urinating - Review of Systems General: Reports: Weakness, Fatigue HEENT: Reports: No Symptoms Pulmonary: Reports: No Symptoms Cardiovascular: Reports: Edema Gastrointestinal: Reports: No Symptoms Genitourinary: Reports: No Symptoms Musculoskeletal: Reports: No Symptoms Skin: Reports: No Symptoms Neurological: Reports: Confusion (mild; situational confusion) Psychiatric: Reports: Confusion (mild; situational confusion) - Patient Data Vitals - Most Recent: Last Vital Signs Temp 97.7 F 11/24/18 15:09 Pulse 78 11/24/18 15:09 Resp 20 11/24/18 15:09 BP 113/51 L 11/24/18 15:09 Pulse Ox 98 11/24/18 15:09 Weight - Most Recent: 120 lb 1.6 oz I&O - Last 24 Hours: Intake & Output 11/24/18 11/24/18 11/24/18 06:59 14:59 22:59 Intake Total 2060 200 1865 Output Total 1100 Balance 862 314 1520 Lab Results Last 24 Hours: Laboratory Results - last 24 hr 11/23/18 11/24/18 11/24/18 Range/Units 21:36 06:22 06:22 WBC 7.76 (3.98-10.04) K/mm3 RBC 2.51 L (3.98-5.22) M/mm3 Hgb 6.9 L* (11.2-15.7) gm/L Hct 21.7 L (34.1-44.9) % MCV 86.5 (79.4-94.8) fl MCH 27.5 (25.6-32.2) pg MCHC 31.8 L (32.2-35.5) g/dl RDW Std Deviation 46.1 (36.4-46.3) fL Plt Count 124 L (182-369) K/mm3 MPV 9.7 (9.4-12.3) fl Neut % (Auto) 77.2 H (34.0-71.1) % Lymph % (Auto) 10.6 L (19.3-51.7) % Giles % (Auto) 8.0 (4.7-12.5) % Eos % (Auto) 3.5 (0.7-5.8) Baso % (Auto) 0.3 (0.1-1.2) % Neut # (Auto) 6.00 (1.56-6.13) K/mm3 Lymph # (Auto) 0.82 L (1.18-3.74) K/mm3 Giles # (Auto) 0.62 H (0.24-0.36) K/mm3 Eos # (Auto) 0.27 (0.04-0.36) K/mm3 Baso # (Auto) 0.02 (0.01-0.08) K/mm3 Manual Slide Review Abnormal smear Sodium 125 L (136-145) mEq/L Potassium 3.9 (3.5-5.1) mEq/L Chloride 92 L (98-107) mEq/L Carbon Dioxide 24 (21-32) mEq/L Anion Gap 12.9 (5-15) BUN 74 H (7-18) mg/dL Creatinine 2.7 H (0.55-1.02) mg/dL Est Cr Clr Drug Dosing 12.81 mL/min Estimated GFR (MDRD) 17 (>60) mL/min BUN/Creatinine Ratio 27.4 H (14-18) Glucose 134 H (83-115) mg/dL POC Glucose 215 H (83-110) mg/dL Calcium 8.4 L (8.5-10.1) mg/dL Magnesium 2.1 (1.8-2.4) mg/dl C-Reactive Protein 4.3 H* (<1.0) mg/dL Blood Type Gel Antibody Screen Crossmatch 11/24/18 11/24/18 11/24/18 Range/Units 06:22 06:49 11:08 WBC (3.98-10.04) K/mm3 RBC (3.98-5.22) M/mm3 Hgb (11.2-15.7) gm/L Hct (34.1-44.9) % MCV (79.4-94.8) fl MCH (25.6-32.2) pg MCHC (32.2-35.5) g/dl RDW Std Deviation (36.4-46.3) fL Plt Count (182-369) K/mm3 MPV (9.4-12.3) fl Neut % (Auto) (34.0-71.1) % Lymph % (Auto) (19.3-51.7) % Giles % (Auto) (4.7-12.5) % Eos % (Auto) (0.7-5.8) Baso % (Auto) (0.1-1.2) % Neut # (Auto) (1.56-6.13) K/mm3 Lymph # (Auto) (1.18-3.74) K/mm3 Giles # (Auto) (0.24-0.36) K/mm3 Eos # (Auto) (0.04-0.36) K/mm3 Baso # (Auto) (0.01-0.08) K/mm3 Manual Slide Review Sodium (136-145) mEq/L Potassium (3.5-5.1) mEq/L Chloride (98-107) mEq/L Carbon Dioxide (21-32) mEq/L Anion Gap (5-15) BUN (7-18) mg/dL Creatinine (0.55-1.02) mg/dL Est Cr Clr Drug Dosing mL/min Estimated GFR (MDRD) (>60) mL/min BUN/Creatinine Ratio (14-18) Glucose (83-115) mg/dL POC Glucose 156 H 242 H (83-110) mg/dL Calcium (8.5-10.1) mg/dL Magnesium (1.8-2.4) mg/dl C-Reactive Protein (<1.0) mg/dL Blood Type O POSITIVE Gel Antibody Screen Negative Crossmatch See Detail 11/24/18 Range/Units 17:37 WBC (3.98-10.04) K/mm3 RBC (3.98-5.22) M/mm3 Hgb (11.2-15.7) gm/L Hct (34.1-44.9) % MCV (79.4-94.8) fl MCH (25.6-32.2) pg MCHC (32.2-35.5) g/dl RDW Std Deviation (36.4-46.3) fL Plt Count (182-369) K/mm3 MPV (9.4-12.3) fl Neut % (Auto) (34.0-71.1) % Lymph % (Auto) (19.3-51.7) % Giles % (Auto) (4.7-12.5) % Eos % (Auto) (0.7-5.8) Baso % (Auto) (0.1-1.2) % Neut # (Auto) (1.56-6.13) K/mm3 Lymph # (Auto) (1.18-3.74) K/mm3 Giles # (Auto) (0.24-0.36) K/mm3 Eos # (Auto) (0.04-0.36) K/mm3 Baso # (Auto) (0.01-0.08) K/mm3 Manual Slide Review Sodium (136-145) mEq/L Potassium (3.5-5.1) mEq/L Chloride (98-107) mEq/L Carbon Dioxide (21-32) mEq/L Anion Gap (5-15) BUN (7-18) mg/dL Creatinine (0.55-1.02) mg/dL Est Cr Clr Drug Dosing mL/min Estimated GFR (MDRD) (>60) mL/min BUN/Creatinine Ratio (14-18) Glucose (83-115) mg/dL POC Glucose 228 H (83-110) mg/dL Calcium (8.5-10.1) mg/dL Magnesium (1.8-2.4) mg/dl C-Reactive Protein (<1.0) mg/dL Blood Type Gel Antibody Screen Crossmatch Gopi Results Last 24 Hours: Microbiology 11/22/18 16:01 Urine Culture - Preliminary Urine, Catheterized Gram Negative Rods Gram Negative Rods#2 Med Orders - Current: Current Medications Acetaminophen (Tylenol) 650 mg PO Q4H PRN PRN Reason: Pain (Mild 1-3)/fever Acetaminophen (Tylenol) 650 mg PO Q6H [facility] Last Admin: 11/24/18 17:46 Dose: 650 mg Albuterol (Proventil Neb Soln) 2.5 mg NEB Q2H PRN PRN Reason: Shortness Of Breath/wheezing Albuterol/Ipratropium (Duoneb 3.0-0.5 Mg/3 Ml) 3 ml NEB Q4H PRN PRN Reason: Shortness Of Breath/wheezing Amlodipine Besylate (Norvasc) 10 mg PO DAILY [facility] Last Admin: 11/24/18 09:03 Dose: 10 mg Artificial Tears (Refresh Liquigel 1%) 0 ml EYEBOTH DAILY PRN PRN Reason: Dry Eyes Aspirin (Aspirin) 81 mg PO DAILY [facility] Last Admin: 11/24/18 09:03 Dose: 81 mg Bisacodyl (Dulcolax) 5 mg PO DAILY PRN PRN Reason: Constipation Last Admin: 11/24/18 06:31 Dose: 5 mg Dextrose/Water (Dextrose 50% In Water) 50 ml IVPUSH ASDIRECTED PRN PRN Reason: Hypoglycemia Docusate Sodium (Colace) 100 mg PO BID PRN PRN Reason: Constipation Famotidine (Pepcid) 20 mg PO Q48H [facility] Last Admin: 11/23/18 08:22 Dose: 20 mg Guaifenesin (Mucinex) 600 mg PO BID [facility] Last Admin: 11/24/18 09:03 Dose: 600 mg Promethazine HCl 6.25 mg/ (Sodium Chloride) 50.25 mls @ 100 mls/hr IV Q6H PRN PRN Reason: Nausea/Vomiting Sodium Chloride (Normal Saline) 1,000 mls @ 125 mls/hr IV ASDIRECTED [facility] Last Admin: 11/24/18 09:04 Dose: 125 mls/hr Piperacillin Sod/Tazobactam (Sod 4.5 gm/ Sodium Chloride) 100 mls @ 25 mls/hr IV Q12H [facility] Insulin Human Lispro (Humalog) 0 unit SUBCUT QIDACANDBED [facility]; Protocol Last Admin: 02/27/19 17:46 Dose: 4 units Lorazepam (Ativan) 2 mg IVPUSH Q4H PRN PRN Reason: Seizures Magnesium Hydroxide (Milk Of Magnesia) 30 ml PO Q12H PRN PRN Reason: Constipation Modafinil (Provigil) 100 mg PO DAILY@0700 [facility] Last Admin: 11/24/18 06:31 Dose: 100 mg Nystatin (Nystatin Crm) 0 gm TOP BID PRN PRN Reason: Itching Oral Electrolytes (Thermotabs) 2 each PO TID [facility] Last Admin: 11/24/18 16:54 Dose: 2 each Polyethylene Glycol (Miralax) 17 gm PO DAILY PRN PRN Reason: Constipation Promethazine HCl (Phenergan) 25 mg PO Q6H PRN PRN Reason: Nausea/Vomiting Saccharomyces Boulardii (Florastor) 250 mg PO BID [facility] Last Admin: 11/24/18 09:03 Dose: 250 mg Senna/Docusate Sodium (Senna Plus) 1 tab PO BID PRN PRN Reason: Constipation Sodium Chloride (Saline Flush) 10 ml FLUSH ASDIRECTED PRN PRN Reason: Keep Vein Open Last Admin: 11/22/18 16:58 Dose: 10 ml Discontinued Medications Acetaminophen (Tylenol) 650 mg PO BID PRN PRN Reason: Pain Furosemide (Lasix) 40 mg IVPUSH NOW ONE Stop: 11/24/18 17:21 Last Admin: 11/24/18 17:46 Dose: 40 mg Sodium Chloride (Normal Saline) 500 mls @ 999 mls/hr IV .BOLUS ONE Stop: 11/22/18 16:44 Last Admin: 11/22/18 16:56 Dose: 999 mls/hr Potassium Chloride 10 meq/ (Premix) 100 mls @ 50 mls/hr IV ASDIRECTED ONE Stop: 11/22/18 18:14 Last Admin: 11/22/18 16:56 Dose: 100 mls/hr Ceftriaxone Sodium 1 gm/ (Sodium Chloride) 100 mls @ 200 mls/hr IV ONETIME ONE Stop: 11/22/18 18:11 Last Admin: 11/22/18 18:11 Dose: 200 mls/hr Ceftriaxone Sodium 1 gm/ (Sodium Chloride) 100 mls @ 200 mls/hr IV Q24H [facility] Last Admin: 11/23/18 17:12 Dose: 200 mls/hr Potassium Chloride 10 meq/ (Premix) 100 mls @ 100 mls/hr IV Q1H [facility] Stop: 11/23/18 02:29 Last Admin: 11/23/18 01:40 Dose: 100 mls/hr Piperacillin Sod/Tazobactam (Sod 4.5 gm/ Sodium Chloride) 100 mls @ 200 mls/hr IV ONETIME ONE Stop: 11/24/18 10:29 Last Admin: 11/24/18 09:23 Dose: 200 mls/hr Sodium Chloride (Normal Saline) 250 mls @ 150 mls/hr IV ASDIRECTED [facility] Stop: 11/24/18 18:00 Insulin Human Lispro (Humalog) 0 unit SUBCUT QIDACANDBED [facility]; Protocol Last Admin: 11/24/18 09:04 Dose: 2 unit Saccharomyces Boulardii (Florastor) 250 mg PO BID SANJIV - Exam Quality Assessment: Urine Catheter (slightly tinged with blood; improved since yesterday), DVT Prophylaxis General: Alert, Oriented (x3; situationally confused) HEENT: Pupils Equal, Pupils Reactive, EOMI, Mucous Membr. Moist/[place] Neck: Supple Lungs: Clear to Auscultation, Normal Respiratory Effort Cardiovascular: Regular Rate, Regular Rhythm GI/Abdominal Exam: Normal Bowel Sounds, Soft, Non-Tender, No Organomegaly, No Distention, No Abnormal Bruit, No Mass, Pelvis Stable (Female) Exam: Deferred Back Exam: Normal Inspection Extremities: Normal Inspection, Normal Range of Motion, Non-Tender, Normal Capillary Refill, Pedal Edema Peripheral Pulses: 1+: Posterior Tibial (L), Posterior Tibial (R), Dorsalis Pedis (L), Dorsalis Pedis (R) Skin: Warm, Dry, Intact Neurological: No New Focal Deficit Psy/Mental Status: Alert - Problem List & Annotations (1) Hypokalemia SNOMED Code(s): 00527122 Code(s): E87.6 - HYPOKALEMIA Status: Acute Priority: High Current Visit : Yes (2) Hyponatremia SNOMED Code(s): 68762511 Code(s): E87.1 - HYPO-OSMOLALITY AND HYPONATREMIA Status: Acute Priority : High Current Visit: Yes (3) Mental status change SNOMED Code(s): 405245941 Code(s): R41.82 - ALTERED MENTAL STATUS, UNSPECIFIED Status: Acute Priority: High Current Visit: Yes Qualifiers: Altered mental status type: transient alteration of awareness Qualified Code(s): R40.4 - Transient alteration of awareness (4) Renal insufficiency SNOMED Code(s): 513387301, 020353751 Code(s): N28.9 - DISORDER OF KIDNEY AND URETER, UNSPECIFIED Status: Acute Priority: High Current Visit: Yes Onset Date: 12/11/15 Annotation/ Comment:: - Acute on Chronic Kidney Disease (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) - Baseline Cr is 1.9 as of Jun 2015 (2.6 on admission); Today Cr is 2.2 - Renal U/S: No hydronephrosis or mass - Continue Strict Is/Os - Continue to avoid nephrotoxic agents if all possible - Has overt proteinuria (5) UTI, Urinary tract infectious disease SNOMED Code(s): 93709247 Code(s): N39.0 - URINARY TRACT INFECTION, SITE NOT SPECIFIED Status: Acute Priority: High Current Visit: Yes Onset Date: 12/11/15 Annotation/ Comment:: - UA + - On Levaquin IV - x 3 more doses to complete treatment - Was GPC+ last time (6) Anemia SNOMED Code(s): 030965406 Code(s): D64.9 - ANEMIA, UNSPECIFIED Status: Acute Priority: High Current Visit: Yes Qualifiers: Anemia type: unspecified type Qualified Code(s): D64.9 - Anemia, unspecified - Problem List Review Problem List Initiated/Reviewed/Updated: Yes - My Orders Last 24 Hours: My Active Orders 11/24/18 10:21 Insulin Lispro [HumaLOG] 0 unit SUBCUT QIDACANDBED 11/24/18 17:26 Antiembolic Devices [RC] 09,21 SCD [Sequential Compression Device] [OM.PC] Routine 11/25/18 05:11 BASIC METABOLIC PANEL,BMP [CHEM] AM C-REACTIVE PROTEIN [CHEM] AM CBC WITH AUTO DIFF [HEME] AM MAGNESIUM [CHEM] AM 11/26/18 05:11 BASIC METABOLIC PANEL,BMP [CHEM] AM C-REACTIVE PROTEIN [CHEM] AM CBC WITH AUTO DIFF [HEME] AM MAGNESIUM [CHEM] AM 11/27/18 05:11 BASIC METABOLIC PANEL,BMP [CHEM] AM C-REACTIVE PROTEIN [CHEM] AM CBC WITH AUTO DIFF [HEME] AM MAGNESIUM [CHEM] AM - Plan Plan:: Assessment/Plan: Acute: UTI - Risk Factors: Urinary Incontinence - UA strongly positive - CRP 2.8--> 3--> 4.3 - Received IV Rocephin in ED; will continue - Urine culture pending - Beckman catheter--> D/C'd today d/t maria alejandra blood likely 2/2 trauma (gets confused at times and pulls on it) MECHELLE, Improving - Acute on CKD - Risk Factors: on dual diuretics plus underlying chronic renal insufficiency - Baseline CKD Stage 3 - Cr 3.5-->2.9-->2.7; baseline usually around 2.5 per past labs - Renal U/S on 10/08/18: -1. Findings within both kidneys compatible with nonspecific medical renal disease. -2. Significant post void residual within the bladder. - IVF - Monitor renal function - Avoid nephrotoxic agents Hyponatremia, Improving - Na is 120-->124-->125 - She is on diuretics: lasix and metolazone - Hold diuretics - IVF and Thermotabs - Goal: Na at 135 or higher Anemia, Stable -Acute on Chronic -Hgb 7.7 at [facility], 8.2 in ED--> 6.2 today 2/2 hematuria likely 2/2 from urinary catheter trauma (she gets confused and pulls on it) -Monitor; Replenish w/ PRBCs PRN Generalized Weakness - 2/2 Above - PT/OT once she improve clinically Mild Confusion -Likely 2/2 above -Aspiration and Fall precautions -Bedside swallow eval -[employer] 10/11/18 recommends NDD2 diet w/ thin liquids--> NPO until bedside complete Resolved: Hypokalemia -K is 3-->3.5 -Monitor -Replenish PRN Chronic: Impaired Hearing/Vision HF w/ Preserved EF of 65% 12/13/2015 HTN HLD -Lipid Panel WNL except HDL low at 34 PVD SOB GERD Hiatal Hernia CKD III Urinary Incontinence OA/DJD Osteoporosis DM2, Uncontrolled -A1C 7.7 -Glucose check QID and ISS -Diabetic Education Chronic Hyponatremia Anemia Urticaria Obesity with BMI > 35 Plan: Admit to [facility]SP w/ telemetry Contact (MRSA positive in past), Aspiration, and Fall Precautions Routine AM Labs Resume Some Home Meds ADA, Heart Healthy Diet DVT/GI Prophylaxis: SCDs/H2B SW/CM PT/OT Code status: DNR/DNI; PCP: Dr. Kim She is from [facility]
[2018-11-24] MEDS: Piperacillin/Tazobactam 4.5 GM in Sodium Chloride 0.9% 100 ML IV SCH (21:22)
[2018-11-25] MEDS: Acetaminophen 325 MG Tab PO SCH ×4 (00:12→18:24)
[2018-11-25] MEDS: Sodium Chloride 0.9% 1,000 ML IV SCH ×2 (00:16→08:50)
[2018-11-25] MEDS: Modafinil 200 MG Tab PO SCH (06:10)
[2018-11-25] MEDS: Insulin Lispro 100 Units/ML 3 ML Vial SUBCUT SCH ×4 (06:30→21:03)
[2018-11-25] MEDS: guaiFENesin 600 MG Tab.ER PO SCH ×2 (09:12→20:28)
[2018-11-25] MEDS: Sodium Chloride/Potassium Chloride Tab PO SCH ×3 (09:12→20:33)
[2018-11-25] MEDS: Saccharomyces Boulardii (Probiotic) 250 MG Cap PO SCH ×2 (09:12→20:28)
[2018-11-25] MEDS: Piperacillin/Tazobactam 4.5 GM in Sodium Chloride 0.9% 100 ML IV SCH (09:13)
[2018-11-25] MEDS: amLODIPine 10 MG Tab PO SCH (09:19)
[2018-11-25] MEDS: Famotidine 20 MG Tab PO SCH (10:00)
[2018-11-25] MEDS ORDERED: Sodium Chloride 0.9% 1,000 ML IV SCH (18:00)
--- NOTE | 2018-11-25 18:57 | PCM.PN ---
- General Info Date of Service: 11/25/18 Admission Dx/Problem (Free Text): Admission Diagnosis/Problem Admission Diagnosis/Problem Hyponatremia Subjective Update: In to see Sara. She is sitting up in a chair watching tv and resting. She has no complaints at this time. Bladder irrigation has been successful, her bonner is no longer showing hematuria. We will D/C bonner tomorrow. Urine culture has come back sensitive for pseudomonas sensitive to Levaquin- will change antibiotic to Levaquin. No concerns from nursing. Functional Status: Reports: Pain Controlled, Tolerating Diet, Ambulating, Urinating - Review of Systems General: Reports: Weakness, Fatigue HEENT: Reports: No Symptoms Pulmonary: Reports: No Symptoms. Denies: Shortness of Breath, Cough Cardiovascular: Reports: Edema. Denies: Chest Pain Gastrointestinal: Reports: No Symptoms. Denies: Abdominal Pain, Diarrhea, Nausea, Vomiting Genitourinary: Reports: No Symptoms. Denies: Dysuria, Frequency, Burning, Pain , Urgency, Hematuria Musculoskeletal: Reports: No Symptoms Skin: Reports: No Symptoms Neurological: Reports: Confusion (mild; situational confusio) Psychiatric: Reports: Confusion (mild; situational confusio) - Patient Data Vitals - Most Recent: Last Vital Signs Temp 97.9 F 11/25/18 15:00 Pulse 62 11/25/18 15:00 Resp 14 11/25/18 15:00 BP 140/97 H 11/25/18 15:00 Pulse Ox 99 11/25/18 15:00 Weight - Most Recent: 227 lb 3 oz I&O - Last 24 Hours: Intake & Output 11/25/18 11/25/18 11/25/18 06:59 14:59 22:59 Intake Total 1984 171 6368 Output Total 850 Balance 710 377 5035 Lab Results Last 24 Hours: Laboratory Results - last 24 hr 11/24/18 11/24/18 11/25/18 Range/Units 06:22 21:16 06:13 WBC (3.98-10.04) K/mm3 RBC (3.98-5.22) M/mm3 Hgb (11.2-15.7) gm/L Hct (34.1-44.9) % MCV (79.4-94.8) fl MCH (25.6-32.2) pg MCHC (32.2-35.5) g/dl RDW Std Deviation (36.4-46.3) fL Plt Count (182-369) K/mm3 MPV (9.4-12.3) fl Neut % (Auto) (34.0-71.1) % Lymph % (Auto) (19.3-51.7) % Sutton % (Auto) (4.7-12.5) % Eos % (Auto) (0.7-5.8) Baso % (Auto) (0.1-1.2) % Neut # (Auto) (1.56-6.13) K/mm3 Lymph # (Auto) (1.18-3.74) K/mm3 Sutton # (Auto) (0.24-0.36) K/mm3 Eos # (Auto) (0.04-0.36) K/mm3 Baso # (Auto) (0.01-0.08) K/mm3 Sodium (136-145) mEq/L Potassium (3.5-5.1) mEq/L Chloride (98-107) mEq/L Carbon Dioxide (21-32) mEq/L Anion Gap (5-15) BUN (7-18) mg/dL Creatinine (0.55-1.02) mg/dL Est Cr Clr Drug Dosing mL/min Estimated GFR (MDRD) (>60) mL/min BUN/Creatinine Ratio (14-18) Glucose (83-115) mg/dL POC Glucose 244 H 136 H (83-110) mg/dL Calcium (8.5-10.1) mg/dL Magnesium (1.8-2.4) mg/dl C-Reactive Protein (<1.0) mg/dL Crossmatch See Detail 11/25/18 11/25/18 11/25/18 Range/Units 06:15 06:15 11:02 WBC 6.84 (3.98-10.04) K/mm3 RBC 3.08 L (3.98-5.22) M/mm3 Hgb 8.6 L (11.2-15.7) gm/L Hct 26.4 L (34.1-44.9) % MCV 85.7 (79.4-94.8) fl MCH 27.9 (25.6-32.2) pg MCHC 32.6 (32.2-35.5) g/dl RDW Std Deviation 46.2 (36.4-46.3) fL Plt Count 107 L (182-369) K/mm3 MPV 9.8 (9.4-12.3) fl Neut % (Auto) 65.9 (34.0-71.1) % Lymph % (Auto) 12.7 L (19.3-51.7) % Sutton % (Auto) 10.7 (4.7-12.5) % Eos % (Auto) 9.8 H (0.7-5.8) Baso % (Auto) 0.3 (0.1-1.2) % Neut # (Auto) 4.51 (1.56-6.13) K/mm3 Lymph # (Auto) 0.87 L (1.18-3.74) K/mm3 Sutton # (Auto) 0.73 H (0.24-0.36) K/mm3 Eos # (Auto) 0.67 H (0.04-0.36) K/mm3 Baso # (Auto) 0.02 (0.01-0.08) K/mm3 Sodium 133 L (136-145) mEq/L Potassium 3.7 (3.5-5.1) mEq/L Chloride 98 (98-107) mEq/L Carbon Dioxide 26 (21-32) mEq/L Anion Gap 12.7 (5-15) BUN 63 H (7-18) mg/dL Creatinine 2.6 H (0.55-1.02) mg/dL Est Cr Clr Drug Dosing 13.31 mL/min Estimated GFR (MDRD) 18 (>60) mL/min BUN/Creatinine Ratio 24.2 H (14-18) Glucose 129 H (83-115) mg/dL POC Glucose 226 H (83-110) mg/dL Calcium 8.6 (8.5-10.1) mg/dL Magnesium 2.1 (1.8-2.4) mg/dl C-Reactive Protein 4.1 H* (<1.0) mg/dL Crossmatch 11/25/18 11/25/18 Range/Units 16:03 17:36 WBC (3.98-10.04) K/mm3 RBC (3.98-5.22) M/mm3 Hgb (11.2-15.7) gm/L Hct (34.1-44.9) % MCV (79.4-94.8) fl MCH (25.6-32.2) pg MCHC (32.2-35.5) g/dl RDW Std Deviation (36.4-46.3) fL Plt Count (182-369) K/mm3 MPV (9.4-12.3) fl Neut % (Auto) (34.0-71.1) % Lymph % (Auto) (19.3-51.7) % Sutton % (Auto) (4.7-12.5) % Eos % (Auto) (0.7-5.8) Baso % (Auto) (0.1-1.2) % Neut # (Auto) (1.56-6.13) K/mm3 Lymph # (Auto) (1.18-3.74) K/mm3 Sutton # (Auto) (0.24-0.36) K/mm3 Eos # (Auto) (0.04-0.36) K/mm3 Baso # (Auto) (0.01-0.08) K/mm3 Sodium (136-145) mEq/L Potassium (3.5-5.1) mEq/L Chloride (98-107) mEq/L Carbon Dioxide (21-32) mEq/L Anion Gap (5-15) BUN (7-18) mg/dL Creatinine (0.55-1.02) mg/dL Est Cr Clr Drug Dosing mL/min Estimated GFR (MDRD) (>60) mL/min BUN/Creatinine Ratio (14-18) Glucose (83-115) mg/dL POC Glucose 178 H 197 H (83-110) mg/dL Calcium (8.5-10.1) mg/dL Magnesium (1.8-2.4) mg/dl C-Reactive Protein (<1.0) mg/dL Crossmatch Gopi Results Last 24 Hours: Microbiology 11/22/18 16:01 Urine Culture - Preliminary Urine, Catheterized Pseudomonas Aeruginosa Pseudomonas Aeruginosa#2 Med Orders - Current: Current Medications Acetaminophen (Tylenol) 650 mg PO Q4H PRN PRN Reason: Pain (Mild 1-3)/fever Acetaminophen (Tylenol) 650 mg PO Q6H SANJIV Last Admin: 11/25/18 18:24 Dose: 650 mg Albuterol (Proventil Neb Soln) 2.5 mg NEB Q2H PRN PRN Reason: Shortness Of Breath/wheezing Albuterol/Ipratropium (Duoneb 3.0-0.5 Mg/3 Ml) 3 ml NEB Q4H PRN PRN Reason: Shortness Of Breath/wheezing Amlodipine Besylate (Norvasc) 10 mg PO DAILY [facility] Last Admin: 11/25/18 09:19 Dose: 10 mg Artificial Tears (Refresh Liquigel 1%) 0 ml EYEBOTH DAILY PRN PRN Reason: Dry Eyes Aspirin (Aspirin) 81 mg PO DAILY [facility] Last Admin: 11/24/18 09:03 Dose: 81 mg Bisacodyl (Dulcolax) 5 mg PO DAILY PRN PRN Reason: Constipation Last Admin: 11/24/18 06:31 Dose: 5 mg Dextrose/Water (Dextrose 50% In Water) 50 ml IVPUSH ASDIRECTED PRN PRN Reason: Hypoglycemia Docusate Sodium (Colace) 100 mg PO BID PRN PRN Reason: Constipation Famotidine (Pepcid) 20 mg PO Q48H [facility] Last Admin: 11/25/18 10:00 Dose: 20 mg Guaifenesin (Mucinex) 600 mg PO BID [facility] Last Admin: 11/25/18 09:12 Dose: 600 mg Promethazine HCl 6.25 mg/ (Sodium Chloride) 50.25 mls @ 100 mls/hr IV Q6H PRN PRN Reason: Nausea/Vomiting Piperacillin Sod/Tazobactam (Sod 4.5 gm/ Sodium Chloride) 100 mls @ 25 mls/hr IV Q12H [facility] Last Admin: 11/25/18 09:13 Dose: 25 mls/hr Sodium Chloride (Normal Saline) 1,000 mls @ 75 mls/hr IV ASDIRECTED [facility] Last Admin: 11/25/18 18:25 Dose: 75 mls/hr Insulin Human Lispro (Humalog) 0 unit SUBCUT QIDACANDBED [facility]; Protocol Last Admin: 11/25/18 18:23 Dose: 2 units Lorazepam (Ativan) 2 mg IVPUSH Q4H PRN PRN Reason: Seizures Magnesium Hydroxide (Milk Of Magnesia) 30 ml PO Q12H PRN PRN Reason: Constipation Modafinil (Provigil) 100 mg PO DAILY@0700 [facility] Last Admin: 11/25/18 06:10 Dose: 100 mg Nystatin (Nystatin Crm) 0 gm TOP BID PRN PRN Reason: Itching Oral Electrolytes (Thermotabs) 2 each PO TID [facility] Last Admin: 11/25/18 16:18 Dose: 2 each Polyethylene Glycol (Miralax) 17 gm PO DAILY PRN PRN Reason: Constipation Promethazine HCl (Phenergan) 25 mg PO Q6H PRN PRN Reason: Nausea/Vomiting Saccharomyces Boulardii (Florastor) 250 mg PO BID [facility] Last Admin: 11/25/18 09:12 Dose: 250 mg Senna/Docusate Sodium (Senna Plus) 1 tab PO BID PRN PRN Reason: Constipation Sodium Chloride (Saline Flush) 10 ml FLUSH ASDIRECTED PRN PRN Reason: Keep Vein Open Last Admin: 11/22/18 16:58 Dose: 10 ml Discontinued Medications Acetaminophen (Tylenol) 650 mg PO BID PRN PRN Reason: Pain Furosemide (Lasix) 40 mg IVPUSH NOW ONE Stop: 11/24/18 17:21 Last Admin: 11/24/18 17:46 Dose: 40 mg Sodium Chloride (Normal Saline) 500 mls @ 999 mls/hr IV .BOLUS ONE Stop: 11/22/18 16:44 Last Admin: 11/22/18 16:56 Dose: 999 mls/hr Potassium Chloride 10 meq/ (Premix) 100 mls @ 50 mls/hr IV ASDIRECTED ONE Stop: 11/22/18 18:14 Last Admin: 11/22/18 16:56 Dose: 100 mls/hr Ceftriaxone Sodium 1 gm/ (Sodium Chloride) 100 mls @ 200 mls/hr IV ONETIME ONE Stop: 11/22/18 18:11 Last Admin: 11/22/18 18:11 Dose: 200 mls/hr Sodium Chloride (Normal Saline) 1,000 mls @ 125 mls/hr IV ASDIRECTED [facility] Last Admin: 11/25/18 08:50 Dose: 125 mls/hr Ceftriaxone Sodium 1 gm/ (Sodium Chloride) 100 mls @ 200 mls/hr IV Q24H [facility] Last Admin: 11/23/18 17:12 Dose: 200 mls/hr Potassium Chloride 10 meq/ (Premix) 100 mls @ 100 mls/hr IV Q1H [facility] Stop: 11/23/18 02:29 Last Admin: 11/23/18 01:40 Dose: 100 mls/hr Piperacillin Sod/Tazobactam (Sod 4.5 gm/ Sodium Chloride) 100 mls @ 200 mls/hr IV ONETIME ONE Stop: 11/24/18 10:29 Last Admin: 11/24/18 09:23 Dose: 200 mls/hr Sodium Chloride (Normal Saline) 250 mls @ 150 mls/hr IV ASDIRECTED [facility] Stop: 11/24/18 18:00 Insulin Human Lispro (Humalog) 0 unit SUBCUT QIDACANDBED [facility]; Protocol Last Admin: 11/24/18 09:04 Dose: 2 unit Saccharomyces Boulardii (Florastor) 250 mg PO BID SANJIV - Exam Quality Assessment: DVT Prophylaxis General: Alert, Oriented (x3; situationally confused) HEENT: Pupils Equal, Pupils Reactive, EOMI, Mucous Membr. Moist/[place] Neck: Supple Lungs: Clear to Auscultation, Normal Respiratory Effort Cardiovascular: Regular Rate, Regular Rhythm GI/Abdominal Exam: Normal Bowel Sounds, Soft, Non-Tender, No Organomegaly, No Distention, No Abnormal Bruit, No Mass, Pelvis Stable (Female) Exam: Deferred Back Exam: Normal Inspection Extremities: Normal Inspection, Normal Range of Motion, Non-Tender, No Pedal Edema, Normal Capillary Refill Peripheral Pulses: 1+: Posterior Tibial (L), Posterior Tibial (R), Dorsalis Pedis (L), Dorsalis Pedis (R) Skin: Warm, Dry, Intact Neurological: No New Focal Deficit Psy/Mental Status: Alert - Problem List & Annotations (1) Hypokalemia SNOMED Code(s): 51720992 Code(s): E87.6 - HYPOKALEMIA Status: Acute Priority: High Current Visit : Yes (2) Hyponatremia SNOMED Code(s): 68894137 Code(s): E87.1 - HYPO-OSMOLALITY AND HYPONATREMIA Status: Acute Priority : High Current Visit: Yes (3) Mental status change SNOMED Code(s): 720819709 Code(s): R41.82 - ALTERED MENTAL STATUS, UNSPECIFIED Status: Acute Priority: High Current Visit: Yes Qualifiers: Altered mental status type: transient alteration of awareness Qualified Code(s): R40.4 - Transient alteration of awareness (4) Renal insufficiency SNOMED Code(s): 642408756, 882916801 Code(s): N28.9 - DISORDER OF KIDNEY AND URETER, UNSPECIFIED Status: Acute Priority: High Current Visit: Yes Onset Date: 12/11/15 Annotation/ Comment:: - Acute on Chronic Kidney Disease (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) - Baseline Cr is 1.9 as of Jun 2015 (2.6 on admission); Today Cr is 2.2 - Renal U/S: No hydronephrosis or mass - Continue Strict Is/Os - Continue to avoid nephrotoxic agents if all possible - Has overt proteinuria (5) UTI, Urinary tract infectious disease SNOMED Code(s): 03754657 Code(s): N39.0 - URINARY TRACT INFECTION, SITE NOT SPECIFIED Status: Acute Priority: High Current Visit: Yes Onset Date: 12/11/15 Annotation/ Comment:: - UA + - On Levaquin IV - x 3 more doses to complete treatment - Was GPC+ last time (6) Anemia SNOMED Code(s): 095511747 Code(s): D64.9 - ANEMIA, UNSPECIFIED Status: Acute Priority: High Current Visit: Yes Qualifiers: Anemia type: unspecified type Qualified Code(s): D64.9 - Anemia, unspecified - Problem List Review Problem List Initiated/Reviewed/Updated: Yes - My Orders Last 24 Hours: My Active Orders 11/25/18 18:00 Sodium Chloride 0.9% [Normal Saline] 1,000 ml IV ASDIRECTED 11/26/18 05:11 BASIC METABOLIC PANEL,BMP [CHEM] AM C-REACTIVE PROTEIN [CHEM] AM CBC WITH AUTO DIFF [HEME] AM MAGNESIUM [CHEM] AM 11/27/18 05:11 BASIC METABOLIC PANEL,BMP [CHEM] AM C-REACTIVE PROTEIN [CHEM] AM CBC WITH AUTO DIFF [HEME] AM MAGNESIUM [CHEM] AM - Plan Plan:: Assessment/Plan: Acute: UTI - Risk Factors: Urinary Incontinence - UA strongly positive - CRP 2.8--> 3--> 4.3-->4.1 - Received IV Rocephin in ED--> Start Levaquin d/t susceptibility - Urine culture shows Pseudomonas Aeruginosa, susceptible to Levaquin - Bonner catheter--> D/C'd today d/t maria alejandra blood likely 2/2 trauma (gets confused at times and pulls on it) -Bladder irrigation needed, bonner reinserted--> D/C tomorrow if continues to have no hematuria MECHELLE, Improving - Acute on CKD - Risk Factors: on dual diuretics plus underlying chronic renal insufficiency - Baseline CKD Stage 3 - Cr 3.5-->2.9-->2.7-->2.6; baseline usually around 2.5 per past labs - Renal U/S on 10/08/18: -1. Findings within both kidneys compatible with nonspecific medical renal disease. -2. Significant post void residual within the bladder. - IVF - Monitor renal function - Avoid nephrotoxic agents Hyponatremia, Improving - Na is 120-->124-->125--> 133 - She is on diuretics: lasix and metolazone - Hold diuretics - IVF and Thermotabs - Goal: Na at 135 or higher Anemia, Improving -Acute on Chronic -Hgb 7.[address] [facility], 8.2 in ED--> 6.2--> 8.6 -Monitor; Replenish w/ PRBCs PRN Generalized Weakness - 2/2 Above - PT/OT once she improve clinically Mild Confusion -Likely 2/2 above -Aspiration and Fall precautions -Bedside swallow eval -[employer] MANAGER 10/11/18 recommends NDD2 diet w/ thin liquids--> NPO until bedside complete Resolved: Hypokalemia -K is 3-->3.5 -Monitor -Replenish PRN Hematuria -Likely 2/2 from urinary catheter trauma (she gets confused and pulls on it) -Hgb 6.2 -Bladder Irrigation Chronic: Impaired Hearing/Vision HF w/ Preserved EF of 65% 12/13/2015 HTN HLD -Lipid Panel WNL except HDL low at 34 PVD SOB GERD Hiatal Hernia CKD III Urinary Incontinence OA/DJD Osteoporosis DM2, Uncontrolled -A1C 7.7 -Glucose check QID and ISS -Diabetic Education Chronic Hyponatremia Anemia Urticaria Obesity with BMI > 35 Plan: Admit to MSP w/ telemetry Contact (MRSA positive in past), Aspiration, and Fall Precautions Routine AM Labs Resume Some Home Meds ADA, Heart Healthy Diet DVT/GI Prophylaxis: SCDs/H2B SW/CM PT/OT Code status: DNR/DNI; PCP: Dr. Kim She is from [facility]
[2018-11-25] MEDS ORDERED: Levofloxacin/Dextrose 5%-Water 500 MG in Premix Bag 1 BAG IV SCH (20:00)
[2018-11-26] MEDS: Acetaminophen 325 MG Tab PO SCH ×4 (00:41→17:35)
[2018-11-26] MEDS: Insulin Lispro 100 Units/ML 3 ML Vial SUBCUT SCH ×4 (06:09→22:03)
[2018-11-26] MEDS: Modafinil 200 MG Tab PO SCH (06:09)
[2018-11-26] MEDS: guaiFENesin 600 MG Tab.ER PO SCH ×2 (08:35→20:33)
[2018-11-26] MEDS: amLODIPine 10 MG Tab PO SCH (08:35)
[2018-11-26] MEDS: Sodium Chloride/Potassium Chloride Tab PO SCH ×3 (08:35→20:33)
[2018-11-26] MEDS: Saccharomyces Boulardii (Probiotic) 250 MG Cap PO SCH ×2 (08:35→20:33)
--- NOTE | 2018-11-26 12:59 | PCM.PN ---
- General Info Date of Service: 11/26/18 Admission Dx/Problem (Free Text): Admission Diagnosis/Problem Admission Diagnosis/Problem Hyponatremia Subjective Update: In to see Sara. She is sitting up in a chair watching tv and resting. She has no complaints at this time. Bladder irrigation has been successful as there was no more evidence of hematuria, so bonner was D/C'd today around 945AM. She has since voided with no hematuria. Continue Levaquin for her UTI 2/2 pseudomonas aeruginosa. No concerns from nursing. She may be D/C'd tomorrow pending clinical disposition. Functional Status: Reports: Pain Controlled, Tolerating Diet, Urinating - Review of Systems General: Reports: Weakness, Fatigue HEENT: Reports: No Symptoms Pulmonary: Reports: No Symptoms Cardiovascular: Reports: Edema Gastrointestinal: Reports: No Symptoms Genitourinary: Reports: No Symptoms Musculoskeletal: Reports: No Symptoms Skin: Reports: No Symptoms Neurological: Reports: Confusion (mild, intermittent ) Psychiatric: Reports: Confusion (mild, intermittent) - Patient Data Vitals - Most Recent: Last Vital Signs Temp 99.1 F 11/26/18 08:31 Pulse 68 11/26/18 08:31 Resp 17 11/26/18 08:31 BP 140/65 11/26/18 10:18 Pulse Ox 96 11/26/18 08:31 Weight - Most Recent: 223 lb 8 oz I&O - Last 24 Hours: Intake & Output 11/25/18 11/26/18 11/26/18 22:59 06:59 14:59 Intake Total 2699 1138 180 Output Total 1300 Balance 2699 -162 180 Lab Results Last 24 Hours: Laboratory Results - last 24 hr 11/25/18 11/25/18 11/25/18 Range/Units 16:03 17:36 20:47 WBC (3.98-10.04) K/mm3 RBC (3.98-5.22) M/mm3 Hgb (11.2-15.7) gm/L Hct (34.1-44.9) % MCV (79.4-94.8) fl MCH (25.6-32.2) pg MCHC (32.2-35.5) g/dl RDW Std Deviation (36.4-46.3) fL Plt Count (182-369) K/mm3 MPV (9.4-12.3) fl Neut % (Auto) (34.0-71.1) % Lymph % (Auto) (19.3-51.7) % [place] % (Auto) (4.7-12.5) % Eos % (Auto) (0.7-5.8) Baso % (Auto) (0.1-1.2) % Neut # (Auto) (1.56-6.13) K/mm3 Lymph # (Auto) (1.18-3.74) K/mm3 [place] # (Auto) (0.24-0.36) K/mm3 Eos # (Auto) (0.04-0.36) K/mm3 Baso # (Auto) (0.01-0.08) K/mm3 Sodium (136-145) mEq/L Potassium (3.5-5.1) mEq/L Chloride (98-107) mEq/L Carbon Dioxide (21-32) mEq/L Anion Gap (5-15) BUN (7-18) mg/dL Creatinine (0.55-1.02) mg/dL Est Cr Clr Drug Dosing mL/min Estimated GFR (MDRD) (>60) mL/min BUN/Creatinine Ratio (14-18) Glucose (83-115) mg/dL POC Glucose 178 H 197 H 216 H (83-110) mg/dL Calcium (8.5-10.1) mg/dL Magnesium (1.8-2.4) mg/dl C-Reactive Protein (<1.0) mg/dL 11/26/18 11/26/18 11/26/18 Range/Units 05:57 06:00 08:08 WBC 7.44 (3.98-10.04) K/mm3 RBC 3.02 L (3.98-5.22) M/mm3 Hgb 8.6 L (11.2-15.7) gm/L Hct 26.4 L (34.1-44.9) % MCV 87.4 (79.4-94.8) fl MCH 28.5 (25.6-32.2) pg MCHC 32.6 (32.2-35.5) g/dl RDW Std Deviation 48.8 H (36.4-46.3) fL Plt Count 106 L (182-369) K/mm3 MPV 8.7 L (9.4-12.3) fl Neut % (Auto) 62.6 (34.0-71.1) % Lymph % (Auto) 18.0 L (19.3-51.7) % [place] % (Auto) 9.4 (4.7-12.5) % Eos % (Auto) 9.1 H (0.7-5.8) Baso % (Auto) 0.4 (0.1-1.2) % Neut # (Auto) 4.65 (1.56-6.13) K/mm3 Lymph # (Auto) 1.34 (1.18-3.74) K/mm3 [place] # (Auto) 0.70 H (0.24-0.36) K/mm3 Eos # (Auto) 0.68 H (0.04-0.36) K/mm3 Baso # (Auto) 0.03 (0.01-0.08) K/mm3 Sodium 133 L (136-145) mEq/L Potassium 4.1 (3.5-5.1) mEq/L Chloride 99 (98-107) mEq/L Carbon Dioxide 25 (21-32) mEq/L Anion Gap 13.1 (5-15) BUN 54 H (7-18) mg/dL Creatinine 2.2 H (0.55-1.02) mg/dL Est Cr Clr Drug Dosing 15.72 mL/min Estimated GFR (MDRD) 21 (>60) mL/min BUN/Creatinine Ratio 24.5 H (14-18) Glucose 105 (83-115) mg/dL POC Glucose 109 (83-110) mg/dL Calcium 8.5 (8.5-10.1) mg/dL Magnesium 2.0 (1.8-2.4) mg/dl C-Reactive Protein 2.8 H* (<1.0) mg/dL 11/26/18 Range/Units 10:58 WBC (3.98-10.04) K/mm3 RBC (3.98-5.22) M/mm3 Hgb (11.2-15.7) gm/L Hct (34.1-44.9) % MCV (79.4-94.8) fl MCH (25.6-32.2) pg MCHC (32.2-35.5) g/dl RDW Std Deviation (36.4-46.3) fL Plt Count (182-369) K/mm3 MPV (9.4-12.3) fl Neut % (Auto) (34.0-71.1) % Lymph % (Auto) (19.3-51.7) % [place] % (Auto) (4.7-12.5) % Eos % (Auto) (0.7-5.8) Baso % (Auto) (0.1-1.2) % Neut # (Auto) (1.56-6.13) K/mm3 Lymph # (Auto) (1.18-3.74) K/mm3 [place] # (Auto) (0.24-0.36) K/mm3 Eos # (Auto) (0.04-0.36) K/mm3 Baso # (Auto) (0.01-0.08) K/mm3 Sodium (136-145) mEq/L Potassium (3.5-5.1) mEq/L Chloride (98-107) mEq/L Carbon Dioxide (21-32) mEq/L Anion Gap (5-15) BUN (7-18) mg/dL Creatinine (0.55-1.02) mg/dL Est Cr Clr Drug Dosing mL/min Estimated GFR (MDRD) (>60) mL/min BUN/Creatinine Ratio (14-18) Glucose (83-115) mg/dL POC Glucose 192 H (83-110) mg/dL Calcium (8.5-10.1) mg/dL Magnesium (1.8-2.4) mg/dl C-Reactive Protein (<1.0) mg/dL Gopi Results Last 24 Hours: Microbiology 11/22/18 16:01 Urine Culture - Preliminary Urine, Catheterized Pseudomonas Aeruginosa Pseudomonas Aeruginosa#2 Med Orders - Current: Current Medications Acetaminophen (Tylenol) 650 mg PO Q4H PRN PRN Reason: Pain (Mild 1-3)/fever Acetaminophen (Tylenol) 650 mg PO Q6H SANJIV Last Admin: 11/26/18 11:40 Dose: 650 mg Albuterol (Proventil Neb Soln) 2.5 mg NEB Q2H PRN PRN Reason: Shortness Of Breath/wheezing Albuterol/Ipratropium (Duoneb 3.0-0.5 Mg/3 Ml) 3 ml NEB Q4H PRN PRN Reason: Shortness Of Breath/wheezing Amlodipine Besylate (Norvasc) 10 mg PO DAILY [facility] Last Admin: 11/26/18 08:35 Dose: 10 mg Artificial Tears (Refresh Liquigel 1%) 0 ml EYEBOTH DAILY PRN PRN Reason: Dry Eyes Aspirin (Aspirin) 81 mg PO DAILY [facility] Last Admin: 11/24/18 09:03 Dose: 81 mg Bisacodyl (Dulcolax) 5 mg PO DAILY PRN PRN Reason: Constipation Last Admin: 11/24/18 06:31 Dose: 5 mg Dextrose/Water (Dextrose 50% In Water) 50 ml IVPUSH ASDIRECTED PRN PRN Reason: Hypoglycemia Docusate Sodium (Colace) 100 mg PO BID PRN PRN Reason: Constipation Famotidine (Pepcid) 20 mg PO Q48H [facility] Last Admin: 11/25/18 10:00 Dose: 20 mg Guaifenesin (Mucinex) 600 mg PO BID [facility] Last Admin: 11/26/18 08:35 Dose: 600 mg Promethazine HCl 6.25 mg/ (Sodium Chloride) 50.25 mls @ 100 mls/hr IV Q6H PRN PRN Reason: Nausea/Vomiting Insulin Human Lispro (Humalog) 0 unit SUBCUT QIDACANDBED [facility]; Protocol Last Admin: 11/26/18 11:40 Dose: 2 units Levofloxacin (Levaquin) 500 mg PO Q48H [facility] Lorazepam (Ativan) 2 mg IVPUSH Q4H PRN PRN Reason: Seizures Magnesium Hydroxide (Milk Of Magnesia) 30 ml PO Q12H PRN PRN Reason: Constipation Modafinil (Provigil) 100 mg PO DAILY@0700 [facility] Last Admin: 11/26/18 06:09 Dose: 100 mg Nystatin (Nystatin Crm) 0 gm TOP BID PRN PRN Reason: Itching Oral Electrolytes (Thermotabs) 2 each PO TID [facility] Last Admin: 11/26/18 08:35 Dose: 2 each Polyethylene Glycol (Miralax) 17 gm PO DAILY PRN PRN Reason: Constipation Promethazine HCl (Phenergan) 25 mg PO Q6H PRN PRN Reason: Nausea/Vomiting Saccharomyces Boulardii (Florastor) 250 mg PO BID [facility] Last Admin: 11/26/18 08:35 Dose: 250 mg Senna/Docusate Sodium (Senna Plus) 1 tab PO BID PRN PRN Reason: Constipation Sodium Chloride (Saline Flush) 10 ml FLUSH ASDIRECTED PRN PRN Reason: Keep Vein Open Last Admin: 11/22/18 16:58 Dose: 10 ml Discontinued Medications Acetaminophen (Tylenol) 650 mg PO BID PRN PRN Reason: Pain Furosemide (Lasix) 40 mg IVPUSH NOW ONE Stop: 11/24/18 17:21 Last Admin: 11/24/18 17:46 Dose: 40 mg Sodium Chloride (Normal Saline) 500 mls @ 999 mls/hr IV .BOLUS ONE Stop: 11/22/18 16:44 Last Admin: 11/22/18 16:56 Dose: 999 mls/hr Potassium Chloride 10 meq/ (Premix) 100 mls @ 50 mls/hr IV ASDIRECTED ONE Stop: 11/22/18 18:14 Last Admin: 11/22/18 16:56 Dose: 100 mls/hr Ceftriaxone Sodium 1 gm/ (Sodium Chloride) 100 mls @ 200 mls/hr IV ONETIME ONE Stop: 11/22/18 18:11 Last Admin: 11/22/18 18:11 Dose: 200 mls/hr Sodium Chloride (Normal Saline) 1,000 mls @ 125 mls/hr IV ASDIRECTED [facility] Last Admin: 11/25/18 08:50 Dose: 125 mls/hr Ceftriaxone Sodium 1 gm/ (Sodium Chloride) 100 mls @ 200 mls/hr IV Q24H [facility] Last Admin: 11/23/18 17:12 Dose: 200 mls/hr Potassium Chloride 10 meq/ (Premix) 100 mls @ 100 mls/hr IV Q1H [facility] Stop: 11/23/18 02:29 Last Admin: 11/23/18 01:40 Dose: 100 mls/hr Piperacillin Sod/Tazobactam (Sod 4.5 gm/ Sodium Chloride) 100 mls @ 200 mls/hr IV ONETIME ONE Stop: 11/24/18 10:29 Last Admin: 11/24/18 09:23 Dose: 200 mls/hr Piperacillin Sod/Tazobactam (Sod 4.5 gm/ Sodium Chloride) 100 mls @ 25 mls/hr IV Q12H [facility] Last Admin: 11/25/18 09:13 Dose: 25 mls/hr Sodium Chloride (Normal Saline) 250 mls @ 150 mls/hr IV ASDIRECTED [facility] Stop: 11/24/18 18:00 Sodium Chloride (Normal Saline) 1,000 mls @ 75 mls/hr IV ASDIRECTED [facility] Last Admin: 11/25/18 18:25 Dose: 75 mls/hr Levofloxacin/Dextrose 500 mg/ (Premix) 100 mls @ 100 mls/hr IV Q24H [facility] Last Admin: 11/25/18 20:28 Dose: 100 mls/hr Insulin Human Lispro (Humalog) 0 unit SUBCUT QIDACANDBED [facility]; Protocol Last Admin: 11/24/18 09:04 Dose: 2 unit Saccharomyces Boulardii (Florastor) 250 mg PO BID [facility] - Exam Quality Assessment: DVT Prophylaxis General: Alert, Oriented, Cooperative, No Acute Distress HEENT: Pupils Equal, Pupils Reactive, EOMI, Mucous Membr. Moist/[place] Neck: Supple Lungs: Clear to Auscultation, Normal Respiratory Effort Cardiovascular: Regular Rate, Regular Rhythm GI/Abdominal Exam: Normal Bowel Sounds, Soft, Non-Tender, No Organomegaly, No Distention, No Abnormal Bruit, No Mass, Pelvis Stable (Female) Exam: Deferred Back Exam: Normal Inspection Extremities: Normal Inspection, Normal Range of Motion, Non-Tender, No Pedal Edema, Normal Capillary Refill Peripheral Pulses: 1+: Posterior Tibial (L), Posterior Tibial (R), Dorsalis Pedis (L), Dorsalis Pedis (R) Skin: Warm, Dry, Intact Neurological: No New Focal Deficit Psy/Mental Status: Alert - Problem List & Annotations (1) Hypokalemia SNOMED Code(s): 17423720 Code(s): E87.6 - HYPOKALEMIA Status: Acute Priority: High Current Visit : Yes (2) Hyponatremia SNOMED Code(s): 31953011 Code(s): E87.1 - HYPO-OSMOLALITY AND HYPONATREMIA Status: Acute Priority : High Current Visit: Yes (3) Mental status change SNOMED Code(s): 776791351 Code(s): R41.82 - ALTERED MENTAL STATUS, UNSPECIFIED Status: Acute Priority: High Current Visit: Yes Qualifiers: Altered mental status type: transient alteration of awareness Qualified Code(s): R40.4 - Transient alteration of awareness (4) Renal insufficiency SNOMED Code(s): 117556693, 371240307 Code(s): N28.9 - DISORDER OF KIDNEY AND URETER, UNSPECIFIED Status: Acute Priority: High Current Visit: Yes Onset Date: 12/11/15 Annotation/ Comment:: - Acute on Chronic Kidney Disease (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) - Baseline Cr is 1.9 as of Jun 2015 (2.6 on admission); Today Cr is 2.2 - Renal U/S: No hydronephrosis or mass - Continue Strict Is/Os - Continue to avoid nephrotoxic agents if all possible - Has overt proteinuria (5) UTI, Urinary tract infectious disease SNOMED Code(s): 39561188 Code(s): N39.0 - URINARY TRACT INFECTION, SITE NOT SPECIFIED Status: Acute Priority: High Current Visit: Yes Onset Date: 12/11/15 Annotation/ Comment:: - UA + - On Levaquin IV - x 3 more doses to complete treatment - Was GPC+ last time (6) Anemia SNOMED Code(s): 622509245 Code(s): D64.9 - ANEMIA, UNSPECIFIED Status: Acute Priority: High Current Visit: Yes Qualifiers: Anemia type: unspecified type Qualified Code(s): D64.9 - Anemia, unspecified - Problem List Review Problem List Initiated/Reviewed/Updated: Yes - My Orders Last 24 Hours: My Active Orders 11/27/18 05:11 BASIC METABOLIC PANEL,BMP [CHEM] AM C-REACTIVE PROTEIN [CHEM] AM CBC WITH AUTO DIFF [HEME] AM MAGNESIUM [CHEM] AM - Plan Plan:: Assessment/Plan: Acute: UTI 2/2 Pseudomonas Aeruginosa - Risk Factors: Urinary Incontinence - UA strongly positive - CRP 2.8--> 3--> 4.3-->4.1-->2.8 - Received IV Rocephin in ED--> Start Levaquin d/t susceptibility - Urine culture shows Pseudomonas Aeruginosa, susceptible to Levaquin - Bonner catheter--> D/C'd today d/t maria alejandra blood likely 2/2 trauma (gets confused at times and pulls on it) -Bladder irrigation needed, bonner reinserted--> D/C as no more hematuria present MECHELLE, Improving - Acute on CKD - Risk Factors: on dual diuretics plus underlying chronic renal insufficiency - Baseline CKD Stage 3 - Cr 3.5-->2.9-->2.7-->2.6-->2.2; baseline usually around 2.5 per past labs - Renal U/S on 10/08/18: -1. Findings within both kidneys compatible with nonspecific medical renal disease. -2. Significant post void residual within the bladder. - IVF - Monitor renal function - Avoid nephrotoxic agents Hyponatremia, Improving - Na is 120-->124-->125--> 133 - She is on diuretics: lasix and metolazone - Hold diuretics - IVF and Thermotabs - Goal: Na at 135 or higher Anemia, Improving -Acute on Chronic -Hgb 7.[address] [facility], 8.2 in ED--> 6.2--> 8.6 -Monitor; Replenish w/ PRBCs PRN Generalized Weakness - 2/2 Above - PT/OT once she improve clinically Mild Confusion -Likely 2/2 above -Aspiration and Fall precautions -Bedside swallow eval -PREP PERSON 10/11/18 recommends NDD2 diet w/ thin liquids--> NPO until bedside complete Resolved: Hypokalemia -K is 3-->3.5 -Monitor -Replenish PRN Hematuria -Likely 2/2 from urinary catheter trauma (she gets confused and pulls on it) -Hgb 6.2 -Bladder Irrigation Chronic: Impaired Hearing/Vision HF w/ Preserved EF of 65% 12/13/2015 HTN HLD -Lipid Panel WNL except HDL low at 34 PVD SOB GERD Hiatal Hernia CKD III Urinary Incontinence OA/DJD Osteoporosis DM2, Uncontrolled -A1C 7.7 -Glucose check QID and ISS -Diabetic Education Chronic Hyponatremia Anemia Urticaria Obesity with BMI > 35 Plan: Admit to [facility] w/ telemetry Contact (MRSA positive in past), Aspiration, and Fall Precautions Routine AM Labs Resume Some Home Meds ADA, Heart Healthy Diet DVT/GI Prophylaxis: SCDs/H2B SW/CM PT/OT Code status: DNR/DNI; PCP: Dr. Julio Casarez is from [facility]
[2018-11-27] MEDS: Acetaminophen 325 MG Tab PO SCH ×4 (00:54→17:46)
[2018-11-27] MEDS: Modafinil 200 MG Tab PO SCH (06:01)
[2018-11-27] MEDS: Insulin Lispro 100 Units/ML 3 ML Vial SUBCUT SCH ×4 (06:08→21:10)
[2018-11-27] MEDS: Saccharomyces Boulardii (Probiotic) 250 MG Cap PO SCH ×2 (09:57→21:06)
[2018-11-27] MEDS: amLODIPine 10 MG Tab PO SCH (09:58)
[2018-11-27] MEDS: guaiFENesin 600 MG Tab.ER PO SCH ×2 (09:58→21:06)
[2018-11-27] MEDS: Sodium Chloride/Potassium Chloride Tab PO SCH ×3 (09:58→21:06)
--- NOTE | 2018-11-27 10:03 | PCM.PN ---
- General Info Date of Service: 11/27/18 Functional Status: Reports: Pain Controlled, Tolerating Diet, Urinating - Review of Systems General: Reports: No Symptoms HEENT: Reports: No Symptoms Pulmonary: Reports: No Symptoms Cardiovascular: Reports: No Symptoms Gastrointestinal: Reports: No Symptoms Genitourinary: Reports: No Symptoms Musculoskeletal: Reports: No Symptoms Skin: Reports: No Symptoms Neurological: Reports: No Symptoms Psychiatric: Reports: No Symptoms - Patient Data Vitals - Most Recent: Last Vital Signs Temp 37.0 C 11/27/18 07:46 Pulse 74 11/27/18 07:46 Resp 12 11/27/18 07:46 BP 149/79 H 11/27/18 09:58 Pulse Ox 94 L 11/27/18 07:46 Weight - Most Recent: 102.421 kg I&O - Last 24 Hours: Intake & Output 11/26/18 11/27/18 11/27/18 22:59 06:59 14:59 Intake Total 967 400 Output Total 300 750 Balance 667 -350 Lab Results Last 24 Hours: Laboratory Results - last 24 hr 11/26/18 11/26/18 11/26/18 Range/Units 10:58 17:12 21:48 WBC (3.98-10.04) K/mm3 RBC (3.98-5.22) M/mm3 Hgb (11.2-15.7) gm/L Hct (34.1-44.9) % MCV (79.4-94.8) fl MCH (25.6-32.2) pg MCHC (32.2-35.5) g/dl RDW Std Deviation (36.4-46.3) fL Plt Count (182-369) K/mm3 MPV (9.4-12.3) fl Neut % (Auto) (34.0-71.1) % Lymph % (Auto) (19.3-51.7) % [place] % (Auto) (4.7-12.5) % Eos % (Auto) (0.7-5.8) Baso % (Auto) (0.1-1.2) % Neut # (Auto) (1.56-6.13) K/mm3 Lymph # (Auto) (1.18-3.74) K/mm3 [place] # (Auto) (0.24-0.36) K/mm3 Eos # (Auto) (0.04-0.36) K/mm3 Baso # (Auto) (0.01-0.08) K/mm3 Manual Slide Review Sodium (136-145) mEq/L Potassium (3.5-5.1) mEq/L Chloride (98-107) mEq/L Carbon Dioxide (21-32) mEq/L Anion Gap (5-15) BUN (7-18) mg/dL Creatinine (0.55-1.02) mg/dL Est Cr Clr Drug Dosing mL/min Estimated GFR (MDRD) (>60) mL/min BUN/Creatinine Ratio (14-18) Glucose (83-115) mg/dL POC Glucose 192 H 250 H 253 H (83-110) mg/dL Calcium (8.5-10.1) mg/dL Magnesium (1.8-2.4) mg/dl C-Reactive Protein (<1.0) mg/dL 11/27/18 11/27/18 11/27/18 Range/Units 06:00 06:20 06:20 WBC 7.05 (3.98-10.04) K/mm3 RBC 2.95 L (3.98-5.22) M/mm3 Hgb 8.4 L (11.2-15.7) gm/L Hct 25.9 L (34.1-44.9) % MCV 87.8 (79.4-94.8) fl MCH 28.5 (25.6-32.2) pg MCHC 32.4 (32.2-35.5) g/dl RDW Std Deviation 49.7 H (36.4-46.3) fL Plt Count 97 L (182-369) K/mm3 MPV 8.6 L (9.4-12.3) fl Neut % (Auto) 55.8 (34.0-71.1) % Lymph % (Auto) 20.9 (19.3-51.7) % [place] % (Auto) 11.8 (4.7-12.5) % Eos % (Auto) 10.8 H (0.7-5.8) Baso % (Auto) 0.1 (0.1-1.2) % Neut # (Auto) 3.94 (1.56-6.13) K/mm3 Lymph # (Auto) 1.47 (1.18-3.74) K/mm3 [place] # (Auto) 0.83 H (0.24-0.36) K/mm3 Eos # (Auto) 0.76 H (0.04-0.36) K/mm3 Baso # (Auto) 0.01 (0.01-0.08) K/mm3 Manual Slide Review Normal smear Sodium 132 L (136-145) mEq/L Potassium 4.1 (3.5-5.1) mEq/L Chloride 99 (98-107) mEq/L Carbon Dioxide 22 (21-32) mEq/L Anion Gap 15.1 H (5-15) BUN 45 H (7-18) mg/dL Creatinine 2.2 H (0.55-1.02) mg/dL Est Cr Clr Drug Dosing 15.72 mL/min Estimated GFR (MDRD) 21 (>60) mL/min BUN/Creatinine Ratio 20.5 H (14-18) Glucose 106 (83-115) mg/dL POC Glucose 111 H (83-110) mg/dL Calcium 9.1 (8.5-10.1) mg/dL Magnesium 2.0 (1.8-2.4) mg/dl C-Reactive Protein 1.9 H* (<1.0) mg/dL Med Orders - Current: Current Medications Acetaminophen (Tylenol) 650 mg PO Q4H PRN PRN Reason: Pain (Mild 1-3)/fever Acetaminophen (Tylenol) 650 mg PO Q6H [facility] Last Admin: 11/27/18 06:01 Dose: 650 mg Albuterol (Proventil Neb Soln) 2.5 mg NEB Q2H PRN PRN Reason: Shortness Of Breath/wheezing Albuterol/Ipratropium (Duoneb 3.0-0.5 Mg/3 Ml) 3 ml NEB Q4H PRN PRN Reason: Shortness Of Breath/wheezing Amlodipine Besylate (Norvasc) 10 mg PO DAILY [facility] Last Admin: 11/27/18 09:58 Dose: 10 mg Artificial Tears (Refresh Liquigel 1%) 0 ml EYEBOTH DAILY PRN PRN Reason: Dry Eyes Aspirin (Aspirin) 81 mg PO DAILY [facility] Last Admin: 11/24/18 09:03 Dose: 81 mg Bisacodyl (Dulcolax) 5 mg PO DAILY PRN PRN Reason: Constipation Last Admin: 11/24/18 06:31 Dose: 5 mg Dextrose/Water (Dextrose 50% In Water) 50 ml IVPUSH ASDIRECTED PRN PRN Reason: Hypoglycemia Docusate Sodium (Colace) 100 mg PO BID PRN PRN Reason: Constipation Famotidine (Pepcid) 20 mg PO Q48H [facility] Last Admin: 11/25/18 10:00 Dose: 20 mg Guaifenesin (Mucinex) 600 mg PO BID [facility] Last Admin: 11/27/18 09:58 Dose: 600 mg Promethazine HCl 6.25 mg/ (Sodium Chloride) 50.25 mls @ 100 mls/hr IV Q6H PRN PRN Reason: Nausea/Vomiting Insulin Human Lispro (Humalog) 0 unit SUBCUT QIDACANDBED [facility]; Protocol Last Admin: 11/27/18 06:08 Dose: Not Given Levofloxacin (Levaquin) 500 mg PO Q48H [facility] Lorazepam (Ativan) 2 mg IVPUSH Q4H PRN PRN Reason: Seizures Magnesium Hydroxide (Milk Of Magnesia) 30 ml PO Q12H PRN PRN Reason: Constipation Modafinil (Provigil) 100 mg PO DAILY@0700 [facility] Last Admin: 11/27/18 06:01 Dose: 100 mg Nystatin (Nystatin Crm) 0 gm TOP BID PRN PRN Reason: Itching Oral Electrolytes (Thermotabs) 2 each PO TID [facility] Last Admin: 11/27/18 09:58 Dose: 2 each Polyethylene Glycol (Miralax) 17 gm PO DAILY PRN PRN Reason: Constipation Promethazine HCl (Phenergan) 25 mg PO Q6H PRN PRN Reason: Nausea/Vomiting Saccharomyces Boulardii (Florastor) 250 mg PO BID [facility] Last Admin: 11/27/18 09:57 Dose: 250 mg Senna/Docusate Sodium (Senna Plus) 1 tab PO BID PRN PRN Reason: Constipation Sodium Chloride (Saline Flush) 10 ml FLUSH ASDIRECTED PRN PRN Reason: Keep Vein Open Last Admin: 11/22/18 16:58 Dose: 10 ml Tamsulosin HCl (Flomax) 0.4 mg PO PCBREAKFAST [facility] Discontinued Medications Acetaminophen (Tylenol) 650 mg PO BID PRN PRN Reason: Pain Furosemide (Lasix) 40 mg IVPUSH NOW ONE Stop: 11/24/18 17:21 Last Admin: 11/24/18 17:46 Dose: 40 mg Sodium Chloride (Normal Saline) 500 mls @ 999 mls/hr IV .BOLUS ONE Stop: 11/22/18 16:44 Last Admin: 11/22/18 16:56 Dose: 999 mls/hr Potassium Chloride 10 meq/ (Premix) 100 mls @ 50 mls/hr IV ASDIRECTED ONE Stop: 11/22/18 18:14 Last Admin: 11/22/18 16:56 Dose: 100 mls/hr Ceftriaxone Sodium 1 gm/ (Sodium Chloride) 100 mls @ 200 mls/hr IV ONETIME ONE Stop: 11/22/18 18:11 Last Admin: 11/22/18 18:11 Dose: 200 mls/hr Sodium Chloride (Normal Saline) 1,000 mls @ 125 mls/hr IV ASDIRECTED [facility] Last Admin: 11/25/18 08:50 Dose: 125 mls/hr Ceftriaxone Sodium 1 gm/ (Sodium Chloride) 100 mls @ 200 mls/hr IV Q24H [facility] Last Admin: 11/23/18 17:12 Dose: 200 mls/hr Potassium Chloride 10 meq/ (Premix) 100 mls @ 100 mls/hr IV Q1H [facility] Stop: 11/23/18 02:29 Last Admin: 11/23/18 01:40 Dose: 100 mls/hr Piperacillin Sod/Tazobactam (Sod 4.5 gm/ Sodium Chloride) 100 mls @ 200 mls/hr IV ONETIME ONE Stop: 11/24/18 10:29 Last Admin: 11/24/18 09:23 Dose: 200 mls/hr Piperacillin Sod/Tazobactam (Sod 4.5 gm/ Sodium Chloride) 100 mls @ 25 mls/hr IV Q12H [facility] Last Admin: 11/25/18 09:13 Dose: 25 mls/hr Sodium Chloride (Normal Saline) 250 mls @ 150 mls/hr IV ASDIRECTED [facility] Stop: 11/24/18 18:00 Sodium Chloride (Normal Saline) 1,000 mls @ 75 mls/hr IV ASDIRECTED [facility] Last Admin: 11/25/18 18:25 Dose: 75 mls/hr Levofloxacin/Dextrose 500 mg/ (Premix) 100 mls @ 100 mls/hr IV Q24H [facility] Last Admin: 11/25/18 20:28 Dose: 100 mls/hr Insulin Human Lispro (Humalog) 0 unit SUBCUT QIDACANDBED [facility]; Protocol Last Admin: 11/24/18 09:04 Dose: 2 unit Saccharomyces Boulardii (Florastor) 250 mg PO BID [facility] - Exam Quality Assessment: DVT Prophylaxis General: Alert, Oriented, Cooperative, No Acute Distress HEENT: Pupils Equal, Pupils Reactive, EOMI Neck: Trachea Midline, No JVD Lungs: Normal Respiratory Effort Cardiovascular: Regular Rate GI/Abdominal Exam: Normal Bowel Sounds, Soft, Non-Tender, No Organomegaly, No Distention (Female) Exam: Deferred Back Exam: Normal Inspection Extremities: Normal Inspection, Non-Tender, Normal Capillary Refill Skin: Warm Neurological: No New Focal Deficit Psy/Mental Status: Alert - Problem List Review Problem List Initiated/Reviewed/Updated: Yes - My Orders Last 24 Hours: My Active Orders 11/27/18 10:00 Tamsulosin [Flomax] 0.4 mg PO PCBREAKFAST 11/27/18 20:00 levoFLOXacin [Levaquin] 500 mg PO Q48H 11/28/18 05:00 BMP [BASIC METABOLIC PANEL,BMP] [CHEM] DAILY CBC WITH AUTO DIFF [HEME] DAILY CRP [C-REACTIVE PROTEIN] [CHEM] DAILY MAGNESIUM [CHEM] DAILY 11/29/18 05:00 BMP [BASIC METABOLIC PANEL,BMP] [CHEM] DAILY CBC WITH AUTO DIFF [HEME] DAILY CRP [C-REACTIVE PROTEIN] [CHEM] DAILY MAGNESIUM [CHEM] DAILY 11/30/18 05:00 BMP [BASIC METABOLIC PANEL,BMP] [CHEM] DAILY CBC WITH AUTO DIFF [HEME] DAILY CRP [C-REACTIVE PROTEIN] [CHEM] DAILY MAGNESIUM [CHEM] DAILY 12/01/18 05:00 BMP [BASIC METABOLIC PANEL,BMP] [CHEM] DAILY CBC WITH AUTO DIFF [HEME] DAILY CRP [C-REACTIVE PROTEIN] [CHEM] DAILY MAGNESIUM [CHEM] DAILY - Plan Plan:: Assessment/Plan: Acute: UTI 2/2 Pseudomonas Aeruginosa - Risk Factors: Urinary Incontinence - UA strongly positive - CRP 2.8--> 3--> 4.3-->4.1-->2.8 - Received IV Rocephin in ED--> Start Levaquin d/t susceptibility; Levoquin 500 mg po daily - Urine culture shows Pseudomonas Aeruginosa, susceptible to Levaquin - Beckman catheter--> D/C'd today d/t maria alejandra blood likely 2/2 trauma (gets confused at times and pulls on it) -Bladder irrigation needed, Beckman reinserted--> D/C as no more hematuria present MECHELLE, Improving - Acute on CKD - Risk Factors: on dual diuretics plus underlying chronic renal insufficiency - Baseline CKD Stage 3 - Cr 3.5-->2.9-->2.7-->2.6-->2.2; baseline usually around 2.5 per past labs - Renal U/S on 10/08/18: -1. Findings within both kidneys compatible with nonspecific medical renal disease. -2. Significant post void residual within the bladder. - IVF - Monitor renal function - Avoid nephrotoxic agents Hyponatremia, Improving - Na is 120-->124-->125--> 133 - She is on diuretics: lasix and metolazone - Hold diuretics - IVF and Thermotabs - Goal: Na at 135 or higher Anemia, Improving -Acute on Chronic -Hgb 7.7 at [facility], 8.2 in ED--> 6.2--> 8.6 -Monitor; Replenish w/ PRBCs PRN Generalized Weakness - 2/2 Above - PT/OT once she improve clinically Mild Confusion -Likely 2/2 above -Aspiration and Fall precautions -Bedside swallow eval -[employer] 10/11/18 recommends NDD2 diet w/ thin liquids--> NPO until bedside complete Resolved: Hypokalemia -K is 3-->3.5 -Monitor -Replenish PRN Hematuria -Likely 2/2 from urinary catheter trauma (she gets confused and pulls on it) -Hgb 6.2 -Bladder Irrigation -Beckman removed, 11/26/18 Acute: Urinary retention with PVR, will start Flomax 0.4 mg daily Chronic: Impaired Hearing/Vision HF w/ Preserved EF of 65% 12/13/2015 HTN HLD -Lipid Panel WNL except HDL low at 34 PVD SOB GERD Hiatal Hernia CKD III Urinary Incontinence OA/DJD Osteoporosis DM2, Uncontrolled -A1C 7.7 -Glucose check QID and ISS -Diabetic Education Chronic Hyponatremia Anemia Urticaria Obesity with BMI > 35 Plan: Admit to MSP w/ telemetry Contact (MRSA positive in past), Aspiration, and Fall Precautions Routine AM Labs Resume Some Home Meds ADA, Heart Healthy Diet DVT/GI Prophylaxis: SCDs/H2B SW/CM PT/OT Code status: DNR/DNI; PCP: Dr. Kim She is from [facility] LOS >96H d/t slow response to treatment; DC Sun/Mon.
[2018-11-27] MEDS: Aspirin 81 MG Tab.Chew PO SCH (10:06)
[2018-11-27] MEDS: Tamsulosin 0.4 MG Cap.ER PO SCH (10:06)
[2018-11-27] MEDS: Famotidine 20 MG Tab PO SCH (10:06)
[2018-11-27] MEDS ORDERED: Levofloxacin 500 MG Tab PO SCH (20:00)
[2018-11-28] MEDS: Acetaminophen 325 MG Tab PO SCH ×2 (01:25→06:00)
[2018-11-28] MEDS: Modafinil 200 MG Tab PO SCH (06:01)
[2018-11-28] MEDS: Sodium Chloride/Potassium Chloride Tab PO SCH (09:16)
[2018-11-28] MEDS: guaiFENesin 600 MG Tab.ER PO SCH (09:17)
[2018-11-28] MEDS: Aspirin 81 MG Tab.Chew PO SCH (09:17)
[2018-11-28] MEDS: Saccharomyces Boulardii (Probiotic) 250 MG Cap PO SCH (09:17)
[2018-11-28] MEDS: amLODIPine 10 MG Tab PO SCH (09:17)
[2018-11-28] MEDS: Tamsulosin 0.4 MG Cap.ER PO SCH (09:17)
[2018-11-28] MEDS: Insulin Lispro 100 Units/ML 3 ML Vial SUBCUT SCH ×2 (09:18→12:47)
--- NOTE | 2018-11-28 09:54 | PCM.PN ---
- General Info Date of Service: 11/28/18 - Patient Data Vitals - Most Recent: Last Vital Signs Temp 37.2 C 11/27/18 20:06 Pulse 64 11/27/18 20:06 Resp 14 11/27/18 20:06 BP 165/61 H 11/28/18 09:17 Pulse Ox 98 11/27/18 20:06 Weight - Most Recent: 102.421 kg I&O - Last 24 Hours: Intake & Output 11/27/18 11/28/18 11/28/18 22:59 06:59 14:59 Intake Total 1645 Output Total 300 Balance 1345 Lab Results Last 24 Hours: Laboratory Results - last 24 hr 11/27/18 11/27/18 11/27/18 Range/Units 12:14 17:33 21:08 WBC (3.98-10.04) K/mm3 RBC (3.98-5.22) M/mm3 Hgb (11.2-15.7) gm/L Hct (34.1-44.9) % MCV (79.4-94.8) fl MCH (25.6-32.2) pg MCHC (32.2-35.5) g/dl RDW Std Deviation (36.4-46.3) fL Plt Count (182-369) K/mm3 MPV (9.4-12.3) fl Neut % (Auto) (34.0-71.1) % Lymph % (Auto) (19.3-51.7) % [place] % (Auto) (4.7-12.5) % Eos % (Auto) (0.7-5.8) Baso % (Auto) (0.1-1.2) % Neut # (Auto) (1.56-6.13) K/mm3 Lymph # (Auto) (1.18-3.74) K/mm3 [place] # (Auto) (0.24-0.36) K/mm3 Eos # (Auto) (0.04-0.36) K/mm3 Baso # (Auto) (0.01-0.08) K/mm3 Sodium (136-145) mEq/L Potassium (3.5-5.1) mEq/L Chloride (98-107) mEq/L Carbon Dioxide (21-32) mEq/L Anion Gap (5-15) BUN (7-18) mg/dL Creatinine (0.55-1.02) mg/dL Est Cr Clr Drug Dosing mL/min Estimated GFR (MDRD) (>60) mL/min BUN/Creatinine Ratio (14-18) Glucose (83-115) mg/dL POC Glucose 241 H 229 H 256 H (83-110) mg/dL Calcium (8.5-10.1) mg/dL Magnesium (1.8-2.4) mg/dl C-Reactive Protein (<1.0) mg/dL 11/28/18 11/28/18 Range/Units 06:14 06:14 WBC 7.39 (3.98-10.04) K/mm3 RBC 3.14 L (3.98-5.22) M/mm3 Hgb 8.9 L (11.2-15.7) gm/L Hct 27.7 L (34.1-44.9) % MCV 88.2 (79.4-94.8) fl MCH 28.3 (25.6-32.2) pg MCHC 32.1 L (32.2-35.5) g/dl RDW Std Deviation 49.0 H (36.4-46.3) fL Plt Count 120 L (182-369) K/mm3 MPV 9.1 L (9.4-12.3) fl Neut % (Auto) 55.3 (34.0-71.1) % Lymph % (Auto) 21.1 (19.3-51.7) % [place] % (Auto) 12.0 (4.7-12.5) % Eos % (Auto) 10.8 H (0.7-5.8) Baso % (Auto) 0.4 (0.1-1.2) % Neut # (Auto) 4.08 (1.56-6.13) K/mm3 Lymph # (Auto) 1.56 (1.18-3.74) K/mm3 [place] # (Auto) 0.89 H (0.24-0.36) K/mm3 Eos # (Auto) 0.80 H (0.04-0.36) K/mm3 Baso # (Auto) 0.03 (0.01-0.08) K/mm3 Sodium 130 L (136-145) mEq/L Potassium 4.9 (3.5-5.1) mEq/L Chloride 99 (98-107) mEq/L Carbon Dioxide 24 (21-32) mEq/L Anion Gap 11.9 (5-15) BUN 47 H (7-18) mg/dL Creatinine 2.2 H (0.55-1.02) mg/dL Est Cr Clr Drug Dosing 15.72 mL/min Estimated GFR (MDRD) 21 (>60) mL/min BUN/Creatinine Ratio 21.4 H (14-18) Glucose 169 H (83-115) mg/dL POC Glucose (83-110) mg/dL Calcium 9.3 (8.5-10.1) mg/dL Magnesium 2.0 (1.8-2.4) mg/dl C-Reactive Protein 1.8 H* (<1.0) mg/dL Med Orders - Current: Current Medications Acetaminophen (Tylenol) 650 mg PO Q4H PRN PRN Reason: Pain (Mild 1-3)/fever Acetaminophen (Tylenol) 650 mg PO Q6H [facility] Last Admin: 11/27/18 17:46 Dose: 650 mg Albuterol (Proventil Neb Soln) 2.5 mg NEB Q2H PRN PRN Reason: Shortness Of Breath/wheezing Albuterol/Ipratropium (Duoneb 3.0-0.5 Mg/3 Ml) 3 ml NEB Q4H PRN PRN Reason: Shortness Of Breath/wheezing Amlodipine Besylate (Norvasc) 10 mg PO DAILY [facility] Last Admin: 11/28/18 09:17 Dose: 10 mg Artificial Tears (Refresh Liquigel 1%) 0 ml EYEBOTH DAILY PRN PRN Reason: Dry Eyes Aspirin (Aspirin) 81 mg PO DAILY [facility] Last Admin: 11/28/18 09:17 Dose: 81 mg Bisacodyl (Dulcolax) 5 mg PO DAILY PRN PRN Reason: Constipation Last Admin: 11/24/18 06:31 Dose: 5 mg Dextrose/Water (Dextrose 50% In Water) 50 ml IVPUSH ASDIRECTED PRN PRN Reason: Hypoglycemia Docusate Sodium (Colace) 100 mg PO BID PRN PRN Reason: Constipation Famotidine (Pepcid) 20 mg PO Q48H [facility] Last Admin: 11/27/18 10:06 Dose: 20 mg Guaifenesin (Mucinex) 600 mg PO BID [facility] Last Admin: 11/28/18 09:17 Dose: 600 mg Promethazine HCl 6.25 mg/ (Sodium Chloride) 50.25 mls @ 100 mls/hr IV Q6H PRN PRN Reason: Nausea/Vomiting Insulin Human Lispro (Humalog) 0 unit SUBCUT QIDACANDBED [facility]; Protocol Last Admin: 11/28/18 09:18 Dose: 2 units Levofloxacin (Levaquin) 500 mg PO Q48H [facility] Last Admin: 11/27/18 21:04 Dose: 500 mg Lorazepam (Ativan) 2 mg IVPUSH Q4H PRN PRN Reason: Seizures Magnesium Hydroxide (Milk Of Magnesia) 30 ml PO Q12H PRN PRN Reason: Constipation Modafinil (Provigil) 100 mg PO DAILY@0700 [facility] Last Admin: 11/27/18 06:01 Dose: 100 mg Nystatin (Nystatin Crm) 0 gm TOP BID PRN PRN Reason: Itching Oral Electrolytes (Thermotabs) 2 each PO TID [facility] Last Admin: 11/28/18 09:16 Dose: 2 each Polyethylene Glycol (Miralax) 17 gm PO DAILY PRN PRN Reason: Constipation Promethazine HCl (Phenergan) 25 mg PO Q6H PRN PRN Reason: Nausea/Vomiting Saccharomyces Boulardii (Florastor) 250 mg PO BID [facility] Last Admin: 11/28/18 09:17 Dose: 250 mg Senna/Docusate Sodium (Senna Plus) 1 tab PO BID PRN PRN Reason: Constipation Sodium Chloride (Saline Flush) 10 ml FLUSH ASDIRECTED PRN PRN Reason: Keep Vein Open Last Admin: 11/22/18 16:58 Dose: 10 ml Tamsulosin HCl (Flomax) 0.4 mg PO PCBREAKFAST [facility] Last Admin: 11/28/18 09:17 Dose: 0.4 mg Discontinued Medications Acetaminophen (Tylenol) 650 mg PO BID PRN PRN Reason: Pain Furosemide (Lasix) 40 mg IVPUSH NOW ONE Stop: 11/24/18 17:21 Last Admin: 11/24/18 17:46 Dose: 40 mg Sodium Chloride (Normal Saline) 500 mls @ 999 mls/hr IV .BOLUS ONE Stop: 11/22/18 16:44 Last Admin: 11/22/18 16:56 Dose: 999 mls/hr Potassium Chloride 10 meq/ (Premix) 100 mls @ 50 mls/hr IV ASDIRECTED ONE Stop: 11/22/18 18:14 Last Admin: 11/22/18 16:56 Dose: 100 mls/hr Ceftriaxone Sodium 1 gm/ (Sodium Chloride) 100 mls @ 200 mls/hr IV ONETIME ONE Stop: 11/22/18 18:11 Last Admin: 11/22/18 18:11 Dose: 200 mls/hr Sodium Chloride (Normal Saline) 1,000 mls @ 125 mls/hr IV ASDIRECTED [facility] Last Admin: 11/25/18 08:50 Dose: 125 mls/hr Ceftriaxone Sodium 1 gm/ (Sodium Chloride) 100 mls @ 200 mls/hr IV Q24H [facility] Last Admin: 11/23/18 17:12 Dose: 200 mls/hr Potassium Chloride 10 meq/ (Premix) 100 mls @ 100 mls/hr IV Q1H [facility] Stop: 11/23/18 02:29 Last Admin: 11/23/18 01:40 Dose: 100 mls/hr Piperacillin Sod/Tazobactam (Sod 4.5 gm/ Sodium Chloride) 100 mls @ 200 mls/hr IV ONETIME ONE Stop: 11/24/18 10:29 Last Admin: 11/24/18 09:23 Dose: 200 mls/hr Piperacillin Sod/Tazobactam (Sod 4.5 gm/ Sodium Chloride) 100 mls @ 25 mls/hr IV Q12H [facility] Last Admin: 11/25/18 09:13 Dose: 25 mls/hr Sodium Chloride (Normal Saline) 250 mls @ 150 mls/hr IV ASDIRECTED [facility] Stop: 11/24/18 18:00 Sodium Chloride (Normal Saline) 1,000 mls @ 75 mls/hr IV ASDIRECTED [facility] Last Admin: 11/25/18 18:25 Dose: 75 mls/hr Levofloxacin/Dextrose 500 mg/ (Premix) 100 mls @ 100 mls/hr IV Q24H [facility] Last Admin: 11/25/18 20:28 Dose: 100 mls/hr Insulin Human Lispro (Humalog) 0 unit SUBCUT QIDACANDBED [facility]; Protocol Last Admin: 11/24/18 09:04 Dose: 2 unit Saccharomyces Boulardii (Florastor) 250 mg PO BID [facility] - My Orders Last 24 Hours: My Active Orders 11/27/18 10:00 Tamsulosin [Flomax] 0.4 mg PO PCBREAKFAST 11/27/18 20:00 levoFLOXacin [Levaquin] 500 mg PO Q48H 11/29/18 05:00 BMP [BASIC METABOLIC PANEL,BMP] [CHEM] DAILY CBC WITH AUTO DIFF [HEME] DAILY CRP [C-REACTIVE PROTEIN] [CHEM] DAILY MAGNESIUM [CHEM] DAILY 11/30/18 05:00 BMP [BASIC METABOLIC PANEL,BMP] [CHEM] DAILY CBC WITH AUTO DIFF [HEME] DAILY CRP [C-REACTIVE PROTEIN] [CHEM] DAILY MAGNESIUM [CHEM] DAILY 12/01/18 05:00 BMP [BASIC METABOLIC PANEL,BMP] [CHEM] DAILY CBC WITH AUTO DIFF [HEME] DAILY CRP [C-REACTIVE PROTEIN] [CHEM] DAILY MAGNESIUM [CHEM] DAILY - Plan Plan:: Assessment/Plan: Acute: UTI 2/2 Pseudomonas Aeruginosa - Risk Factors: Urinary Incontinence - UA strongly positive - CRP 2.8--> 3--> 4.3-->4.1-->2.8 - Received IV Rocephin in ED--> Start Levaquin d/t susceptibility; Levoquin 500 mg po daily - Urine culture shows Pseudomonas Aeruginosa, susceptible to Levaquin - Beckman catheter--> D/C'd today d/t maria alejandra blood likely 2/2 trauma (gets confused at times and pulls on it) -Bladder irrigation needed, Beckman reinserted--> D/C as no more hematuria present MECHELLE, Improving - Acute on CKD - Risk Factors: on dual diuretics plus underlying chronic renal insufficiency - Baseline CKD Stage 3 - Cr 3.5-->2.9-->2.7-->2.6-->2.2; baseline usually around 2.5 per past labs - Renal U/S on 10/08/18: -1. Findings within both kidneys compatible with nonspecific medical renal disease. -2. Significant post void residual within the bladder. - IVF - Monitor renal function - Avoid nephrotoxic agents Hyponatremia, Improving - Na is 120-->124-->125--> 133 - She is on diuretics: lasix and metolazone - Hold diuretics - IVF and Thermotabs - Goal: Na at 135 or higher Anemia, Improving -Acute on Chronic -Hgb 7.7 at [facility], 8.2 in ED--> 6.2--> 8.6 -Monitor; Replenish w/ PRBCs PRN Generalized Weakness - 2/2 Above - PT/OT once she improve clinically Mild Confusion -Likely 2/2 above -Aspiration and Fall precautions -Bedside swallow eval -[employer] 10/11/18 recommends NDD2 diet w/ thin liquids--> NPO until bedside complete Resolved: Hypokalemia -K is 3-->3.5 -Monitor -Replenish PRN Hematuria -Likely 2/2 from urinary catheter trauma (she gets confused and pulls on it) -Hgb 6.2 -Bladder Irrigation -Beckman removed, 11/26/18 Acute: Urinary retention with PVR, will start Flomax 0.4 mg daily Chronic: Impaired Hearing/Vision HF w/ Preserved EF of 65% 12/13/2015 HTN HLD -Lipid Panel WNL except HDL low at 34 PVD SOB GERD Hiatal Hernia CKD III Urinary Incontinence OA/DJD Osteoporosis DM2, Uncontrolled -A1C 7.7 -Glucose check QID and ISS -Diabetic Education Chronic Hyponatremia Anemia Urticaria Obesity with BMI > 35 Plan: Admit to [facility] w/ telemetry Contact (MRSA positive in past), Aspiration, and Fall Precautions Routine AM Labs Resume Some Home Meds ADA, Heart Healthy Diet DVT/GI Prophylaxis: SCDs/H2B SW/CM PT/OT Code status: DNR/DNI; PCP: Dr. Kim She is from [facility] LOS >96H d/t slow response to treatment; DC Sun/
[2018-11-28 10:33] VITALS: BP 165/61
--- NOTE | 2018-11-28 11:13 | PCM.DCSUM1 ---
Discharge Summary - Hospital Course Free Text/Narrative:: 83 year old female who resides at [facility] presented with AMS associated with a UTI, ARF. She was treated with IV Zosyn and later Levoquin adjusted based on C/S. During the hospitalization, CBI was required after the patient developed hematuria, CBI was performed roughly 48 hours. The catheter was removed successfully, PVR were followed, the patient tolerated a straight cath if the bladder volume was greater than 300 cc. She has been able to void before DC without difficulty for 48 hours. The patient had a UTI from pseudomonas, Levoquin 500 mg QOD, 5 tabs has been prescribed at [facility]. Primary Dx AMS Dehydration ARF (baseline, CKD) Hyponatremia Hypokalemia Chronic anemia Meds Resume home med list Levoquin 500 mg QOD, next dose 11/29/18. HPI Initial Comments: This is an 83 yo female well known to this service with past medical h/o Impaired Hearing/Vision, HF w/ Preserved EF of 65% (), HTN, HLD, PVD, SOB, GERD, Hiatal Hernia, CKD III, Urinary Incontinence, OA/DJD, Osteoporosis, DM2, Chronic Hyponatremia, Anemia, Urticaria and Obesity with BMI > 35 who comes in for Anemia, Generalized Weakness, AMS, Hyponatremia, Hypokalemia. She had similar issues at her prior hospital admission about 6 weeks ago. History obtained in ED by [facility]'s staff and daughter. Daughter states she was very drowsy today, but not as severe as it was 6 weeks ago. No F/C, abdominal pain, N /V/D, CP, SOB, or other GI/ complaints. She had lab work drawn at the senior care this past morning is stated to have revealed low sodium of 121, low potassium of 3.1, hemoglobin 7.7. Her initial work up in ED shows a CBC remarkable for WBC for RBC 2.95, Hgb 8.2, Hct 24.7, Plt 130, MPV 9.1, [place] 14.8%. Her chemistry is significant for Na 120, K 3, Cl 81, BUN 89, Cr 3.5, GFR 13, Glu 78, Alk Phos 169, CRP 2.8, Albumin 2.7. Her UA is suggestive of UTI. She is subsequently admitted to the medical floor. She is DNR/DNI. Her PCP is Dr. Kim. She is from [facility]. Diagnosis: Stroke: No - Discharge Data Discharge Date: 11/28/18 Discharge Disposition: DC/Tfer to SNF 03 Condition: Good - Patient Summary/Data Consults: Consultations 11/22/18 18:32 Consult to Case Management/Cap And Stud Machine Operator [CONS] Routine Consult to Diabetic Nurse Specialist [CONS] Routine Consult to [employer] [CONS] Routine OT Evaluation and Treatment [CONS] Routine PT Evaluation and Treatment [CONS] Routine - Patient Instructions Diet: Usual Diet as Tolerated Activity: As Tolerated Driving: Do Not Drive Showering/Bathing: May Shower Notify Provider of: Fever, Increased Pain, Nausea and/or Vomiting - Discharge Plan *PRESCRIPTION DRUG MONITORING PROGRAM REVIEWED*: Not Applicable *COPY OF PRESCRIPTION DRUG MONITORING REPORT IN PATIENT ALAINA: Not Applicable Prescriptions/Med Rec: levoFLOXacin [Levaquin] 500 mg PO Q48H #5 tablet Home Medications: Home Meds Rosuvastatin Calcium [Crestor] 20 mg PO DAILY 12/11/15 [History] amLODIPine [Norvasc] 10 mg PO DAILY 12/11/15 [History] Aspirin 81 mg PO DAILY 12/24/15 [History] Acetaminophen [Tylenol] 650 mg PO Q6H 07/14/18 [History] Furosemide [Lasix] 60 mg PO BID 07/14/18 [History] Insulin Aspart [NovoLOG] 8 units SUBCUT BID 07/14/18 [History] Losartan [Cozaar] 50 mg PO DAILY 07/14/18 [History] Nystatin [Nystatin Crm] 1 applic TOP BID PRN 07/14/18 [History] Tresiba Flextouch. 20 units SUBCUT DAILY 07/14/18 [History] Vit C/E/Zn/Coppr/Lutein/Zeaxan [Preservision Areds 2 Softgel] 1 tab PO BID 07/14 [History] guaiFENesin [Mucinex] 600 mg PO BID 07/14/18 [History] Acetaminophen [Tylenol] 650 mg PO BID PRN 10/06/18 [History] Benzocaine/Menthol [Cepacol Sore Throat Lozenge] 1 each PO Q1H PRN 10/06/18 [ History] Calcium Carbonate [Tums] 1 - 2 tab PO Q6HR PRN 10/06/18 [History] Lutein/Minerals/Vit A,C & E [Ocuvite] 1 tab PO DAILY 10/06/18 [History] Polyvinyl Alcohol/Povidone/Pf [Refresh Classic Eye Drops] 1 drop EYEBOTH DAILY PRN 10/06/18 [History] metOLazone [Metolazone] 2.5 mg PO WESA 10/06/18 [History] Bisacodyl [Dulcolax] 10 mg PO DAILY PRN 11/22/18 [History] Lactobacillus Acidophilus [Acidophilus Lactobacilli] 1 cap PO BID 11/22/18 [ History] Modafinil [Provigil] 100 mg PO DAILY@0700 11/23/18 [History] levoFLOXacin [Levaquin] 500 mg PO Q48H #5 tablet 11/28/18 [Rx] Oxygen Therapy Mode: Room Air Patient Handouts: Urinary Tract Infection, Adult, [id number], Dehydration, Adult, [id number] Forms: ED Department Discharge Referrals: Naren Kim MD [Primary Care Provider] - (please schedule a hospital follow up appointment with Dr. Kim within 7-10 days) - Discharge Summary/Plan Comment DC Time >30 min.: No Discharge Summary/Plan Comment: Assessment/Plan: Acute: UTI 2/2 Pseudomonas Aeruginosa - Risk Factors: Urinary Incontinence - UA strongly positive - CRP 2.8--> 3--> 4.3-->4.1-->2.8 - Received IV Rocephin in ED--> Start Levaquin d/t susceptibility; Levoquin 500 mg po daily - Urine culture shows Pseudomonas Aeruginosa, susceptible to Levaquin - Beckman catheter--> D/C'd today d/t maria alejandra blood likely 2/2 trauma (gets confused at times and pulls on it) -Bladder irrigation needed, Beckman reinserted--> D/C as no more hematuria present MECHELLE, Improving - Acute on CKD - Risk Factors: on dual diuretics plus underlying chronic renal insufficiency - Baseline CKD Stage 3 - Cr 3.5-->2.9-->2.7-->2.6-->2.2; baseline usually around 2.5 per past labs - Renal U/S on 10/08/18: -1. Findings within both kidneys compatible with nonspecific medical renal disease. -2. Significant post void residual within the bladder. - IVF - Monitor renal function - Avoid nephrotoxic agents Hyponatremia, Improving - Na is 120-->124-->125--> 133 - She is on diuretics: lasix and metolazone - Hold diuretics - IVF and Thermotabs - Goal: Na at 135 or higher Anemia, Improving -Acute on Chronic -Hgb 7.7 at [facility], 8.2 in ED--> 6.2--> 8.6 -Monitor; Replenish w/ PRBCs PRN Generalized Weakness - 2/2 Above - PT/OT once she improve clinically Mild Confusion -Likely 2/2 above -Aspiration and Fall precautions -Bedside swallow eval -CHANGE MANAGEMENT COORDINATOR 10/11/18 recommends NDD2 diet w/ thin liquids--> NPO until bedside complete Resolved: Hypokalemia -K is 3-->3.5 -Monitor -Replenish PRN Hematuria -Likely 2/2 from urinary catheter trauma (she gets confused and pulls on it) -Hgb 6.2 -Bladder Irrigation -Beckman removed, 11/26/18 Acute: Urinary retention with PVR, will start Flomax 0.4 mg daily Chronic: Impaired Hearing/Vision HF w/ Preserved EF of 65% 12/13/2015 HTN HLD -Lipid Panel WNL except HDL low at 34 PVD SOB GERD Hiatal Hernia CKD III Urinary Incontinence OA/DJD Osteoporosis DM2, Uncontrolled -A1C 7.7 -Glucose check QID and ISS -Diabetic Education Chronic Hyponatremia Anemia Urticaria Obesity with BMI > 35 Plan: Admit to MSP w/ telemetry Contact (MRSA positive in past), Aspiration, and Fall Precautions Routine AM Labs Resume Some Home Meds ADA, Heart Healthy Diet DVT/GI Prophylaxis: SCDs/H2B SW/CM PT/OT Code status: DNR/DNI; PCP: Dr. Kim She is from [facility] LOS >96H d/t slow response to treatment; SAHIL Jackson/ - General Info Date of Service: 11/22/18 Functional Status: Reports: Pain Controlled, Tolerating Diet, Ambulating, Urinating - Review of Systems General: Reports: No Symptoms HEENT: Reports: No Symptoms Pulmonary: Reports: No Symptoms Cardiovascular: Reports: No Symptoms Gastrointestinal: Reports: No Symptoms Genitourinary: Reports: No Symptoms Musculoskeletal: Reports: No Symptoms Skin: Reports: No Symptoms Neurological: Reports: No Symptoms Psychiatric: Reports: No Symptoms - Patient Data Vitals - Most Recent: Last Vital Signs Temp 37.2 C 11/28/18 09:00 Pulse 71 11/28/18 09:00 Resp 16 11/28/18 09:00 BP 165/61 H 11/28/18 09:17 Pulse Ox 94 L 11/28/18 09:00 Weight - Most Recent: 105.551 kg I&O - Last 24 hours: Intake & Output 11/27/18 11/28/18 11/28/18 22:59 06:59 14:59 Intake Total 1645 800 Output Total 300 675 Balance 1345 125 Lab Results - Last 24 hrs: Laboratory Results - last 24 hr 11/27/18 11/27/18 11/27/18 Range/Units 12:14 17:33 21:08 WBC (3.98-10.04) K/mm3 RBC (3.98-5.22) M/mm3 Hgb (11.2-15.7) gm/L Hct (34.1-44.9) % MCV (79.4-94.8) fl MCH (25.6-32.2) pg MCHC (32.2-35.5) g/dl RDW Std Deviation (36.4-46.3) fL Plt Count (182-369) K/mm3 MPV (9.4-12.3) fl Neut % (Auto) (34.0-71.1) % Lymph % (Auto) (19.3-51.7) % [place] % (Auto) (4.7-12.5) % Eos % (Auto) (0.7-5.8) Baso % (Auto) (0.1-1.2) % Neut # (Auto) (1.56-6.13) K/mm3 Lymph # (Auto) (1.18-3.74) K/mm3 [place] # (Auto) (0.24-0.36) K/mm3 Eos # (Auto) (0.04-0.36) K/mm3 Baso # (Auto) (0.01-0.08) K/mm3 Sodium (136-145) mEq/L Potassium (3.5-5.1) mEq/L Chloride (98-107) mEq/L Carbon Dioxide (21-32) mEq/L Anion Gap (5-15) BUN (7-18) mg/dL Creatinine (0.55-1.02) mg/dL Est Cr Clr Drug Dosing mL/min Estimated GFR (MDRD) (>60) mL/min BUN/Creatinine Ratio (14-18) Glucose (83-115) mg/dL POC Glucose 241 H 229 H 256 H (83-110) mg/dL Calcium (8.5-10.1) mg/dL Magnesium (1.8-2.4) mg/dl C-Reactive Protein (<1.0) mg/dL 11/28/18 11/28/18 Range/Units 06:14 06:14 WBC 7.39 (3.98-10.04) K/mm3 RBC 3.14 L (3.98-5.22) M/mm3 Hgb 8.9 L (11.2-15.7) gm/L Hct 27.7 L (34.1-44.9) % MCV 88.2 (79.4-94.8) fl MCH 28.3 (25.6-32.2) pg MCHC 32.1 L (32.2-35.5) g/dl RDW Std Deviation 49.0 H (36.4-46.3) fL Plt Count 120 L (182-369) K/mm3 MPV 9.1 L (9.4-12.3) fl Neut % (Auto) 55.3 (34.0-71.1) % Lymph % (Auto) 21.1 (19.3-51.7) % [place] % (Auto) 12.0 (4.7-12.5) % Eos % (Auto) 10.8 H (0.7-5.8) Baso % (Auto) 0.4 (0.1-1.2) % Neut # (Auto) 4.08 (1.56-6.13) K/mm3 Lymph # (Auto) 1.56 (1.18-3.74) K/mm3 [place] # (Auto) 0.89 H (0.24-0.36) K/mm3 Eos # (Auto) 0.80 H (0.04-0.36) K/mm3 Baso # (Auto) 0.03 (0.01-0.08) K/mm3 Sodium 130 L (136-145) mEq/L Potassium 4.9 (3.5-5.1) mEq/L Chloride 99 (98-107) mEq/L Carbon Dioxide 24 (21-32) mEq/L Anion Gap 11.9 (5-15) BUN 47 H (7-18) mg/dL Creatinine 2.2 H (0.55-1.02) mg/dL Est Cr Clr Drug Dosing 15.72 mL/min Estimated GFR (MDRD) 21 (>60) mL/min BUN/Creatinine Ratio 21.4 H (14-18) Glucose 169 H (83-115) mg/dL POC Glucose (83-110) mg/dL Calcium 9.3 (8.5-10.1) mg/dL Magnesium 2.0 (1.8-2.4) mg/dl C-Reactive Protein 1.8 H* (<1.0) mg/dL Med Orders - Current: Current Medications Acetaminophen (Tylenol) 650 mg PO Q4H PRN PRN Reason: Pain (Mild 1-3)/fever Acetaminophen (Tylenol) 650 mg PO Q6H [facility] Last Admin: 11/28/18 06:00 Dose: 650 mg Albuterol (Proventil Neb Soln) 2.5 mg NEB Q2H PRN PRN Reason: Shortness Of Breath/wheezing Albuterol/Ipratropium (Duoneb 3.0-0.5 Mg/3 Ml) 3 ml NEB Q4H PRN PRN Reason: Shortness Of Breath/wheezing Amlodipine Besylate (Norvasc) 10 mg PO DAILY [facility] Last Admin: 11/28/18 09:17 Dose: 10 mg Artificial Tears (Refresh Liquigel 1%) 0 ml EYEBOTH DAILY PRN PRN Reason: Dry Eyes Aspirin (Aspirin) 81 mg PO DAILY [facility] Last Admin: 11/28/18 09:17 Dose: 81 mg Bisacodyl (Dulcolax) 5 mg PO DAILY PRN PRN Reason: Constipation Last Admin: 11/24/18 06:31 Dose: 5 mg Dextrose/Water (Dextrose 50% In Water) 50 ml IVPUSH ASDIRECTED PRN PRN Reason: Hypoglycemia Docusate Sodium (Colace) 100 mg PO BID PRN PRN Reason: Constipation Famotidine (Pepcid) 20 mg PO Q48H [facility] Last Admin: 11/27/18 10:06 Dose: 20 mg Guaifenesin (Mucinex) 600 mg PO BID [facility] Last Admin: 11/28/18 09:17 Dose: 600 mg Promethazine HCl 6.25 mg/ (Sodium Chloride) 50.25 mls @ 100 mls/hr IV Q6H PRN PRN Reason: Nausea/Vomiting Insulin Human Lispro (Humalog) 0 unit SUBCUT QIDACANDBED [facility]; Protocol Last Admin: 11/28/18 09:18 Dose: 2 units Levofloxacin (Levaquin) 500 mg PO Q48H [facility] Last Admin: 11/27/18 21:04 Dose: 500 mg Lorazepam (Ativan) 2 mg IVPUSH Q4H PRN PRN Reason: Seizures Magnesium Hydroxide (Milk Of Magnesia) 30 ml PO Q12H PRN PRN Reason: Constipation Modafinil (Provigil) 100 mg PO DAILY@0700 [facility] Last Admin: 11/28/18 06:01 Dose: 100 mg Nystatin (Nystatin Crm) 0 gm TOP BID PRN PRN Reason: Itching Oral Electrolytes (Thermotabs) 2 each PO TID [facility] Last Admin: 11/28/18 09:16 Dose: 2 each Polyethylene Glycol (Miralax) 17 gm PO DAILY PRN PRN Reason: Constipation Promethazine HCl (Phenergan) 25 mg PO Q6H PRN PRN Reason: Nausea/Vomiting Saccharomyces Boulardii (Florastor) 250 mg PO BID [facility] Last Admin: 11/28/18 09:17 Dose: 250 mg Senna/Docusate Sodium (Senna Plus) 1 tab PO BID PRN PRN Reason: Constipation Sodium Chloride (Saline Flush) 10 ml FLUSH ASDIRECTED PRN PRN Reason: Keep Vein Open Last Admin: 11/22/18 16:58 Dose: 10 ml Tamsulosin HCl (Flomax) 0.4 mg PO PCBREAKFAST [facility] Last Admin: 11/28/18 09:17 Dose: 0.4 mg Discontinued Medications Acetaminophen (Tylenol) 650 mg PO BID PRN PRN Reason: Pain Furosemide (Lasix) 40 mg IVPUSH NOW ONE Stop: 11/24/18 17:21 Last Admin: 11/24/18 17:46 Dose: 40 mg Sodium Chloride (Normal Saline) 500 mls @ 999 mls/hr IV .BOLUS ONE Stop: 11/22/18 16:44 Last Admin: 11/22/18 16:56 Dose: 999 mls/hr Potassium Chloride 10 meq/ (Premix) 100 mls @ 50 mls/hr IV ASDIRECTED ONE Stop: 11/22/18 18:14 Last Admin: 11/22/18 16:56 Dose: 100 mls/hr Ceftriaxone Sodium 1 gm/ (Sodium Chloride) 100 mls @ 200 mls/hr IV ONETIME ONE Stop: 11/22/18 18:11 Last Admin: 11/22/18 18:11 Dose: 200 mls/hr Sodium Chloride (Normal Saline) 1,000 mls @ 125 mls/hr IV ASDIRECTED [facility] Last Admin: 11/25/18 08:50 Dose: 125 mls/hr Ceftriaxone Sodium 1 gm/ (Sodium Chloride) 100 mls @ 200 mls/hr IV Q24H [facility] Last Admin: 11/23/18 17:12 Dose: 200 mls/hr Potassium Chloride 10 meq/ (Premix) 100 mls @ 100 mls/hr IV Q1H [facility] Stop: 11/23/18 02:29 Last Admin: 11/23/18 01:40 Dose: 100 mls/hr Piperacillin Sod/Tazobactam (Sod 4.5 gm/ Sodium Chloride) 100 mls @ 200 mls/hr IV ONETIME ONE Stop: 11/24/18 10:29 Last Admin: 11/24/18 09:23 Dose: 200 mls/hr Piperacillin Sod/Tazobactam (Sod 4.5 gm/ Sodium Chloride) 100 mls @ 25 mls/hr IV Q12H [facility] Last Admin: 11/25/18 09:13 Dose: 25 mls/hr Sodium Chloride (Normal Saline) 250 mls @ 150 mls/hr IV ASDIRECTED [facility] Stop: 11/24/18 18:00 Sodium Chloride (Normal Saline) 1,000 mls @ 75 mls/hr IV ASDIRECTED [facility] Last Admin: 11/25/18 18:25 Dose: 75 mls/hr Levofloxacin/Dextrose 500 mg/ (Premix) 100 mls @ 100 mls/hr IV Q24H [facility] Last Admin: 11/25/18 20:28 Dose: 100 mls/hr Insulin Human Lispro (Humalog) 0 unit SUBCUT QIDACANDBED [facility]; Protocol Last Admin: 11/24/18 09:04 Dose: 2 unit Saccharomyces Boulardii (Florastor) 250 mg PO BID [facility] - Exam Quality Assessment: Reports: DVT Prophylaxis General: Reports: Alert, Oriented, Cooperative, No Acute Distress HEENT: Reports: Pupils Equal, Pupils Reactive, EOMI Neck: Reports: Trachea Midline, No JVD Lungs: Reports: Normal Respiratory Effort Cardiovascular: Reports: Regular Rate GI/Abdominal Exam: Normal Bowel Sounds, Soft, Non-Tender, No Organomegaly, No Distention (Female) Exam: Deferred Rectal (Female) Exam: Deferred Back Exam: Reports: Normal Inspection Extremities: Normal Inspection, Non-Tender, Normal Capillary Refill Skin: Reports: Warm Neurological: Reports: No New Focal Deficit Psy/Mental Status: Reports: Alert, Normal Affect, Normal Mood
== END 2018-11-28 13:20 | DRG 690 ==
LOC: SUPCPDRO 14:53 → JD.ED 14:53 → JD.ICU 18:12 → JD.MS 11-23 10:54
PROVIDERS: ADMIT Internal Medicine; ATTEND Internal Medicine
DX: N39.0 Urinary tract infection, site not specified (principal); E87.1 Hypo-osmolality and hyponatremia; I13.0 Hypertensive heart and chronic kidney disease with heart failure and stage 1 through stage 4 chronic kidney disease, or unspecified chronic kidney disease; N17.9 Acute kidney failure, unspecified; I50.32 Chronic diastolic (congestive) heart failure; E87.6 Hypokalemia; E11.22 Type 2 diabetes mellitus with diabetic chronic kidney disease; N18.3 Chronic kidney disease, stage 3 (moderate); I50.9 Heart failure, unspecified; E78.00 Pure hypercholesterolemia, unspecified; E11.40 Type 2 diabetes mellitus with diabetic neuropathy, unspecified; E66.9 Obesity, unspecified; E11.21 Type 2 diabetes mellitus with diabetic nephropathy; I73.9 Peripheral vascular disease, unspecified; K21.9 Gastro-esophageal reflux disease without esophagitis; M19.90 Unspecified osteoarthritis, unspecified site; D64.9 Anemia, unspecified; M81.0 Age-related osteoporosis without current pathological fracture; R32 Unspecified urinary incontinence; H54.7 Unspecified visual loss; H91.90 Unspecified hearing loss, unspecified ear; H35.30 Unspecified macular degeneration; R31.9 Hematuria, unspecified; B96.5 Pseudomonas (aeruginosa) (mallei) (pseudomallei) as the cause of diseases classified elsewhere; R42 Dizziness and giddiness; R26.2 Difficulty in walking, not elsewhere classified; R53.1 Weakness; R06.02 Shortness of breath; R05 Cough; R41.82 Altered mental status, unspecified; R40.4 Transient alteration of awareness; E86.0 Dehydration; E78.5 Hyperlipidemia, unspecified; R33.9 Retention of urine, unspecified; Z90.710 Acquired absence of both cervix and uterus; Z79.82 Long term (current) use of aspirin; Z68.39 Body mass index [BMI] 39.0-39.9, adult; Z66 Do not resuscitate; Z22.322 Carrier or suspected carrier of Methicillin resistant Staphylococcus aureus; Z79.899 Other long term (current) drug therapy; Z79.4 Long term (current) use of insulin; K44.9 Diaphragmatic hernia without obstruction or gangrene; L50.9 Urticaria, unspecified
CPT/HCPCS: 36415; 51702; 80053; 81001; 82962; 85025; 86140; 87086; 93005; 96365; 96367; 99285; J0696; J3480; J7030; J7040; 36430; 51701; 51798; 80048; 80061; 83036; 83735; 86850; 86900; 86901; 86922; 97110-GO; 97110-GP; 97116-GP; 97162-GP; 97166-GO; 97530-GO; 97530-GP; 97535-GO; A9270-GY; J1815-GY; J1940; J1956; J2543; P9016

== ENCOUNTER 2018-12-18 14:20 | Inpatient (IN) | payer MEDICARE, BC, MEDICAID ==
[2018-12-18] MEDS ORDERED: Sodium Chloride 0.9% 10 ML Syringe FLUSH PRN (15:13)
[2018-12-18] MEDS ORDERED: Bumetanide 1 MG/4 ML MDV IVPUSH ONE (17:35)
--- NOTE | 2018-12-18 17:52 | EDM.PDOC ---
ED HPI GENERAL MEDICAL PROBLEM - General Chief Complaint: Cardiovascular Problem Stated Complaint: EDEMA Time Seen by Provider: 12/18/18 14:43 Source of Information: Reports: Patient, Family, Intermediate Records History Limitations: Reports: No Limitations - History of Present Illness INITIAL COMMENTS - FREE TEXT/NARRATIVE: The patient presents from [facility] with edema and hearing loss. The patient has been in the hospital on and off for a few months. She has gone to the [place] [facility] and there she has got more edema in her legs with a 15 pound weight loss. They increased her bumex and it did not seem to help. It does not feel like she is more short of breath and she has no chest pain. She has no fever, chills or cough. She did loose her hearing over the past couple of days. This is new and concerning for her. She has no headache and no numbness or weakness. She has no ear pain. Onset: Gradual Duration: Week(s): Severity: Moderate Improves with: Reports: None Worsens with: Reports: None Associated Symptoms: Denies: Chest Pain, Cough, Fever/Chills, Headaches, Nausea/ Vomiting, Shortness of Breath Bilateral Lower Leg Pain Score (Numeric/FACES): 8 - Related Data Allergies Allergy/AdvReac Type Severity Reaction Status Date / Time No Known Allergies Allergy Verified 12/18/18 14:38 Home Meds: Home Meds Rosuvastatin Calcium [Crestor] 20 mg PO DAILY 12/11/15 [History] amLODIPine [Norvasc] 10 mg PO DAILY 12/11/15 [History] Aspirin 81 mg PO DAILY 12/24/15 [History] Acetaminophen [Tylenol] 650 mg PO Q6H 07/14/18 [History] Furosemide [Lasix] 60 mg PO BID 07/14/18 [History] Insulin Aspart [NovoLOG] 8 units SUBCUT BID 07/14/18 [History] Losartan [Cozaar] 50 mg PO DAILY 07/14/18 [History] Nystatin [Nystatin Crm] 1 applic TOP BID PRN 07/14/18 [History] Tresiba Flextouch. 20 units SUBCUT DAILY 07/14/18 [History] Vit C/E/Zn/Coppr/Lutein/Zeaxan [Preservision Areds 2 Softgel] 1 tab PO BID 07/14 [History] guaiFENesin [Mucinex] 600 mg PO BID 07/14/18 [History] Acetaminophen [Tylenol] 650 mg PO BID PRN 10/06/18 [History] Benzocaine/Menthol [Cepacol Sore Throat Lozenge] 1 each PO Q1H PRN 10/06/18 [ History] Calcium Carbonate [Tums] 1 - 2 tab PO Q6HR PRN 10/06/18 [History] Lutein/Minerals/Vit A,C & E [Ocuvite] 1 tab PO DAILY 10/06/18 [History] Polyvinyl Alcohol/Povidone/Pf [Refresh Classic Eye Drops] 1 drop EYEBOTH DAILY PRN 10/06/18 [History] metOLazone [Metolazone] 2.5 mg PO WESA 10/06/18 [History] Bisacodyl [Dulcolax] 10 mg PO DAILY PRN 11/22/18 [History] Lactobacillus Acidophilus [Acidophilus Lactobacilli] 1 cap PO BID 11/22/18 [ History] Modafinil [Provigil] 100 mg PO DAILY@0700 11/23/18 [History] levoFLOXacin [Levaquin] 500 mg PO Q48H #5 tablet 11/28/18 [Rx] Past Medical History HEENT 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: Cataract, Hard of Hearing, Impaired Vision, Macular Degeneration Other HEENT History: cough Cardiovascular 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: Heart Failure, High Cholesterol, Hypertension, PVD Respiratory 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: SOB Gastrointestinal 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: GERD, Hiatal Hernia Genitourinary 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: Chronic Renal Insuffiency, Urinary Incontinence Other Genitourinary History: polyuria - CKD III 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 CUTTER 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: Musculoskeletal 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: Osteoarthritis, Osteoporosis, Other (See Below ) Other Musculoskeletal History: sciatic nerve pain Neurological 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: Neuropathy, Diabetic Other Neuro History: hypo-osmolality, hyponatremia Endocrine/Metabolic 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: Diabetes, Type II, Obesity/BMI 30+ Other Endocrine/Metabolic History: chronic kidney disease Hematologic 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: Anemia Other Hematologic History: previous anemia 5-6 yrs ago Dermatologic 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: Urticaria Other Dermatologic History: tinea unguium-onchomycosis - Infectious Disease History Infectious Disease 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: Chicken Pox - Past Surgical History HEENT Surgical 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: Cataract Surgery Cardiovascular Surgical 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: None Respiratory Surgical 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: None GI Surgical 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: Colonoscopy Female Surgical 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: Hysterectomy Endocrine Surgical 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: None Musculoskeletal Surgical 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: None Social & Family History - Family History HEENT: Reports: Cataract, Macular Degeneration Other HEENT Family History: mom, sister Neurological: Reports: Alzheimers Disease Other Neurological Family History: dad Endocrine/Metabolic: Reports: Diabetes, type II Other Endocrine/Metabolic Family History: sister Dermatologic: Reports: None Oncologic: Reports: Breast Other Oncologic Family History: mother - Tobacco Use Smoking Status *Q: Never Smoker - Caffeine Use Caffeine Use: Reports: None - Living Situation & Occupation Living situation: Reports: Alone Occupation: Retired ED ROS GENERAL - Review of Systems Review Of Systems: See Below Constitutional: Reports: Weakness. Denies: Fever, Chills HEENT: Reports: Other (Hearing loss) Respiratory: Reports: No Symptoms Cardiovascular: Reports: Edema. Denies: Chest Pain Endocrine: Reports: Fatigue GI/Abdominal: Reports: No Symptoms : Reports: No Symptoms Musculoskeletal: Reports: No Symptoms Skin: Reports: No Symptoms ED EXAM, GENERAL - Physical Exam Exam: See Below Exam Limited By: No Limitations General Appearance: Alert, No Apparent Distress Ears: Normal External Exam, Other (Cerumen in each canal) Nose: Normal Inspection Head: Atraumatic, Normocephalic Neck: Normal Inspection Respiratory/Chest: No Respiratory Distress, Lungs Clear, Normal Breath Sounds Cardiovascular: Regular Rate, Rhythm, No Murmur, Other (Edema to both legs) GI/Abdominal: Soft, Non-Tender, No Organomegaly, No Mass Back Exam: Normal Inspection Extremities: Other (Bilateral lower leg edema) Neurological: Alert, Oriented, No Motor/Sensory Deficits EKG INTERPRETATION EKG Date: 12/18/18 Time: 15:19 Rhythm: NSR Rate (Beats/Min): 65 [place]: Normal P-Wave: Present QRS: Normal ST-T: Other (Flattened T waves in the inferior leads) QT: Normal LA/PQ Interval: 1st degree heart block Course - Vital Signs Last Recorded V/S: Last Vital Signs Temp 97.1 F 12/18/18 14:38 Pulse 63 12/18/18 14:38 Resp BP 127/117 H 12/18/18 14:38 Pulse Ox 96 12/18/18 14:38 - Orders/Labs/Meds Orders: Active Orders 24 hr Category Date Time Status Cardiac Monitoring [RC] . DIRECTED Care 12/18/18 15:14 Active EKG Documentation Completion [RC] STAT Care 12/18/18 15:15 Active Peripheral IV Care [RC] . DIRECTED Care 12/18/18 15:14 Active Chest 1V Frontal [CR] Stat Exams 12/18/18 15:15 Taken CULTURE URINE [RM] Stat Lab 12/18/18 18:20 Ordered Sodium Chloride 0.9% [Saline Flush] Med 12/18/18 15:13 Active 10 ml FLUSH ASDIRECTED PRN cefTRIAXone [Rocephin] 2 gm Med 12/18/18 18:30 Active Sodium Chloride 0.9% [Normal Saline] 100 ml IV ONETIME Peripheral IV Insertion Adult [OM.PC] Stat Oth 12/18/18 15:13 Ordered Medication Orders Ceftriaxone Sodium 2 gm/ (Sodium Chloride) 100 mls @ 200 mls/hr IV ONETIME ONE Stop: 12/18/18 18:59 Sodium Chloride (Saline Flush) 10 ml FLUSH ASDIRECTED PRN PRN Reason: Keep Vein Open Last Admin: 12/18/18 15:40 Dose: 10 ml Labs: Laboratory Tests 12/18/18 12/18/18 12/18/18 Range/Units 15:30 15:30 15:30 WBC 7.31 (3.98-10.04) K/mm3 RBC 2.97 L (3.98-5.22) M/mm3 Hgb 8.6 L (11.2-15.7) gm/L Hct 26.2 L (34.1-44.9) % MCV 88.2 (79.4-94.8) fl MCH 29.0 (25.6-32.2) pg MCHC 32.8 (32.2-35.5) g/dl RDW Std Deviation 48.4 H (36.4-46.3) fL Plt Count 163 L (182-369) K/mm3 MPV 9.9 (9.4-12.3) fl Neut % (Auto) 64.2 (34.0-71.1) % Lymph % (Auto) 15.3 L (19.3-51.7) % [place] % (Auto) 15.2 H (4.7-12.5) % Eos % (Auto) 4.7 (0.7-5.8) Baso % (Auto) 0.1 (0.1-1.2) % Neut # (Auto) 4.69 (1.56-6.13) K/mm3 Lymph # (Auto) 1.12 L (1.18-3.74) K/mm3 [place] # (Auto) 1.11 H (0.24-0.36) K/mm3 Eos # (Auto) 0.34 (0.04-0.36) K/mm3 Baso # (Auto) 0.01 (0.01-0.08) K/mm3 Manual Slide Review Abnormal smear D-Dimer, Quantitative 0.39 (0.19-0.50) mg/L Sodium 128 L (136-145) mEq/L Potassium 3.4 L (3.5-5.1) mEq/L Chloride 89 L (98-107) mEq/L Carbon Dioxide 33 H (21-32) mEq/L Anion Gap 9.4 (5-15) BUN 65 H (7-18) mg/dL Creatinine 2.4 H (0.55-1.02) mg/dL Est Cr Clr Drug Dosing 14.54 mL/min Estimated GFR (MDRD) 19 (>60) mL/min BUN/Creatinine Ratio 27.1 H (14-18) Glucose 96 (83-115) mg/dL Calcium 8.3 L (8.5-10.1) mg/dL Total Bilirubin 0.3 (0.2-1.0) mg/dL AST 31 (15-37) U/L ALT 23 (14-59) U/L Alkaline Phosphatase 122 H (46-116) U/L Troponin I 0.031 (0.00-0.056) ng/mL NT-Pro-B Natriuret Pep (0-450) pg/mL Total Protein 7.4 (6.4-8.2) g/dl Albumin 2.9 L (3.4-5.0) g/dl Globulin 4.5 gm/dL Albumin/Globulin Ratio 0.6 L (1-2) Urine Color (Yellow) Urine Appearance (Clear) Urine pH (5.0-8.0) Ur Specific [place] (1.005-1.030) Urine Protein (Negative) Urine Glucose (UA) (Negative) Urine Ketones (Negative) Urine Occult Blood (Negative) Urine Nitrite (Negative) Urine Bilirubin (Negative) Urine Urobilinogen (0.2-1.0) Ur Leukocyte Esterase (Negative) Urine RBC (0-5) /hpf Urine WBC (0-5) /hpf Ur Epithelial Cells (0-5) /hpf Urine Bacteria (FEW) /hpf Urine Mucus (FEW) /hpf 12/18/18 12/18/18 Range/Units 15:30 17:55 WBC (3.98-10.04) K/mm3 RBC (3.98-5.22) M/mm3 Hgb (11.2-15.7) gm/L Hct (34.1-44.9) % MCV (79.4-94.8) fl MCH (25.6-32.2) pg MCHC (32.2-35.5) g/dl RDW Std Deviation (36.4-46.3) fL Plt Count (182-369) K/mm3 MPV (9.4-12.3) fl Neut % (Auto) (34.0-71.1) % Lymph % (Auto) (19.3-51.7) % [place] % (Auto) (4.7-12.5) % Eos % (Auto) (0.7-5.8) Baso % (Auto) (0.1-1.2) % Neut # (Auto) (1.56-6.13) K/mm3 Lymph # (Auto) (1.18-3.74) K/mm3 [place] # (Auto) (0.24-0.36) K/mm3 Eos # (Auto) (0.04-0.36) K/mm3 Baso # (Auto) (0.01-0.08) K/mm3 Manual Slide Review D-Dimer, Quantitative (0.19-0.50) mg/L Sodium (136-145) mEq/L Potassium (3.5-5.1) mEq/L Chloride (98-107) mEq/L Carbon Dioxide (21-32) mEq/L Anion Gap (5-15) BUN (7-18) mg/dL Creatinine (0.55-1.02) mg/dL Est Cr Clr Drug Dosing mL/min Estimated GFR (MDRD) (>60) mL/min BUN/Creatinine Ratio (14-18) Glucose (83-115) mg/dL Calcium (8.5-10.1) mg/dL Total Bilirubin (0.2-1.0) mg/dL AST (15-37) U/L ALT (14-59) U/L Alkaline Phosphatase (46-116) U/L Troponin I (0.00-0.056) ng/mL NT-Pro-B Natriuret Pep 3378 H (0-450) pg/mL Total Protein (6.4-8.2) g/dl Albumin (3.4-5.0) g/dl Globulin gm/dL Albumin/Globulin Ratio (1-2) Urine Color [place] H (Yellow) Urine Appearance Cloudy H (Clear) Urine pH 6.5 (5.0-8.0) Ur Specific [place] 1.015 (1.005-1.030) Urine Protein 2+ H (Negative) Urine Glucose (UA) Negative (Negative) Urine Ketones Negative (Negative) Urine Occult Blood 3+ H (Negative) Urine Nitrite Negative (Negative) Urine Bilirubin Negative (Negative) Urine Urobilinogen 0.2 (0.2-1.0) Ur Leukocyte Esterase 1+ H (Negative) Urine RBC Too numerous to cnt H (0-5) /hpf Urine WBC 20-30 H (0-5) /hpf Ur Epithelial Cells 0-5 (0-5) /hpf Urine Bacteria Few (FEW) /hpf Urine Mucus Not seen (FEW) /hpf Meds: Medications Generic Name Dose Route Start Last Admin Trade Name Freq PRN Reason Stop Dose Admin Ceftriaxone Sodium 2 gm/ 100 mls @ 200 mls/hr 12/18/18 18:30 Sodium Chloride IV 12/18/18 18:59 ONETIME ONE Sodium Chloride 10 ml 12/18/18 15:13 12/18/18 15:40 Saline Flush FLUSH 10 ml ASDIRECTED PRN Administration Keep Vein Open Discontinued Medications Generic Name Dose Route Start Last Admin Trade Name Freq PRN Reason Stop Dose Admin Bumetanide 1 mg 12/18/18 17:35 12/18/18 18:18 Bumex IVPUSH 12/18/18 17:36 1 mg ONETIME ONE Administration - Re-Assessments/Exams Free Text/Narrative Re-Assessment/Exam: 12/18/18 18:24 I ordered an IV saline lock, EKG, CXR, labs and UA. Her EKG shows a 1st degree HB. Her CXR shows cardiomegaly with no acute changes. Her Hgb was 8.6 today. A couple weeks ago it was 8.9. Her Na is low at 128. Her K was low at 3.4. Her creatinine has gone up to 2.4 from 2.2 with a GFR of 19. Her troponin is normal. Her BNP is elevated at 3,378. Her albumin is low at 2.9. Her UA shows a UTI. I ordered a urine culture and rocephin 2 grams IV. I also ordered some bumex 1mg IV. I feel she needs to be admitted. I called Dr Nguyen and he agreed to the admission. Departure - Departure Time of Disposition: 18:30 Disposition: Admitted As Inpatient 68 Condition: Poor Clinical Impression: Hypokalemia, Hyponatremia, UTI, Urinary tract infectious disease, Renal insufficiency, Bilateral leg edema Anemia Qualifiers: Anemia type: unspecified type Qualified Code(s): D64.9 - Anemia, unspecified CHF exacerbation Qualifiers: Heart failure type: unspecified Qualified Code(s): I50.9 - Heart failure, unspecified Bilateral hearing loss Qualifiers: Hearing loss type: unspecified Qualified Code(s): H91.93 - Unspecified hearing loss, bilateral Referrals: Naren Kim MD [Primary Care Provider] - Forms: ED Department Discharge - My Orders Last 24 Hours: My Active Orders 12/18/18 15:13 Sodium Chloride 0.9% [Saline Flush] 10 ml FLUSH ASDIRECTED PRN Peripheral IV Insertion Adult [OM.PC] Stat 12/18/18 15:14 Cardiac Monitoring [RC] . DIRECTED Peripheral IV Care [RC] . DIRECTED 12/18/18 15:15 EKG Documentation Completion [RC] STAT Chest 1V Frontal [CR] Stat 12/18/18 18:20 CULTURE URINE [RM] Stat 12/18/18 18:30 cefTRIAXone [Rocephin] 2 gm Sodium Chloride 0.9% [Normal Saline] 100 ml IV ONETIME - Assessment/Plan Last 24 Hours: My Active Orders 12/18/18 15:13 Sodium Chloride 0.9% [Saline Flush] 10 ml FLUSH ASDIRECTED PRN Peripheral IV Insertion Adult [OM.PC] Stat 12/18/18 15:14 Cardiac Monitoring [RC] . DIRECTED Peripheral IV Care [RC] . DIRECTED 12/18/18 15:15 EKG Documentation Completion [RC] STAT Chest 1V Frontal [CR] Stat 12/18/18 18:20 CULTURE URINE [RM] Stat 12/18/18 18:30 cefTRIAXone [Rocephin] 2 gm Sodium Chloride 0.9% [Normal Saline] 100 ml IV ONETIME
[2018-12-18] MEDS ORDERED: cefTRIAXone 2 GM in Sodium Chloride 0.9% 100 ML IV ONE (18:30)
[2018-12-18] MEDS ORDERED: Metoprolol Tartrate 5 MG/5 ML SDV IVPUSH PRN (19:27)
[2018-12-18] MEDS ORDERED: Acetaminophen 325 MG Tab PO PRN (19:29)
[2018-12-18] MEDS ORDERED: Acetaminophen/HYDROcodone 325-5 MG Tab PO PRN (19:29)
[2018-12-18] MEDS ORDERED: Docusate Sodium 100 MG Cap PO PRN (19:29)
[2018-12-18] MEDS ORDERED: Bisacodyl 5 MG Tab PO PRN ×2 (19:29→22:34)
[2018-12-18] MEDS ORDERED: LORazepam 2 MG/ML SDV IV PRN (19:29)
[2018-12-18] MEDS ORDERED: Ondansetron 4 MG/2 ML SDV IV PRN (19:29)
[2018-12-18] MEDS ORDERED: Polyethylene Glycol 3350 Powder 17 GM Packet PO PRN (19:29)
[2018-12-18] MEDS ORDERED: Albuterol/Ipratropium 3.0-0.5 MG/3 ML Neb Soln NEB PRN (19:29)
[2018-12-18] MEDS ORDERED: Potassium Chloride 20 MEQ Tab.ER PO SCH (20:00)
--- NOTE | 2018-12-18 22:33 | PCM.SN ---
- Free Text/Narrative Note: Briefly seen patient at bedside in ED without family members. She was very hard of hearing. However she looks comfortable. I did meet up with one of her daughter in [facility] floor and went over with her, her realistic expectations. Sara has been hospitalized 3-4 so far early this year and it's the same similar issues each she comes over for treatment. Offered the idea of hospice/ palliative care to her daughter, also DPOA. She will get a hold of the rest of her siblings to discussed this over with them and let us know perhaps tomorrow or in the next a couple of days about their collective medical decision.
[2018-12-18] MEDS ORDERED: [UNRECOGNIZED DRUG - OTHER] EYEBOTH PRN (22:34)
[2018-12-18] MEDS ORDERED: 50% Dextrose in Water 50 ML Syringe IVPUSH PRN (22:35)
[2018-12-18] MEDS ORDERED: Carboxymethylcellulose Sodium 1% Ophth Gel 15 ML Bottle EYEBOTH PRN (22:54)
[2018-12-18] MEDS: Furosemide 100 MG in Sodium Chloride 0.9% 90 ML IV SCH (23:35)
[2018-12-18] MEDS ORDERED: Nystatin Topical Powder 15 GM Bottle TOP PRN (23:45)
[2018-12-18] MEDS: Potassium Chloride 20 MEQ Tab.ER PO SCH (23:57)
[2018-12-18] MEDS: Acetaminophen 325 MG Tab PO SCH (23:57)
[2018-12-19] MEDS: Potassium Chloride 20 MEQ Tab.ER PO SCH (04:54)
[2018-12-19] MEDS: Acetaminophen 325 MG Tab PO SCH ×4 (04:55→22:25)
[2018-12-19] MEDS: Insulin Lispro 100 Units/ML 3 ML Vial SUBCUT SCH ×6 (08:38→22:35)
--- NOTE | 2018-12-19 08:56 | PCM.HP ---
H&P History of Present Illness - General Date of Service: 12/19/18 Admit Problem/Dx: Admission Diagnosis/Problem Admission Diagnosis/Problem CHF, Congestive heart failure Source of Information: Patient, Family, Police, RN Notes Reviewed History Limitations: Reports: No Limitations - History of Present Illness Initial Comments - Free Text/Narative: This is an 83 yo elderly white female with past medical hx/o PAF now off Warfarin due to recent Hematuria and Anemia, HTN, HLD, PVD/Vascular Insufficiency, SOB, GERD, Hiatal Hernia, CKD Stage 4 for [id number], Hx/o Hematuria, Urinary Incontinence, OA/DJD, Osteoporosis, DM2, Stasis Dermatitis, Recurrent UTI, Hyponatremia, Anemia, Urticaria, Hypersomnolence and Morbid Obesity with BMI of 41 who comes in for evaluation of increased edema associated with weight gain. She was hospitalized not too long ago for similar complaints but when she got back to the halfway, she developed considerable edema and put on more weight. Per daughter, her Bumex has been steadily increased but it did not seem to help. Additionally, she also reports having hearing loss in the past couple of days. This appears to be new to her however she denies any neurological issues. She further denies any chest pain, fever or chills. She has shortness of breath but no more than her baseline. Her initial work up in ED shows a CBC remarkable for RBC of 2.97, Hgb of 8.6, HCT of 26.2, RDW of 48.4, Platelet of 163, Lymphocytes of 15.3%, and Monocytes of 15.2%. Her Chemistry is significant for Na of 128, K of 3.4, Cl of 89, CO2 of 33, BUN of 65, Cr of 2.4, Ca of 8.3, Alk Phos of 122, ProbNP of 3378, and Albumin of 2.9. Her UA is not suggestive of UTI. Her chest x-ray report reads at least 2 right sided rib fracture seen within the 5th and 6th ribs and questionably 4th rib. Could be acute or subacute in age. Patient was admitted last night primarily for medical management of acute congestive heart failure. She is DNR/DNI Bilateral Lower Leg Pain Score (Numeric/FACES): 8 - Related Data Allergies/Adverse Reactions: Allergies Allergy/AdvReac Type Severity Reaction Status Date / Time No Known Allergies Allergy Verified 12/18/18 20:38 Home Medications: Home Meds Insulin Aspart [NovoLOG] 8 units SUBCUT BID 07/14/18 [History] Tresiba Flextouch. 15 units SUBCUT DAILY 07/14/18 [History] Lactobacillus Acidophilus [Acidophilus Lactobacilli] 1 cap PO BID 11/22/18 [ History] Acetaminophen [Tylenol] 650 mg PO Q6H 12/18/18 [History] Aspirin 81 mg PO DAILY 12/18/18 [History] Bisacodyl [Dulcolax] 10 mg PO ASDIRECTED PRN 12/18/18 [History] Bumetanide [Bumex] 2 mg PO QPM 12/18/18 [History] Bumetanide [Bumex] 3 mg PO DAILY 12/18/18 [History] Calcium Carbonate [Tums] 200 mg PO Q6H PRN 12/18/18 [History] Lotrisone Cream. 1 dose TOP BID 12/18/18 [History] Lutein/Minerals/Vit A,C & E [Ocuvite] 1 tab PO DAILY 12/18/18 [History] Modafinil 100 mg PO DAILY 12/18/18 [History] Non-Formulary Medication [NF Drug] 1 drop EYEBOTH QID PRN 12/18/18 [History] Nystatin Powder. 1 dose TOP DAILY PRN 12/18/18 [History] Potassium. 20 meq PO BID 12/18/18 [History] Rosuvastatin [Crestor] 20 mg PO BEDTIME 12/18/18 [History] Vit C/E/Zn/Coppr/Lutein/Zeaxan [Preservision Areds 2 Softgel] 1 tab PO BID 12/18 [History] amLODIPine Besylate [Amlodipine Besylate] 10 mg PO DAILY 12/18/18 [History] guaiFENesin [Mucinex] 600 mg PO BID 12/18/18 [History] metOLazone [Metolazone] 2.5 mg PO DAILY 12/18/18 [History] Past Medical History HEENT 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: Cataract, Hard of Hearing, Impaired Vision, Macular Degeneration Other HEENT History: cough Cardiovascular 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: Heart Failure, High Cholesterol, Hypertension, PVD Respiratory 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: SOB Gastrointestinal 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: GERD, Hiatal Hernia Genitourinary 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: Chronic Renal Insuffiency, Urinary Incontinence Other Genitourinary History: polyuria - CKD III RISK MGR 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: Musculoskeletal 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: Osteoarthritis, Osteoporosis, Other (See Below ) Other Musculoskeletal History: sciatic nerve pain Neurological 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: Neuropathy, Diabetic Other Neuro History: hypo-osmolality, hyponatremia Endocrine/Metabolic 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: Diabetes, Type II, Obesity/BMI 30+ Other Endocrine/Metabolic History: chronic kidney disease Hematologic 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: Anemia Other Hematologic History: previous anemia 5-6 yrs ago Dermatologic 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: Urticaria Other Dermatologic History: tinea unguium-onchomycosis - Infectious Disease History Infectious Disease 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: Chicken Pox - Past Surgical History HEENT Surgical 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: Cataract Surgery Cardiovascular Surgical 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: None Respiratory Surgical 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: None GI Surgical 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: Colonoscopy Female Surgical 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: Hysterectomy Endocrine Surgical 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: None Neurological Surgical 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: None Musculoskeletal Surgical 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: None Dermatological Surgical 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: None Social & Family History - Family History Family Medical History: Noncontributory HEENT: Reports: Cataract, Macular Degeneration Other HEENT Family History: mom, sister Neurological: Reports: Alzheimers Disease Other Neurological Family History: dad Endocrine/Metabolic: Reports: Diabetes, type II Other Endocrine/Metabolic Family History: sister Dermatologic: Reports: None Oncologic: Reports: Breast Other Oncologic Family History: mother - Tobacco Use Smoking Status *Q: Never Smoker Second Hand Smoke Exposure: No - Caffeine Use Caffeine Use: Reports: None - Recreational Drug Use Recreational Drug Use: No - Living Situation & Occupation Living situation: Reports: Alone Occupation: Retired H&P Review of Systems - Review of Systems: Review Of Systems: Unable To Obtain General: Reports: Fatigue, Weight Gain HEENT: Reports: Hearing Changes Cardiovascular: Reports: Edema Gastrointestinal: Denies: Abdominal Pain, Nausea, Vomiting Genitourinary: Reports: Frequency Musculoskeletal: Reports: No Symptoms Skin: Reports: Erythema (on b/l lower extremity). Denies: Cyanosis, Pallor, Diaphoresis, Bruising, Wound Psychiatric: Denies: Confusion, Anxiety, Agitation Neurological: Reports: Gait Disturbance. Denies: Confusion, Difficulty Walking , Weakness Hematologic/Lymphatic: Reports: Anemia, Easy Bleeding Immunologic: Reports: No Symptoms Review of Systems Comment:: ROS provided by her daughter and ED notes. She is hard of hearing. Exam - Exam Exam: See Below - Vital Signs Vital Signs: Last Vital Signs Temp 36.7 C 12/19/18 07:38 Pulse 61 12/19/18 07:38 Resp 16 12/19/18 07:38 BP 143/67 H 12/19/18 07:38 Pulse Ox 94 L 12/19/18 07:38 Weight: 101.877 kg - Exam General: Alert, Other (Morbidly Obese) HEENT: Conjunctiva Clear, Nares Patent, Normal Nasal Septum, Pupils Equal, Pupils Reactive (significant ear wax on each ear canal), Other. No: Hearing Intact Neck: Supple, Trachea Midline, Full Range of Motion. No: JVD Lungs: Normal Respiratory Effort, Decreased Breath Sounds Cardiovascular: Regular Rate, Regular Rhythm GI/Abdominal Exam: Normal Bowel Sounds, Soft, Non-Tender, No Organomegaly, No Distention, No Abnormal Bruit, Other (Obese) (Female) Exam: Deferred Rectal (Female) Exam: Deferred Back Exam: Normal Inspection, Decreased Range of Motion Extremities: Normal Inspection, Normal Range of Motion, Non-Tender, Pedal Edema , Slow Capillary Refill, Limited Range of Motion, Increased Warmth, Redness (on b/l heart), Other (significant peripheral edema on both legs). No: Joint Swelling, Leg Pain Peripheral Pulses: 1+: Posterior Tibial (L), Posterior Tibial (R), Dorsalis Pedis (L), Dorsalis Pedis (R) Skin: Warm, Dry, Intact Neuro Extensive - Mental Status: Alert, Normal Mood/Affect, Other (limited due to hearing loss) Neuro Extensive - Motor, Sensory, Reflexes: Other (deferred she cnnot follow commands due to hearing loss from impacted cerumen) Psychiatric: Alert, Normal Affect, Normal Mood - Patient Data Lab Results Last 24 hrs: Laboratory Results - last 24 hr 12/18/18 12/18/18 12/18/18 Range/Units 15:30 15:30 15:30 WBC 7.31 (3.98-10.04) K/mm3 RBC 2.97 L (3.98-5.22) M/mm3 Hgb 8.6 L (11.2-15.7) gm/L Hct 26.2 L (34.1-44.9) % MCV 88.2 (79.4-94.8) fl MCH 29.0 (25.6-32.2) pg MCHC 32.8 (32.2-35.5) g/dl RDW Std Deviation 48.4 H (36.4-46.3) fL Plt Count 163 L (182-369) K/mm3 MPV 9.9 (9.4-12.3) fl Neut % (Auto) 64.2 (34.0-71.1) % Lymph % (Auto) 15.3 L (19.3-51.7) % [place] % (Auto) 15.2 H (4.7-12.5) % Eos % (Auto) 4.7 (0.7-5.8) Baso % (Auto) 0.1 (0.1-1.2) % Neut # (Auto) 4.69 (1.56-6.13) K/mm3 Lymph # (Auto) 1.12 L (1.18-3.74) K/mm3 [place] # (Auto) 1.11 H (0.24-0.36) K/mm3 Eos # (Auto) 0.34 (0.04-0.36) K/mm3 Baso # (Auto) 0.01 (0.01-0.08) K/mm3 Manual Slide Review Abnormal smear D-Dimer, Quantitative 0.39 (0.19-0.50) mg/L Sodium 128 L (136-145) mEq/L Potassium 3.4 L (3.5-5.1) mEq/L Chloride 89 L (98-107) mEq/L Carbon Dioxide 33 H (21-32) mEq/L Anion Gap 9.4 (5-15) BUN 65 H (7-18) mg/dL Creatinine 2.4 H (0.55-1.02) mg/dL Est Cr Clr Drug Dosing 14.54 mL/min Estimated GFR (MDRD) 19 (>60) mL/min BUN/Creatinine Ratio 27.1 H (14-18) Glucose 96 (83-115) mg/dL POC Glucose (83-110) mg/dL Calcium 8.3 L (8.5-10.1) mg/dL Magnesium (1.8-2.4) mg/dl Total Bilirubin 0.3 (0.2-1.0) mg/dL AST 31 (15-37) U/L ALT 23 (14-59) U/L Alkaline Phosphatase 122 H (46-116) U/L Troponin I 0.031 (0.00-0.056) ng/mL C-Reactive Protein (<1.0) mg/dL NT-Pro-B Natriuret Pep (0-450) pg/mL Total Protein 7.4 (6.4-8.2) g/dl Albumin 2.9 L (3.4-5.0) g/dl Globulin 4.5 gm/dL Albumin/Globulin Ratio 0.6 L (1-2) Urine Color (Yellow) Urine Appearance (Clear) Urine pH (5.0-8.0) Ur Specific [place] (1.005-1.030) Urine Protein (Negative) Urine Glucose (UA) (Negative) Urine Ketones (Negative) Urine Occult Blood (Negative) Urine Nitrite (Negative) Urine Bilirubin (Negative) Urine Urobilinogen (0.2-1.0) Ur Leukocyte Esterase (Negative) Urine RBC (0-5) /hpf Urine WBC (0-5) /hpf Ur Epithelial Cells (0-5) /hpf Urine Bacteria (FEW) /hpf Urine Mucus (FEW) /hpf 12/18/18 12/18/18 12/18/18 Range/Units 15:30 17:55 20:33 WBC (3.98-10.04) K/mm3 RBC (3.98-5.22) M/mm3 Hgb (11.2-15.7) gm/L Hct (34.1-44.9) % MCV (79.4-94.8) fl MCH (25.6-32.2) pg MCHC (32.2-35.5) g/dl RDW Std Deviation (36.4-46.3) fL Plt Count (182-369) K/mm3 MPV (9.4-12.3) fl Neut % (Auto) (34.0-71.1) % Lymph % (Auto) (19.3-51.7) % [place] % (Auto) (4.7-12.5) % Eos % (Auto) (0.7-5.8) Baso % (Auto) (0.1-1.2) % Neut # (Auto) (1.56-6.13) K/mm3 Lymph # (Auto) (1.18-3.74) K/mm3 [place] # (Auto) (0.24-0.36) K/mm3 Eos # (Auto) (0.04-0.36) K/mm3 Baso # (Auto) (0.01-0.08) K/mm3 Manual Slide Review D-Dimer, Quantitative (0.19-0.50) mg/L Sodium (136-145) mEq/L Potassium (3.5-5.1) mEq/L Chloride (98-107) mEq/L Carbon Dioxide (21-32) mEq/L Anion Gap (5-15) BUN (7-18) mg/dL Creatinine (0.55-1.02) mg/dL Est Cr Clr Drug Dosing mL/min Estimated GFR (MDRD) (>60) mL/min BUN/Creatinine Ratio (14-18) Glucose (83-115) mg/dL POC Glucose 151 H (83-110) mg/dL Calcium (8.5-10.1) mg/dL Magnesium (1.8-2.4) mg/dl Total Bilirubin (0.2-1.0) mg/dL AST (15-37) U/L ALT (14-59) U/L Alkaline Phosphatase (46-116) U/L Troponin I (0.00-0.056) ng/mL C-Reactive Protein (<1.0) mg/dL NT-Pro-B Natriuret Pep 3378 H (0-450) pg/mL Total Protein (6.4-8.2) g/dl Albumin (3.4-5.0) g/dl Globulin gm/dL Albumin/Globulin Ratio (1-2) Urine Color [place] H (Yellow) Urine Appearance Cloudy H (Clear) Urine pH 6.5 (5.0-8.0) Ur Specific [place] 1.015 (1.005-1.030) Urine Protein 2+ H (Negative) Urine Glucose (UA) Negative (Negative) Urine Ketones Negative (Negative) Urine Occult Blood 3+ H (Negative) Urine Nitrite Negative (Negative) Urine Bilirubin Negative (Negative) Urine Urobilinogen 0.2 (0.2-1.0) Ur Leukocyte Esterase 1+ H (Negative) Urine RBC Too numerous to cnt H (0-5) /hpf Urine WBC 20-30 H (0-5) /hpf Ur Epithelial Cells 0-5 (0-5) /hpf Urine Bacteria Few (FEW) /hpf Urine Mucus Not seen (FEW) /hpf 12/19/18 12/19/18 12/19/18 Range/Units 06:07 06:07 06:11 WBC 6.23 (3.98-10.04) K/mm3 RBC 2.92 L (3.98-5.22) M/mm3 Hgb 8.4 L (11.2-15.7) gm/L Hct 25.8 L (34.1-44.9) % MCV 88.4 (79.4-94.8) fl MCH 28.8 (25.6-32.2) pg MCHC 32.6 (32.2-35.5) g/dl RDW Std Deviation 48.3 H (36.4-46.3) fL Plt Count 126 L (182-369) K/mm3 MPV 10.4 (9.4-12.3) fl Neut % (Auto) 68.5 (34.0-71.1) % Lymph % (Auto) 13.3 L (19.3-51.7) % [place] % (Auto) 14.4 H (4.7-12.5) % Eos % (Auto) 2.9 (0.7-5.8) Baso % (Auto) 0.3 (0.1-1.2) % Neut # (Auto) 4.26 (1.56-6.13) K/mm3 Lymph # (Auto) 0.83 L (1.18-3.74) K/mm3 [place] # (Auto) 0.90 H (0.24-0.36) K/mm3 Eos # (Auto) 0.18 (0.04-0.36) K/mm3 Baso # (Auto) 0.02 (0.01-0.08) K/mm3 Manual Slide Review D-Dimer, Quantitative (0.19-0.50) mg/L Sodium 132 L (136-145) mEq/L Potassium 3.4 L (3.5-5.1) mEq/L Chloride 91 L (98-107) mEq/L Carbon Dioxide 33 H (21-32) mEq/L Anion Gap 11.4 (5-15) BUN 60 H (7-18) mg/dL Creatinine 2.2 H (0.55-1.02) mg/dL Est Cr Clr Drug Dosing 15.86 mL/min Estimated GFR (MDRD) 21 (>60) mL/min BUN/Creatinine Ratio 27.3 H (14-18) Glucose 121 H (83-115) mg/dL POC Glucose 125 H (83-110) mg/dL Calcium 7.8 L (8.5-10.1) mg/dL Magnesium 2.0 (1.8-2.4) mg/dl Total Bilirubin (0.2-1.0) mg/dL AST (15-37) U/L ALT (14-59) U/L Alkaline Phosphatase (46-116) U/L Troponin I (0.00-0.056) ng/mL C-Reactive Protein 1.2 H* (<1.0) mg/dL NT-Pro-B Natriuret Pep (0-450) pg/mL Total Protein (6.4-8.2) g/dl Albumin (3.4-5.0) g/dl Globulin gm/dL Albumin/Globulin Ratio (1-2) Urine Color (Yellow) Urine Appearance (Clear) Urine pH (5.0-8.0) Ur Specific [place] (1.005-1.030) Urine Protein (Negative) Urine Glucose (UA) (Negative) Urine Ketones (Negative) Urine Occult Blood (Negative) Urine Nitrite (Negative) Urine Bilirubin (Negative) Urine Urobilinogen (0.2-1.0) Ur Leukocyte Esterase (Negative) Urine RBC (0-5) /hpf Urine WBC (0-5) /hpf Ur Epithelial Cells (0-5) /hpf Urine Bacteria (FEW) /hpf Urine Mucus (FEW) /hpf Result Diagrams: 12/19/18 06:07 12/19/18 06:07 EKG INTERPRETATION EKG Date: 12/18/18 Time: 15:19 Rhythm: NSR Rate (Beats/Min): 65 [place]: Normal P-Wave: Present QRS: Normal ST-T: Other (flat T waves in inferior leads) QT: Normal MI/PQ Interval: Prolonged MEHRDAD Problem List Initiated/Reviewed/Updated: Yes Orders Last 24hrs: Active Orders 24 hr Category Date Time Status Admission Status [Patient Status] [ADT] Routine ADT 12/18/18 18:49 Active Blood Glucose Check, Bedside [RC] QIDACANDBED Care 12/18/18 22:35 Active Cardiac Monitoring [RC] CONTINUOUS Care 12/18/18 19:29 Active EKG 12 Lead [EKG Documentation Completion] [RC] ONETIME Care 12/19/18 01:23 Inactive EKG Documentation Completion [RC] STAT Care 12/18/18 15:15 Active Height and Weight [RC] 04 Care 12/18/18 19:29 Active Intake and Output [RC] 04,16 Care 12/18/18 19:29 Active Oxygen Therapy [RC] PRN Care 12/18/18 19:29 Active RT Aerosol Therapy [RC] ASDIRECTED Care 12/18/18 19:30 Active Up With Assistance [RC] ASDIRECTED Care 12/18/18 19:29 Active Up ad Cindy [RC] ASDIRECTED Care 12/18/18 19:29 Active VTE/DVT Education [RC] PER UNIT ROUTINE Care 12/18/18 19:29 Active Vital Signs [RC] Q4HR Care 12/18/18 19:29 Active Consult to Case Management/Commercial Roofer [CONS] Cons 12/18/18 19:29 Active Routine Consult to Spiritual Care [CONS] Routine Cons 12/18/18 19:29 Active OT Evaluation and Treatment [CONS] Routine Cons 12/18/18 19:29 Active PT Evaluation and Treatment [CONS] Routine Cons 12/18/18 19:29 Active 2 Gram Sodium Diet [DIET] Diet 12/18/18 Dinner Active Consistent Carbohydrate Diet [DIET] Diet 12/18/18 Dinner Active Fluid Restriction [DIET] Diet 12/19/18 Breakfast Active Heart Healthy Diet [DIET] Diet 12/18/18 Dinner Active Chest 1V Frontal [CR] Stat Exams 12/18/18 15:15 Taken Echo Comp wo Cont [US] Routine Exams 12/20/18 09:00 Ordered BASIC METABOLIC PANEL,BMP [CHEM] AM Lab 12/20/18 05:11 Ordered BASIC METABOLIC PANEL,BMP [CHEM] AM Lab 12/21/18 05:11 Ordered BASIC METABOLIC PANEL,BMP [CHEM] AM Lab 12/22/18 05:11 Ordered BASIC METABOLIC PANEL,BMP [CHEM] AM Lab 12/23/18 05:11 Ordered C-REACTIVE PROTEIN [CHEM] AM Lab 12/20/18 05:11 Ordered C-REACTIVE PROTEIN [CHEM] AM Lab 12/21/18 05:11 Ordered CBC WITH AUTO DIFF [HEME] AM Lab 12/20/18 05:11 Ordered CBC WITH AUTO DIFF [HEME] AM Lab 12/21/18 05:11 Ordered CBC WITH AUTO DIFF [HEME] AM Lab 12/22/18 05:11 Ordered CBC WITH AUTO DIFF [HEME] AM Lab 12/23/18 05:11 Ordered CULTURE URINE [RM] Stat Lab 12/18/18 17:55 Received MAGNESIUM [CHEM] AM Lab 12/20/18 05:11 Ordered MAGNESIUM [CHEM] AM Lab 12/21/18 05:11 Ordered MAGNESIUM [CHEM] AM Lab 12/22/18 05:11 Ordered MAGNESIUM [CHEM] AM Lab 12/23/18 05:11 Ordered Acetaminophen [Tylenol] Med 12/18/18 19:29 Active 650 mg PO Q4H PRN Acetaminophen [Tylenol] Med 12/18/18 23:00 Active 650 mg PO Q6H Acetaminophen/HYDROcodone [[place] 325-5 MG] Med 12/18/18 19:29 Active 1 tab PO Q4H PRN Albuterol/Ipratropium [DuoNeb 3.0-0.5 MG/3 ML] Med 12/18/18 19:29 Active 3 ml NEB Q4H PRN Aspirin [Halfprin] Med 12/19/18 09:00 Active 81 mg PO DAILY Betamethasone/Clotrimazole [Lotrisone] Med 12/19/18 09:00 Active 0 gm TOP BID Bisacodyl [Dulcolax] Med 12/18/18 19:29 Active 5 mg PO DAILY PRN Carboxymethylcellulose Sodium [Refresh Liquigel 1%] Med 12/18/18 22:54 Active 0 ml EYEBOTH QID PRN Dextrose 50% in Water Med 12/18/18 22:35 Active 50 ml IVPUSH ASDIRECTED PRN Docusate Sodium [Colace] Med 12/18/18 19:29 Active 100 mg PO BID PRN Docusate Sodium/Sennosides [Senna Plus] Med 12/18/18 19:29 Active 1 tab PO BID PRN Furosemide [Lasix] 100 mg Med 12/18/18 22:45 Active Sodium Chloride 0.9% [Normal Saline] 90 ml IV TITRATE Insulin Glarg,Human.Rec.Analog [LantUS] Med 12/19/18 09:00 Active 15 unit SUBCUT DAILY Insulin Lispro [HumaLOG] Med 12/19/18 07:00 Active 8 unit SUBCUT BIDMEALS Insulin Lispro [HumaLOG] Med 12/19/18 07:00 Active See Protocol SUBCUT QIDACANDBED LORazepam [Ativan] Med 12/18/18 19:29 Active 0.25 mg IV Q6H PRN Metoprolol Tartrate [Lopressor] Med 12/18/18 19:27 Active 5 mg IVPUSH Q4H PRN Modafinil [Provigil] Med 12/19/18 09:00 Active 100 mg PO DAILY Multivitamins/Min/FA/Lut/Zeax [ICaps MV] Med 12/19/18 09:00 Active 1 tab PO DAILY Nystatin [Nystop] Med 12/18/18 23:45 Active 0 gm TOP DAILY PRN Ondansetron [Zofran] Med 12/18/18 19:29 Active 4 mg IV Q6H PRN Pharmacy to Dose - Magnesium R [Pharmacy to Dose - Med 12/18/18 19:30 Active Magnesium Replacement] 0 dose .XX ASDIRECTED PRN Pharmacy to Dose - Potassium R [Pharmacy to Dose - Med 12/18/18 19:30 Active Potassium Replacement] 0 dose .XX ASDIRECTED PRN Polyethylene Glycol 3350 [MiraLAX] Med 12/18/18 19:29 Active 17 gm PO DAILY PRN Potassium Chloride [Klor-Con M20] Med 12/19/18 09:00 Once 40 meq PO ONETIME ONE Rosuvastatin [Crestor] Med 12/19/18 21:00 Active 20 mg PO BEDTIME Saccharomyces Boulardii [Florastor] Med 12/19/18 09:00 Active 250 mg PO BID Sodium Chloride 0.9% [Saline Flush] Med 12/18/18 15:13 Active 10 ml FLUSH ASDIRECTED PRN guaiFENesin [Mucinex] Med 12/19/18 09:00 Active 600 mg PO BID hydrALAZINE [Apresoline] Med 12/18/18 19:27 Active 10 mg IVPUSH Q4H PRN metOLazone [Zaroxolyn] Med 12/19/18 09:00 Active 2.5 mg PO DAILY Peripheral IV Insertion Adult [OM.PC] Stat Oth 12/18/18 15:13 Ordered Resuscitation Status Routine Resus Stat 12/18/18 19:29 Ordered Medication Orders Acetaminophen (Tylenol) 650 mg PO Q4H PRN PRN Reason: Pain (Mild 1-3)/fever Acetaminophen (Tylenol) 650 mg PO Q6H SANJIV Last Admin: 12/19/18 04:55 Dose: 650 mg Admin: 12/18/18 23:57 Dose: 650 mg Hydrocodone Bitart/Acetaminophen ([place] 325-5 Mg) 1 tab PO Q4H PRN PRN Reason: Pain (moderate 4-6) Albuterol/Ipratropium (Duoneb 3.0-0.5 Mg/3 Ml) 3 ml NEB Q4H PRN PRN Reason: Shortness Of Breath/wheezing Artificial Tears (Refresh Liquigel 1%) 0 ml EYEBOTH QID PRN PRN Reason: DRY EYES Aspirin (Halfprin) 81 mg PO DAILY [facility] Betamethasone/Clotrimazole (Lotrisone) 0 gm TOP BID SANJIV Bisacodyl (Dulcolax) 5 mg PO DAILY PRN PRN Reason: Constipation Dextrose/Water (Dextrose 50% In Water) 50 ml IVPUSH ASDIRECTED PRN PRN Reason: Hypoglycemia Docusate Sodium (Colace) 100 mg PO BID PRN PRN Reason: Constipation Guaifenesin (Mucinex) 600 mg PO BID [facility] Hydralazine HCl (Apresoline) 10 mg IVPUSH Q4H PRN PRN Reason: Hypertension Furosemide 100 mg/ Sodium (Chloride) 100 mls @ 3 mls/hr IV TITRATE [facility]; Protocol Last Admin: 12/18/18 23:35 Dose: 3 mls/hr Insulin Glargine (Lantus) 15 unit SUBCUT DAILY [facility] Insulin Human Lispro (Humalog) 0 unit SUBCUT QIDACANDBED [facility]; Protocol Last Admin: 12/19/18 08:38 Dose: Not Given Insulin Human Lispro (Humalog) 8 unit SUBCUT BIDMEALS [facility] Lorazepam (Ativan) 0.25 mg IV Q6H PRN PRN Reason: Anxiety Magnesium Sulfate (Pharmacy To Dose - Magnesium Replacement) 0 dose .XX ASDIRECTED PRN PRN Reason: RX TO WATCH MAG Metolazone (Zaroxolyn) 2.5 mg PO DAILY [facility] Metoprolol Tartrate (Lopressor) 5 mg IVPUSH Q4H PRN PRN Reason: Tachycardia Modafinil (Provigil) 100 mg PO DAILY [facility] Nystatin (Nystop) 0 gm TOP DAILY PRN PRN Reason: RASH Ondansetron HCl (Zofran) 4 mg IV Q6H PRN PRN Reason: Nausea/Vomiting Polyethylene Glycol (Miralax) 17 gm PO DAILY PRN PRN Reason: Constipation Potassium Chloride (Pharmacy To Dose - Potassium Replacement) 0 dose .XX ASDIRECTED PRN PRN Reason: RX TO WATCH K Potassium Chloride (Klor-Con M20) 40 meq PO ONETIME ONE Stop: 12/19/18 09:01 Rosuvastatin Calcium (Crestor) 20 mg PO BEDTIME [facility]JIV Saccharomyces Boulardii (Florastor) 250 mg PO BID [facility]JIV Senna/Docusate Sodium (Senna Plus) 1 tab PO BID PRN PRN Reason: Constipation Sodium Chloride (Saline Flush) 10 ml FLUSH ASDIRECTED PRN PRN Reason: Keep Vein Open Last Admin: 12/18/18 15:40 Dose: 10 ml Vit A/Vit C/Vit E/Selen/Cu/Zn/Lutei (Icaps Mv) 1 tab PO DAILY [facility]JIV Assessment/Plan Comment:: Assessment/Plan: Acute: Congestive Heart Failure - Acute on Chronic - Carries a hx/o HF with Preserved RF og 65% w/ Grade 2 Pattern of LV Dysfunction 12/13/2015 - She may be developing Bumex resistance; per daughter her Bumex have gradually been increased in dose or frequency but she did not see any response with the changes made - ProBNP 3378 - Received on time Bumex 1mg IPV in ED - 2D echo in AM - Heart failure treatment: lasix drip, Is/Os, salt/fluid restriction, and daily weight Malnutrition - Albumin is 2.9 - Contributory to fluid retention - Dietary consult for low protein level Probable Transient Hearing Loss - Likely 2/2 Impacted Cerumen on both ears - Debroax 6.5% Otic Chelly BID then irrigate/wash in 2-3 hrs after application for 3 days only Ribs Fractures - CXR report reads at least 2 right sided rib fracture seen within the 5th and 6th ribs and questionably 4th rib. Could be acute or subacute in age - No complaints of MSK pain or pleurisy - Monitor and PRN pain meds Hx/o UTI - Carries a hx/o Recurrent UTI w/ Pseudomonas Aeruginosa, Klebsiella Pneumoniae, and Entero-coccus faecalis - UA does not suggest UTI but she has risk factors: DM2 and Urinary Incontinence - IV Rocephin 2 grams in ED - If urine culture is positive in AM, must resume IV antibiotic End of Life Care - Has multiple chronic significant medical illness - Informed them her kidneys are declining and she may need dialysis in the future; however I was told patient would not want dialysis - Opened up about Hospice/Palliative Care to think about down the road - Family is receptive but they will think about it Chronic: PAF now off Warfarin due to recent Hematuria and Anemia HTN HLD PVD/Vascular Insufficiency SOB GERD Hiatal Hernia CKD Stage 4 for 1677-4300, Cr 2.4 at baseline Urinary Incontinence OA/DJD Osteoporosis DM2 Stasis Dermatitis Recurrent UTI Hyponatremia, Na 128, Stable Anemia, Hgb at 8.6 (8-9 grams her baseline) Urticaria Hypersomnolence Morbid Obesity with BMI of 41 Plan: Admitted for MSP with Tele Routine AM Labs Resume Some Home Meds PT/OT consult Accu-check AC/HS with ISS Dietary consult for weight management GI/DVT PPx:H2B; Compression stocking or MORGAN Hose. Anti-coagulant is CI due to recent Hematuria and Chronic Anemia. Also when nurse attempted to put bonner catheter in last night for Is/Os; she had blood clots in her urine SW/CM for d/c planning Fall precautions Additional orders as above Code status: DNR/DNI
[2018-12-19] MEDS ORDERED: Potassium Chloride 20 MEQ Tab.ER PO SCH (09:00)
[2018-12-19] MEDS ORDERED: INSULIN ASPART 8 UNIT SUBCUT SCH (09:00)
[2018-12-19] MEDS ORDERED: TRESIBA 15 UNIT SUBCUT SCH (09:00)
[2018-12-19] MEDS ORDERED: Potassium Chloride 20 MEQ Tab.ER PO ONE (09:00)
[2018-12-19] MEDS: Multivitamins with Minerals/Folic Acid/Lutein/Zeaxanth Tab PO SCH (09:03)
[2018-12-19] MEDS: Aspirin 81 MG Tab.EC PO SCH (09:03)
[2018-12-19] MEDS: guaiFENesin 600 MG Tab.ER PO SCH ×2 (09:03→22:24)
[2018-12-19] MEDS: Insulin Glarg,Human.Rec.Analog 100 UNIT/ML ML SUBCUT SCH (09:03)
[2018-12-19] MEDS: Saccharomyces Boulardii (Probiotic) 250 MG Cap PO SCH ×2 (09:03→22:24)
[2018-12-19] MEDS: Metolazone 2.5 MG Tab PO SCH (09:03)
--- NOTE | 2018-12-19 09:04 | PCM.PN ---
- General Info Date of Service: 12/19/18 Admission Dx/Problem (Free Text): Admission Diagnosis/Problem Admission Diagnosis/Problem CHF, Congestive heart failure Subjective Update: Follow up - Patient Data Vitals - Most Recent: Last Vital Signs Temp 36.7 C 12/19/18 07:38 Pulse 61 12/19/18 07:38 Resp 16 12/19/18 07:38 BP 143/67 H 12/19/18 07:38 Pulse Ox 94 L 12/19/18 07:38 Weight - Most Recent: 101.877 kg I&O - Last 24 Hours: Intake & Output 12/18/18 12/19/18 12/19/18 22:59 06:59 14:59 Intake Total 414 Output Total 850 Balance -436 Lab Results Last 24 Hours: Laboratory Results - last 24 hr 12/18/18 12/18/18 12/18/18 Range/Units 15:30 15:30 15:30 WBC 7.31 (3.98-10.04) K/mm3 RBC 2.97 L (3.98-5.22) M/mm3 Hgb 8.6 L (11.2-15.7) gm/L Hct 26.2 L (34.1-44.9) % MCV 88.2 (79.4-94.8) fl MCH 29.0 (25.6-32.2) pg MCHC 32.8 (32.2-35.5) g/dl RDW Std Deviation 48.4 H (36.4-46.3) fL Plt Count 163 L (182-369) K/mm3 MPV 9.9 (9.4-12.3) fl Neut % (Auto) 64.2 (34.0-71.1) % Lymph % (Auto) 15.3 L (19.3-51.7) % [place] % (Auto) 15.2 H (4.7-12.5) % Eos % (Auto) 4.7 (0.7-5.8) Baso % (Auto) 0.1 (0.1-1.2) % Neut # (Auto) 4.69 (1.56-6.13) K/mm3 Lymph # (Auto) 1.12 L (1.18-3.74) K/mm3 [place] # (Auto) 1.11 H (0.24-0.36) K/mm3 Eos # (Auto) 0.34 (0.04-0.36) K/mm3 Baso # (Auto) 0.01 (0.01-0.08) K/mm3 Manual Slide Review Abnormal smear D-Dimer, Quantitative 0.39 (0.19-0.50) mg/L Sodium 128 L (136-145) mEq/L Potassium 3.4 L (3.5-5.1) mEq/L Chloride 89 L (98-107) mEq/L Carbon Dioxide 33 H (21-32) mEq/L Anion Gap 9.4 (5-15) BUN 65 H (7-18) mg/dL Creatinine 2.4 H (0.55-1.02) mg/dL Est Cr Clr Drug Dosing 14.54 mL/min Estimated GFR (MDRD) 19 (>60) mL/min BUN/Creatinine Ratio 27.1 H (14-18) Glucose 96 (83-115) mg/dL POC Glucose (83-110) mg/dL Calcium 8.3 L (8.5-10.1) mg/dL Magnesium (1.8-2.4) mg/dl Total Bilirubin 0.3 (0.2-1.0) mg/dL AST 31 (15-37) U/L ALT 23 (14-59) U/L Alkaline Phosphatase 122 H (46-116) U/L Troponin I 0.031 (0.00-0.056) ng/mL C-Reactive Protein (<1.0) mg/dL NT-Pro-B Natriuret Pep (0-450) pg/mL Total Protein 7.4 (6.4-8.2) g/dl Albumin 2.9 L (3.4-5.0) g/dl Globulin 4.5 gm/dL Albumin/Globulin Ratio 0.6 L (1-2) Urine Color (Yellow) Urine Appearance (Clear) Urine pH (5.0-8.0) Ur Specific [place] (1.005-1.030) Urine Protein (Negative) Urine Glucose (UA) (Negative) Urine Ketones (Negative) Urine Occult Blood (Negative) Urine Nitrite (Negative) Urine Bilirubin (Negative) Urine Urobilinogen (0.2-1.0) Ur Leukocyte Esterase (Negative) Urine RBC (0-5) /hpf Urine WBC (0-5) /hpf Ur Epithelial Cells (0-5) /hpf Urine Bacteria (FEW) /hpf Urine Mucus (FEW) /hpf 12/18/18 12/18/18 12/18/18 Range/Units 15:30 17:55 20:33 WBC (3.98-10.04) K/mm3 RBC (3.98-5.22) M/mm3 Hgb (11.2-15.7) gm/L Hct (34.1-44.9) % MCV (79.4-94.8) fl MCH (25.6-32.2) pg MCHC (32.2-35.5) g/dl RDW Std Deviation (36.4-46.3) fL Plt Count (182-369) K/mm3 MPV (9.4-12.3) fl Neut % (Auto) (34.0-71.1) % Lymph % (Auto) (19.3-51.7) % [place] % (Auto) (4.7-12.5) % Eos % (Auto) (0.7-5.8) Baso % (Auto) (0.1-1.2) % Neut # (Auto) (1.56-6.13) K/mm3 Lymph # (Auto) (1.18-3.74) K/mm3 [place] # (Auto) (0.24-0.36) K/mm3 Eos # (Auto) (0.04-0.36) K/mm3 Baso # (Auto) (0.01-0.08) K/mm3 Manual Slide Review D-Dimer, Quantitative (0.19-0.50) mg/L Sodium (136-145) mEq/L Potassium (3.5-5.1) mEq/L Chloride (98-107) mEq/L Carbon Dioxide (21-32) mEq/L Anion Gap (5-15) BUN (7-18) mg/dL Creatinine (0.55-1.02) mg/dL Est Cr Clr Drug Dosing mL/min Estimated GFR (MDRD) (>60) mL/min BUN/Creatinine Ratio (14-18) Glucose (83-115) mg/dL POC Glucose 151 H (83-110) mg/dL Calcium (8.5-10.1) mg/dL Magnesium (1.8-2.4) mg/dl Total Bilirubin (0.2-1.0) mg/dL AST (15-37) U/L ALT (14-59) U/L Alkaline Phosphatase (46-116) U/L Troponin I (0.00-0.056) ng/mL C-Reactive Protein (<1.0) mg/dL NT-Pro-B Natriuret Pep 3378 H (0-450) pg/mL Total Protein (6.4-8.2) g/dl Albumin (3.4-5.0) g/dl Globulin gm/dL Albumin/Globulin Ratio (1-2) Urine Color [place] H (Yellow) Urine Appearance Cloudy H (Clear) Urine pH 6.5 (5.0-8.0) Ur Specific [place] 1.015 (1.005-1.030) Urine Protein 2+ H (Negative) Urine Glucose (UA) Negative (Negative) Urine Ketones Negative (Negative) Urine Occult Blood 3+ H (Negative) Urine Nitrite Negative (Negative) Urine Bilirubin Negative (Negative) Urine Urobilinogen 0.2 (0.2-1.0) Ur Leukocyte Esterase 1+ H (Negative) Urine RBC Too numerous to cnt H (0-5) /hpf Urine WBC 20-30 H (0-5) /hpf Ur Epithelial Cells 0-5 (0-5) /hpf Urine Bacteria Few (FEW) /hpf Urine Mucus Not seen (FEW) /hpf 12/19/18 12/19/18 12/19/18 Range/Units 06:07 06:07 06:11 WBC 6.23 (3.98-10.04) K/mm3 RBC 2.92 L (3.98-5.22) M/mm3 Hgb 8.4 L (11.2-15.7) gm/L Hct 25.8 L (34.1-44.9) % MCV 88.4 (79.4-94.8) fl MCH 28.8 (25.6-32.2) pg MCHC 32.6 (32.2-35.5) g/dl RDW Std Deviation 48.3 H (36.4-46.3) fL Plt Count 126 L (182-369) K/mm3 MPV 10.4 (9.4-12.3) fl Neut % (Auto) 68.5 (34.0-71.1) % Lymph % (Auto) 13.3 L (19.3-51.7) % [place] % (Auto) 14.4 H (4.7-12.5) % Eos % (Auto) 2.9 (0.7-5.8) Baso % (Auto) 0.3 (0.1-1.2) % Neut # (Auto) 4.26 (1.56-6.13) K/mm3 Lymph # (Auto) 0.83 L (1.18-3.74) K/mm3 [place] # (Auto) 0.90 H (0.24-0.36) K/mm3 Eos # (Auto) 0.18 (0.04-0.36) K/mm3 Baso # (Auto) 0.02 (0.01-0.08) K/mm3 Manual Slide Review D-Dimer, Quantitative (0.19-0.50) mg/L Sodium 132 L (136-145) mEq/L Potassium 3.4 L (3.5-5.1) mEq/L Chloride 91 L (98-107) mEq/L Carbon Dioxide 33 H (21-32) mEq/L Anion Gap 11.4 (5-15) BUN 60 H (7-18) mg/dL Creatinine 2.2 H (0.55-1.02) mg/dL Est Cr Clr Drug Dosing 15.86 mL/min Estimated GFR (MDRD) 21 (>60) mL/min BUN/Creatinine Ratio 27.3 H (14-18) Glucose 121 H (83-115) mg/dL POC Glucose 125 H (83-110) mg/dL Calcium 7.8 L (8.5-10.1) mg/dL Magnesium 2.0 (1.8-2.4) mg/dl Total Bilirubin (0.2-1.0) mg/dL AST (15-37) U/L ALT (14-59) U/L Alkaline Phosphatase (46-116) U/L Troponin I (0.00-0.056) ng/mL C-Reactive Protein 1.2 H* (<1.0) mg/dL NT-Pro-B Natriuret Pep (0-450) pg/mL Total Protein (6.4-8.2) g/dl Albumin (3.4-5.0) g/dl Globulin gm/dL Albumin/Globulin Ratio (1-2) Urine Color (Yellow) Urine Appearance (Clear) Urine pH (5.0-8.0) Ur Specific [place] (1.005-1.030) Urine Protein (Negative) Urine Glucose (UA) (Negative) Urine Ketones (Negative) Urine Occult Blood (Negative) Urine Nitrite (Negative) Urine Bilirubin (Negative) Urine Urobilinogen (0.2-1.0) Ur Leukocyte Esterase (Negative) Urine RBC (0-5) /hpf Urine WBC (0-5) /hpf Ur Epithelial Cells (0-5) /hpf Urine Bacteria (FEW) /hpf Urine Mucus (FEW) /hpf Med Orders - Current: Current Medications Acetaminophen (Tylenol) 650 mg PO Q4H PRN PRN Reason: Pain (Mild 1-3)/fever Acetaminophen (Tylenol) 650 mg PO Q6H [facility] Last Admin: 12/19/18 04:55 Dose: 650 mg Hydrocodone Bitart/Acetaminophen ([place] 325-5 Mg) 1 tab PO Q4H PRN PRN Reason: Pain (moderate 4-6) Albuterol/Ipratropium (Duoneb 3.0-0.5 Mg/3 Ml) 3 ml NEB Q4H PRN PRN Reason: Shortness Of Breath/wheezing Artificial Tears (Refresh Liquigel 1%) 0 ml EYEBOTH QID PRN PRN Reason: DRY EYES Aspirin (Halfprin) 81 mg PO DAILY [facility] Betamethasone/Clotrimazole (Lotrisone) 0 gm TOP BID [facility] Bisacodyl (Dulcolax) 5 mg PO DAILY PRN PRN Reason: Constipation Dextrose/Water (Dextrose 50% In Water) 50 ml IVPUSH ASDIRECTED PRN PRN Reason: Hypoglycemia Docusate Sodium (Colace) 100 mg PO BID PRN PRN Reason: Constipation Guaifenesin (Mucinex) 600 mg PO BID [facility] Hydralazine HCl (Apresoline) 10 mg IVPUSH Q4H PRN PRN Reason: Hypertension Furosemide 100 mg/ Sodium (Chloride) 100 mls @ 3 mls/hr IV TITRATE [facility]; Protocol Last Admin: 12/18/18 23:35 Dose: 3 mls/hr Insulin Glargine (Lantus) 15 unit SUBCUT DAILY [facility] Insulin Human Lispro (Humalog) 0 unit SUBCUT QIDACANDBED [facility]; Protocol Last Admin: 12/19/18 08:38 Dose: Not Given Insulin Human Lispro (Humalog) 8 unit SUBCUT BIDMEALS [facility] Lorazepam (Ativan) 0.25 mg IV Q6H PRN PRN Reason: Anxiety Magnesium Sulfate (Pharmacy To Dose - Magnesium Replacement) 0 dose .XX ASDIRECTED PRN PRN Reason: RX TO WATCH MAG Metolazone (Zaroxolyn) 2.5 mg PO DAILY [facility] Metoprolol Tartrate (Lopressor) 5 mg IVPUSH Q4H PRN PRN Reason: Tachycardia Modafinil (Provigil) 100 mg PO DAILY [facility] Nystatin (Nystop) 0 gm TOP DAILY PRN PRN Reason: RASH Ondansetron HCl (Zofran) 4 mg IV Q6H PRN PRN Reason: Nausea/Vomiting Polyethylene Glycol (Miralax) 17 gm PO DAILY PRN PRN Reason: Constipation Potassium Chloride (Pharmacy To Dose - Potassium Replacement) 0 dose .XX ASDIRECTED PRN PRN Reason: RX TO WATCH K Rosuvastatin Calcium (Crestor) 20 mg PO BEDTIME [facility] Saccharomyces Boulardii (Florastor) 250 mg PO BID [facility] Senna/Docusate Sodium (Senna Plus) 1 tab PO BID PRN PRN Reason: Constipation Sodium Chloride (Saline Flush) 10 ml FLUSH ASDIRECTED PRN PRN Reason: Keep Vein Open Last Admin: 12/18/18 15:40 Dose: 10 ml Vit A/Vit C/Vit E/Selen/Cu/Zn/Lutei (Icaps Mv) 1 tab PO DAILY [facility] Discontinued Medications Bisacodyl (Dulcolax) 10 mg PO ASDIRECTED PRN PRN Reason: Constipation Bumetanide (Bumex) 1 mg IVPUSH ONETIME ONE Stop: 12/18/18 17:36 Last Admin: 12/18/18 18:18 Dose: 1 mg Ceftriaxone Sodium 2 gm/ (Sodium Chloride) 100 mls @ 200 mls/hr IV ONETIME ONE Stop: 12/18/18 18:59 Last Admin: 12/18/18 18:32 Dose: 200 mls/hr Potassium Chloride (Klor-Con M20) 40 meq PO Q4H SANJIV Stop: 12/19/18 03:31 Last Admin: 12/19/18 04:54 Dose: 40 meq Potassium Chloride (Klor-Con M20) 40 meq PO ONETIME ONE Stop: 12/19/18 09:01 - My Orders Last 24 Hours: My Active Orders 12/18/18 19:27 Metoprolol Tartrate [Lopressor] 5 mg IVPUSH Q4H PRN hydrALAZINE [Apresoline] 10 mg IVPUSH Q4H PRN 12/18/18 19:29 Cardiac Monitoring [RC] CONTINUOUS Height and Weight [RC] 04 Intake and Output [RC] 04,16 Oxygen Therapy [RC] PRN Up With Assistance [RC] ASDIRECTED Up ad Cindy [RC] ASDIRECTED VTE/DVT Education [RC] PER UNIT ROUTINE Vital Signs [RC] Q4HR Consult to Case Management/Ed Teacher [CONS] Routine Consult to Spiritual Care [CONS] Routine OT Evaluation and Treatment [CONS] Routine PT Evaluation and Treatment [CONS] Routine Acetaminophen [Tylenol] 650 mg PO Q4H PRN Acetaminophen/HYDROcodone [[place] 325-5 MG] 1 tab PO Q4H PRN Albuterol/Ipratropium [DuoNeb 3.0-0.5 MG/3 ML] 3 ml NEB Q4H PRN Bisacodyl [Dulcolax] 5 mg PO DAILY PRN Docusate Sodium [Colace] 100 mg PO BID PRN Docusate Sodium/Sennosides [Senna Plus] 1 tab PO BID PRN LORazepam [Ativan] 0.25 mg IV Q6H PRN Ondansetron [Zofran] 4 mg IV Q6H PRN Polyethylene Glycol 3350 [MiraLAX] 17 gm PO DAILY PRN Resuscitation Status Routine 12/18/18 19:30 RT Aerosol Therapy [RC] ASDIRECTED Pharmacy to Dose - Magnesium R [Pharmacy to Dose - Magnesium Replacement] 0 dose .XX ASDIRECTED PRN Pharmacy to Dose - Potassium R [Pharmacy to Dose - Potassium Replacement] 0 dose .XX ASDIRECTED PRN 12/18/18 22:35 Blood Glucose Check, Bedside [RC] QIDACANDBED Dextrose 50% in Water 50 ml IVPUSH ASDIRECTED PRN 12/18/18 22:45 Furosemide [Lasix] 100 mg Sodium Chloride 0.9% [Normal Saline] 90 ml IV TITRATE 12/18/18 22:54 Carboxymethylcellulose Sodium [Refresh Liquigel 1%] 0 ml EYEBOTH QID PRN 12/18/18 23:00 Acetaminophen [Tylenol] 650 mg PO Q6H 12/18/18 23:45 Nystatin [Nystop] 0 gm TOP DAILY PRN 12/18/18 Dinner 2 Gram Sodium Diet [DIET] Consistent Carbohydrate Diet [DIET] Heart Healthy Diet [DIET] 12/19/18 01:23 EKG 12 Lead [EKG Documentation Completion] [RC] ONETIME 12/19/18 07:00 Insulin Lispro [HumaLOG] 8 unit SUBCUT BIDMEALS Insulin Lispro [HumaLOG] See Protocol SUBCUT QIDACANDBED 12/19/18 09:00 Aspirin [Halfprin] 81 mg PO DAILY Betamethasone/Clotrimazole [Lotrisone] 0 gm TOP BID Insulin Glarg,Human.Rec.Analog [LantUS] 15 unit SUBCUT DAILY Modafinil [Provigil] 100 mg PO DAILY Multivitamins/Min/FA/Lut/Zeax [ICaps MV] 1 tab PO DAILY Saccharomyces Boulardii [Florastor] 250 mg PO BID guaiFENesin [Mucinex] 600 mg PO BID metOLazone [Zaroxolyn] 2.5 mg PO DAILY 12/19/18 21:00 Rosuvastatin [Crestor] 20 mg PO BEDTIME 12/19/18 Breakfast Fluid Restriction [DIET] 12/20/18 05:11 BASIC METABOLIC PANEL,BMP [CHEM] AM C-REACTIVE PROTEIN [CHEM] AM CBC WITH AUTO DIFF [HEME] AM MAGNESIUM [CHEM] AM 12/20/18 09:00 Echo Comp wo Cont [US] Routine 12/21/18 05:11 BASIC METABOLIC PANEL,BMP [CHEM] AM C-REACTIVE PROTEIN [CHEM] AM CBC WITH AUTO DIFF [HEME] AM MAGNESIUM [CHEM] AM 12/22/18 05:11 BASIC METABOLIC PANEL,BMP [CHEM] AM CBC WITH AUTO DIFF [HEME] AM MAGNESIUM [CHEM] AM 12/23/18 05:11 BASIC METABOLIC PANEL,BMP [CHEM] AM CBC WITH AUTO DIFF [HEME] AM MAGNESIUM [CHEM] AM - Plan Plan:: Met up with 2 daugthers and a sister at bedside. Updated them about her morning labs, diagnoses, clinical progress and treatment plan.
[2018-12-19] MEDS: Betamethasone Dipropionate/Clotrimazole 0.05-1% Crm 15 GM Tube TOP SCH ×2 (09:12→22:24)
[2018-12-19] MEDS: Modafinil 200 MG Tab PO SCH (09:12)
--- NOTE | 2018-12-19 10:29 | CR ---
Chest: Portable view of the chest was obtained. Comparison: Prior chest x-ray of 10/06/18. Heart is slightly enlarged. Mild tortuosity of the thoracic aorta is seen. Pulmonary vessels appear minimally congested. Lungs otherwise are clear. At least 2 rib fractures are seen within the fifth and sixth ribs and questionably fourth rib. These are not appreciated on prior study and could be acute or subacute in age. Impression: 1. At least 2 right-sided rib fractures as noted above. Please correlate if patient has acute chest wall pain for these fractures to be acute in age. 2. Other incidental findings. Diagnostic code #3
[2018-12-19] MEDS ORDERED: Carbamide Peroxide 6.5% Otic Soln 15 ML Bottle EARBOTH SCH ×2 (18:00→21:00)
[2018-12-19] MEDS ORDERED: Famotidine 20 MG Tab PO SCH (21:00)
[2018-12-19] MEDS: Rosuvastatin 10 MG Tab PO SCH (22:25)
[2018-12-19] MEDS: Carbamide Peroxide 6.5% Otic Soln 15 ML Bottle EARBOTH SCH (22:41)
[2018-12-20] MEDS: Acetaminophen 325 MG Tab PO SCH ×4 (04:28→23:19)
[2018-12-20] MEDS: Insulin Lispro 100 Units/ML 3 ML Vial SUBCUT SCH ×6 (06:18→21:01)
[2018-12-20] MEDS: Famotidine 20 MG Tab PO SCH (08:23)
[2018-12-20] MEDS: Saccharomyces Boulardii (Probiotic) 250 MG Cap PO SCH ×2 (08:23→21:02)
[2018-12-20] MEDS: Metolazone 2.5 MG Tab PO SCH (08:23)
[2018-12-20] MEDS: Modafinil 200 MG Tab PO SCH (08:24)
[2018-12-20] MEDS: Aspirin 81 MG Tab.EC PO SCH (08:24)
[2018-12-20] MEDS: Multivitamins with Minerals/Folic Acid/Lutein/Zeaxanth Tab PO SCH (08:24)
[2018-12-20] MEDS: guaiFENesin 600 MG Tab.ER PO SCH ×2 (08:24→21:02)
[2018-12-20] MEDS: Furosemide 100 MG in Sodium Chloride 0.9% 90 ML IV SCH (08:25)
[2018-12-20] MEDS: Insulin Glarg,Human.Rec.Analog 100 UNIT/ML ML SUBCUT SCH (08:32)
[2018-12-20] MEDS: Betamethasone Dipropionate/Clotrimazole 0.05-1% Crm 15 GM Tube TOP SCH ×2 (08:34→21:02)
[2018-12-20] MEDS: hydrALAZINE 20 MG/ML SDV IVPUSH PRN ×2 (08:43→16:52)
[2018-12-20] MEDS: Carbamide Peroxide 6.5% Otic Soln 15 ML Bottle EARBOTH SCH (09:58)
--- NOTE | 2018-12-20 15:50 | PCM.PN ---
- General Info Date of Service: 12/20/18 Subjective Update: Hard of hearing, will continue diuresis. Functional Status: Reports: Pain Controlled, Tolerating Diet, Urinating - Review of Systems General: Reports: Weakness, Fatigue HEENT: Reports: No Symptoms Pulmonary: Reports: Shortness of Breath Cardiovascular: Reports: No Symptoms Gastrointestinal: Reports: No Symptoms Genitourinary: Reports: No Symptoms Musculoskeletal: Reports: No Symptoms Skin: Reports: No Symptoms Neurological: Reports: No Symptoms Psychiatric: Reports: No Symptoms - Patient Data Vitals - Most Recent: Last Vital Signs Temp 36.6 C 12/20/18 15:25 Pulse 69 12/20/18 15:25 Resp 16 12/20/18 15:25 BP 167/65 H 12/20/18 15:25 Pulse Ox 97 12/20/18 15:25 Weight - Most Recent: 100.924 kg I&O - Last 24 Hours: Intake & Output 12/20/18 12/20/18 12/20/18 06:59 14:59 22:59 Intake Total 430 420 Balance 430 420 Lab Results Last 24 Hours: Laboratory Results - last 24 hr 12/19/18 12/19/18 12/19/18 Range/Units 17:38 19:38 22:23 WBC (3.98-10.04) K/mm3 RBC (3.98-5.22) M/mm3 Hgb (11.2-15.7) gm/L Hct (34.1-44.9) % MCV (79.4-94.8) fl MCH (25.6-32.2) pg MCHC (32.2-35.5) g/dl RDW Std Deviation (36.4-46.3) fL Plt Count (182-369) K/mm3 MPV (9.4-12.3) fl Neut % (Auto) (34.0-71.1) % Lymph % (Auto) (19.3-51.7) % [place] % (Auto) (4.7-12.5) % Eos % (Auto) (0.7-5.8) Baso % (Auto) (0.1-1.2) % Neut # (Auto) (1.56-6.13) K/mm3 Lymph # (Auto) (1.18-3.74) K/mm3 [place] # (Auto) (0.24-0.36) K/mm3 Eos # (Auto) (0.04-0.36) K/mm3 Baso # (Auto) (0.01-0.08) K/mm3 Manual Slide Review Sodium (136-145) mEq/L Potassium (3.5-5.1) mEq/L Chloride (98-107) mEq/L Carbon Dioxide (21-32) mEq/L Anion Gap (5-15) BUN (7-18) mg/dL Creatinine (0.55-1.02) mg/dL Est Cr Clr Drug Dosing mL/min Estimated GFR (MDRD) (>60) mL/min BUN/Creatinine Ratio (14-18) Glucose (83-115) mg/dL POC Glucose 49 L 132 H 174 H (83-110) mg/dL Calcium (8.5-10.1) mg/dL Magnesium (1.8-2.4) mg/dl C-Reactive Protein (<1.0) mg/dL 12/20/18 12/20/18 12/20/18 Range/Units 06:04 06:18 06:18 WBC 5.33 (3.98-10.04) K/mm3 RBC 3.14 L (3.98-5.22) M/mm3 Hgb 9.0 L (11.2-15.7) gm/L Hct 28.0 L (34.1-44.9) % MCV 89.2 (79.4-94.8) fl MCH 28.7 (25.6-32.2) pg MCHC 32.1 L (32.2-35.5) g/dl RDW Std Deviation 50.2 H (36.4-46.3) fL Plt Count 106 L (182-369) K/mm3 MPV 9.7 (9.4-12.3) fl Neut % (Auto) 61.6 (34.0-71.1) % Lymph % (Auto) 16.5 L (19.3-51.7) % [place] % (Auto) 15.8 H (4.7-12.5) % Eos % (Auto) 5.3 (0.7-5.8) Baso % (Auto) 0.6 (0.1-1.2) % Neut # (Auto) 3.29 (1.56-6.13) K/mm3 Lymph # (Auto) 0.88 L (1.18-3.74) K/mm3 [place] # (Auto) 0.84 H (0.24-0.36) K/mm3 Eos # (Auto) 0.28 (0.04-0.36) K/mm3 Baso # (Auto) 0.03 (0.01-0.08) K/mm3 Manual Slide Review Abnormal smear Sodium 132 L (136-145) mEq/L Potassium 3.5 (3.5-5.1) mEq/L Chloride 91 L (98-107) mEq/L Carbon Dioxide 31 (21-32) mEq/L Anion Gap 13.5 (5-15) BUN 60 H (7-18) mg/dL Creatinine 2.2 H (0.55-1.02) mg/dL Est Cr Clr Drug Dosing 15.86 mL/min Estimated GFR (MDRD) 21 (>60) mL/min BUN/Creatinine Ratio 27.3 H (14-18) Glucose 97 (83-115) mg/dL POC Glucose 107 (83-110) mg/dL Calcium 8.2 L (8.5-10.1) mg/dL Magnesium 2.1 (1.8-2.4) mg/dl C-Reactive Protein 2.0 H* (<1.0) mg/dL 12/20/18 Range/Units 11:30 WBC (3.98-10.04) K/mm3 RBC (3.98-5.22) M/mm3 Hgb (11.2-15.7) gm/L Hct (34.1-44.9) % MCV (79.4-94.8) fl MCH (25.6-32.2) pg MCHC (32.2-35.5) g/dl RDW Std Deviation (36.4-46.3) fL Plt Count (182-369) K/mm3 MPV (9.4-12.3) fl Neut % (Auto) (34.0-71.1) % Lymph % (Auto) (19.3-51.7) % [place] % (Auto) (4.7-12.5) % Eos % (Auto) (0.7-5.8) Baso % (Auto) (0.1-1.2) % Neut # (Auto) (1.56-6.13) K/mm3 Lymph # (Auto) (1.18-3.74) K/mm3 [place] # (Auto) (0.24-0.36) K/mm3 Eos # (Auto) (0.04-0.36) K/mm3 Baso # (Auto) (0.01-0.08) K/mm3 Manual Slide Review Sodium (136-145) mEq/L Potassium (3.5-5.1) mEq/L Chloride (98-107) mEq/L Carbon Dioxide (21-32) mEq/L Anion Gap (5-15) BUN (7-18) mg/dL Creatinine (0.55-1.02) mg/dL Est Cr Clr Drug Dosing mL/min Estimated GFR (MDRD) (>60) mL/min BUN/Creatinine Ratio (14-18) Glucose (83-115) mg/dL POC Glucose 187 H (83-110) mg/dL Calcium (8.5-10.1) mg/dL Magnesium (1.8-2.4) mg/dl C-Reactive Protein (<1.0) mg/dL Gopi Results Last 24 Hours: Microbiology 12/18/18 17:55 Urine Culture - Preliminary Urine, Bladder Enterococcus Species Med Orders - Current: Current Medications Acetaminophen (Tylenol) 650 mg PO Q4H PRN PRN Reason: Pain (Mild 1-3)/fever Acetaminophen (Tylenol) 650 mg PO Q6H [facility] Last Admin: 12/20/18 11:51 Dose: 650 mg Hydrocodone Bitart/Acetaminophen ([place] 325-5 Mg) 1 tab PO Q4H PRN PRN Reason: Pain (moderate 4-6) Albuterol/Ipratropium (Duoneb 3.0-0.5 Mg/3 Ml) 3 ml NEB Q4H PRN PRN Reason: Shortness Of Breath/wheezing Artificial Tears (Refresh Liquigel 1%) 0 ml EYEBOTH QID PRN PRN Reason: DRY EYES Aspirin (Halfprin) 81 mg PO DAILY [facility] Last Admin: 12/20/18 08:24 Dose: 81 mg Betamethasone/Clotrimazole (Lotrisone) 0 gm TOP BID [facility] Last Admin: 12/20/18 08:34 Dose: 1 applic Bisacodyl (Dulcolax) 5 mg PO DAILY PRN PRN Reason: Constipation Dextrose/Water (Dextrose 50% In Water) 50 ml IVPUSH ASDIRECTED PRN PRN Reason: Hypoglycemia Docusate Sodium (Colace) 100 mg PO BID PRN PRN Reason: Constipation Famotidine (Pepcid) 20 mg PO DAILY [facility] Last Admin: 12/20/18 08:23 Dose: 20 mg Guaifenesin (Mucinex) 600 mg PO BID [facility] Last Admin: 12/20/18 08:24 Dose: 600 mg Hydralazine HCl (Apresoline) 10 mg IVPUSH Q4H PRN PRN Reason: Hypertension Last Admin: 12/20/18 08:43 Dose: 10 mg Furosemide 100 mg/ Sodium (Chloride) 100 mls @ 3 mls/hr IV TITRATE [facility]; Protocol Last Admin: 12/20/18 08:25 Dose: 3 mls/hr Insulin Glargine (Lantus) 15 unit SUBCUT DAILY [facility] Last Admin: 12/20/18 08:32 Dose: 15 unit Insulin Human Lispro (Humalog) 0 unit SUBCUT QIDACANDBED [facility]; Protocol Last Admin: 12/20/18 11:50 Dose: 2 units Insulin Human Lispro (Humalog) 8 unit SUBCUT BIDMEALS [facility] Last Admin: 12/20/18 08:23 Dose: Not Given Lorazepam (Ativan) 0.25 mg IV Q6H PRN PRN Reason: Anxiety Metolazone (Zaroxolyn) 2.5 mg PO DAILY [facility] Last Admin: 12/20/18 08:23 Dose: 2.5 mg Metoprolol Tartrate (Lopressor) 5 mg IVPUSH Q4H PRN PRN Reason: Tachycardia Modafinil (Provigil) 100 mg PO DAILY [facility] Last Admin: 12/20/18 08:24 Dose: 100 mg Nystatin (Nystop) 0 gm TOP DAILY PRN PRN Reason: RASH Ondansetron HCl (Zofran) 4 mg IV Q6H PRN PRN Reason: Nausea/Vomiting Polyethylene Glycol (Miralax) 17 gm PO DAILY PRN PRN Reason: Constipation Rosuvastatin Calcium (Crestor) 20 mg PO BEDTIME [facility] Last Admin: 12/19/18 22:25 Dose: 20 mg Saccharomyces Boulardii (Florastor) 250 mg PO BID [facility] Last Admin: 12/20/18 08:23 Dose: 250 mg Senna/Docusate Sodium (Senna Plus) 1 tab PO BID PRN PRN Reason: Constipation Sodium Chloride (Saline Flush) 10 ml FLUSH ASDIRECTED PRN PRN Reason: Keep Vein Open Last Admin: 12/18/18 15:40 Dose: 10 ml Vit A/Vit C/Vit E/Selen/Cu/Zn/Lutei (Icaps Mv) 1 tab PO DAILY [facility] Last Admin: 12/20/18 08:24 Dose: 1 tab Discontinued Medications Bisacodyl (Dulcolax) 10 mg PO ASDIRECTED PRN PRN Reason: Constipation Bumetanide (Bumex) 1 mg IVPUSH ONETIME ONE Stop: 12/18/18 17:36 Last Admin: 12/18/18 18:18 Dose: 1 mg Carbamide Perox/Anhydrous Glycerin (Debrox 6.5% Otic Soln) 15 ml EARBOTH BID [facility] Stop: 12/20/18 21:01 Carbamide Perox/Anhydrous Glycerin (Debrox 6.5% Otic Soln) 15 ml EARBOTH BID [facility] Stop: 12/20/18 09:01 Last Admin: 12/19/18 20:14 Dose: Not Given Carbamide Perox/Anhydrous Glycerin (Debrox 6.5% Otic Soln) 0 ml EARBOTH BID [facility] Stop: 12/22/18 21:01 Last Admin: 12/20/18 09:58 Dose: Not Given Famotidine (Pepcid) 20 mg PO BID [facility] Last Admin: 12/19/18 22:24 Dose: 20 mg Ceftriaxone Sodium 2 gm/ (Sodium Chloride) 100 mls @ 200 mls/hr IV ONETIME ONE Stop: 12/18/18 18:59 Last Admin: 12/18/18 18:32 Dose: 200 mls/hr Magnesium Sulfate (Pharmacy To Dose - Magnesium Replacement) 0 dose .XX ASDIRECTED PRN PRN Reason: RX TO WATCH MAG Potassium Chloride (Pharmacy To Dose - Potassium Replacement) 0 dose .XX ASDIRECTED PRN PRN Reason: RX TO WATCH K Potassium Chloride (Klor-Con M20) 40 meq PO Q4H [facility] Stop: 12/19/18 03:31 Last Admin: 12/19/18 04:54 Dose: 40 meq Potassium Chloride (Klor-Con M20) 40 meq PO ONETIME ONE Stop: 12/19/18 09:01 Last Admin: 12/19/18 09:03 Dose: 40 meq - Exam Quality Assessment: DVT Prophylaxis General: Alert, Oriented, Cooperative, No Acute Distress HEENT: Pupils Equal, Pupils Reactive, EOMI Neck: Trachea Midline, No JVD Lungs: Normal Respiratory Effort Cardiovascular: Regular Rate, Regular Rhythm GI/Abdominal Exam: Normal Bowel Sounds, Soft, Non-Tender, No Organomegaly, No Distention (Female) Exam: Deferred Back Exam: Normal Inspection Extremities: Normal Inspection, Non-Tender, Pedal Edema, Slow Capillary Refill Skin: Warm Neurological: No New Focal Deficit, Normal Speech Psy/Mental Status: Alert, Normal Affect, Normal Mood - Problem List Review Problem List Initiated/Reviewed/Updated: Yes - My Orders Last 24 Hours: My Active Orders 12/20/18 11:37 MAGNOLIA Bandage [Elastic Wrap] [OM.PC] Routine - Plan Plan:: Assessment/Plan: Acute: Congestive Heart Failure - Acute on Chronic - Carries a hx/o HF with Preserved RF og 65% w/ Grade 2 Pattern of LV Dysfunction 12/13/2015 - She may be developing Bumex resistance; per daughter her Bumex have gradually been increased in dose or frequency but she did not see any response with the changes made - ProBNP 3378 - Received on time Bumex 1mg IPV in ED - 2D echo in AM - Heart failure treatment: lasix drip, Is/Os, salt/fluid restriction, and daily weight Malnutrition - Albumin is 2.9 - Contributory to fluid retention - Dietary consult for low protein level Probable Transient Hearing Loss - Likely 2/2 Impacted Cerumen on both ears - Debroax 6.5% Otic [place] BID then irrigate/wash in 2-3 hrs after application for 3 days only Ribs Fractures - CXR report reads at least 2 right sided rib fracture seen within the 5th and 6th ribs and questionably 4th rib. Could be acute or subacute in age - No complaints of MSK pain or pleurisy - Monitor and PRN pain meds Hx/o UTI - Carries a hx/o Recurrent UTI w/ Pseudomonas Aeruginosa, Klebsiella Pneumoniae, and Entero-coccus faecalis - UA does not suggest UTI but she has risk factors: DM2 and Urinary Incontinence - IV Rocephin 2 grams in ED - If urine culture is positive in AM, must resume IV antibiotic End of Life Care - Has multiple chronic significant medical illness - Informed them her kidneys are declining and she may need dialysis in the future; however I was told patient would not want dialysis - Opened up about Hospice/Palliative Care to think about down the road - Family is receptive but they will think about it Chronic: PAF now off Warfarin due to recent Hematuria and Anemia HTN HLD PVD/Vascular Insufficiency SOB GERD Hiatal Hernia CKD Stage 4 for [id number], Cr 2.4 at baseline Urinary Incontinence OA/DJD Osteoporosis DM2 Stasis Dermatitis Recurrent UTI Hyponatremia, Na 128, Stable Anemia, Hgb at 8.6 (8-9 grams her baseline) Urticaria Hypersomnolence Morbid Obesity with BMI of 41 Plan: Admitted for MSP with Tele Routine AM Labs Resume Some Home Meds PT/OT consult Accu-check AC/HS with ISS Dietary consult for weight management GI/DVT PPx:H2B; Compression stocking or MORGNA Hose. Anti-coagulant is CI due to recent Hematuria and Chronic Anemia. Also when nurse attempted to put bonner catheter in last night for Is/Os; she had blood clots in her urine SW/CM for d/c planning Fall precautions Additional orders as above Code status: DNR/DNI Check BNP, daily weights.
[2018-12-20] MEDS: Rosuvastatin 10 MG Tab PO SCH (21:02)
[2018-12-21] MEDS: Acetaminophen 325 MG Tab PO SCH ×4 (05:05→22:15)
[2018-12-21] MEDS: Insulin Lispro 100 Units/ML 3 ML Vial SUBCUT SCH ×5 (06:34→21:21)
[2018-12-21] MEDS: Multivitamins with Minerals/Folic Acid/Lutein/Zeaxanth Tab PO SCH (09:35)
[2018-12-21] MEDS: Aspirin 81 MG Tab.EC PO SCH (09:36)
[2018-12-21] MEDS: Metolazone 2.5 MG Tab PO SCH (09:36)
[2018-12-21] MEDS: Saccharomyces Boulardii (Probiotic) 250 MG Cap PO SCH ×2 (09:36→21:20)
[2018-12-21] MEDS: Famotidine 20 MG Tab PO SCH (09:37)
[2018-12-21] MEDS: Modafinil 200 MG Tab PO SCH (09:38)
[2018-12-21] MEDS: guaiFENesin 600 MG Tab.ER PO SCH ×2 (09:39→21:20)
[2018-12-21] MEDS: Insulin Glarg,Human.Rec.Analog 100 UNIT/ML ML SUBCUT SCH (09:40)
[2018-12-21] MEDS: hydrALAZINE 20 MG/ML SDV IVPUSH PRN ×2 (11:12→21:26)
[2018-12-21] MEDS: Betamethasone Dipropionate/Clotrimazole 0.05-1% Crm 15 GM Tube TOP SCH ×2 (11:27→21:21)
[2018-12-21] MEDS: Furosemide 100 MG in Sodium Chloride 0.9% 90 ML IV SCH (11:30)
--- NOTE | 2018-12-21 15:15 | PCM.PN ---
- General Info Date of Service: 12/21/18 Subjective Update: Hard of hearing, has no complaints Functional Status: Reports: Pain Controlled, Tolerating Diet, Ambulating, Urinating - Review of Systems General: Reports: No Symptoms HEENT: Reports: No Symptoms Pulmonary: Reports: No Symptoms Cardiovascular: Reports: No Symptoms Gastrointestinal: Reports: No Symptoms Genitourinary: Reports: No Symptoms Musculoskeletal: Reports: No Symptoms Skin: Reports: No Symptoms Neurological: Reports: No Symptoms Psychiatric: Reports: No Symptoms - Patient Data Vitals - Most Recent: Last Vital Signs Temp 36.6 C 12/21/18 11:57 Pulse 71 12/21/18 11:57 Resp 16 12/21/18 11:57 BP 159/50 H 12/21/18 11:58 Pulse Ox 95 12/21/18 11:57 Weight - Most Recent: 99.518 kg I&O - Last 24 Hours: Intake & Output 12/21/18 12/21/18 12/21/18 06:59 14:59 22:59 Intake Total 436 300 Output Total 1350 Balance -914 300 Lab Results Last 24 Hours: Laboratory Results - last 24 hr 12/20/18 12/20/18 12/21/18 Range/Units 17:25 20:58 06:09 WBC 5.50 (3.98-10.04) K/mm3 RBC 2.76 L (3.98-5.22) M/mm3 Hgb 7.8 L (11.2-15.7) gm/L Hct 24.7 L (34.1-44.9) % MCV 89.5 (79.4-94.8) fl MCH 28.3 (25.6-32.2) pg MCHC 31.6 L (32.2-35.5) g/dl RDW Std Deviation 49.3 H (36.4-46.3) fL Plt Count 103 L (182-369) K/mm3 MPV 9.7 (9.4-12.3) fl Neut % (Auto) 61.8 (34.0-71.1) % Lymph % (Auto) 18.2 L (19.3-51.7) % [place] % (Auto) 13.6 H (4.7-12.5) % Eos % (Auto) 6.0 H (0.7-5.8) Baso % (Auto) 0.2 (0.1-1.2) % Neut # (Auto) 3.40 (1.56-6.13) K/mm3 Lymph # (Auto) 1.00 L (1.18-3.74) K/mm3 [place] # (Auto) 0.75 H (0.24-0.36) K/mm3 Eos # (Auto) 0.33 (0.04-0.36) K/mm3 Baso # (Auto) 0.01 (0.01-0.08) K/mm3 Manual Slide Review Abnormal smear Sodium (136-145) mEq/L Potassium (3.5-5.1) mEq/L Chloride (98-107) mEq/L Carbon Dioxide (21-32) mEq/L Anion Gap (5-15) BUN (7-18) mg/dL Creatinine (0.55-1.02) mg/dL Est Cr Clr Drug Dosing mL/min Estimated GFR (MDRD) (>60) mL/min BUN/Creatinine Ratio (14-18) Glucose (83-115) mg/dL POC Glucose 225 H 201 H (83-110) mg/dL Calcium (8.5-10.1) mg/dL Magnesium (1.8-2.4) mg/dl C-Reactive Protein (<1.0) mg/dL 12/21/18 12/21/18 12/21/18 Range/Units 06:09 06:15 11:21 WBC (3.98-10.04) K/mm3 RBC (3.98-5.22) M/mm3 Hgb (11.2-15.7) gm/L Hct (34.1-44.9) % MCV (79.4-94.8) fl MCH (25.6-32.2) pg MCHC (32.2-35.5) g/dl RDW Std Deviation (36.4-46.3) fL Plt Count (182-369) K/mm3 MPV (9.4-12.3) fl Neut % (Auto) (34.0-71.1) % Lymph % (Auto) (19.3-51.7) % [place] % (Auto) (4.7-12.5) % Eos % (Auto) (0.7-5.8) Baso % (Auto) (0.1-1.2) % Neut # (Auto) (1.56-6.13) K/mm3 Lymph # (Auto) (1.18-3.74) K/mm3 [place] # (Auto) (0.24-0.36) K/mm3 Eos # (Auto) (0.04-0.36) K/mm3 Baso # (Auto) (0.01-0.08) K/mm3 Manual Slide Review Sodium 131 L (136-145) mEq/L Potassium 3.0 L (3.5-5.1) mEq/L Chloride 91 L (98-107) mEq/L Carbon Dioxide 33 H (21-32) mEq/L Anion Gap 10.0 (5-15) BUN 58 H (7-18) mg/dL Creatinine 2.3 H (0.55-1.02) mg/dL Est Cr Clr Drug Dosing 15.04 mL/min Estimated GFR (MDRD) 20 (>60) mL/min BUN/Creatinine Ratio 25.2 H (14-18) Glucose 112 (83-115) mg/dL POC Glucose 119 H 227 H (83-110) mg/dL Calcium 8.1 L (8.5-10.1) mg/dL Magnesium 2.0 (1.8-2.4) mg/dl C-Reactive Protein 1.7 H* (<1.0) mg/dL 12/21/18 Range/Units 13:30 WBC (3.98-10.04) K/mm3 RBC (3.98-5.22) M/mm3 Hgb 8.7 L (11.2-15.7) gm/L Hct 27.5 L (34.1-44.9) % MCV (79.4-94.8) fl MCH (25.6-32.2) pg MCHC (32.2-35.5) g/dl RDW Std Deviation (36.4-46.3) fL Plt Count (182-369) K/mm3 MPV (9.4-12.3) fl Neut % (Auto) (34.0-71.1) % Lymph % (Auto) (19.3-51.7) % [place] % (Auto) (4.7-12.5) % Eos % (Auto) (0.7-5.8) Baso % (Auto) (0.1-1.2) % Neut # (Auto) (1.56-6.13) K/mm3 Lymph # (Auto) (1.18-3.74) K/mm3 [place] # (Auto) (0.24-0.36) K/mm3 Eos # (Auto) (0.04-0.36) K/mm3 Baso # (Auto) (0.01-0.08) K/mm3 Manual Slide Review Sodium (136-145) mEq/L Potassium (3.5-5.1) mEq/L Chloride (98-107) mEq/L Carbon Dioxide (21-32) mEq/L Anion Gap (5-15) BUN (7-18) mg/dL Creatinine (0.55-1.02) mg/dL Est Cr Clr Drug Dosing mL/min Estimated GFR (MDRD) (>60) mL/min BUN/Creatinine Ratio (14-18) Glucose (83-115) mg/dL POC Glucose (83-110) mg/dL Calcium (8.5-10.1) mg/dL Magnesium (1.8-2.4) mg/dl C-Reactive Protein (<1.0) mg/dL Gopi Results Last 24 Hours: Microbiology 12/18/18 17:55 Urine Culture - Final Urine, Bladder Enterococcus Species Med Orders - Current: Current Medications Acetaminophen (Tylenol) 650 mg PO Q4H PRN PRN Reason: Pain (Mild 1-3)/fever Acetaminophen (Tylenol) 650 mg PO Q6H [facility] Last Admin: 12/21/18 11:03 Dose: 650 mg Hydrocodone Bitart/Acetaminophen ([place] 325-5 Mg) 1 tab PO Q4H PRN PRN Reason: Pain (moderate 4-6) Albuterol/Ipratropium (Duoneb 3.0-0.5 Mg/3 Ml) 3 ml NEB Q4H PRN PRN Reason: Shortness Of Breath/wheezing Artificial Tears (Refresh Liquigel 1%) 0 ml EYEBOTH QID PRN PRN Reason: DRY EYES Aspirin (Halfprin) 81 mg PO DAILY [facility] Last Admin: 12/21/18 09:36 Dose: 81 mg Betamethasone/Clotrimazole (Lotrisone) 0 gm TOP BID [facility] Last Admin: 12/21/18 11:27 Dose: 1 applic Bisacodyl (Dulcolax) 5 mg PO DAILY PRN PRN Reason: Constipation Dextrose/Water (Dextrose 50% In Water) 50 ml IVPUSH ASDIRECTED PRN PRN Reason: Hypoglycemia Docusate Sodium (Colace) 100 mg PO BID PRN PRN Reason: Constipation Last Admin: 12/21/18 11:10 Dose: 100 mg Famotidine (Pepcid) 20 mg PO DAILY [facility] Last Admin: 12/21/18 09:37 Dose: 20 mg Guaifenesin (Mucinex) 600 mg PO BID [facility] Last Admin: 12/21/18 09:39 Dose: 600 mg Hydralazine HCl (Apresoline) 10 mg IVPUSH Q4H PRN PRN Reason: Hypertension Last Admin: 12/21/18 11:12 Dose: 10 mg Furosemide 100 mg/ Sodium (Chloride) 100 mls @ 3 mls/hr IV TITRATE [facility]; Protocol Stop: 12/22/18 11:30 Last Admin: 12/21/18 11:30 Dose: 3 mls/hr Insulin Glargine (Lantus) 15 unit SUBCUT DAILY [facility] Last Admin: 12/21/18 09:40 Dose: 15 unit Insulin Human Lispro (Humalog) 0 unit SUBCUT QIDACANDBED [facility]; Protocol Last Admin: 12/21/18 11:37 Dose: 4 units Insulin Human Lispro (Humalog) 8 unit SUBCUT BIDMEALS [facility] Last Admin: 12/21/18 09:34 Dose: Not Given Lorazepam (Ativan) 0.25 mg IV Q6H PRN PRN Reason: Anxiety Metolazone (Zaroxolyn) 2.5 mg PO DAILY [facility] Last Admin: 12/21/18 09:36 Dose: 2.5 mg Metoprolol Tartrate (Lopressor) 5 mg IVPUSH Q4H PRN PRN Reason: Tachycardia Modafinil (Provigil) 100 mg PO DAILY [facility] Last Admin: 12/21/18 09:38 Dose: 100 mg Nystatin (Nystop) 0 gm TOP DAILY PRN PRN Reason: RASH Ondansetron HCl (Zofran) 4 mg IV Q6H PRN PRN Reason: Nausea/Vomiting Polyethylene Glycol (Miralax) 17 gm PO DAILY PRN PRN Reason: Constipation Potassium Chloride (Klor-Con M20) 40 meq PO BID [facility] Stop: 12/23/18 09:01 Rosuvastatin Calcium (Crestor) 20 mg PO BEDTIME [facility] Last Admin: 12/20/18 21:02 Dose: 20 mg Saccharomyces Boulardii (Florastor) 250 mg PO BID [facility] Last Admin: 12/21/18 09:36 Dose: 250 mg Senna/Docusate Sodium (Senna Plus) 1 tab PO BID PRN PRN Reason: Constipation Last Admin: 12/21/18 05:05 Dose: 1 tab Sodium Chloride (Saline Flush) 10 ml FLUSH ASDIRECTED PRN PRN Reason: Keep Vein Open Last Admin: 12/18/18 15:40 Dose: 10 ml Vit A/Vit C/Vit E/Selen/Cu/Zn/Lutei (Icaps Mv) 1 tab PO DAILY [facility] Last Admin: 12/21/18 09:35 Dose: 1 tab Discontinued Medications Bisacodyl (Dulcolax) 10 mg PO ASDIRECTED PRN PRN Reason: Constipation Bumetanide (Bumex) 1 mg IVPUSH ONETIME ONE Stop: 12/18/18 17:36 Last Admin: 12/18/18 18:18 Dose: 1 mg Carbamide Perox/Anhydrous Glycerin (Debrox 6.5% Otic Soln) 15 ml EARBOTH BID [facility] Stop: 12/20/18 21:01 Carbamide Perox/Anhydrous Glycerin (Debrox 6.5% Otic Soln) 15 ml EARBOTH BID [facility] Stop: 12/20/18 09:01 Last Admin: 12/19/18 20:14 Dose: Not Given Carbamide Perox/Anhydrous Glycerin (Debrox 6.5% Otic Soln) 0 ml EARBOTH BID [facility] Stop: 12/22/18 21:01 Last Admin: 12/20/18 09:58 Dose: Not Given Famotidine (Pepcid) 20 mg PO BID [facility] Last Admin: 12/19/18 22:24 Dose: 20 mg Ceftriaxone Sodium 2 gm/ (Sodium Chloride) 100 mls @ 200 mls/hr IV ONETIME ONE Stop: 12/18/18 18:59 Last Admin: 12/18/18 18:32 Dose: 200 mls/hr Magnesium Sulfate (Pharmacy To Dose - Magnesium Replacement) 0 dose .XX ASDIRECTED PRN PRN Reason: RX TO WATCH MAG Potassium Chloride (Pharmacy To Dose - Potassium Replacement) 0 dose .XX ASDIRECTED PRN PRN Reason: RX TO WATCH K Potassium Chloride (Klor-Con M20) 40 meq PO Q4H [facility] Stop: 12/19/18 03:31 Last Admin: 12/19/18 04:54 Dose: 40 meq Potassium Chloride (Klor-Con M20) 40 meq PO ONETIME ONE Stop: 12/19/18 09:01 Last Admin: 12/19/18 09:03 Dose: 40 meq - Exam Quality Assessment: DVT Prophylaxis General: Alert, Oriented, Cooperative, No Acute Distress HEENT: Pupils Equal, Pupils Reactive, EOMI Neck: Trachea Midline, No JVD Lungs: Normal Respiratory Effort Cardiovascular: Regular Rate GI/Abdominal Exam: Normal Bowel Sounds, Soft, Non-Tender, No Organomegaly, No Distention (Female) Exam: Deferred Back Exam: Normal Inspection Extremities: Normal Inspection, Non-Tender, Normal Capillary Refill Skin: Warm Neurological: No New Focal Deficit Psy/Mental Status: Alert, Normal Affect, Normal Mood - Problem List Review Problem List Initiated/Reviewed/Updated: Yes - My Orders Last 24 Hours: My Active Orders 12/21/18 21:00 Potassium Chloride [Klor-Con M20] 40 meq PO BID - Plan Plan:: Assessment/Plan: Acute: Congestive Heart Failure - Acute on Chronic - Carries a hx/o HF with Preserved RF og 65% w/ Grade 2 Pattern of LV Dysfunction 12/13/2015 - She may be developing Bumex resistance; per daughter her Bumex have gradually been increased in dose or frequency but she did not see any response with the changes made - ProBNP 3378 - Received on time Bumex 1mg IPV in ED - 2D echo in AM - Heart failure treatment: lasix drip, Is/Os, salt/fluid restriction, and daily weight Malnutrition - Albumin is 2.9 - Contributory to fluid retention - Dietary consult for low protein level Probable Transient Hearing Loss - Likely 2/2 Impacted Cerumen on both ears - Debroax 6.5% Otic [place] BID then irrigate/wash in 2-3 hrs after application for 3 days only Ribs Fractures - CXR report reads at least 2 right sided rib fracture seen within the 5th and 6th ribs and questionably 4th rib. Could be acute or subacute in age - No complaints of MSK pain or pleurisy - Monitor and PRN pain meds Hx/o UTI - Carries a hx/o Recurrent UTI w/ Pseudomonas Aeruginosa, Klebsiella Pneumoniae, and Entero-coccus faecalis - UA does not suggest UTI but she has risk factors: DM2 and Urinary Incontinence - IV Rocephin 2 grams in ED - If urine culture is positive in AM, must resume IV antibiotic End of Life Care - Has multiple chronic significant medical illness - Informed them her kidneys are declining and she may need dialysis in the future; however I was told patient would not want dialysis - Opened up about Hospice/Palliative Care to think about down the road - Family is receptive but they will think about it Chronic: PAF now off Warfarin due to recent Hematuria and Anemia HTN HLD PVD/Vascular Insufficiency SOB GERD Hiatal Hernia CKD Stage 4 for [id number], Cr 2.4 at baseline Urinary Incontinence OA/DJD Osteoporosis DM2 Stasis Dermatitis Recurrent UTI Hyponatremia, Na 128, Stable Anemia, Hgb at 8.6 (8-9 grams her baseline) Urticaria Hypersomnolence Morbid Obesity with BMI of 41 Plan: Admitted for MSP with Tele Routine AM Labs Resume Some Home Meds PT/OT consult Accu-check AC/HS with ISS Dietary consult for weight management GI/DVT PPx:H2B; Compression stocking or MORGAN Hose. Anti-coagulant is CI due to recent Hematuria and Chronic Anemia. Also when nurse attempted to put bonner catheter in last night for Is/Os; she had blood clots in her urine SW/CM for d/c planning Fall precautions Additional orders as above Code status: DNR/DNI Check BNP, daily weights. Lasix gtt off 12/22/18; dc 24-48 hours.
[2018-12-21] MEDS: Rosuvastatin 10 MG Tab PO SCH (21:20)
[2018-12-21] MEDS: Potassium Chloride 20 MEQ Tab.ER PO SCH (21:20)
[2018-12-22] MEDS: Acetaminophen 325 MG Tab PO SCH ×4 (06:00→22:23)
[2018-12-22] MEDS: Insulin Lispro 100 Units/ML 3 ML Vial SUBCUT SCH ×4 (07:05→22:20)
[2018-12-22] MEDS: Betamethasone Dipropionate/Clotrimazole 0.05-1% Crm 15 GM Tube TOP SCH ×2 (08:17→22:23)
[2018-12-22] MEDS: Saccharomyces Boulardii (Probiotic) 250 MG Cap PO SCH ×2 (08:18→22:22)
[2018-12-22] MEDS: Insulin Glarg,Human.Rec.Analog 100 UNIT/ML ML SUBCUT SCH (08:18)
[2018-12-22] MEDS: Multivitamins with Minerals/Folic Acid/Lutein/Zeaxanth Tab PO SCH (08:18)
[2018-12-22] MEDS: Potassium Chloride 20 MEQ Tab.ER PO SCH ×2 (08:18→22:22)
[2018-12-22] MEDS: Modafinil 200 MG Tab PO SCH (08:18)
[2018-12-22] MEDS: Metolazone 2.5 MG Tab PO SCH (08:19)
[2018-12-22] MEDS: Aspirin 81 MG Tab.EC PO SCH (08:19)
[2018-12-22] MEDS: Famotidine 20 MG Tab PO SCH (08:19)
[2018-12-22] MEDS: guaiFENesin 600 MG Tab.ER PO SCH ×2 (08:19→22:22)
--- NOTE | 2018-12-22 09:42 | PCM.PN ---
- General Info Date of Service: 12/22/18 Admission Dx/Problem (Free Text): Admission Diagnosis/Problem Admission Diagnosis/Problem CHF, Congestive heart failure Subjective Update: In to see Sara. Her feet look much better but she still has significant swelling in her legs. Lasix drip was stopped today and she is down 11 lbs. Still awaiting echo to return. No nursing or patient concerns. Daughter is in room. She reports her mother has indicated to them that she does not want to return to the hospital should symptoms return. Daughter reports family just wants patient to be comfortable from here on out. Discussed addressing comfort care with [facility] and Dr. Kim after discharge. Hopeful for discharge tomorrow pending continued progress and obtaining echo results. Functional Status: Reports: Pain Controlled, Tolerating Diet, Ambulating, Urinating. Denies: New Symptoms - Review of Systems General: Reports: No Symptoms. Denies: Fever, Malaise, Chills HEENT: Reports: No Symptoms. Denies: Sore Throat Pulmonary: Denies: Shortness of Breath, Pleuritic Chest Pain, Cough, Sputum, Wheezing Cardiovascular: Reports: Dyspnea on Exertion, Edema. Denies: Chest Pain, Palpitations Gastrointestinal: Reports: No Symptoms. Denies: Abdominal Pain, Constipation, Diarrhea, Nausea, Vomiting Genitourinary: Reports: No Symptoms. Denies: Pain Musculoskeletal: Reports: No Symptoms Skin: Reports: No Symptoms Neurological: Reports: Difficulty Walking, Gait Disturbance. Denies: Confusion Psychiatric: Reports: No Symptoms - Patient Data Vitals - Most Recent: Last Vital Signs Temp 97.5 F 12/22/18 07:39 Pulse 64 12/22/18 07:39 Resp 14 12/22/18 07:39 BP 149/53 H 12/22/18 07:39 Pulse Ox 93 L 12/22/18 07:39 Weight - Most Recent: 217 lb 11.2 oz I&O - Last 24 Hours: Intake & Output 12/21/18 12/22/18 12/22/18 22:59 06:59 14:59 Intake Total 806 42 400 Output Total 600 1600 Balance 206 42 -1200 Lab Results Last 24 Hours: Laboratory Results - last 24 hr 12/21/18 12/21/18 12/21/18 Range/Units 11:21 13:30 17:18 WBC (3.98-10.04) K/mm3 RBC (3.98-5.22) M/mm3 Hgb 8.7 L (11.2-15.7) gm/L Hct 27.5 L (34.1-44.9) % MCV (79.4-94.8) fl MCH (25.6-32.2) pg MCHC (32.2-35.5) g/dl RDW Std Deviation (36.4-46.3) fL Plt Count (182-369) K/mm3 MPV (9.4-12.3) fl Neut % (Auto) (34.0-71.1) % Lymph % (Auto) (19.3-51.7) % Osborne % (Auto) (4.7-12.5) % Eos % (Auto) (0.7-5.8) Baso % (Auto) (0.1-1.2) % Neut # (Auto) (1.56-6.13) K/mm3 Lymph # (Auto) (1.18-3.74) K/mm3 Osborne # (Auto) (0.24-0.36) K/mm3 Eos # (Auto) (0.04-0.36) K/mm3 Baso # (Auto) (0.01-0.08) K/mm3 Sodium (136-145) mEq/L Potassium (3.5-5.1) mEq/L Chloride (98-107) mEq/L Carbon Dioxide (21-32) mEq/L Anion Gap (5-15) BUN (7-18) mg/dL Creatinine (0.55-1.02) mg/dL Est Cr Clr Drug Dosing mL/min Estimated GFR (MDRD) (>60) mL/min BUN/Creatinine Ratio (14-18) Glucose (83-115) mg/dL POC Glucose 227 H 199 H (83-110) mg/dL Calcium (8.5-10.1) mg/dL Magnesium (1.8-2.4) mg/dl 12/21/18 12/22/18 12/22/18 Range/Units 21:14 05:54 05:54 WBC 5.40 (3.98-10.04) K/mm3 RBC 2.85 L (3.98-5.22) M/mm3 Hgb 8.0 L (11.2-15.7) gm/L Hct 25.3 L (34.1-44.9) % MCV 88.8 (79.4-94.8) fl MCH 28.1 (25.6-32.2) pg MCHC 31.6 L (32.2-35.5) g/dl RDW Std Deviation 49.4 H (36.4-46.3) fL Plt Count 105 L (182-369) K/mm3 MPV 10.2 (9.4-12.3) fl Neut % (Auto) 60.5 (34.0-71.1) % Lymph % (Auto) 20.2 (19.3-51.7) % Osborne % (Auto) 14.4 H (4.7-12.5) % Eos % (Auto) 4.3 (0.7-5.8) Baso % (Auto) 0.2 (0.1-1.2) % Neut # (Auto) 3.27 (1.56-6.13) K/mm3 Lymph # (Auto) 1.09 L (1.18-3.74) K/mm3 Osborne # (Auto) 0.78 H (0.24-0.36) K/mm3 Eos # (Auto) 0.23 (0.04-0.36) K/mm3 Baso # (Auto) 0.01 (0.01-0.08) K/mm3 Sodium 133 L (136-145) mEq/L Potassium 3.3 L (3.5-5.1) mEq/L Chloride 91 L (98-107) mEq/L Carbon Dioxide 33 H (21-32) mEq/L Anion Gap 12.3 (5-15) BUN 62 H (7-18) mg/dL Creatinine 2.3 H (0.55-1.02) mg/dL Est Cr Clr Drug Dosing 15.04 mL/min Estimated GFR (MDRD) 20 (>60) mL/min BUN/Creatinine Ratio 27.0 H (14-18) Glucose 104 (83-115) mg/dL POC Glucose 220 H (83-110) mg/dL Calcium 7.8 L (8.5-10.1) mg/dL Magnesium 1.9 (1.8-2.4) mg/dl 12/22/18 Range/Units 06:03 WBC (3.98-10.04) K/mm3 RBC (3.98-5.22) M/mm3 Hgb (11.2-15.7) gm/L Hct (34.1-44.9) % MCV (79.4-94.8) fl MCH (25.6-32.2) pg MCHC (32.2-35.5) g/dl RDW Std Deviation (36.4-46.3) fL Plt Count (182-369) K/mm3 MPV (9.4-12.3) fl Neut % (Auto) (34.0-71.1) % Lymph % (Auto) (19.3-51.7) % Osborne % (Auto) (4.7-12.5) % Eos % (Auto) (0.7-5.8) Baso % (Auto) (0.1-1.2) % Neut # (Auto) (1.56-6.13) K/mm3 Lymph # (Auto) (1.18-3.74) K/mm3 [place]borne # (Auto) (0.24-0.36) K/mm3 Eos # (Auto) (0.04-0.36) K/mm3 Baso # (Auto) (0.01-0.08) K/mm3 Sodium (136-145) mEq/L Potassium (3.5-5.1) mEq/L Chloride (98-107) mEq/L Carbon Dioxide (21-32) mEq/L Anion Gap (5-15) BUN (7-18) mg/dL Creatinine (0.55-1.02) mg/dL Est Cr Clr Drug Dosing mL/min Estimated GFR (MDRD) (>60) mL/min BUN/Creatinine Ratio (14-18) Glucose (83-115) mg/dL POC Glucose 120 H (83-110) mg/dL Calcium (8.5-10.1) mg/dL Magnesium (1.8-2.4) mg/dl Gopi Results Last 24 Hours: Microbiology 12/18/18 17:55 Urine Culture - Final Urine, Bladder Enterococcus Species Med Orders - Current: Current Medications Acetaminophen (Tylenol) 650 mg PO Q4H PRN PRN Reason: Pain (Mild 1-3)/fever Acetaminophen (Tylenol) 650 mg PO Q6H SANJIV Last Admin: 12/22/18 06:00 Dose: 650 mg Hydrocodone Bitart/Acetaminophen ([place] 325-5 Mg) 1 tab PO Q4H PRN PRN Reason: Pain (moderate 4-6) Albuterol/Ipratropium (Duoneb 3.0-0.5 Mg/3 Ml) 3 ml NEB Q4H PRN PRN Reason: Shortness Of Breath/wheezing Artificial Tears (Refresh Liquigel 1%) 0 ml EYEBOTH QID PRN PRN Reason: DRY EYES Aspirin (Halfprin) 81 mg PO DAILY [facility] Last Admin: 12/22/18 08:19 Dose: 81 mg Betamethasone/Clotrimazole (Lotrisone) 0 gm TOP BID [facility] Last Admin: 12/22/18 08:17 Dose: 1 applic Bisacodyl (Dulcolax) 5 mg PO DAILY PRN PRN Reason: Constipation Dextrose/Water (Dextrose 50% In Water) 50 ml IVPUSH ASDIRECTED PRN PRN Reason: Hypoglycemia Docusate Sodium (Colace) 100 mg PO BID PRN PRN Reason: Constipation Last Admin: 12/21/18 11:10 Dose: 100 mg Famotidine (Pepcid) 20 mg PO DAILY [facility] Last Admin: 12/22/18 08:19 Dose: 20 mg Guaifenesin (Mucinex) 600 mg PO BID [facility] Last Admin: 12/22/18 08:19 Dose: 600 mg Hydralazine HCl (Apresoline) 10 mg IVPUSH Q4H PRN PRN Reason: Hypertension Last Admin: 12/21/18 21:26 Dose: 10 mg Furosemide 100 mg/ Sodium (Chloride) 100 mls @ 3 mls/hr IV TITRATE [facility]; Protocol Stop: 12/22/18 11:30 Last Admin: 12/21/18 11:30 Dose: 3 mls/hr Insulin Glargine (Lantus) 15 unit SUBCUT DAILY [facility] Last Admin: 12/22/18 08:18 Dose: 15 unit Insulin Human Lispro (Humalog) 0 unit SUBCUT QIDACANDBED [facility]; Protocol Last Admin: 12/22/18 07:05 Dose: Not Given Insulin Human Lispro (Humalog) 8 unit SUBCUT BIDMEALS [facility] Last Admin: 12/21/18 09:34 Dose: Not Given Lorazepam (Ativan) 0.25 mg IV Q6H PRN PRN Reason: Anxiety Metolazone (Zaroxolyn) 2.5 mg PO DAILY [facility] Last Admin: 12/22/18 08:19 Dose: 2.5 mg Metoprolol Tartrate (Lopressor) 5 mg IVPUSH Q4H PRN PRN Reason: Tachycardia Modafinil (Provigil) 100 mg PO DAILY [facility] Last Admin: 12/22/18 08:18 Dose: 100 mg Nystatin (Nystop) 0 gm TOP DAILY PRN PRN Reason: RASH Ondansetron HCl (Zofran) 4 mg IV Q6H PRN PRN Reason: Nausea/Vomiting Polyethylene Glycol (Miralax) 17 gm PO DAILY PRN PRN Reason: Constipation Potassium Chloride (Klor-Con M20) 40 meq PO BID [facility] Stop: 12/23/18 09:01 Last Admin: 12/22/18 08:18 Dose: 40 meq Rosuvastatin Calcium (Crestor) 20 mg PO BEDTIME [facility] Last Admin: 12/21/18 21:20 Dose: 20 mg Saccharomyces Boulardii (Florastor) 250 mg PO BID [facility] Last Admin: 12/22/18 08:18 Dose: 250 mg Senna/Docusate Sodium (Senna Plus) 1 tab PO BID PRN PRN Reason: Constipation Last Admin: 12/21/18 05:05 Dose: 1 tab Sodium Chloride (Saline Flush) 10 ml FLUSH ASDIRECTED PRN PRN Reason: Keep Vein Open Last Admin: 12/18/18 15:40 Dose: 10 ml Vit A/Vit C/Vit E/Selen/Cu/Zn/Lutei (Icaps Mv) 1 tab PO DAILY [facility] Last Admin: 12/22/18 08:18 Dose: 1 tab Discontinued Medications Bisacodyl (Dulcolax) 10 mg PO ASDIRECTED PRN PRN Reason: Constipation Bumetanide (Bumex) 1 mg IVPUSH ONETIME ONE Stop: 12/18/18 17:36 Last Admin: 12/18/18 18:18 Dose: 1 mg Carbamide Perox/Anhydrous Glycerin (Debrox 6.5% Otic Soln) 15 ml EARBOTH BID [facility] Stop: 12/20/18 21:01 Carbamide Perox/Anhydrous Glycerin (Debrox 6.5% Otic Soln) 15 ml EARBOTH BID [facility] Stop: 12/20/18 09:01 Last Admin: 12/19/18 20:14 Dose: Not Given Carbamide Perox/Anhydrous Glycerin (Debrox 6.5% Otic Soln) 0 ml EARBOTH BID [facility] Stop: 12/22/18 21:01 Last Admin: 12/20/18 09:58 Dose: Not Given Famotidine (Pepcid) 20 mg PO BID [facility] Last Admin: 12/19/18 22:24 Dose: 20 mg Ceftriaxone Sodium 2 gm/ (Sodium Chloride) 100 mls @ 200 mls/hr IV ONETIME ONE Stop: 12/18/18 18:59 Last Admin: 12/18/18 18:32 Dose: 200 mls/hr Magnesium Sulfate (Pharmacy To Dose - Magnesium Replacement) 0 dose .XX ASDIRECTED PRN PRN Reason: RX TO WATCH MAG Potassium Chloride (Pharmacy To Dose - Potassium Replacement) 0 dose .XX ASDIRECTED PRN PRN Reason: RX TO WATCH K Potassium Chloride (Klor-Con M20) 40 meq PO Q4H [facility] Stop: 12/19/18 03:31 Last Admin: 12/19/18 04:54 Dose: 40 meq Potassium Chloride (Klor-Con M20) 40 meq PO ONETIME ONE Stop: 12/19/18 09:01 Last Admin: 12/19/18 09:03 Dose: 40 meq - Exam Quality Assessment: DVT Prophylaxis General: Alert, Oriented, Cooperative HEENT: Pupils Equal, Pupils Reactive, EOMI, Mucous Membr. Moist/[place], Other ( Very hard of hearing. ) Neck: Supple, Trachea Midline, No JVD Lungs: Clear to Auscultation, Normal Respiratory Effort Cardiovascular: Regular Rate, Regular Rhythm GI/Abdominal Exam: Normal Bowel Sounds, Soft, Non-Tender, No Organomegaly, No Distention (Female) Exam: Deferred Back Exam: Normal Inspection, Full Range of Motion Extremities: Normal Inspection, Normal Range of Motion, Non-Tender, Normal Capillary Refill, Pedal Edema (Improved on feet. Legs remain 2+ ) Peripheral Pulses: 2+: Radial (L), Radial (R), Dorsalis Pedis (L), Dorsalis Pedis (R) Skin: Warm, Dry, Intact Neurological: No New Focal Deficit Psy/Mental Status: Alert, Normal Affect, Normal Mood - Problem List & Annotations (1) Anemia SNOMED Code(s): 998712326 Code(s): D64.9 - ANEMIA, UNSPECIFIED Status: Chronic Priority: High Current Visit: Yes Qualifiers: Anemia type: unspecified type Qualified Code(s): D64.9 - Anemia, unspecified (2) Bilateral hearing loss SNOMED Code(s): 67153248 Code(s): H91.93 - UNSPECIFIED HEARING LOSS, BILATERAL Status: Chronic Priority: Medium Current Visit: Yes Qualifiers: Hearing loss type: unspecified Qualified Code(s): H91.93 - Unspecified hearing loss, bilateral (3) Bilateral leg edema SNOMED Code(s): 502958367, 84706060, 896159437 Code(s): R60.0 - LOCALIZED EDEMA Status: Acute Priority: High Current Visit: Yes (4) CHF exacerbation SNOMED Code(s): 14971842 Code(s): I50.9 - HEART FAILURE, UNSPECIFIED Status: Acute Priority: High Current Visit: Yes Qualifiers: Heart failure type: unspecified Qualified Code(s): I50.9 - Heart failure, unspecified (5) Hypokalemia SNOMED Code(s): 55188745 Code(s): E87.6 - HYPOKALEMIA Status: Acute Priority: High Current Visit : Yes (6) Hyponatremia SNOMED Code(s): 97532624 Code(s): E87.1 - HYPO-OSMOLALITY AND HYPONATREMIA Status: Chronic Priority: High Current Visit: Yes (7) Renal insufficiency SNOMED Code(s): 609587585, 992432545 Code(s): N28.9 - DISORDER OF KIDNEY AND URETER, UNSPECIFIED Status: Chronic Priority: High Current Visit: Yes Onset Date: 12/11/15 Annotation/Comment:: - Acute on Chronic Kidney Disease (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) - Baseline Cr is 1.9 as of Jun 2015 (2.6 on admission); Today Cr is 2.2 - Renal U/S: No hydronephrosis or mass - Continue Strict Is/Os - Continue to avoid nephrotoxic agents if all possible - Has overt proteinuria - Problem List Review Problem List Initiated/Reviewed/Updated: Yes - Plan Plan:: Assessment/Plan: Acute: Congestive Heart Failure - Acute on Chronic - Carries a hx/o HF with Preserved RF og 65% w/ Grade 2 Pattern of LV Dysfunction 12/13/2015 - She may be developing Bumex resistance; per daughter her Bumex have gradually been increased in dose or frequency but she did not see any response with the changes made - ProBNP 3378 - Received on time Bumex 1mg IPV in ED - 2D echo obtained and pending - Heart failure treatment: lasix drip -> discontinue today, Is/Os, salt/ fluid restriction, and daily weight - Down almost 11 lbs as of today - Resume home medications 11/25/18 Malnutrition - Albumin is 2.9 - Contributory to fluid retention - Dietary consult for low protein level Ribs Fractures - CXR report reads at least 2 right sided rib fracture seen within the 5th and 6th ribs and questionably 4th rib. Could be acute or subacute in age - No complaints of MSK pain or pleurisy - Monitor and PRN pain meds Hypokalemia -Potassium 3.0-->3.3 -Supplementation as ordered Inactive: Hx/o UTI - Carries a hx/o Recurrent UTI w/ Pseudomonas Aeruginosa, Klebsiella Pneumoniae, and Entero-coccus faecalis - UA does not suggest UTI but she has risk factors: DM2 and Urinary Incontinence - IV Rocephin 2 grams in ED - If urine culture is positive in AM, must resume IV antibiotic - Culture shows enterococcus - 10K will not require treatment Probable Transient Hearing Loss, stable - Likely 2/2 Impacted Cerumen on both ears - Debroax 6.5% Otic [place] BID then irrigate/wash in 2-3 hrs after application for 3 days only End of Life Care - Has multiple chronic significant medical illness - Informed them her kidneys are declining and she may need dialysis in the future; however I was told patient would not want dialysis - Opened up about Hospice/Palliative Care to think about down the road - Family is receptive but they will think about it - Report they want her to be comfortable and Sara has indicated she does not want to be hospitalized in the future - Told family to update SNF about this decision on discharge and discuss with Dr. Kim if that is the road they want. Chronic: PAF now off Warfarin due to recent Hematuria and Anemia HTN HLD PVD/Vascular Insufficiency SOB GERD Hiatal Hernia CKD Stage 4 for [id number], Cr 2.4 at baseline Urinary Incontinence OA/DJD Osteoporosis DM2 Stasis Dermatitis Recurrent UTI Hyponatremia, Na 128, Stable Anemia, Hgb at 8.6 (8-9 grams her baseline) Urticaria Hypersomnolence Morbid Obesity with BMI of 41 Plan: Admitted for MSP with Tele Routine AM Labs Resume Some Home Meds PT/OT consult Accu-check AC/HS with ISS Dietary consult for weight management GI/DVT PPx:H2B; Compression stocking or MORGAN Hose. Anti-coagulant is CI due to recent Hematuria and Chronic Anemia. No catheter as she she had blood clots in her urine last time and other complications SW/CM for d/c planning Fall precautions Additional orders as above Code status: DNR/DNI Check BNP, daily weights. Lasix gtt off 12/22/18; dc 24-48 hours.
[2018-12-22] MEDS: Rosuvastatin 10 MG Tab PO SCH (22:22)
[2018-12-23] MEDS: Acetaminophen 325 MG Tab PO SCH ×2 (06:24→10:53)
--- NOTE | 2018-12-23 06:55 | PCM.DCSUM1 ---
Discharge Summary - Hospital Course HPI Initial Comments: This is an 83 yo elderly white female with past medical hx/o PAF now off Warfarin due to recent Hematuria and Anemia, HTN, HLD, PVD/Vascular Insufficiency, SOB, GERD, Hiatal Hernia, CKD Stage 4 for 2289-2341, Hx/o Hematuria, Urinary Incontinence, OA/DJD, Osteoporosis, DM2, Stasis Dermatitis, Recurrent UTI, Hyponatremia, Anemia, Urticaria, Hypersomnolence and Morbid Obesity with BMI of 41 who comes in for evaluation of increased edema associated with weight gain. She was hospitalized not too long ago for similar complaints but when she got back to the skilled nursing, she developed considerable edema and put on more weight. Per daughter, her Bumex has been steadily increased but it did not seem to help. Additionally, she also reports having hearing loss in the past couple of days. This appears to be new to her however she denies any neurological issues. She further denies any chest pain, fever or chills. She has shortness of breath but no more than her baseline. Her initial work up in ED shows a CBC remarkable for RBC of 2.97, Hgb of 8.6, HCT of 26.2, RDW of 48.4, Platelet of 163, Lymphocytes of 15.3%, and Monocytes of 15.2%. Her Chemistry is significant for Na of 128, K of 3.4, Cl of 89, CO2 of 33, BUN of 65, Cr of 2.4, Ca of 8.3, Alk Phos of 122, ProbNP of 3378, and Albumin of 2.9. Her UA is not suggestive of UTI. Her chest x-ray report reads at least 2 right sided rib fracture seen within the 5th and 6th ribs and questionably 4th rib. Could be acute or subacute in age. Patient was admitted last night primarily for medical management of acute congestive heart failure. She is DNR/DNI Diagnosis: Stroke: No - Discharge Data Discharge Date: 12/23/18 (Admit date: 12/18/18) Discharge Disposition: DC/Tfer to SNF 03 Condition: Good - Discharge Diagnosis/Problem(s) (1) Anemia SNOMED Code(s): 318663516 ICD Code: D64.9 - ANEMIA, UNSPECIFIED Status: Chronic Priority: High Current Visit: Yes Qualifiers: Anemia type: unspecified type Qualified Code(s): D64.9 - Anemia, unspecified (2) Bilateral hearing loss SNOMED Code(s): 89297352 ICD Code: H91.93 - UNSPECIFIED HEARING LOSS, BILATERAL Status: Chronic Priority: Medium Current Visit: Yes Qualifiers: Hearing loss type: unspecified Qualified Code(s): H91.93 - Unspecified hearing loss, bilateral (3) Bilateral leg edema SNOMED Code(s): 451478238, 43612139, 856874734 ICD Code: R60.0 - LOCALIZED EDEMA Status: Acute Priority: High Current Visit: Yes (4) CHF exacerbation SNOMED Code(s): 44989225 ICD Code: I50.9 - HEART FAILURE, UNSPECIFIED Status: Acute Priority: High Current Visit: Yes Qualifiers: Heart failure type: unspecified Qualified Code(s): I50.9 - Heart failure, unspecified (5) Hypokalemia SNOMED Code(s): 91562508 ICD Code: E87.6 - HYPOKALEMIA Status: Resolved Priority: High Current Visit: Yes (6) Hyponatremia SNOMED Code(s): 46100524 ICD Code: E87.1 - HYPO-OSMOLALITY AND HYPONATREMIA Status: Chronic Priority: High Current Visit: Yes (7) Renal insufficiency SNOMED Code(s): 921411016, 525211309 ICD Code: N28.9 - DISORDER OF KIDNEY AND URETER, UNSPECIFIED Status: Chronic Priority: High Current Visit: Yes Onset Date: 12/11/15 Problem Details: - Acute on Chronic Kidney Disease (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) - Baseline Cr is 1.9 as of Jun 2015 (2.6 on admission); Today Cr is 2.2 - Renal U/S: No hydronephrosis or mass - Continue Strict Is/Os - Continue to avoid nephrotoxic agents if all possible - Has overt proteinuria - Patient Summary/Data Consults: Consultations 12/18/18 19:29 Consult to Case Management/Creative Services Manager [CONS] Routine Consult to Spiritual Care [CONS] Routine OT Evaluation and Treatment [CONS] Routine PT Evaluation and Treatment [CONS] Routine Labs Pending at D/C: None Recommended Follow-up Testing/Procedures: Follow-up with PCP within 7-10 days of discharge Hospital Course: Assessment/Plan: Acute: Congestive Heart Failure - Acute on Chronic - Carries a hx/o HF with Preserved RF og 65% w/ Grade 2 Pattern of LV Dysfunction 12/13/2015 - She may be developing Bumex resistance; per daughter her Bumex have gradually been increased in dose or frequency but she did not see any response with the changes made -May be due to worsening renal failure as well - ProBNP 3378-->3476 - Received on time Bumex 1mg IPV in ED - 2D echo obtained 12/21/18 1. LVEF, by visual estimation, is 60-65%. 2. Normal left ventricular systolic function 3. Normal right ventricular size, wall thickness, and systolic function 4. Moderately dilated left atrium 5. There is mild aortic valve sclerosis 6. Moderate mitral annular calcification 7. Right ventricular systolic pressure is unable to be determined 8. The inferior vena cava is normal size with respiratory size variation greater than 50%. 9. No significant change from 12/13/15 10. No regional wall motion abnormalities - Heart failure treatment: lasix drip -> discontinue 12/22/18, Is/Os, salt/ fluid restriction, and daily weight - Down over 15 lbs as of today - Resume home medications 11/25/18 Malnutrition - Albumin is 2.9 - Contributory to fluid retention - Dietary consult for low protein level Ribs Fractures - CXR report reads at least 2 right sided rib fracture seen within the 5th and 6th ribs and questionably 4th rib. Could be acute or subacute in age - No complaints of MSK pain or pleurisy - Monitor and PRN pain meds Hypokalemia -Potassium 3.0-->3.3-->3.8 -Supplementation as ordered Inactive: Hx/o UTI - Carries a hx/o Recurrent UTI w/ Pseudomonas Aeruginosa, Klebsiella Pneumoniae, and Entero-coccus faecalis - UA does not suggest UTI but she has risk factors: DM2 and Urinary Incontinence - IV Rocephin 2 grams in ED - If urine culture is positive in AM, must resume IV antibiotic - Culture shows enterococcus - 10K will not require treatment Probable Transient Hearing Loss, stable - Likely 2/2 Impacted Cerumen on both ears - Debroax 6.5% Otic Chelly BID then irrigate/wash in 2-3 hrs after application for 3 days only End of Life Care - Has multiple chronic significant medical illness - Informed them her kidneys are declining and she may need dialysis in the future; however I was told patient would not want dialysis - Opened up about Hospice/Palliative Care to think about down the road - Family is receptive but they will think about it - Report they want her to be comfortable and Sara has indicated she does not want to be hospitalized in the future - Told family to update SNF about this decision on discharge and discuss with Dr. Kim if that is the road they want. Chronic: PAF now off Warfarin due to recent Hematuria and Anemia HTN HLD PVD/Vascular Insufficiency SOB GERD Hiatal Hernia CKD Stage 4 for 8482-4296, Cr 2.4 at baseline Urinary Incontinence OA/DJD Osteoporosis DM2 Stasis Dermatitis Recurrent UTI Hyponatremia, Na 128, Stable Anemia, Hgb at 8.6 (8-9 grams her baseline) Urticaria Hypersomnolence Morbid Obesity with BMI of 41 Plan: Admitted for MSP with Tele Routine AM Labs Resume Some Home Meds PT/OT consult Accu-check AC/HS with ISS Dietary consult for weight management GI/DVT PPx:H2B; Compression stocking or MORGAN Hose. Anti-coagulant is CI due to recent Hematuria and Chronic Anemia. No catheter as she she had blood clots in her urine last time and other complications SW/CM for d/c planning Fall precautions Additional orders as above Code status: DNR/DNI Check BNP, daily weights. Sara was brought in from the ED for CHF exacerbation. Her legs were noted to be quite edematous. She was started on Lasix drip and had excellent output losing over 15 pounds. She was placed on a fluid and sodium restriction and this will be continued when she returns to the skilled nursing. She was noted to have low albumin and dietary was consult on this. She does have rather significant kidney disease and creatinine is noted to be around 2.4 for baseline. While diuresing her creatinine maintained right at 2.3. Chest x-ray was obtained and incidentally she was noted to have questionable rib fractures as above which were noted to be either acute or subacute. She did not report any chest pain, pleurisy, or difficulty breathing due to this. Electrolytes were supplemented. On admission Dr. Nguyen did discuss the potential for comfort care with Sara and her family as it is apparent that her kidney function and heart failure is getting worse. Family reports that Sara is indicated she would not like to return to the hospital anymore for this reason. Family also reports that they would like Sara to be comfortable and that is her only wish. We discussed how she will be discharged on DNR/DNI status and they may follow up with her PCP in the skilled nursing to address changing her CODE STATUS to comfort care. Dr. Kim was updated on the situation. He believes her symptoms may be more kidney related then heart failure. Echo was obtained as above and does appear to support this theory. No new medications on discharge. All home medications were resumed. She should continue working with PT OT at [facility]. She was discharged today. - Patient Instructions Diet: Low Sodium, Fluid Restriction, Renal Diet Fluid Restriction: 2000 mL Activity: As Tolerated Driving: Do Not Drive Showering/Bathing: May Shower Notify Provider of: Fever, Increased Pain, Swelling and Redness, Drainage, Nausea and/or Vomiting - Discharge Plan *PRESCRIPTION DRUG MONITORING PROGRAM REVIEWED*: No *COPY OF PRESCRIPTION DRUG MONITORING REPORT IN PATIENT [place]LA[place]: No Home Medications: Home Meds Insulin Aspart [NovoLOG] 8 units SUBCUT BID 07/14/18 [History] Tresiba Flextouch. 15 units SUBCUT DAILY 07/14/18 [History] Lactobacillus Acidophilus [Acidophilus Lactobacilli] 1 cap PO BID 11/22/18 [ History] Acetaminophen [Tylenol] 650 mg PO Q6H 12/18/18 [History] Aspirin 81 mg PO DAILY 12/18/18 [History] Bisacodyl [Dulcolax] 10 mg PO ASDIRECTED PRN 12/18/18 [History] Bumetanide [Bumex] 2 mg PO QPM 12/18/18 [History] Bumetanide [Bumex] 3 mg PO DAILY 12/18/18 [History] Calcium Carbonate [Tums] 200 mg PO Q6H PRN 12/18/18 [History] Lotrisone Cream. 1 dose TOP BID 12/18/18 [History] Lutein/Minerals/Vit A,C & E [Ocuvite] 1 tab PO DAILY 12/18/18 [History] Modafinil 100 mg PO DAILY 12/18/18 [History] Non-Formulary Medication [NF Drug] 1 drop EYEBOTH QID PRN 12/18/18 [History] Nystatin Powder. 1 dose TOP DAILY PRN 12/18/18 [History] Potassium. 20 meq PO BID 12/18/18 [History] Rosuvastatin [Crestor] 20 mg PO BEDTIME 12/18/18 [History] Vit C/E/Zn/Coppr/Lutein/Zeaxan [Preservision Areds 2 Softgel] 1 tab PO BID 12/18 [History] amLODIPine Besylate [Amlodipine Besylate] 10 mg PO DAILY 12/18/18 [History] guaiFENesin [Mucinex] 600 mg PO BID 12/18/18 [History] metOLazone [Metolazone] 2.5 mg PO DAILY 12/18/18 [History] Oxygen Therapy Mode: Room Air Forms: ED Department Discharge Referrals: Naren Kim MD [Primary Care Provider] - 12/30/18 2:30 pm (Please follow up with Dr. Kim on December 30 at 230pm.) - Discharge Summary/Plan Comment DC Time >30 min.: Yes (45 minutes ) - General Info Date of Service: 12/23/18 Admission Dx/Problem (Free Text: Admission Diagnosis/Problem Admission Diagnosis/Problem CHF, Congestive heart failure Subjective Update: In to see Sara. She is sitting up in her chair watching TV. Saul bandages are on both legs. She lost 15 pounds so far. Lasix drip was discontinued yesterday and home meds were resumed today. She has no complaints. Her feet looks much better but she does still have some edema to her legs. No nursing concerns. Dr. Kim updated on plan. He suspects her problem is not her heart but in her kidneys. Echo report has returned and it does appear that this is the case. She'll be discharged today. Functional Status: Reports: Pain Controlled, Tolerating Diet, Ambulating, Urinating. Denies: New Symptoms - Review of Systems General: Reports: Weakness (improved ). Denies: Fever, Fatigue, Malaise, Chills HEENT: Reports: Other (Very hard of hearing ). Denies: Headaches, Sore Throat Pulmonary: Reports: No Symptoms. Denies: Shortness of Breath, Pleuritic Chest Pain, Cough, Sputum Cardiovascular: Reports: No Symptoms, Dyspnea on Exertion (chronic ), Edema ( chronic ). Denies: Chest Pain, Palpitations Gastrointestinal: Reports: No Symptoms. Denies: Abdominal Pain, Constipation, Diarrhea, Nausea, Vomiting Genitourinary: Reports: No Symptoms. Denies: Pain Musculoskeletal: Reports: Shoulder Pain (Chronic - heating pack in place ) Skin: Reports: No Symptoms Neurological: Reports: No Symptoms. Denies: Confusion Psychiatric: Reports: No Symptoms - Patient Data Vitals - Most Recent: Last Vital Signs Temp 98.2 F 12/22/18 22:16 Pulse 63 12/23/18 06:30 Resp 18 12/22/18 22:16 BP 140/60 12/23/18 06:35 Pulse Ox 93 L 12/23/18 06:30 Weight - Most Recent: 213 lb 8 oz I&O - Last 24 hours: Intake & Output 12/22/18 12/22/18 12/23/18 14:59 22:59 06:59 Intake Total 580 860 200 Output Total 1600 1100 800 Balance -1020 240 600 Lab Results - Last 24 hrs: Laboratory Results - last 24 hr 12/22/18 12/22/18 12/22/18 Range/Units 05:54 11:02 18:01 WBC (3.98-10.04) K/mm3 RBC (3.98-5.22) M/mm3 Hgb (11.2-15.7) gm/L Hct (34.1-44.9) % MCV (79.4-94.8) fl MCH (25.6-32.2) pg MCHC (32.2-35.5) g/dl RDW Std Deviation (36.4-46.3) fL Plt Count (182-369) K/mm3 MPV (9.4-12.3) fl Neut % (Auto) (34.0-71.1) % Lymph % (Auto) (19.3-51.7) % [place] % (Auto) (4.7-12.5) % Eos % (Auto) (0.7-5.8) Baso % (Auto) (0.1-1.2) % Neut # (Auto) (1.56-6.13) K/mm3 Lymph # (Auto) (1.18-3.74) K/mm3 [place] # (Auto) (0.24-0.36) K/mm3 Eos # (Auto) (0.04-0.36) K/mm3 Baso # (Auto) (0.01-0.08) K/mm3 Sodium 133 L (136-145) mEq/L Potassium 3.3 L (3.5-5.1) mEq/L Chloride 91 L (98-107) mEq/L Carbon Dioxide 33 H (21-32) mEq/L Anion Gap 12.3 (5-15) BUN 62 H (7-18) mg/dL Creatinine 2.3 H (0.55-1.02) mg/dL Est Cr Clr Drug Dosing 15.04 mL/min Estimated GFR (MDRD) 20 (>60) mL/min BUN/Creatinine Ratio 27.0 H (14-18) Glucose 104 (83-115) mg/dL POC Glucose 217 H 197 H (83-110) mg/dL Calcium 7.8 L (8.5-10.1) mg/dL Magnesium 1.9 (1.8-2.4) mg/dl 12/22/18 12/23/18 12/23/18 Range/Units 22:19 06:00 06:20 WBC 5.12 (3.98-10.04) K/mm3 RBC 2.83 L (3.98-5.22) M/mm3 Hgb 8.0 L (11.2-15.7) gm/L Hct 25.1 L (34.1-44.9) % MCV 88.7 (79.4-94.8) fl MCH 28.3 (25.6-32.2) pg MCHC 31.9 L (32.2-35.5) g/dl RDW Std Deviation 49.1 H (36.4-46.3) fL Plt Count 88 L (182-369) K/mm3 MPV 9.7 (9.4-12.3) fl Neut % (Auto) 60.7 (34.0-71.1) % Lymph % (Auto) 21.7 (19.3-51.7) % [place] % (Auto) 11.9 (4.7-12.5) % Eos % (Auto) 5.3 (0.7-5.8) Baso % (Auto) 0.2 (0.1-1.2) % Neut # (Auto) 3.11 (1.56-6.13) K/mm3 Lymph # (Auto) 1.11 L (1.18-3.74) K/mm3 [place] # (Auto) 0.61 H (0.24-0.36) K/mm3 Eos # (Auto) 0.27 (0.04-0.36) K/mm3 Baso # (Auto) 0.01 (0.01-0.08) K/mm3 Sodium (136-145) mEq/L Potassium (3.5-5.1) mEq/L Chloride (98-107) mEq/L Carbon Dioxide (21-32) mEq/L Anion Gap (5-15) BUN (7-18) mg/dL Creatinine (0.55-1.02) mg/dL Est Cr Clr Drug Dosing mL/min Estimated GFR (MDRD) (>60) mL/min BUN/Creatinine Ratio (14-18) Glucose (83-115) mg/dL POC Glucose 272 H 150 H (83-110) mg/dL Calcium (8.5-10.1) mg/dL Magnesium (1.8-2.4) mg/dl CHIDI Results - Last 24 hrs: Microbiology 12/18/18 17:55 Urine Culture - Final Urine, Bladder Enterococcus Species Med Orders - Current: Current Medications Acetaminophen (Tylenol) 650 mg PO Q4H PRN PRN Reason: Pain (Mild 1-3)/fever Acetaminophen (Tylenol) 650 mg PO Q6H [facility] Last Admin: 12/23/18 06:24 Dose: 650 mg Hydrocodone Bitart/Acetaminophen ([place] 325-5 Mg) 1 tab PO Q4H PRN PRN Reason: Pain (moderate 4-6) Albuterol/Ipratropium (Duoneb 3.0-0.5 Mg/3 Ml) 3 ml NEB Q4H PRN PRN Reason: Shortness Of Breath/wheezing Amlodipine Besylate (Norvasc) 10 mg PO DAILY [facility] Artificial Tears (Refresh Liquigel 1%) 0 ml EYEBOTH QID PRN PRN Reason: DRY EYES Aspirin (Halfprin) 81 mg PO DAILY [facility] Last Admin: 12/22/18 08:19 Dose: 81 mg Betamethasone/Clotrimazole (Lotrisone) 0 gm TOP BID [facility] Last Admin: 12/22/18 22:23 Dose: 1 applic Bisacodyl (Dulcolax) 5 mg PO DAILY PRN PRN Reason: Constipation Bumetanide (Bumex) 2 mg PO QPM [facility] Bumetanide (Bumex) 3 mg PO DAILY [facility] Dextrose/Water (Dextrose 50% In Water) 50 ml IVPUSH ASDIRECTED PRN PRN Reason: Hypoglycemia Docusate Sodium (Colace) 100 mg PO BID PRN PRN Reason: Constipation Last Admin: 12/21/18 11:10 Dose: 100 mg Famotidine (Pepcid) 20 mg PO DAILY [facility] Last Admin: 12/22/18 08:19 Dose: 20 mg Guaifenesin (Mucinex) 600 mg PO BID [facility] Last Admin: 12/22/18 22:22 Dose: 600 mg Hydralazine HCl (Apresoline) 10 mg IVPUSH Q4H PRN PRN Reason: Hypertension Last Admin: 12/21/18 21:26 Dose: 10 mg Insulin Glargine (Lantus) 15 unit SUBCUT DAILY [facility] Last Admin: 12/22/18 08:18 Dose: 15 unit Insulin Human Lispro (Humalog) 0 unit SUBCUT QIDACANDBED [facility]; Protocol Last Admin: 12/22/18 22:20 Dose: 6 units Insulin Human Lispro (Humalog) 8 unit SUBCUT BIDMEALS [facility] Last Admin: 12/21/18 09:34 Dose: Not Given Lorazepam (Ativan) 0.25 mg IV Q6H PRN PRN Reason: Anxiety Metolazone (Zaroxolyn) 2.5 mg PO DAILY [facility] Last Admin: 12/22/18 08:19 Dose: 2.5 mg Metoprolol Tartrate (Lopressor) 5 mg IVPUSH Q4H PRN PRN Reason: Tachycardia Modafinil (Provigil) 100 mg PO DAILY [facility] Last Admin: 12/22/18 08:18 Dose: 100 mg Nystatin (Nystop) 0 gm TOP DAILY PRN PRN Reason: RASH Ondansetron HCl (Zofran) 4 mg IV Q6H PRN PRN Reason: Nausea/Vomiting Polyethylene Glycol (Miralax) 17 gm PO DAILY PRN PRN Reason: Constipation Potassium Chloride (Klor-Con M20) 40 meq PO BID [facility] Stop: 12/23/18 09:01 Last Admin: 12/22/18 22:22 Dose: 40 meq Rosuvastatin Calcium (Crestor) 20 mg PO BEDTIME [facility] Last Admin: 12/22/18 22:22 Dose: 20 mg Saccharomyces Boulardii (Florastor) 250 mg PO BID [facility] Last Admin: 12/22/18 22:22 Dose: 250 mg Senna/Docusate Sodium (Senna Plus) 1 tab PO BID PRN PRN Reason: Constipation Last Admin: 12/21/18 05:05 Dose: 1 tab Sodium Chloride (Saline Flush) 10 ml FLUSH ASDIRECTED PRN PRN Reason: Keep Vein Open Last Admin: 12/18/18 15:40 Dose: 10 ml Vit A/Vit C/Vit E/Selen/Cu/Zn/Lutei (Icaps Mv) 1 tab PO DAILY [facility] Last Admin: 12/22/18 08:18 Dose: 1 tab Discontinued Medications Bisacodyl (Dulcolax) 10 mg PO ASDIRECTED PRN PRN Reason: Constipation Bumetanide (Bumex) 1 mg IVPUSH ONETIME ONE Stop: 12/18/18 17:36 Last Admin: 12/18/18 18:18 Dose: 1 mg Carbamide Perox/Anhydrous Glycerin (Debrox 6.5% Otic Soln) 15 ml EARBOTH BID [facility] Stop: 12/20/18 21:01 Carbamide Perox/Anhydrous Glycerin (Debrox 6.5% Otic Soln) 15 ml EARBOTH BID [facility] Stop: 12/20/18 09:01 Last Admin: 12/19/18 20:14 Dose: Not Given Carbamide Perox/Anhydrous Glycerin (Debrox 6.5% Otic Soln) 0 ml EARBOTH BID [facility] Stop: 12/22/18 21:01 Last Admin: 12/20/18 09:58 Dose: Not Given Famotidine (Pepcid) 20 mg PO BID [facility] Last Admin: 12/19/18 22:24 Dose: 20 mg Ceftriaxone Sodium 2 gm/ (Sodium Chloride) 100 mls @ 200 mls/hr IV ONETIME ONE Stop: 12/18/18 18:59 Last Admin: 12/18/18 18:32 Dose: 200 mls/hr Furosemide 100 mg/ Sodium (Chloride) 100 mls @ 3 mls/hr IV TITRATE [facility]; Protocol Stop: 12/22/18 11:30 Last Admin: 12/21/18 11:30 Dose: 3 mls/hr Magnesium Sulfate (Pharmacy To Dose - Magnesium Replacement) 0 dose .XX ASDIRECTED PRN PRN Reason: RX TO WATCH MAG Potassium Chloride (Pharmacy To Dose - Potassium Replacement) 0 dose .XX ASDIRECTED PRN PRN Reason: RX TO WATCH K Potassium Chloride (Klor-Con M20) 40 meq PO Q4H [facility] Stop: 12/19/18 03:31 Last Admin: 12/19/18 04:54 Dose: 40 meq Potassium Chloride (Klor-Con M20) 40 meq PO ONETIME ONE Stop: 12/19/18 09:01 Last Admin: 12/19/18 09:03 Dose: 40 meq - Exam Quality Assessment: Reports: DVT Prophylaxis. Denies: Urine Catheter General: Reports: Alert, Oriented, Cooperative, No Acute Distress HEENT: Reports: Pupils Equal, Pupils Reactive, EOMI, Mucous Membr. Moist/[place] Neck: Reports: Supple, Trachea Midline Lungs: Reports: Clear to Auscultation, Normal Respiratory Effort Cardiovascular: Reports: Regular Rate, Regular Rhythm GI/Abdominal Exam: Normal Bowel Sounds, Soft, Non-Tender, No Organomegaly, No Distention (Female) Exam: Deferred Rectal (Female) Exam: Deferred Back Exam: Reports: Normal Inspection, Full Range of Motion Extremities: Normal Inspection, Normal Range of Motion, Non-Tender, No Pedal Edema, Normal Capillary Refill Skin: Reports: Warm, Dry, Intact Neurological: Reports: No New Focal Deficit Psy/Mental Status: Reports: Alert, Normal Affect, Normal Mood
[2018-12-23] MEDS ORDERED: Bumetanide 1 MG Tab PO SCH ×2 (09:00→18:00)
[2018-12-23] MEDS ORDERED: amLODIPine 10 MG Tab PO SCH (09:00)
[2018-12-23] MEDS: Insulin Lispro 100 Units/ML 3 ML Vial SUBCUT SCH ×2 (09:17→12:28)
[2018-12-23] MEDS: Multivitamins with Minerals/Folic Acid/Lutein/Zeaxanth Tab PO SCH (09:18)
[2018-12-23] MEDS: Modafinil 200 MG Tab PO SCH (09:18)
[2018-12-23] MEDS: Saccharomyces Boulardii (Probiotic) 250 MG Cap PO SCH (09:18)
[2018-12-23] MEDS: guaiFENesin 600 MG Tab.ER PO SCH (09:19)
[2018-12-23] MEDS: Metolazone 2.5 MG Tab PO SCH (09:19)
[2018-12-23] MEDS: Aspirin 81 MG Tab.EC PO SCH (09:20)
[2018-12-23] MEDS: Potassium Chloride 20 MEQ Tab.ER PO SCH (09:20)
[2018-12-23] MEDS: Insulin Glarg,Human.Rec.Analog 100 UNIT/ML ML SUBCUT SCH (09:20)
[2018-12-23] MEDS: Famotidine 20 MG Tab PO SCH (09:20)
[2018-12-23] MEDS: Betamethasone Dipropionate/Clotrimazole 0.05-1% Crm 15 GM Tube TOP SCH (09:22)
[2018-12-23 20:10] VITALS: BP 132/78
== END 2018-12-23 14:05 | DRG 291 ==
LOC: JD.ED 14:20 → JD.MS 18:49
PROVIDERS: ADMIT Internal Medicine; ATTEND Internal Medicine
DX: I13.0 Hypertensive heart and chronic kidney disease with heart failure and stage 1 through stage 4 chronic kidney disease, or unspecified chronic kidney disease (principal); I50.33 Acute on chronic diastolic (congestive) heart failure; S22.41XA Multiple fractures of ribs, right side, initial encounter for closed fracture; E87.1 Hypo-osmolality and hyponatremia; N39.0 Urinary tract infection, site not specified; I50.9 Heart failure, unspecified; N18.4 Chronic kidney disease, stage 4 (severe); Z68.41 Body mass index [BMI] 40.0-44.9, adult; E46 Unspecified protein-calorie malnutrition; S27.9XXA Injury of unspecified intrathoracic organ, initial encounter; X58.XXXA Exposure to other specified factors, initial encounter; N18.3 Chronic kidney disease, stage 3 (moderate); I44.0 Atrioventricular block, first degree; I48.0 Paroxysmal atrial fibrillation; E78.5 Hyperlipidemia, unspecified; I87.2 Venous insufficiency (chronic) (peripheral); E66.01 Morbid (severe) obesity due to excess calories; E11.21 Type 2 diabetes mellitus with diabetic nephropathy; Z66 Do not resuscitate; H61.23 Impacted cerumen, bilateral; H91.90 Unspecified hearing loss, unspecified ear; E87.6 Hypokalemia; R31.9 Hematuria, unspecified; E78.00 Pure hypercholesterolemia, unspecified; I73.9 Peripheral vascular disease, unspecified; K21.9 Gastro-esophageal reflux disease without esophagitis; R06.02 Shortness of breath; R60.9 Edema, unspecified; E11.40 Type 2 diabetes mellitus with diabetic neuropathy, unspecified; E11.22 Type 2 diabetes mellitus with diabetic chronic kidney disease; M19.90 Unspecified osteoarthritis, unspecified site; M81.0 Age-related osteoporosis without current pathological fracture; M54.30 Sciatica, unspecified side; E66.9 Obesity, unspecified; D64.9 Anemia, unspecified; R32 Unspecified urinary incontinence; L50.9 Urticaria, unspecified; H54.7 Unspecified visual loss; Z79.82 Long term (current) use of aspirin; Z79.890 Hormone replacement therapy; Z79.4 Long term (current) use of insulin; Z79.899 Other long term (current) drug therapy; Z90.710 Acquired absence of both cervix and uterus; Z87.440 Personal history of urinary (tract) infections
CPT/HCPCS: 36415; 71045; 80053; 81001; 83880; 84484; 85025; 85379; 87086; 87088; 87184; 93005; 96365; 96375; 99285; J0696; J3490; J7030; 80048; 82962; 83735; 85014; 85018; 86140; 93010; 93306; 97110-GO; 97110-GP; 97116-GP; 97161-GP; 97165-GO; 97530-GP; 97535-GO; A9270-GY; J0360; J1815-GY; J1940

== ENCOUNTER 2019-07-12 06:48 | Emergency (ER) | payer MEDICARE, BC, MEDICAID ==
[2019-07-12] MEDS ORDERED: Metoclopramide 10 MG/2 ML SDV IVPUSH ONE (07:13)
[2019-07-12] MEDS ORDERED: LORazepam 2 MG/ML SDV IVPUSH ONE (07:13)
[2019-07-12] MEDS ORDERED: Sodium Chloride 0.9% 1,000 ML IV SCH ×2 (07:15→08:30)
--- NOTE | 2019-07-12 07:17 | EDM.PDOC ---
ED HPI GENERAL MEDICAL PROBLEM - General Chief Complaint: Neuro Symptoms/Deficits Stated Complaint: [facility] Time Seen by Provider: 07/12/19 07:12 Source of Information: Reports: Patient History Limitations: Reports: No Limitations - History of Present Illness INITIAL COMMENTS - FREE TEXT/NARRATIVE: 84-year-old female presents to the ED with acute onset of vertigo. She was difficult time expressing herself. She feels the room is spinning. The only way she can get relief is to hold still with her eyes closed. She woke up with these symptoms this morning when she tried to get up to go to the bathroom. She did not fall. She did use her walker. However she was unable to get to the bathroom due to being so offkilter. She can't remember she's had vertigo symptoms before. She denies any harming buzzing or ringing in her ears. No new medications. No recent falls or closed head injuries. She did have 1 small emesis of bilious material. Patient is a very poor historian. Onset: Today Onset Date: 07/12/19 Onset Time: 05:00 Duration: Minutes: Location: Reports: Other Quality: Reports: Other (Generalized sense of vertigo with the room spinning.) Severity: Moderate (Vertigo.) Improves with: Reports: Rest ( rest with eyes closed ) Worsens with: Reports: Movement (Movement of her head and neck. Worse in the ambulance) Context: Denies: Activity ( due to motion sickness.), Exercise, Lifting, Sick Contact, Trauma, Other Associated Symptoms: Reports: Loss of Appetite, Malaise, Nausea/Vomiting, Weakness. Denies: No Other Symptoms, Confusion, Chest Pain, Cough, cough w sputum, Diaphoresis, Fever/Chills, Headaches, Rash, Seizure (Vomited once with one small amount of bilious material.), Shortness of Breath, Syncope Treatments ACCOUNTS CLERK: Reports: Other (see below) (None.) - Related Data Allergies Allergy/AdvReac Type Severity Reaction Status Date / Time No Known Allergies Allergy Verified 07/12/19 09:12 Home Meds: Home Meds Insulin Aspart [NovoLOG] 8 units SUBCUT BID 07/14/18 [History] Lactobacillus Acidophilus [Acidophilus Lactobacilli] 1 cap PO BID 11/22/18 [ History] Acetaminophen [Tylenol] 650 mg PO Q6H 12/18/18 [History] Aspirin 81 mg PO DAILY 12/18/18 [History] Bisacodyl [Dulcolax] 10 mg PO ASDIRECTED PRN 12/18/18 [History] Bumetanide [Bumex] 2 mg PO QPM 12/18/18 [History] Bumetanide [Bumex] 3 mg PO DAILY 12/18/18 [History] Calcium Carbonate [Tums] 200 mg PO Q6H PRN 12/18/18 [History] Lotrisone Cream. 1 dose TOP BID 12/18/18 [History] Lutein/Minerals/Vit A,C & E [Ocuvite] 1 tab PO DAILY 12/18/18 [History] Modafinil 100 mg PO DAILY 12/18/18 [History] Nystatin Powder. 1 dose TOP DAILY PRN 12/18/18 [History] Potassium. 20 meq PO QID 12/18/18 [History] Rosuvastatin [Crestor] 20 mg PO BEDTIME 12/18/18 [History] Vit C/E/Zn/Coppr/Lutein/Zeaxan [Preservision Areds 2 Softgel] 1 tab PO BID 12/18 [History] amLODIPine Besylate [Amlodipine Besylate] 10 mg PO DAILY 12/18/18 [History] guaiFENesin [Mucinex] 600 mg PO BID 12/18/18 [History] metOLazone [Metolazone] 2.5 mg PO DAILY 12/18/18 [History] Acetaminophen 650 mg PO BID PRN 07/12/19 [History] Benzocaine/Menthol [Cepacol Sore Throat Lozenge] 1 lozenge PO Q1H PRN 07/12/19 [ History] Insulin Degludec [Tresiba] 15 unit SQ DAILY 07/12/19 [History] Nitrofurantoin Monohyd/M-Cryst [Macrobid 100 mg Capsule] 100 mg PO BID #12 capsule 07/12/19 [Rx] Polyvinyl Alcohol/Povidone/Pf [Refresh Classic Eye Drops] 1 drop EYEBOTH ASDIRECTED PRN 07/12/19 [History] Sodium Chloride [Saline Nose [place]] 1 spray NASBOTH Q4H PRN 07/12/19 [History] Past Medical History HEENT 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: Cataract, Hard of Hearing, Impaired Vision, Macular Degeneration Other HEENT History: cough Cardiovascular 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: Heart Failure, High Cholesterol, Hypertension, PVD Respiratory 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: SOB Gastrointestinal 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: GERD, Hiatal Hernia Genitourinary 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: Chronic Renal Insuffiency, Urinary Incontinence Other Genitourinary History: polyuria - CKD III [employer] 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: Musculoskeletal 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: Osteoarthritis, Osteoporosis, Other (See Below ) Other Musculoskeletal History: sciatic nerve pain Neurological 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: Neuropathy, Diabetic Other Neuro History: hypo-osmolality, hyponatremia Endocrine/Metabolic 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: Diabetes, Type II, Obesity/BMI 30+ Other Endocrine/Metabolic History: chronic kidney disease Hematologic 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: Anemia Other Hematologic History: previous anemia 5-6 yrs ago Dermatologic 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: Urticaria Other Dermatologic History: tinea unguium-onchomycosis - Infectious Disease History Infectious Disease 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: Chicken Pox - Past Surgical History HEENT Surgical 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: Cataract Surgery Cardiovascular Surgical 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: None Respiratory Surgical 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: None GI Surgical 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: Colonoscopy Female Surgical 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: Hysterectomy Endocrine Surgical 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: None Neurological Surgical 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: None Musculoskeletal Surgical 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: None Dermatological Surgical 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: None Social & Family History - Family History Family Medical History: Noncontributory HEENT: Reports: Cataract, Macular Degeneration Other HEENT Family History: mom, sister Neurological: Reports: Alzheimers Disease Other Neurological Family History: dad Endocrine/Metabolic: Reports: Diabetes, type II Other Endocrine/Metabolic Family History: sister Dermatologic: Reports: None Oncologic: Reports: Breast Other Oncologic Family History: mother - Caffeine Use Caffeine Use: Reports: None - Living Situation & Occupation Living situation: Reports: Alone Occupation: Retired [employer] [facility] - Review of Systems Review Of Systems: See Below Constitutional: Reports: Malaise, Weakness, Fatigue, Decreased Appetite, Weight Loss. Denies: Fever, Chills HEENT: Reports: Glasses, Hearing Loss Respiratory: Reports: No Symptoms Cardiovascular: Reports: Blood Pressure Problem, Lightheadedness. Denies: Chest Pain, Claudication, Dyspnea on Exertion, Edema, Orthopnea, Palpitations Endocrine: Reports: Fatigue GI/Abdominal: Reports: Constipation, Nausea, Vomiting : Reports: Frequency (Occasional positive constipation.), Incontinence Musculoskeletal: Reports: Back Pain (Urge and stress components.), Joint Pain ( Hips and neck and shoulders at times.) Skin: Reports: Bruising Neurological: Reports: Dizziness Psychiatric: Reports: No Symptoms Hematologic/Lymphatic: Reports: No Symptoms Immunologic: Reports: No Symptoms ED EXAM, NEURO - Physical Exam Exam: See Below Exam Limited By: No Limitations General Appearance: Alert, WD/WN, Moderate Distress, Other (Vital signs show temperature 36.2 pulse of 70 and sinus respiratory 16 BP elevated 1 6365 sats 96 % on room air.) Eye Exam: Bilateral Eye: Normal Inspection, Nystagmus (Very slight nystagmus on right lateral gaze.), PERRL Ears: Other Throat/Mouth: Normal Inspection (The left ear canal is occluded with cerumen which is impacting the eardrum. The right is normal.), Normal Lips, Normal Teeth , Normal Oropharynx, Other (Tongue is mildly dry and coated.) Head Exam: Atraumatic, Normocephalic Neck: Normal Inspection, Limited Range of Motion, Tender Lateral. No: Carotid Bruit, Lymphadenopathy (L), Lymphadenopathy (R) Respiratory/Chest: No Respiratory Distress, Lungs Clear, Normal Breath Sounds, No Accessory Muscle Use Cardiovascular: Normal Peripheral Pulses, Regular Rate, Rhythm, No Edema, No Gallop, No Murmur, No Rub GI/Abdominal: Normal Bowel Sounds, Soft, Non-Tender, No Organomegaly, No Abnormal Bruit, No Mass, Pelvis Stable Neurological: Alert, Normal Dorsiflexion, CN II-XII Intact, Normal Plantar Flexion, No Motor/Sensory Deficits, Oriented x 3, Other (She could not do finger to nose very well. No pronator drift.). No: Normal Mood/Affect, Normal Gait, Normal Reflexes, Abnormal Finger to Nose DTR: 0: Achilles (R), Achilles (L), 2+: Bicep (R), Bicep (L), Patella (R), Patella (L) Back Exam: Normal Inspection, Full Range of Motion. No: CVA Tenderness (L), CVA Tenderness (R) Extremities: Normal Inspection, Normal Range of Motion, Non-Tender, Other (Lots of bruises on her extensor surface of her forearms bilaterally.) Psychiatric: Flat Affect Skin Exam: Warm, Dry, Intact, Normal Color, No Rash EKG INTERPRETATION EKG Date: 07/12/19 Time: 07:41 Rhythm: NSR Rate (Beats/Min): 66 [place]: LAD-Left [place] Deviation (Mild left axis deviation of -11) P-Wave: Present (With first-degree AV block.) QRS: Other (Decreased voltage limb and precordial leads.) ST-T: Other (Diffuse repolarization abnormality particular noted V3 to V6 and lead 2. There is T-wave flattening in leads 3 and aVL.) QT: Prolonged EKG Interpretation Comments: Abnormal ECG Course - Vital Signs Last Recorded V/S: Last Vital Signs Temp 36.2 C 07/12/19 06:52 Pulse 70 07/12/19 06:52 Resp 16 07/12/19 06:52 BP 163/65 H 07/12/19 06:52 Pulse Ox 96 07/12/19 06:52 - Orders/Labs/Meds Orders: Active Orders 24 hr Category Date Time Status EKG Documentation Completion [RC] STAT Care 07/12/19 07:15 Active Ear Irrigation [RC] ASDIRECTED Care 07/12/19 07:14 Active CULTURE URINE [RM] Routine Lab 07/12/19 09:34 Received Sodium Chloride 0.9% [Normal Saline] 1,000 ml Med 07/12/19 08:30 Active IV ASDIRECTED Medication Orders Sodium Chloride (Normal Saline) 1,000 mls @ 50 mls/hr IV ASDIRECTED SANJIV Labs: Laboratory Tests 07/12/19 07/12/19 07/12/19 Range/Units 07:30 07:30 07:30 WBC 5.94 (3.98-10.04) K/mm3 RBC 3.12 L (3.98-5.22) M/mm3 Hgb 9.2 L (11.2-15.7) gm/dl Hct 29.0 L (34.1-44.9) % MCV 92.9 D (79.4-94.8) fl MCH 29.5 (25.6-32.2) pg MCHC 31.7 L (32.2-35.5) g/dl RDW Std Deviation 44.7 (36.4-46.3) fL Plt Count 138 L (182-369) K/mm3 MPV 9.3 L (9.4-12.3) fl Neut % (Auto) 66.6 (34.0-71.1) % Lymph % (Auto) 14.5 L (19.3-51.7) % [place] % (Auto) 13.5 H (4.7-12.5) % Eos % (Auto) 5.1 (0.7-5.8) Baso % (Auto) 0.3 (0.1-1.2) % Neut # (Auto) 3.96 (1.56-6.13) K/mm3 Lymph # (Auto) 0.86 L (1.18-3.74) K/mm3 [place] # (Auto) 0.80 H (0.24-0.36) K/mm3 Eos # (Auto) 0.30 (0.04-0.36) K/mm3 Baso # (Auto) 0.02 (0.01-0.08) K/mm3 PT 11.7 (9.7-12.0) SECONDS INR 1.08 Sodium 134 L (136-145) mEq/L Potassium 3.6 (3.5-5.1) mEq/L Chloride 97 L (98-107) mEq/L Carbon Dioxide 31 (21-32) mEq/L Anion Gap 9.6 (5-15) BUN 47 H (7-18) mg/dL Creatinine 2.2 H (0.55-1.02) mg/dL Est Cr Clr Drug Dosing TNP Estimated GFR (MDRD) 21 (>60) mL/min BUN/Creatinine Ratio 21.4 H (14-18) Glucose 129 H (83-115) mg/dL POC Glucose (83-110) mg/dL Calcium 7.8 L (8.5-10.1) mg/dL Magnesium 2.3 (1.8-2.4) mg/dl Total Bilirubin 0.3 (0.2-1.0) mg/dL AST 28 (15-37) U/L ALT 26 (14-59) U/L Alkaline Phosphatase 123 H (46-116) U/L C-Reactive Protein < 0.2 (<1.0) mg/dL NT-Pro-B Natriuret Pep (0-450) pg/mL Total Protein 7.2 (6.4-8.2) g/dl Albumin 2.7 L (3.4-5.0) g/dl Globulin 4.5 gm/dL Albumin/Globulin Ratio 0.6 L (1-2) Urine Color (Yellow) Urine Appearance (Clear) Urine pH (5.0-8.0) Ur Specific [place] (1.005-1.030) Urine Protein (Negative) Urine Glucose (UA) (Negative) Urine Ketones (Negative) Urine Occult Blood (Negative) Urine Nitrite (Negative) Urine Bilirubin (Negative) Urine Urobilinogen (0.2-1.0) Ur Leukocyte Esterase (Negative) Urine RBC (0-5) /hpf Urine WBC (0-5) /hpf Ur Epithelial Cells (0-5) /hpf Urine Bacteria (FEW) /hpf Urine Mucus (FEW) /hpf 07/12/19 07/12/19 07/12/19 Range/Units 07:30 07:39 09:34 WBC (3.98-10.04) K/mm3 RBC (3.98-5.22) M/mm3 Hgb (11.2-15.7) gm/dl Hct (34.1-44.9) % MCV (79.4-94.8) fl MCH (25.6-32.2) pg MCHC (32.2-35.5) g/dl RDW Std Deviation (36.4-46.3) fL Plt Count (182-369) K/mm3 MPV (9.4-12.3) fl Neut % (Auto) (34.0-71.1) % Lymph % (Auto) (19.3-51.7) % [place] % (Auto) (4.7-12.5) % Eos % (Auto) (0.7-5.8) Baso % (Auto) (0.1-1.2) % Neut # (Auto) (1.56-6.13) K/mm3 Lymph # (Auto) (1.18-3.74) K/mm3 [place] # (Auto) (0.24-0.36) K/mm3 Eos # (Auto) (0.04-0.36) K/mm3 Baso # (Auto) (0.01-0.08) K/mm3 PT (9.7-12.0) SECONDS INR Sodium (136-145) mEq/L Potassium (3.5-5.1) mEq/L Chloride (98-107) mEq/L Carbon Dioxide (21-32) mEq/L Anion Gap (5-15) BUN (7-18) mg/dL Creatinine (0.55-1.02) mg/dL Est Cr Clr Drug Dosing Estimated GFR (MDRD) (>60) mL/min BUN/Creatinine Ratio (14-18) Glucose (83-115) mg/dL POC Glucose 123 H (83-110) mg/dL Calcium (8.5-10.1) mg/dL Magnesium (1.8-2.4) mg/dl Total Bilirubin (0.2-1.0) mg/dL AST (15-37) U/L ALT (14-59) U/L Alkaline Phosphatase (46-116) U/L C-Reactive Protein (<1.0) mg/dL NT-Pro-B Natriuret Pep 3583 H (0-450) pg/mL Total Protein (6.4-8.2) g/dl Albumin (3.4-5.0) g/dl Globulin gm/dL Albumin/Globulin Ratio (1-2) Urine Color Yellow (Yellow) Urine Appearance Cloudy H (Clear) Urine pH 7.0 (5.0-8.0) Ur Specific [place] 1.020 (1.005-1.030) Urine Protein 3+ H (Negative) Urine Glucose (UA) Negative (Negative) Urine Ketones Negative (Negative) Urine Occult Blood 1+ H (Negative) Urine Nitrite Positive H (Negative) Urine Bilirubin Negative (Negative) Urine Urobilinogen 0.2 (0.2-1.0) Ur Leukocyte Esterase 3+ H (Negative) Urine RBC 5-10 H (0-5) /hpf Urine WBC 75-100 H (0-5) /hpf Ur Epithelial Cells 0-5 (0-5) /hpf Urine Bacteria Few (FEW) /hpf Urine Mucus Few (FEW) /hpf Meds: Medications Generic Name Dose Route Start Last Admin Trade Name Freq PRN Reason Stop Dose Admin Sodium Chloride 1,000 mls @ 50 mls/hr 07/12/19 08:30 Normal Saline IV ASDIRECTED SANJIV Discontinued Medications Generic Name Dose Route Start Last Admin Trade Name Freq PRN Reason Stop Dose Admin Bumetanide 2 mg 07/12/19 08:36 07/12/19 08:44 Bumex IVPUSH 07/12/19 08:37 2 mg ONETIME ONE Administration Sodium Chloride 1,000 mls @ 200 mls/hr 07/12/19 07:15 07/12/19 07:46 Normal Saline IV 200 mls/hr ASDIRECTED SANJIV Administration Ceftriaxone Sodium 1 gm/ 100 mls @ 200 mls/hr 07/12/19 10:04 07/12/19 10:36 Sodium Chloride IV 07/12/19 10:33 200 mls/hr ONETIME ONE Administration Lorazepam 0.5 mg 07/12/19 07:13 07/12/19 07:44 Ativan IVPUSH 07/12/19 07:14 0.5 mg ONETIME ONE Administration Metoclopramide HCl 7.5 mg 07/12/19 07:13 07/12/19 07:42 Reglan IVPUSH 07/12/19 07:14 7.5 mg ONETIME ONE Administration - Radiology Interpretation Free Text/Narrative:: 84-year-old female presents to the ED with acute onset of vertigo symptoms. She states when she got up and walk with her walker this morning she was offkilter and off balance. She did not fall at home. She states the room is spinning and she prefers to lie still with her eyes closed. She did have emesis in the ambulance on the way to the hospital. This was bilious. She can't remember she' s had vertigo symptoms before. She does have mild nystagmus on right lateral gaze. Her left ear canal is completely occluded with cerumen pushing up against her eardrum and will be irrigated. IV will be normal saline at 200 mils an hour. Given Reglan 7.5 mg IV and Ativan 0.5 mg IV for relief of vertigo symptoms. Routine labs to be collected and ECG. - Re-Assessments/Exams Free Text/Narrative Re-Assessment/Exam: 07/12/19 08:26 Upon review of the patient's med list which is now available and indicates that she is suffering from congestive heart failure and is on Bumex twice daily. She also suffers from type 2 diabetes controlled with insulin. Her night normal saline infusion will be reduced to 50 mils per hour.White count is normal at 5.94. The auto differential shows 66% neutrophils. She is anemic with hemoglobin of 9.2 and hematocrit of 29.0. Platelet count 238,000. PT is 11.7 with an INR of 1.08. Glucose is 123 at the bedside. Chest x-ray done portably reveals slightly increased bronchial wall thickening on the right side and difficult to exclude a mild bronchitis. Mild cardiomegaly. 07/12/19 08:37 PT is 11.7 with an INR 1.08. Sodium slightly low at 134. Potassium is 3.6. Chloride is 97 with a bicarbonate 31. Anion gap is 9.6. BUN is 47 with a creatinine of 2.2. Estimated GFR is 21. Glucose is 129. Calcium 7.8 low magnesium 2.3. Liver function normal C-reactive protein is less than 0.2. BNP is markedly elevated at 3583. Total protein was 7.2 albumin fraction 2.7. Patient's IV was to decrease to 50 mils an hour. She will be given Bumex 2 mg IV O2 sats are 100% but on 3 L/m by nasal cannula. Chest x-ray will be ordered at this time since she has a history of significant congestive failure. 07/12/19 10:04 Urinalysis shows 3+ protein 1+ occult blood positive nitrates 3+ leukocyte esterase and 5-10 RBCs per power field with 75-100 WBCs per high- power field. Urine culture ordered. 07/12/19 10:40 patient has completed 1 g of Rocephin intravenously. She will be discharged back to [facility]. At this time and going to leave her off any Antivert as she may be have relief of her vertigo symptoms sent with removal of the cerumen impaction in her left ear. She'll be continued on Macrobid 100 mg twice a day for 6 more days for your lower urinary tract infection. Departure - Departure Time of Disposition: 10:05 Disposition: DC/Tfer to [facility] Condition: Fair Clinical Impression: Benign paroxysmal vertigo of left ear, Impacted cerumen, left ear, Lower urinary tract infection, UTI, Urinary tract infectious disease, Vertigo Chronic CHF Qualifiers: Heart failure type: combined systolic and diastolic Qualified Code(s): I50.42 - Chronic combined systolic (congestive) and diastolic (congestive) heart failure - Discharge Information *PRESCRIPTION DRUG MONITORING PROGRAM REVIEWED*: Not Applicable *COPY OF PRESCRIPTION DRUG MONITORING REPORT IN PATIENT ALAINA: Not Applicable Prescriptions: Nitrofurantoin Monohyd/M-Cryst [Macrobid 100 mg Capsule] 100 mg PO BID #12 capsule Instructions: Earwax Buildup, Adult, Vertigo, [id number], Urinary Tract Infection, Adult Referrals: Naren Kim MD [Primary Care Provider] - Forms: ED Department Discharge Additional Instructions: Evaluation the emergency room this morning in regards to feeling off balance when she got up this morning. There is some suggestion that she was expressing vertigo with the room spinning so she with nausea and vomiting in the eminence en route to the hospital. Identified mild nystagmus on right lateral gaze. Found that her left ear was impacted with cerumen up against her eardrum and this was irrigated away. She was initially treated with intravenous fluids and Ativan 0.5 mg and Reglan 7.5 mg IV to settle down the vertigo. After an hour and a half she was allowed to get up and did fairly well ambulating with no further vertigo symptoms. She is still tired from the medication. Lab work however did identify a urinary tract infection which appears to be confined to the lower urinary tract as there is no elevation of her white blood cell count to suggest a systemic infection she has no fever. Going to leave the vertigo symptoms alone. She may be improved after irrigation of the left cerumen impaction. If she develops but no symptoms again she may require meclizine or Antivert which is an [id number] medication 12.5 mg every 8 hours for 5 days. Dose of antibiotic was given in the ED Rocephin 1 g IV for urinary tract infection. She will need Macrobid 100 mg twice a day starting tomorrow for the next 6 days to clear up the bladder infection completely. Follow-up with personal care physician if any further problems occur such as continued problems with balance and disequilibrium from vertigo. - My Orders Last 24 Hours: My Active Orders 07/12/19 07:14 Ear Irrigation [RC] ASDIRECTED 07/12/19 07:15 EKG Documentation Completion [RC] STAT 07/12/19 08:30 Sodium Chloride 0.9% [Normal Saline] 1,000 ml IV ASDIRECTED 07/12/19 09:34 CULTURE URINE [RM] Routine - Assessment/Plan Last 24 Hours: My Active Orders 07/12/19 07:14 Ear Irrigation [RC] ASDIRECTED 07/12/19 07:15 EKG Documentation Completion [RC] STAT 07/12/19 08:30 Sodium Chloride 0.9% [Normal Saline] 1,000 ml IV ASDIRECTED 07/12/19 09:34 CULTURE URINE [RM] Routine
[2019-07-12] MEDS ORDERED: Bumetanide 1 MG/4 ML MDV IVPUSH ONE (08:36)
[2019-07-12] MEDS ORDERED: cefTRIAXone 1 GM in Sodium Chloride 0.9% 100 ML IV ONE (10:04)
--- NOTE | 2019-07-12 10:05 | CR ---
Chest: Portable view of the chest was obtained. Comparison: Prior chest x-ray of 12/18/18. Heart size and mediastinum are normal. Slight increased bronchial wall thickening is noted on the right side and difficult to exclude mild bronchitis. No alveolar type densities are seen. Bony structures are grossly intact. Impression: 1. Questionable findings of right-sided bronchitis. 2. Nothing acute is otherwise seen. Diagnostic code #3
[2019-07-12 11:32] VITALS: BP 154/68; PULSE 68
== END 2019-07-12 11:23 ==
LOC: JD.ED 06:48
DX: H81.12 Benign paroxysmal vertigo, left ear (principal); H61.22 Impacted cerumen, left ear; N39.0 Urinary tract infection, site not specified; E11.22 Type 2 diabetes mellitus with diabetic chronic kidney disease; I13.0 Hypertensive heart and chronic kidney disease with heart failure and stage 1 through stage 4 chronic kidney disease, or unspecified chronic kidney disease; N18.3 Chronic kidney disease, stage 3 (moderate); I50.42 Chronic combined systolic (congestive) and diastolic (congestive) heart failure; E78.00 Pure hypercholesterolemia, unspecified; E11.36 Type 2 diabetes mellitus with diabetic cataract; E11.40 Type 2 diabetes mellitus with diabetic neuropathy, unspecified; E66.9 Obesity, unspecified; Z79.82 Long term (current) use of aspirin; Z79.899 Other long term (current) drug therapy; Z79.4 Long term (current) use of insulin
CPT/HCPCS: 36415; 69209; 71045; 80053; 81001; 82962; 83735; 83880; 85025; 85610; 86140; 87086; 87088; 87186; 93005; 96361; 96365; 96375; 99285; J0696; J2060; J2765; J3490; J7030; J7040; 93010; 99284

== ENCOUNTER 2019-12-01 18:37 | Inpatient (IN) | payer MEDICARE, BC, MEDICAID ==
[2019-12-01] MEDS ORDERED: Sodium Chloride 0.9% 10 ML Syringe FLUSH PRN (19:02)
--- NOTE | 2019-12-01 19:06 | EDM.PDOC ---
ED HPI GENERAL MEDICAL PROBLEM - General Chief Complaint: Cardiovascular Problem Stated Complaint: [facility] Time Seen by Provider: 12/01/19 18:57 Source of Information: Reports: Patient, Family (daughter) History Limitations: Reports: Physical Impairment (very weak . nearly blind. Dyspneaic at rest. ) - History of Present Illness INITIAL COMMENTS - FREE TEXT/NARRATIVE: 84-year-old female presents to the ED from local [facility] per [facility]. Her daughter provides most of the history. The patient lies still with her eyes closed and does answer some questions but is slightly hard of hearing and nearly blind. The reason for coming to the ED was increased shortness of breath and paroxysmal cough. No associated fever. Apparently she has been running a low hemoglobin in the sevens without transfusion over the last 2 months. I suspect she has renal insufficiency. She has a DO NOT RESUSCITATE order. She is so weak that she cannot walk or hardly get up on her own volition it is almost 2 person assist. Apparently nurses help clean her up after bowel movement have not appreciated any dark black tarry stools or at least none of been reported. She is not on any blood thinners. She has a bruise on her left facial cheek right shoulder and right upper arm with no known injuries. Appetite is poor. Patient is a type II diabetic controlled with insulin. History of congestive heart failure Onset: Gradual, Unknown/Unsure (Gradual decline in level of function over the last month or more.) Duration: Week(s):, Chronic, Getting Worse Location: Reports: Generalized (Increased generalized weakness shortness of breath on exertion.) Quality: Reports: Other (Denies being in any pain.) Severity: Severe Improves with: Reports: Rest Worsens with: Reports: Movement Context: Denies: Activity, Exercise, Lifting, Sick Contact, Trauma, Other Associated Symptoms: Reports: Cough, Loss of Appetite, Malaise, Shortness of Breath, Weakness. Denies: cough w sputum, Diaphoresis, Fever/Chills, Headaches , Nausea/Vomiting, Rash (And at rest), Seizure Treatments PEDIATRIC SPEECH THERAPIST: Reports: Other (see below) (Daughter does not believe that there is been any recent changes to her medications.) Left Hip Pain Score (Numeric/FACES): 8 - Related Data Allergies Allergy/AdvReac Type Severity Reaction Status Date / Time No Known Allergies Allergy Verified 12/01/19 22:07 Home Meds: Home Meds Insulin Aspart [NovoLOG] 0 units SUBCUT BID 07/14/18 [History] Lactobacillus Acidophilus [Acidophilus Lactobacilli] 1 cap PO BID 11/22/18 [ History] Acetaminophen [Tylenol] 650 mg PO Q6H 12/18/18 [History] Aspirin 81 mg PO DAILY 12/18/18 [History] Bumetanide [Bumex] 2 mg PO QPM 12/18/18 [History] Bumetanide [Bumex] 3 mg PO DAILY 12/18/18 [History] Calcium Carbonate [Tums] 200 mg PO Q6H PRN 12/18/18 [History] Lutein/Minerals/Vit A,C & E [Ocuvite] 1 tab PO DAILY 12/18/18 [History] Nystatin Powder. 1 dose TOP DAILY PRN 12/18/18 [History] Potassium. 20 meq PO QID 12/18/18 [History] Rosuvastatin [Crestor] 20 mg PO BEDTIME 12/18/18 [History] Vit C/E/Zn/Coppr/Lutein/Zeaxan [Preservision Areds 2 Softgel] 1 tab PO BID 12/18 [History] amLODIPine Besylate [Amlodipine Besylate] 10 mg PO DAILY 12/18/18 [History] bisacodyL [Dulcolax] 10 mg PO ASDIRECTED PRN 12/18/18 [History] guaiFENesin [Mucinex] 600 mg PO TID 12/18/18 [History] metOLazone [Metolazone] 2.5 mg PO DAILY 12/18/18 [History] modafiniL [Modafinil] 100 mg PO DAILY 12/18/18 [History] Insulin Degludec [Tresiba] 15 unit SQ DAILY 07/12/19 [History] Polyvinyl Alcohol/Povidone/Pf [Refresh Classic Eye Drops] 1 drop EYEBOTH ASDIRECTED PRN 07/12/19 [History] Sodium Chloride [Saline Nose [place]] 1 spray NASBOTH Q4H PRN 07/12/19 [History] Insulin Aspart [NovoLOG] 8 units SQ BID 12/01/19 [History] Past Medical History HEENT 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: Cataract, Hard of Hearing, Impaired Vision, Macular Degeneration Other HEENT History: cough Cardiovascular 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: Heart Failure, High Cholesterol, Hypertension, PVD Respiratory 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: SOB Gastrointestinal 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: GERD, Hiatal Hernia Genitourinary 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: Chronic Renal Insuffiency, Urinary Incontinence Other Genitourinary History: polyuria - CKD III PRODUCT SAFETY ASSOCIATE 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: Musculoskeletal 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: Osteoarthritis, Osteoporosis, Other (See Below ) Other Musculoskeletal History: sciatic nerve pain Neurological 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: Neuropathy, Diabetic Other Neuro History: hypo-osmolality, hyponatremia Endocrine/Metabolic 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: Diabetes, Type II, Obesity/BMI 30+ Other Endocrine/Metabolic History: chronic kidney disease Hematologic 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: Anemia Other Hematologic History: previous anemia 5-6 yrs ago Dermatologic 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: Urticaria Other Dermatologic History: tinea unguium-onchomycosis - Infectious Disease History Infectious Disease 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: Chicken Pox - Past Surgical History HEENT Surgical 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: Cataract Surgery Cardiovascular Surgical 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: None Respiratory Surgical 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: None GI Surgical 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: Colonoscopy Female Surgical 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: Hysterectomy Endocrine Surgical 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: None Neurological Surgical 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: None Musculoskeletal Surgical 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: None Dermatological Surgical 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: None Social & Family History - Family History Family Medical History: Noncontributory HEENT: Reports: Cataract, Macular Degeneration Other HEENT Family History: mom, sister Neurological: Reports: Alzheimers Disease Other Neurological Family History: dad Endocrine/Metabolic: Reports: Diabetes, type II Other Endocrine/Metabolic Family History: sister Dermatologic: Reports: None Oncologic: Reports: Breast Other Oncologic Family History: mother - Caffeine Use Caffeine Use: Reports: None - Living Situation & Occupation Living situation: Reports: Alone Occupation: Retired [employer] GENER[facility] - Review of Systems Review Of Systems: See Below Constitutional: Reports: Malaise, Weakness, Fatigue, Decreased Appetite, Weight Loss. Denies: Fever, Chills HEENT: Reports: Hearing Loss (Mild hearing loss ), Other (Her macular degeneration and is nearly blind.) Respiratory: Reports: Shortness of Breath (and not using any hearing aids.), Wheezing, Cough. Denies: Pleuritic Chest Pain (Patient no wheezing appreciated by daughter), Sputum, Hemoptysis (Productive) Cardiovascular: Reports: Blood Pressure Problem, Dyspnea on Exertion, Edema ( Chronic edema both lower extremities. They are wrapped with Saul wraps there are no open wounds or lesions on the lower extremities. She is unable to get MORGAN stockings on on.), Lightheadedness, Orthopnea. Denies: Chest Pain, Claudication (Systolic hypertension) Endocrine: Reports: Fatigue GI/Abdominal: Reports: Constipation : Reports: Frequency, Incontinence, Urgency Musculoskeletal: Reports: Back Pain (Will stress to manage components), Joint Pain Skin: Reports: Bruising (Knees hips neck and shoulders at times very easy bruising. Currently has a bruise left face that she does not know how she got bruising right anterior arm over the deltoid musculature) Neurological: Reports: Confusion, Dizziness (Sometimes is confused), Syncope. Denies: Headache, Numbness, Tingling, Trouble Speaking (Unable to walk on her own.), Difficulty Walking Psychiatric: Reports: No Symptoms Hematologic/Lymphatic: Reports: No Symptoms Immunologic: Reports: No Symptoms ED EXAM, GENERAL - Physical Exam Exam: See Below Exam Limited By: Other (He is very tired and exhausted. She can hardly keep her eyes open. Temperature is 36.4 and she does not feel warm to palpation heart rate was 71 and appears to be sinus respiratory rate was 15-18 sats 95% on room air BP 186/70) General Appearance: Moderate Distress (Working very hard to breathe.) Eye Exam: Bilateral Eye: Normal Inspection (There is marked blepharal pallor.), PERRL Throat/Mouth: Normal Inspection, Normal Lips, Normal Teeth, Normal Oropharynx, Other Head: Atraumatic, Normocephalic (Tongue is slightly white.) Neck: Normal Inspection, Limited Range of Motion. No: Carotid Bruit, Lymphadenopathy (L), Lymphadenopathy (R) Respiratory/Chest: No Accessory Muscle Use, Chest Non-Tender, Respiratory Distress, Decreased Breath Sounds (Decreased breath sounds to the lower 25% lung de guzman bilaterally. Small pleural effusion on the right side), Rales ( Coarse rales throughout anterior lower lobes and both posterior lower lobes compatible with congestive failure.). No: Lungs Clear, Normal Breath Sounds ( Tachypnea at rest.) Cardiovascular: Regular Rate, Rhythm, No Gallop, No Murmur, No Rub, JVD (3 cm below the angle of her mandible). No: Normal Peripheral Pulses Peripheral Pulses: 1+: Posterior Tibial (L) (Limited by edema in both lower extremities mostly her feet and ankles), Posterior Tibial (R), Dorsalis Pedis (L ), Dorsalis Pedis (R) GI/Abdominal: Normal Bowel Sounds, Soft, Non-Tender, No Organomegaly, No Mass, Pelvis Stable, Other (Moderately obese. No obvious organomegaly appreciated) Back Exam: Normal Inspection, Full Range of Motion. No: CVA Tenderness (L), CVA Tenderness (R) Extremities: Normal Inspection, Normal Range of Motion, Other (Tenderness and increased warmth coming from both knees with very limited range of motion of either hip.) Neurological: Alert, Normal Cognition, No Motor/Sensory Deficits, Disoriented Psychiatric: Flat Affect Skin Exam: Warm, Dry, Intact, No Rash, Pallor (Late palate.) EKG INTERPRETATION EKG Date: 12/01/19 Time: 19:09 Rhythm: NSR Rate (Beats/Min): 71 [place]: Normal P-Wave: Present QRS: Other (With first-degree AV block. Decreased voltage in both the limb and precordial leads. RSR prime wave in V1 consider normal variant diffuse poor R wave progression.) ST-T: Other (T wave inversion in leads II, III and aVF as well as V5 and V6. Consider inferior apical ischemia.) QT: Normal EKG Interpretation Comments: Abnormal ECG Course - Vital Signs Last Recorded V/S: Last Vital Signs Temp 36.4 C 12/01/19 18:50 Pulse 71 12/01/19 21:55 Resp 17 12/01/19 21:55 BP 165/53 H 12/01/19 21:55 Pulse Ox 93 L 12/01/19 21:55 - Orders/Labs/Meds Orders: Active Orders 24 hr Category Date Time Status RT Arterial Blood Gases, ABG [RC] Click to Edit Care 12/01/19 20:56 Active Chest 1V Frontal [CR] Stat Exams 12/01/19 19:03 Taken Sodium Chloride 0.9% [Saline Flush] Med 12/01/19 19:02 Active 10 ml FLUSH ASDIRECTED PRN Peripheral IV Insertion Adult [OM.PC] Stat Oth 12/01/19 19:03 Ordered Medication Orders Furosemide (Lasix) 40 mg IVPUSH ONETIME ONE Stop: 12/02/19 06:01 Ondansetron HCl (Zofran Odt) 4 mg PO Q6H PRN PRN Reason: nausea, able to take PO Ondansetron HCl (Zofran) 4 mg IV Q6H PRN PRN Reason: Nausea/Vomiting Sodium Chloride (Saline Flush) 10 ml FLUSH ASDIRECTED PRN PRN Reason: Keep Vein Open Last Admin: 12/01/19 19:22 Dose: 10 ml Labs: Laboratory Tests 12/01/19 12/01/19 12/01/19 Range/Units 19:15 19:15 19:15 WBC 6.24 (3.98-10.04) K/mm3 RBC 2.72 L (3.98-5.22) M/mm3 Hgb 7.8 L (11.2-15.7) gm/dl Hct 24.5 L (34.1-44.9) % MCV 90.1 (79.4-94.8) fl MCH 28.7 (25.6-32.2) pg MCHC 31.8 L (32.2-35.5) g/dl RDW Std Deviation 41.6 (36.4-46.3) fL Plt Count 146 L (182-369) K/mm3 MPV 9.9 (9.4-12.3) fl Neut % (Auto) 72.4 H (34.0-71.1) % Lymph % (Auto) 14.3 L (19.3-51.7) % [place] % (Auto) 10.3 (4.7-12.5) % Eos % (Auto) 2.6 (0.7-5.8) Baso % (Auto) 0.2 (0.1-1.2) % Neut # (Auto) 4.53 (1.56-6.13) K/mm3 Lymph # (Auto) 0.89 L (1.18-3.74) K/mm3 [place] # (Auto) 0.64 H (0.24-0.36) K/mm3 Eos # (Auto) 0.16 (0.04-0.36) K/mm3 Baso # (Auto) 0.01 (0.01-0.08) K/mm3 Manual Slide Review Abnormal smear ESR (0-20) mm/hr PT 11.7 (9.7-12.0) SECONDS INR 1.08 APTT 37 H (22-31) SECONDS Sodium 124 L D (136-145) mEq/L Potassium 5.4 H D (3.5-5.1) mEq/L Chloride 89 L (98-107) mEq/L Carbon Dioxide 24 (21-32) mEq/L Anion Gap 16.4 H (5-15) BUN 62 H (7-18) mg/dL Creatinine 3.5 H D (0.55-1.02) mg/dL Est Cr Clr Drug Dosing 9.80 mL/min Estimated GFR (MDRD) 13 (>60) mL/min BUN/Creatinine Ratio 17.7 (14-18) Glucose 176 H (83-115) mg/dL POC Glucose (83-110) mg/dL Serum Osmolality (280-300) mosm/kg Calcium 9.2 (8.5-10.1) mg/dL Magnesium 2.0 (1.8-2.4) mg/dl Total Bilirubin 0.4 (0.2-1.0) mg/dL AST 25 (15-37) U/L ALT 21 (14-59) U/L Alkaline Phosphatase 131 H (46-116) U/L Troponin I 0.051 (0.00-0.056) ng/mL C-Reactive Protein 1.7 H* (<1.0) mg/dL NT-Pro-B Natriuret Pep (0-450) pg/mL Total Protein 7.4 (6.4-8.2) g/dl Albumin 2.9 L (3.4-5.0) g/dl Globulin 4.5 gm/dL Albumin/Globulin Ratio 0.6 L (1-2) Blood Type Gel Antibody Screen 12/01/19 12/01/19 12/01/19 Range/Units 19:15 19:15 19:15 WBC (3.98-10.04) K/mm3 RBC (3.98-5.22) M/mm3 Hgb (11.2-15.7) gm/dl Hct (34.1-44.9) % MCV (79.4-94.8) fl MCH (25.6-32.2) pg MCHC (32.2-35.5) g/dl RDW Std Deviation (36.4-46.3) fL Plt Count (182-369) K/mm3 MPV (9.4-12.3) fl Neut % (Auto) (34.0-71.1) % Lymph % (Auto) (19.3-51.7) % [place] % (Auto) (4.7-12.5) % Eos % (Auto) (0.7-5.8) Baso % (Auto) (0.1-1.2) % Neut # (Auto) (1.56-6.13) K/mm3 Lymph # (Auto) (1.18-3.74) K/mm3 [place] # (Auto) (0.24-0.36) K/mm3 Eos # (Auto) (0.04-0.36) K/mm3 Baso # (Auto) (0.01-0.08) K/mm3 Manual Slide Review ESR 116 H (0-20) mm/hr PT (9.7-12.0) SECONDS INR APTT (22-31) SECONDS Sodium (136-145) mEq/L Potassium (3.5-5.1) mEq/L Chloride (98-107) mEq/L Carbon Dioxide (21-32) mEq/L Anion Gap (5-15) BUN (7-18) mg/dL Creatinine (0.55-1.02) mg/dL Est Cr Clr Drug Dosing mL/min Estimated GFR (MDRD) (>60) mL/min BUN/Creatinine Ratio (14-18) Glucose (83-115) mg/dL POC Glucose (83-110) mg/dL Serum Osmolality (280-300) mosm/kg Calcium (8.5-10.1) mg/dL Magnesium (1.8-2.4) mg/dl Total Bilirubin (0.2-1.0) mg/dL AST (15-37) U/L ALT (14-59) U/L Alkaline Phosphatase (46-116) U/L Troponin I (0.00-0.056) ng/mL C-Reactive Protein (<1.0) mg/dL NT-Pro-B Natriuret Pep 8133 H (0-450) pg/mL Total Protein (6.4-8.2) g/dl Albumin (3.4-5.0) g/dl Globulin gm/dL Albumin/Globulin Ratio (1-2) Blood Type O POSITIVE Gel Antibody Screen Negative 12/01/19 12/01/19 Range/Units 19:15 19:23 WBC (3.98-10.04) K/mm3 RBC (3.98-5.22) M/mm3 Hgb (11.2-15.7) gm/dl Hct (34.1-44.9) % MCV (79.4-94.8) fl MCH (25.6-32.2) pg MCHC (32.2-35.5) g/dl RDW Std Deviation (36.4-46.3) fL Plt Count (182-369) K/mm3 MPV (9.4-12.3) fl Neut % (Auto) (34.0-71.1) % Lymph % (Auto) (19.3-51.7) % [place] % (Auto) (4.7-12.5) % Eos % (Auto) (0.7-5.8) Baso % (Auto) (0.1-1.2) % Neut # (Auto) (1.56-6.13) K/mm3 Lymph # (Auto) (1.18-3.74) K/mm3 [place] # (Auto) (0.24-0.36) K/mm3 Eos # (Auto) (0.04-0.36) K/mm3 Baso # (Auto) (0.01-0.08) K/mm3 Manual Slide Review ESR (0-20) mm/hr PT (9.7-12.0) SECONDS INR APTT (22-31) SECONDS Sodium (136-145) mEq/L Potassium (3.5-5.1) mEq/L Chloride (98-107) mEq/L Carbon Dioxide (21-32) mEq/L Anion Gap (5-15) BUN (7-18) mg/dL Creatinine (0.55-1.02) mg/dL Est Cr Clr Drug Dosing mL/min Estimated GFR (MDRD) (>60) mL/min BUN/Creatinine Ratio (14-18) Glucose (83-115) mg/dL POC Glucose 188 H (83-110) mg/dL Serum Osmolality 288 (280-300) mosm/kg Calcium (8.5-10.1) mg/dL Magnesium (1.8-2.4) mg/dl Total Bilirubin (0.2-1.0) mg/dL AST (15-37) U/L ALT (14-59) U/L Alkaline Phosphatase (46-116) U/L Troponin I (0.00-0.056) ng/mL C-Reactive Protein (<1.0) mg/dL NT-Pro-B Natriuret Pep (0-450) pg/mL Total Protein (6.4-8.2) g/dl Albumin (3.4-5.0) g/dl Globulin gm/dL Albumin/Globulin Ratio (1-2) Blood Type Gel Antibody Screen Meds: Medications Generic Name Dose Route Start Last Admin Trade Name Freq PRN Reason Stop Dose Admin Furosemide 40 mg 12/02/19 06:00 Lasix IVPUSH 12/02/19 06:01 ONETIME ONE Ondansetron HCl 4 mg 12/01/19 21:08 Zofran Odt PO Q6H PRN nausea, able to take PO Ondansetron HCl 4 mg 12/01/19 21:08 Zofran IV Q6H PRN Nausea/Vomiting Sodium Chloride 10 ml 12/01/19 19:02 12/01/19 19:22 Saline Flush FLUSH 10 ml ASDIRECTED PRN Administration Keep Vein Open Discontinued Medications Generic Name Dose Route Start Last Admin Trade Name Freq PRN Reason Stop Dose Admin Acetaminophen 650 mg 12/01/19 19:25 12/01/19 19:32 Tylenol PO 12/01/19 19:26 650 mg ONETIME ONE Administration Bumetanide 1 mg 12/01/19 20:11 12/01/19 20:26 Bumex IVPUSH 12/01/19 20:12 1 mg ONETIME ONE Administration - Radiology Interpretation Free Text/Narrative:: 84-year-old female brought to the ED by [facility] for assessment of increasing dyspnea at rest. The history would suggest that she is suffering chronic anemia likely due to renal insufficiency. Her last hemoglobin in mid October apparently was 7.9 and 7.8 in September and she has not received any transfusions. They are willing to accept blood products. She is currently in congestive heart failure with crackles throughout both lung de guzman. She has systolic hypertension with BP 186 systolically over 70. Chronic dependent edema. O2 sats are 94 to 95% on room air but she is working hard to achieve this. Plan routine labs. Chest x-ray ECG. Will likely require a couple units of packed red cells. - Re-Assessments/Exams Free Text/Narrative Re-Assessment/Exam: 12/01/19 20:01 portable chest x-ray reveals mild cardiomegaly. There is a small left-sided pleural effusion and increased hazy infiltrate right lower lobe of lung most likely representing fluid. There is a diffuse vascular congestion pattern. 12/01/19 20:10 Labs reveal a normal white count at 6.24. Auto differential shows 72.4% neutrophils. Hemoglobin is low at 7.8 with hematocrit of 24.5. MCV is 90.1. Platelet count is on the low side at 1 46,000. PT is 11.7 with an INR of 1.08 mildly elevated PTT is also mildly elevated at 37. Sodium is very low at 124 potassium is slightly elevated at 5.4 chloride is 89 with a bicarb of 24. Anion gap is 16.4. BUN is elevated at 62. Creatinine is 3.5 GFR is 13 i.e. stage V chronic kidney disease. Glucose is 176 calcium is 9.2 magnesium is 2.0 liver function is normal troponin I is less than 0.051 C- reactive protein is 1.7 BNP is 8133 total protein 7.4 with an albumin fraction of 2.9. Urinalysis has not yet been collected 12/01/19 20:15 I have discussed the case with Dr. Torre on-call hospitalist and she will attend the patient in the ED. I have ordered Bumex 1 mg IV at this time. Departure - Departure Time of Disposition: 21:50 Disposition: Admitted As Inpatient 66 Reason for Transfer *Q: Other Condition: Critical Clinical Impression: Chronic renal insufficiency, stage V, Hyponatremia, Hyperkalemia Congestive heart failure Qualifiers: Heart failure chronicity: acute on chronic Anemia Qualifiers: Anemia type: unspecified type Qualified Code(s): D64.9 - Anemia, unspecified Sepsis Event Note - Evaluation Sepsis Screening Result: No Definite Risk - Focused Exam Vital Signs: Vital Signs Temp Pulse Resp BP Pulse Ox Pulse Ox 12/01/19 19:10 96 12/01/19 18:50 36.4 C 71 15 186/70 H 95 Date Exam was Performed: 12/01/19 Time Exam was Performed: 23:30 - My Orders Last 24 Hours: My Active Orders 12/01/19 19:02 Sodium Chloride 0.9% [Saline Flush] 10 ml FLUSH ASDIRECTED PRN 12/01/19 19:03 Chest 1V Frontal [CR] Stat Peripheral IV Insertion Adult [OM.PC] Stat - Assessment/Plan Last 24 Hours: My Active Orders 12/01/19 19:02 Sodium Chloride 0.9% [Saline Flush] 10 ml FLUSH ASDIRECTED PRN 12/01/19 19:03 Chest 1V Frontal [CR] Stat Peripheral IV Insertion Adult [OM.PC] Stat
[2019-12-01] MEDS ORDERED: Acetaminophen 325 MG Tab PO ONE (19:25)
[2019-12-01] MEDS ORDERED: Bumetanide 1 MG/4 ML MDV IVPUSH ONE (20:11)
--- NOTE | 2019-12-01 20:52 | PCM.HP.2 ---
H&P History of Present Illness - General Date of Service: 12/01/19 - History of Present Illness Initial Comments - Free Text/Narative: This is a 84 year old female with past medical history of heart failure, hyponatremia, anemia who came to the ED brought in by daughter after being called by brother who stated she didn't look well, When she got to [facility] today she found her sitting up, dozing off and decreased responsiveness Brother states that after using the restroom she had obvious heavy breathing As per daughter she was called by [facility] yesterday stating her hb was low and stating she had a bruise on her face which they don't know how she got it. Left Hip Pain Score (Numeric/FACES): 8 - Related Data Allergies/Adverse Reactions: Allergies Allergy/AdvReac Type Severity Reaction Status Date / Time No Known Allergies Allergy Verified 12/01/19 22:07 Home Medications: Home Meds Insulin Aspart [NovoLOG] 0 units SUBCUT BID 07/14/18 [History] Lactobacillus Acidophilus [Acidophilus Lactobacilli] 1 cap PO BID 11/22/18 [ History] Acetaminophen [Tylenol] 650 mg PO Q6H 12/18/18 [History] Aspirin 81 mg PO DAILY 12/18/18 [History] Bumetanide [Bumex] 2 mg PO QPM 12/18/18 [History] Bumetanide [Bumex] 3 mg PO DAILY 12/18/18 [History] Calcium Carbonate [Tums] 200 mg PO Q6H PRN 12/18/18 [History] Lutein/Minerals/Vit A,C & E [Ocuvite] 1 tab PO DAILY 12/18/18 [History] Nystatin Powder. 1 dose TOP DAILY PRN 12/18/18 [History] Potassium. 20 meq PO QID 12/18/18 [History] Rosuvastatin [Crestor] 20 mg PO BEDTIME 12/18/18 [History] Vit C/E/Zn/Coppr/Lutein/Zeaxan [Preservision Areds 2 Softgel] 1 tab PO BID 12/18 [History] amLODIPine Besylate [Amlodipine Besylate] 10 mg PO DAILY 12/18/18 [History] bisacodyL [Dulcolax] 10 mg PO ASDIRECTED PRN 12/18/18 [History] guaiFENesin [Mucinex] 400 mg PO TID 12/18/18 [History] metOLazone [Metolazone] 2.5 mg PO DAILY 12/18/18 [History] modafiniL [Modafinil] 100 mg PO DAILY 12/18/18 [History] Insulin Degludec [Tresiba] 15 unit SQ DAILY 07/12/19 [History] Polyvinyl Alcohol/Povidone/Pf [Refresh Classic Eye Drops] 1 drop EYEBOTH TID PRN 07/12/19 [History] Sodium Chloride [Saline Nose [place]] 1 spray NASBOTH Q4H PRN 07/12/19 [History] Insulin Aspart [NovoLOG] 8 units SQ BID 12/01/19 [History] Past Medical History HEENT 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: Cataract, Hard of Hearing, Impaired Vision, Macular Degeneration Other HEENT History: cough Cardiovascular 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: Heart Failure, High Cholesterol, Hypertension, PVD Respiratory 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: SOB Gastrointestinal 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: GERD, Hiatal Hernia Genitourinary 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: Chronic Renal Insuffiency, Urinary Incontinence Other Genitourinary History: polyuria - CKD III 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: Musculoskeletal 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: Osteoarthritis, Osteoporosis, Other (See Below ) Other Musculoskeletal History: sciatic nerve pain Neurological 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: Neuropathy, Diabetic Other Neuro History: hypo-osmolality, hyponatremia Endocrine/Metabolic 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: Diabetes, Type II, Obesity/BMI 30+ Other Endocrine/Metabolic History: chronic kidney disease Hematologic 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: Anemia Other Hematologic History: previous anemia 5-6 yrs ago Dermatologic 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: Urticaria Other Dermatologic History: tinea unguium-onchomycosis - Infectious Disease History Infectious Disease 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: Chicken Pox - Past Surgical History HEENT Surgical 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: Cataract Surgery Cardiovascular Surgical 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: None Respiratory Surgical 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: None GI Surgical 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: Colonoscopy Female Surgical 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: Hysterectomy Endocrine Surgical 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: None Neurological Surgical 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: None Musculoskeletal Surgical 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: None Dermatological Surgical 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: None Social & Family History - Family History Family Medical History: Noncontributory HEENT: Reports: Cataract, Macular Degeneration Other HEENT Family History: mom, sister Neurological: Reports: Alzheimers Disease Other Neurological Family History: dad Endocrine/Metabolic: Reports: Diabetes, type II Other Endocrine/Metabolic Family History: sister Dermatologic: Reports: None Oncologic: Reports: Breast Other Oncologic Family History: mother - Tobacco Use Smoking Status *Q: Never Smoker - Caffeine Use Caffeine Use: Reports: None - Recreational Drug Use Recreational Drug Use: No - Living Situation & Occupation Living situation: Reports: Alone Occupation: Retired H&P Review of Systems - Review of Systems: Review Of Systems: Unable To Obtain Reason Not Obtained: Patient was too somnolent during interrogation Exam - Exam Exam: See Below - Vital Signs Vital Signs: Last Vital Signs Temp 97.6 F 12/01/19 18:50 Pulse 71 12/01/19 18:50 Resp 15 12/01/19 18:50 BP 186/70 H 12/01/19 18:50 Pulse Ox 96 12/01/19 19:10 Weight: 86.183 kg - Exam Quality Assessment: Supplemental Oxygen General: Cooperative, Moderate Distress, Lethargic HEENT: Pupils Equal, Pupils Reactive, Other (biparpebral edema). No: Mucosa Moist & [place] Neck: Supple. No: Lymphadenopathy Lungs: Decreased Breath Sounds, Crackles, Rales, Wheezing. No: Rhonchi, Rub, Stridor Cardiovascular: Regular Rate, Regular Rhythm. No: Systolic Murmur, Diastolic Murmur, Rubs, Gallop/S3, Gallop/S4 GI/Abdominal Exam: Normal Bowel Sounds, Soft, Non-Tender, Distended. No: Guarding, Rigid, Rebound Extremities: Other (2+ pitting edema up to knees BL) - Patient Data Result Diagrams: 12/02/19 05:47 12/02/19 05:47 Sepsis Event Note - Evaluation Sepsis Screening Result: No Definite Risk - Focused Exam Vital Signs: Vital Signs Temp Pulse Resp BP Pulse Ox Pulse Ox 12/01/19 19:10 96 12/01/19 18:50 97.6 F 71 15 186/70 H 95 Date Exam was Performed: 12/02/19 Time Exam was Performed: 15:36 - Problem List (1) CHF exacerbation SNOMED Code(s): 631870845, 22317051368188 ICD Code: I50.9 - HEART FAILURE, UNSPECIFIED Status: Acute Priority: High Current Visit: No Qualifiers: Heart failure type: unspecified Qualified Code(s): I50.9 - Heart failure, unspecified (2) Hyperkalemia SNOMED Code(s): 73591108 ICD Code: E87.5 - HYPERKALEMIA Status: Acute Current Visit: Yes (3) Bilateral leg edema SNOMED Code(s): 517604578, 26928871, 867130772 ICD Code: R60.0 - LOCALIZED EDEMA Status: Acute Priority: High Current Visit: No (4) Chronic renal insufficiency, stage IV (severe) SNOMED Code(s): 777762489 ICD Code: N18.4 - CHRONIC KIDNEY DISEASE, STAGE 4 (SEVERE) Status: Chronic Priority: High Current Visit: No (5) Diabetes SNOMED Code(s): 94333658 ICD Code: E11.9 - TYPE 2 DIABETES MELLITUS WITHOUT COMPLICATIONS Status: Chronic Priority: Medium Current Visit: No Onset Date: 12/24/15 Problem Details: Stable BS Qualifiers: Diabetes mellitus type: type 2 Diabetes mellitus complication status: with unspecified complications (6) Hypertension SNOMED Code(s): 00316397 ICD Code: I10 - ESSENTIAL (PRIMARY) HYPERTENSION Status: Chronic Priority : Medium Current Visit: No Onset Date: 12/24/15 Problem Details: Stable Qualifiers: Hypertension type: essential hypertension Qualified Code(s): I10 - Essential (primary) hypertension (7) Hyponatremia SNOMED Code(s): 67739351 ICD Code: E87.1 - HYPO-OSMOLALITY AND HYPONATREMIA Status: Acute Priority : High Current Visit: No Onset Date: 12/11/15 (8) Acute kidney injury SNOMED Code(s): 50884987, 98140535 ICD Code: N17.9 - ACUTE KIDNEY FAILURE, UNSPECIFIED Status: Acute Current Visit: Yes Problem List Initiated/Reviewed/Updated: Yes Assessment/Plan Comment:: Altered mental status Hyponatremia, chronic Hyperkalemia Chronically hyponatremic but is around high 120 to low 130s, last time she was this low was 11/2018 As per patient's daughter her diuretics have recently been adjusted and she was started on metolazone, this is the likely etiology Due to it being a chronic problem, there is no need for acute replacement PLAN - Restrict fluids - Monitor mental status - Repeat labs in AM CHF exacerbation Heart failure likely combined systolic and diastolic BL leg edema Likely confounding hyponatremia which worsens mental status As per daughter she has not had an echocardiogram in the past year PLAN - Fluid restriction - Daily weights - New echocardiogram Acute kidney injury Chronic renal insufficiency, stage IV (severe) Baseline GFR 20, 13 on admission PLAN - Renally dosed medications - Avoid nephrotoxic agents - Monitor urine output Diabetes, unknown HbA1c Admission glucose 176 Home medications are not available PLAN - Reconcile home meds once available - Hold any PO medications - QID accu-checks - Hypoglycemia protocol Hypertension, uncontrolled BP on admission 204/163 Home medications are not available PLAN - Reconcile home medications once available - PRN Hydralazine PROPHYLAXIS DVT- MAGNOLIA wraps GI- not indicated CODE STATUS: DNR/DNI DISPOSITION: Patient will be admitted to the medical floor for fluid restriction and monitorization as well as gentle diuresis. Resident of [facility] where she has been for >3 years now. - Mortality Measure Prognosis:: Poor (Advanced heart failure with poor performance status)
[2019-12-01] MEDS ORDERED: Ondansetron 4 MG Tab.DIS PO PRN (21:08)
[2019-12-01] MEDS ORDERED: Ondansetron 4 MG/2 ML SDV IV PRN (21:08)
[2019-12-02] MEDS ORDERED: Furosemide 40 MG/4 ML VIAL IVPUSH ONE (06:00)
--- NOTE | 2019-12-02 06:46 | CR ---
Chest: Portable view of the chest was obtained. Comparison: Prior chest x-ray of 07/12/19. Heart size accentuated portable technique. Lung markings are increased which are also accentuated from portable technique. Most of the lung markings appear to be chronic but probable superimposed mild superimposed pulmonary vascular congestion is present. Possible small left-sided pleural effusion. Mild left basilar atelectasis is noted. Impression: 1. Accentuated findings from portable technique as noted above. 2. Possible mild CHF. Diagnostic code #3 This report was dictated in [place] Standard Time
--- NOTE | 2019-12-02 12:35 | CR ---
Chest: 2 views of the chest were obtained. Comparison: Prior chest x-ray of 12/01/19. Heart size is accentuated from technique. Lung markings are increased possibly representing mild pulmonary vascular congestion. Possible small bilateral pleural effusions are seen as well as left basilar atelectasis. Degenerative change is scattered within the spine. Bony structures are osteopenic. Impression: 1. Findings as described above remain suspicious for mild CHF. Diagnostic code #3 This report was dictated in [place] Standard Time
[2019-12-02] MEDS: Calcium Acetate 667 MG Cap PO SCH ×2 (14:07→17:20)
--- NOTE | 2019-12-02 15:39 | PCM.PN ---
- General Info Date of Service: 12/02/19 Subjective Update: Feeling ok Tolerating heart healthy diet Slept OK No current complaints, reports improvement in symptoms from admission - Patient Data Vitals - Most Recent: Last Vital Signs Temp 96.3 F L 12/02/19 11:33 Pulse 66 12/02/19 11:33 Resp 22 H 12/02/19 11:33 BP 130/80 12/02/19 12:00 Pulse Ox 97 12/02/19 11:33 Weight - Most Recent: 99.6 kg - Exam Quality Assessment: Supplemental Oxygen General: Alert, Oriented, Cooperative, No Acute Distress HEENT: Pupils Equal, Pupils Reactive, EOMI, Mucous Membr. Moist/[place] Neck: Supple, Trachea Midline, No JVD, No Thyromegaly Lungs: Clear to Auscultation, Normal Respiratory Effort, Decreased Breath Sounds , Crackles. No: Rales, Rhonchi, Wheezing Cardiovascular: Regular Rate, Regular Rhythm. No: Murmurs, Gallops, Rubs GI/Abdominal Exam: Normal Bowel Sounds, Soft, Non-Tender. No: Distended, Guarding, Rigid, Rebound Back Exam: Normal Inspection. No: CVA Tenderness (L), CVA Tenderness (R) Extremities: Pedal Edema (up to knee 2+ pitting), Slow Capillary Refill, Pallor Sepsis Event Note - Evaluation Sepsis Screening Result: No Definite Risk - Focused Exam Vital Signs: Vital Signs Temp Pulse Resp BP BP Pulse Ox 12/02/19 12:00 130/80 12/02/19 11:33 96.3 F L 66 22 H 184/143 H 97 12/02/19 10:43 65 182/93 H 98 12/02/19 10:42 63 16 170/89 H 96 Date Exam was Performed: 12/02/19 Time Exam was Performed: 17:02 - Problem List & Annotations (1) CHF exacerbation SNOMED Code(s): 336549641, 17201642229386 Code(s): I50.9 - HEART FAILURE, UNSPECIFIED Status: Acute Priority: High Current Visit: No Qualifiers: Heart failure type: unspecified Qualified Code(s): I50.9 - Heart failure, unspecified (2) Hyperkalemia SNOMED Code(s): 66477261 Code(s): E87.5 - HYPERKALEMIA Status: Acute Current Visit: Yes (3) Bilateral leg edema SNOMED Code(s): 605363768, 72391622, 465832776 Code(s): R60.0 - LOCALIZED EDEMA Status: Acute Priority: High Current Visit: No (4) Chronic renal insufficiency, stage IV (severe) SNOMED Code(s): 479561977 Code(s): N18.4 - CHRONIC KIDNEY DISEASE, STAGE 4 (SEVERE) Status: Chronic Priority: High Current Visit: No (5) Diabetes SNOMED Code(s): 81479640 Code(s): E11.9 - TYPE 2 DIABETES MELLITUS WITHOUT COMPLICATIONS Status: Chronic Priority: Medium Current Visit: No Onset Date: 12/24/15 Qualifiers: Diabetes mellitus type: type 2 Diabetes mellitus complication status: with unspecified complications Annotation/Comment:: Stable BS (6) Hypertension SNOMED Code(s): 06988052 Code(s): I10 - ESSENTIAL (PRIMARY) HYPERTENSION Status: Chronic Priority : Medium Current Visit: No Onset Date: 12/24/15 Qualifiers: Hypertension type: essential hypertension Qualified Code(s): I10 - Essential (primary) hypertension Annotation/Comment:: Stable (7) Hyponatremia SNOMED Code(s): 73657596 Code(s): E87.1 - HYPO-OSMOLALITY AND HYPONATREMIA Status: Acute Priority : High Current Visit: No Onset Date: 12/11/15 (8) Acute kidney injury SNOMED Code(s): 90840929, 13542019 Code(s): N17.9 - ACUTE KIDNEY FAILURE, UNSPECIFIED Status: Acute Current Visit: Yes (9) Normocytic hypochromic anemia SNOMED Code(s): 78715898 Code(s): D50.9 - IRON DEFICIENCY ANEMIA, UNSPECIFIED Status: Acute Current Visit: Yes (10) Thrombocytopenia SNOMED Code(s): 396472363 Code(s): D69.6 - THROMBOCYTOPENIA, UNSPECIFIED Status: Acute Current Visit: Yes (11) Hyperphosphatemia SNOMED Code(s): 10302701 Code(s): E83.39 - OTHER DISORDERS OF PHOSPHORUS METABOLISM Status: Acute Current Visit: Yes (12) MRSA (methicillin resistant Staphylococcus aureus) colonization SNOMED Code(s): 581017261 Code(s): Z22.322 - CARRIER OR SUSPECTED CARRIER OF METHICILLIN RESIS STAPH Status: Acute Current Visit: Yes (13) Hypoxemia requiring supplemental oxygen SNOMED Code(s): 640706165 Code(s): R09.02 - HYPOXEMIA; Z99.81 - DEPENDENCE ON SUPPLEMENTAL OXYGEN Status: Acute Current Visit: Yes - Problem List Review Problem List Initiated/Reviewed/Updated: Yes - Plan Plan:: Altered mental status Hyponatremia, chronic Hyperkalemia, resolved Chronically hyponatremic but is around high 120 to low 130s, last time she was this low was 11/2018 As per patient's daughter her diuretics have recently been adjusted and she was started on metolazone, this is the likely etiology Due to it being a chronic problem, there is no need for acute replacement Improved Na level 124--> 127 today Mental status improved PLAN - Restrict fluids - Monitor mental status - Repeat labs in AM CHF exacerbation Heart failure likely combined systolic and diastolic BL leg edema Likely confounding hyponatremia which worsens mental status As per daughter she has not had an echocardiogram in the past year Difficult to assess urine output due to incontinence but clinically improved Mora on admission 100--> today 99.6kg PLAN - Fluid restriction - Daily weights - New echocardiogram performed, results are pending - Adjusted home diuretic dose Acute kidney injury Chronic renal insufficiency, stage IV (severe) Hyperphosphatemia Baseline GFR 20, 13 on admission stable PO4 6.1, CaxPO4 product = 56, ok to give calcium containing phosphate binders PLAN - Start calcium acetate - Renally dosed medications - Avoid nephrotoxic agents - Monitor urine output Diabetes, unknown HbA1c Admission glucose 176, POC 188 Home medications are not available PLAN - Restarted home insulin - QID accu-checks - Hypoglycemia protocol Hypertension, uncontrolled BP on admission 204/163 BP trend 104-204/82-163 Home medications are not available PLAN - Reconcile home medications once available - PRN Hydralazine PROPHYLAXIS DVT- MAGNOLIA wraps GI- not indicated CODE STATUS: DNR/DNI DISPOSITION: Patient will remain admitted to the medical floor for fluid restriction and monitorization as well as gentle diuresis. Resident of [facility] where she has been for >3 years now.
[2019-12-02] MEDS: Bumetanide 1 MG Tab PO SCH (17:11)
[2019-12-02] MEDS: amLODIPine 10 MG Tab PO SCH (17:11)
[2019-12-02] MEDS: Acetaminophen 325 MG Tab PO SCH (21:36)
[2019-12-02] MEDS: guaiFENesin 600 MG Tab.ER PO SCH (21:37)
[2019-12-02] MEDS: Rosuvastatin 10 MG Tab PO SCH (21:37)
[2019-12-03] MEDS: Acetaminophen 325 MG Tab PO SCH ×4 (04:23→21:39)
[2019-12-03] MEDS: Calcium Acetate 667 MG Cap PO SCH ×4 (05:41→16:07)
[2019-12-03] MEDS: Insulin Glarg,Human.Rec.Analog 100 Unit/ML SUBCUT SCH (08:13)
[2019-12-03] MEDS: Insulin Lispro 100 Units/ML 3 ML Vial SUBCUT SCH ×2 (08:14→12:19)
[2019-12-03] MEDS: Modafinil 200 MG Tab PO SCH (08:18)
[2019-12-03] MEDS: Metolazone 2.5 MG Tab PO SCH (08:19)
[2019-12-03] MEDS: guaiFENesin 600 MG Tab.ER PO SCH ×3 (08:23→21:39)
[2019-12-03] MEDS: Bumetanide 1 MG Tab PO SCH ×2 (08:24→17:18)
[2019-12-03] MEDS: Aspirin 81 MG Tab.Chew PO SCH (08:25)
[2019-12-03] MEDS: amLODIPine 10 MG Tab PO SCH (08:25)
--- NOTE | 2019-12-03 12:41 | CR ---
Chest: Portable view of the chest was obtained. Comparison: Prior chest x-ray of 12/02/19. Increasing density is noted within both lower lungs. Bilateral pleural effusions are seen increased from previous study. Pulmonary vessels are also congested. Heart is enlarged. Degenerative spurring is noted within the spine. Impression: 1. Increasing pleural effusions on both sides with cardiomegaly and pulmonary vascular congestion. 2. Increasing parenchymal change within both lung bases. Findings may represent asymmetric pulmonary vascular congestion, changes of aspiration or pneumonia. Diagnostic code #3 Study was dictated in [place] Standard Time
[2019-12-03] MEDS ORDERED: Sodium Chloride 3% Inhalation Soln 4 ML Neb NEB ONE (18:02)
--- NOTE | 2019-12-03 18:14 | PCM.PN ---
- General Info Date of Service: 12/03/19 Subjective Update: Feeling OK Slept OK Tolerating diet Still feeling weak No complaints BM today - Patient Data Vitals - Most Recent: Last Vital Signs Temp 95.7 F L 12/03/19 15:50 Pulse 58 L 12/03/19 15:50 Resp 16 12/03/19 15:50 BP 127/90 12/03/19 16:00 Pulse Ox 98 12/03/19 15:50 Weight - Most Recent: 99.881 kg - Exam General: Alert, Cooperative, Mild Distress HEENT: Pupils Equal, Pupils Reactive, EOMI, Mucous Membr. Moist/[place] Neck: Supple, Trachea Midline, No JVD, No Thyromegaly, +2 Carotid Pulse wo Bruit. No: Lymphadenopathy Lungs: Decreased Breath Sounds, Crackles. No: Rales, Rhonchi, Rub, Wheezing Cardiovascular: Regular Rate, Regular Rhythm. No: Murmurs, Gallops, Rubs GI/Abdominal Exam: Normal Bowel Sounds, Soft, Non-Tender. No: Distended, Guarding, Rigid, Rebound Back Exam: Normal Inspection. No: CVA Tenderness (L), CVA Tenderness (R) Extremities: Pedal Edema, Slow Capillary Refill, Joint Swelling Wound/Incisions: Healing Well Neurological: No New Focal Deficit Psy/Mental Status: Alert Sepsis Event Note - Evaluation Sepsis Screening Result: No Definite Risk - Focused Exam Vital Signs: Vital Signs Temp Pulse Resp BP BP Pulse Ox 12/03/19 16:00 127/90 12/03/19 15:50 95.7 F L 58 L 16 98 12/03/19 11:21 130/90 12/03/19 10:39 96.1 F L 55 L 94 L 12/03/19 08:25 156/82 H 12/03/19 07:34 96.8 F L 65 20 156/82 H 91 L Date Exam was Performed: 12/03/19 Time Exam was Performed: 18:06 - Problem List & Annotations (1) CHF exacerbation SNOMED Code(s): 058840583, 54846544579588 Code(s): I50.9 - HEART FAILURE, UNSPECIFIED Status: Acute Priority: High Current Visit: No Qualifiers: Heart failure type: unspecified Qualified Code(s): I50.9 - Heart failure, unspecified (2) Hyperkalemia SNOMED Code(s): 92940319 Code(s): E87.5 - HYPERKALEMIA Status: Acute Current Visit: Yes (3) Bilateral leg edema SNOMED Code(s): 232369663, 75742367, 732225515 Code(s): R60.0 - LOCALIZED EDEMA Status: Acute Priority: High Current Visit: No (4) Chronic renal insufficiency, stage IV (severe) SNOMED Code(s): 059438254 Code(s): N18.4 - CHRONIC KIDNEY DISEASE, STAGE 4 (SEVERE) Status: Chronic Priority: High Current Visit: No (5) Diabetes SNOMED Code(s): 59531698 Code(s): E11.9 - TYPE 2 DIABETES MELLITUS WITHOUT COMPLICATIONS Status: Chronic Priority: Medium Current Visit: No Onset Date: 12/24/15 Qualifiers: Diabetes mellitus type: type 2 Diabetes mellitus complication status: with unspecified complications Annotation/Comment:: Stable BS (6) Hypertension SNOMED Code(s): 00941677 Code(s): I10 - ESSENTIAL (PRIMARY) HYPERTENSION Status: Chronic Priority : Medium Current Visit: No Onset Date: 12/24/15 Qualifiers: Hypertension type: essential hypertension Qualified Code(s): I10 - Essential (primary) hypertension Annotation/Comment:: Stable (7) Hyponatremia SNOMED Code(s): 99095923 Code(s): E87.1 - HYPO-OSMOLALITY AND HYPONATREMIA Status: Acute Priority : High Current Visit: No Onset Date: 12/11/15 (8) Acute kidney injury SNOMED Code(s): 52048926, 95451754 Code(s): N17.9 - ACUTE KIDNEY FAILURE, UNSPECIFIED Status: Acute Current Visit: Yes (9) Normocytic hypochromic anemia SNOMED Code(s): 95304202 Code(s): D50.9 - IRON DEFICIENCY ANEMIA, UNSPECIFIED Status: Acute Current Visit: Yes (10) Thrombocytopenia SNOMED Code(s): 342131290 Code(s): D69.6 - THROMBOCYTOPENIA, UNSPECIFIED Status: Acute Current Visit: Yes (11) Hyperphosphatemia SNOMED Code(s): 49293607 Code(s): E83.39 - OTHER DISORDERS OF PHOSPHORUS METABOLISM Status: Acute Current Visit: Yes (12) MRSA (methicillin resistant Staphylococcus aureus) colonization SNOMED Code(s): 172282007 Code(s): Z22.322 - CARRIER OR SUSPECTED CARRIER OF METHICILLIN RESIS STAPH Status: Acute Current Visit: Yes (13) Hypoxemia requiring supplemental oxygen SNOMED Code(s): 591966581 Code(s): R09.02 - HYPOXEMIA; Z99.81 - DEPENDENCE ON SUPPLEMENTAL OXYGEN Status: Acute Current Visit: Yes - Problem List Review Problem List Initiated/Reviewed/Updated: Yes - Plan Plan:: Altered mental status Hyponatremia, chronic Hyperkalemia, resolved Chronically hyponatremic but is around high 120 to low 130s, last time she was this low was 11/2018 As per patient's daughter her diuretics have recently been adjusted and she was started on metolazone, this is the likely etiology Due to it being a chronic problem, there is no need for acute replacement Na level 124->127->125 Mental status improved PLAN - 1.5L fluid restriction - Monitor mental status - Repeat labs in AM CHF exacerbation Heart failure likely combined systolic and diastolic BL leg edema Likely confounding hyponatremia which worsens mental status As per daughter she has not had an echocardiogram in the past year Difficult to assess urine output due to incontinence but clinically improved Mora on admission 100--> 99.6--> 99.8kg Crackles same PLAN - Continue Bumex 2AM and 1 PM - Continue Metolazone 1.25 - Fluid restriction 1.5L - Daily weights - New echocardiogram performed, results are pending - CXR today Acute kidney injury Chronic renal insufficiency, stage IV (severe) Hyperphosphatemia Baseline GFR 20, 13 on admission--> 9 today PO4 6.1, CaxPO4 product = 56, ok to give calcium containing phosphate binders PLAN - Continue calcium acetate TID - Renally dosed medications - Avoid nephrotoxic agents - Monitor urine output Diabetes, unknown HbA1c Admission glucose 176 Trend 104-254 PLAN - Levemir 15u, Humalog 8u AM and lunch - QID accu-checks - Hypoglycemia protocol Hypertension, uncontrolled BP on admission 204/163 BP trend 128-156/68-80 PLAN - Continue home amlodipine - PRN Hydralazine PROPHYLAXIS DVT- MAGNOLIA wraps GI- not indicated CODE STATUS: DNR/DNI DISPOSITION: Patient will remain admitted to the medical floor for fluid restriction and monitorization as well as gentle diuresis. Her respiratory status has not improved as expected, CXR today. Resident of [facility] where she has been for >3 years now.
[2019-12-03] MEDS: Rosuvastatin 10 MG Tab PO SCH (21:39)
[2019-12-04] MEDS: Acetaminophen 325 MG Tab PO SCH ×4 (01:45→22:13)
[2019-12-04] MEDS: Modafinil 200 MG Tab PO SCH (08:31)
[2019-12-04] MEDS: Metolazone 2.5 MG Tab PO SCH (08:31)
[2019-12-04] MEDS: Calcium Acetate 667 MG Cap PO SCH ×3 (08:34→16:29)
[2019-12-04] MEDS: Bumetanide 1 MG Tab PO SCH ×2 (08:34→17:08)
[2019-12-04] MEDS: guaiFENesin 600 MG Tab.ER PO SCH ×3 (08:35→22:14)
[2019-12-04] MEDS: Aspirin 81 MG Tab.Chew PO SCH (08:35)
[2019-12-04] MEDS: amLODIPine 10 MG Tab PO SCH (08:35)
[2019-12-04] MEDS: Insulin Lispro 100 Units/ML 3 ML Vial SUBCUT SCH ×2 (08:41→11:24)
[2019-12-04] MEDS: Insulin Glarg,Human.Rec.Analog 100 Unit/ML SUBCUT SCH (08:42)
[2019-12-04] MEDS ORDERED: Piperacillin/Tazobactam 4.5 GM in Sodium Chloride 0.9% 100 ML IV ONE (10:30)
[2019-12-04] MEDS ORDERED: Levofloxacin/Dextrose 5%-Water 750 MG in Premix Bag 1 BAG IV ONE (11:00)
[2019-12-04 12:47] LABS: BORDETELLA PARAPERT IS1001 Not Detected (Not Detected)
[2019-12-04] MEDS ORDERED: Furosemide 100 MG/10 ML SDV IVPUSH ONE (12:52)
--- NOTE | 2019-12-04 13:52 | CT ---
CT chest Technique: Multiple axial sections were obtained from above the lung apices inferiorly through the lung bases. Intravenous contrast was not utilized. Comparison: Prior chest x-ray performed on 12/03/19. Findings: Moderate sized bilateral pleural effusions are noted. Areas of consolidation are noted within both lung bases, worse on the left side. Lesser change is seen within the lingula and right middle lobe. Upper lungs show haziness raise the possibility of pulmonary vascular congestion. Heart is enlarged. Coronary artery calcification is seen. 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 Descending aorta shows atherosclerotic change without aneurysm. Visualized upper abdominal structures shows no discrete abnormality. Skin thickening is noted within the left breast with diffuse increased soft tissues densities within the left breast. This may relate to systemic disease but inflammatory breast cancer can have a similar appearance. Mild body wall edema is noted. Bone window settings shows degenerative spurring within the spine. Several walled/healing rib fractures are noted on the left side. Impression: 1. Moderate sized bilateral pleural effusions. 2. Areas of consolidation within both lower lungs, worse in the left side as well as minimal change within the lingula and right middle lobe. Findings could represent atelectasis as well as pneumonia. 3. Haziness within both upper lungs raising the possibility of pulmonary vascular congestion. 4. Skin thickening and diffuse increased density within the left breast. As mentioned above, this could relate to systemic disease but findings can also be seen with inflammatory breast carcinoma. Please correlate. 5. Other findings as noted above believed to be nonacute. Diagnostic code #9 This report was dictated in [place] Standard Time I agree with preliminary report from [facility], finalized on 12/04/19, 12:40 PM Central Time
--- NOTE | 2019-12-04 16:11 | PCM.PN ---
- General Info Date of Service: 12/04/19 Subjective Update: Feeling more tired and weak Slept OK Tolerating diet No pain Ambulates a couple of steps only - Patient Data Vitals - Most Recent: Last Vital Signs Temp 98.4 F 12/04/19 03:04 Pulse 52 L 12/04/19 14:48 Resp 20 12/04/19 14:48 BP 130/90 12/04/19 15:00 Pulse Ox 95 12/04/19 14:48 Weight - Most Recent: 101.968 kg - Exam Quality Assessment: Supplemental Oxygen General: Cooperative, Mild Distress, Lethargic HEENT: Mucous Membr. Moist/[place] Neck: Supple. No: Lymphadenopathy Lungs: Decreased Breath Sounds, Crackles, Rales. No: Rhonchi, Rub, Stridor, Wheezing Cardiovascular: Other (very hard to hear them due to body habitus) GI/Abdominal Exam: Soft, Non-Tender, Distended (no pitting edema). No: Guarding , Rigid, Rebound Back Exam: No: Paraspinal Tenderness, Vertebral Tenderness Extremities: Other (Bilateral edema up to knees with interval improvement +1, MAGNOLIA wraps on ) Skin: Warm, Dry, Ecchymosis Sepsis Event Note - Evaluation Sepsis Screening Result: No Definite Risk - Focused Exam Vital Signs: Vital Signs Pulse Resp BP BP Pulse Ox 12/04/19 15:00 130/90 12/04/19 14:48 52 L 20 95 12/04/19 08:40 130/90 12/04/19 08:35 130/90 12/04/19 08:27 58 L 22 H 90 L Date Exam was Performed: 12/04/19 Time Exam was Performed: 20:34 - Problem List & Annotations (1) CHF exacerbation SNOMED Code(s): 833432469, 62381257253700 Code(s): I50.9 - HEART FAILURE, UNSPECIFIED Status: Acute Priority: High Current Visit: No Qualifiers: Heart failure type: unspecified Qualified Code(s): I50.9 - Heart failure, unspecified (2) Hyperkalemia SNOMED Code(s): 39839709 Code(s): E87.5 - HYPERKALEMIA Status: Acute Current Visit: Yes (3) Bilateral leg edema SNOMED Code(s): 666642110, 98313660, 452896499 Code(s): R60.0 - LOCALIZED EDEMA Status: Acute Priority: High Current Visit: No (4) Chronic renal insufficiency, stage IV (severe) SNOMED Code(s): 572344106 Code(s): N18.4 - CHRONIC KIDNEY DISEASE, STAGE 4 (SEVERE) Status: Chronic Priority: High Current Visit: No (5) Diabetes SNOMED Code(s): 05393197 Code(s): E11.9 - TYPE 2 DIABETES MELLITUS WITHOUT COMPLICATIONS Status: Chronic Priority: Medium Current Visit: No Onset Date: 12/24/15 Qualifiers: Diabetes mellitus type: type 2 Diabetes mellitus complication status: with unspecified complications Annotation/Comment:: Stable BS (6) Hypertension SNOMED Code(s): 55068813 Code(s): I10 - ESSENTIAL (PRIMARY) HYPERTENSION Status: Chronic Priority : Medium Current Visit: No Onset Date: 12/24/15 Qualifiers: Hypertension type: essential hypertension Qualified Code(s): I10 - Essential (primary) hypertension Annotation/Comment:: Stable (7) Hyponatremia SNOMED Code(s): 06610714 Code(s): E87.1 - HYPO-OSMOLALITY AND HYPONATREMIA Status: Acute Priority : High Current Visit: No Onset Date: 12/11/15 (8) Acute kidney injury SNOMED Code(s): 18492133, 20708608 Code(s): N17.9 - ACUTE KIDNEY FAILURE, UNSPECIFIED Status: Acute Current Visit: Yes (9) Normocytic hypochromic anemia SNOMED Code(s): 35288469 Code(s): D50.9 - IRON DEFICIENCY ANEMIA, UNSPECIFIED Status: Acute Current Visit: Yes (10) Thrombocytopenia SNOMED Code(s): 650660509 Code(s): D69.6 - THROMBOCYTOPENIA, UNSPECIFIED Status: Acute Current Visit: Yes (11) Hyperphosphatemia SNOMED Code(s): 03325383 Code(s): E83.39 - OTHER DISORDERS OF PHOSPHORUS METABOLISM Status: Acute Current Visit: Yes (12) MRSA (methicillin resistant Staphylococcus aureus) colonization SNOMED Code(s): 084037231 Code(s): Z22.322 - CARRIER OR SUSPECTED CARRIER OF METHICILLIN RESIS STAPH Status: Acute Current Visit: Yes (13) Hypoxemia requiring supplemental oxygen SNOMED Code(s): 360888789 Code(s): R09.02 - HYPOXEMIA; Z99.81 - DEPENDENCE ON SUPPLEMENTAL OXYGEN Status: Acute Current Visit: Yes (14) Healthcare-associated pneumonia SNOMED Code(s): 687880438, 035596951 Code(s): J18.9 - PNEUMONIA, UNSPECIFIED ORGANISM Status: Acute Current Visit: Yes (15) Bilateral pleural effusion SNOMED Code(s): 426551365 Code(s): J90 - PLEURAL EFFUSION, NOT ELSEWHERE CLASSIFIED Status: Acute Current Visit: Yes (16) Breast mass, left SNOMED Code(s): 43824556 Code(s): N63.20 - UNSPECIFIED LUMP IN THE LEFT BREAST, UNSPECIFIED QUADRANT Status: Acute Current Visit: Yes (17) Acute hypoxemic respiratory failure SNOMED Code(s): 685693315 Code(s): J96.01 - ACUTE RESPIRATORY FAILURE WITH HYPOXIA Status: Acute Current Visit: Yes - Problem List Review Problem List Initiated/Reviewed/Updated: Yes - Plan Plan:: Bilateral healthcare associated pneumonia Acute hypoxemic respiratory failure Hypoxemia worsening + increased crackles and shortness of breath Repeat CXR highly suggestive of Bl pulmonary infiltrates --> CT chest performed and confirmed BL lower lobe consolidations Procalcitonin will be ordered more for a trend than to rule in bacterial infection PLAN - F/U respiratory panel, influenza swab, mycoplasma and strep pneumo serology - Vancomycin, Levaquin and Zosyn day 2 - Procalcitonin ordered - DuoNebs q8h - Vibrational CPT - Scheduled guaifenesin - F/U sputum Heart failure exacerbation, unknown EF Moderate bilateral pleural effusions Altered mental status Acute on Chronic renal insufficiency, stage IV (severe) Worsened anemia Hyperphosphatemia, worsened Hyponatremia, worsened Hyperkalemia, resolved Chronic hyponatremia--> ranges in high 120s--> admission 124-> decreased home diuretic dose 127->125->120 Started on metolazone prior to admission Adjusted diuretics on admission which increased Na mildly --> dropped again + 2kg weight gain + worsened physical exam--> Lasix IV today CT chest with moderate BL pleural effusion and vascular congestion in upper lobes No signs of blood loss Discussed risks and benefits or transfusion with daughter will hold off for now PLAN - Increase Calcium gluconate - Start Lasix IV - Hold Bumex - Continue Metolazone - 1.5L fluid restriction + Daily weights - F/U echocardiogram result - Renally dosed medications, avoid nephrotoxic agents and monitor urine output Diabetes, unknown HbA1c Admission glucose 176 Trend 110-251 PLAN - Levemir 15u, Humalog 8u AM and lunch - QID accu-checks - Hypoglycemia protocol Hypertension, uncontrolled BP on admission 204/163 BP trend 127-156/50-82, adequate for age PLAN - Continue home amlodipine - Start hydrochlorothiazide - PRN Hydralazine Incidental left breast mass CT imaging performed for lung parenchyma Incidental large mass on left breast suggestive of neoplastic process Also there are some lesions in mediastinum suggestive of metastatic disease Discussed with JORGE L and she does not want to pursue active diagnostic evaluation PROPHYLAXIS DVT- MAGNOLIA wraps GI- not indicated CODE STATUS: DNR/DNI DISPOSITION: Patient will remain admitted for diuresis under monitorization and IV antibiotics for pneumonia. Resident of [facility] where she has been for >3 years now.
[2019-12-04] MEDS ORDERED: Furosemide 40 MG/4 ML VIAL IVPUSH ONE (16:42)
[2019-12-04] MEDS ORDERED: Furosemide 20 MG/2 ML VIAL IVPUSH ONE (16:42)
[2019-12-04] MEDS: Albuterol/Ipratropium 3.0-0.5 MG/3 ML Neb Soln NEB SCH ×2 (16:49→21:22)
[2019-12-04] MEDS: Hydrochlorothiazide 12.5 MG Cap PO SCH (22:14)
[2019-12-04] MEDS: Piperacillin/Tazobactam 4.5 GM in Sodium Chloride 0.9% 100 ML IV SCH (22:15)
[2019-12-04] MEDS: Rosuvastatin 10 MG Tab PO SCH (22:15)
[2019-12-05] MEDS: Acetaminophen 325 MG Tab PO SCH ×4 (02:35→21:09)
[2019-12-05] MEDS: Albuterol/Ipratropium 3.0-0.5 MG/3 ML Neb Soln NEB SCH ×4 (03:52→22:16)
[2019-12-05] MEDS ORDERED: Furosemide 40 MG/4 ML VIAL IVPUSH SCH (06:00)
[2019-12-05] MEDS: Insulin Glarg,Human.Rec.Analog 100 Unit/ML SUBCUT SCH (08:38)
[2019-12-05] MEDS: Piperacillin/Tazobactam 4.5 GM in Sodium Chloride 0.9% 100 ML IV SCH ×2 (08:46→21:10)
[2019-12-05] MEDS: Metolazone 2.5 MG Tab PO SCH (08:52)
[2019-12-05] MEDS: Calcium Acetate 667 MG Cap PO SCH ×4 (08:53→17:59)
[2019-12-05] MEDS: guaiFENesin 600 MG Tab.ER PO SCH ×3 (08:54→21:09)
[2019-12-05] MEDS: Aspirin 81 MG Tab.Chew PO SCH (08:55)
[2019-12-05] MEDS: Modafinil 200 MG Tab PO SCH (08:55)
[2019-12-05] MEDS: Hydrochlorothiazide 12.5 MG Cap PO SCH (08:56)
[2019-12-05] MEDS: Insulin Lispro 100 Units/ML 3 ML Vial SUBCUT SCH ×2 (09:04→14:06)
--- NOTE | 2019-12-05 11:03 | CR ---
Chest: Two views of the chest were obtained. Comparison: Prior chest x-ray of 12/03/19. Pulmonary vessels remain increased. Bilateral pleural effusions are again noted. Slightly improved aeration within the right base from prior study. Findings within the left base remain stable. Bony structures remain grossly intact. Impression: 1. Continuing pulmonary vascular congestion and small pleural effusions. 2. Improving aeration of the right base from prior exam. 3. Other portions of the chest x-ray are stable. Diagnostic code #3 This report was dictated in [place] Standard Time
[2019-12-05] MEDS: amLODIPine 10 MG Tab PO SCH (11:07)
[2019-12-05] MEDS ORDERED: Lidocaine 1% 10 ML MDV INJECT ONE (13:55)
[2019-12-05] MEDS: Bumetanide 1 MG Tab PO SCH (14:12)
[2019-12-05] MEDS ORDERED: Atropine 0.1 MG/ML 10 ML Syringe ONE (15:54)
--- NOTE | 2019-12-05 16:33 | CR ---
Chest: Portable view of the chest was obtained. Comparison: Prior chest x-ray of 12/03/19. Continuing left-sided pleural effusion is noted. Improving aeration of the right lung base is seen. Heart is enlarged. Pulmonary vessels are improved but remains slightly congested. Nonspecific parenchymal density remains within the left base. Impression: 1. Continuing left-sided pleural effusion. Decreasing pulmonary vascular congestion and better aeration of the right lung base. 2. Continuing nonspecific parenchymal density within the left base noted. Diagnostic code #3 This report was dictated in [place] Standard Time
--- NOTE | 2019-12-05 18:57 | PCM.PN ---
- General Info Date of Service: 12/05/19 Subjective Update: BM 12/02 Tolerating diet with good intake NC 1-2L - Patient Data Vitals - Most Recent: Last Vital Signs Temp 95.5 F L 12/05/19 11:20 Pulse 49 L 12/05/19 11:20 Resp 16 12/05/19 11:20 BP 115/62 12/05/19 11:20 Pulse Ox 91 L 12/05/19 15:10 Weight - Most Recent: 104.417 kg - Exam General: Alert, Mild Distress, Lethargic HEENT: Pupils Equal, Pupils Reactive, Mucous Membr. Moist/[place] Neck: Supple, Carotid Bruit, JVD Lungs: Decreased Breath Sounds, Crackles, Rales, Rhonchi. No: Rub, Stridor, Wheezing Cardiovascular: Regular Rhythm, Bradycardia. No: Murmurs, Gallops, Rubs GI/Abdominal Exam: Non-Tender, Distended. No: Guarding, Rigid, Rebound Back Exam: No: CVA Tenderness (L), CVA Tenderness (R), Paraspinal Tenderness, Vertebral Tenderness Extremities: Pedal Edema (up to knees bilaterally), Slow Capillary Refill, Pallor. No: Mottled Skin: Dry, Cool, Ecchymosis Neurological: No New Focal Deficit Sepsis Event Note - Evaluation Sepsis Screening Result: No Definite Risk - Focused Exam Vital Signs: Vital Signs Temp Pulse Resp BP Pulse Ox Pulse Ox 12/05/19 15:10 91 L 12/05/19 11:20 95.5 F L 49 L 16 115/62 96 12/05/19 11:07 115/62 12/05/19 10:04 98.4 F 12/05/19 08:45 50 L 28 H 143/42 H 95 12/05/19 08:32 84 L Date Exam was Performed: 12/06/19 Time Exam was Performed: 09:07 - Problem List & Annotations (1) CHF exacerbation SNOMED Code(s): 858440098, 35058612064449 Code(s): I50.9 - HEART FAILURE, UNSPECIFIED Status: Acute Priority: High Current Visit: No Qualifiers: Heart failure type: unspecified Qualified Code(s): I50.9 - Heart failure, unspecified (2) Hyperkalemia SNOMED Code(s): 73305481 Code(s): E87.5 - HYPERKALEMIA Status: Acute Current Visit: Yes (3) Bilateral leg edema SNOMED Code(s): 402480769, 69388794, 751525613 Code(s): R60.0 - LOCALIZED EDEMA Status: Acute Priority: High Current Visit: No (4) Chronic renal insufficiency, stage IV (severe) SNOMED Code(s): 255016719 Code(s): N18.4 - CHRONIC KIDNEY DISEASE, STAGE 4 (SEVERE) Status: Chronic Priority: High Current Visit: No (5) Diabetes SNOMED Code(s): 50860309 Code(s): E11.9 - TYPE 2 DIABETES MELLITUS WITHOUT COMPLICATIONS Status: Chronic Priority: Medium Current Visit: No Onset Date: 12/24/15 Qualifiers: Diabetes mellitus type: type 2 Diabetes mellitus complication status: with unspecified complications Annotation/Comment:: Stable BS (6) Hypertension SNOMED Code(s): 31752834 Code(s): I10 - ESSENTIAL (PRIMARY) HYPERTENSION Status: Chronic Priority : Medium Current Visit: No Onset Date: 12/24/15 Qualifiers: Hypertension type: essential hypertension Qualified Code(s): I10 - Essential (primary) hypertension Annotation/Comment:: Stable (7) Hyponatremia SNOMED Code(s): 58903649 Code(s): E87.1 - HYPO-OSMOLALITY AND HYPONATREMIA Status: Acute Priority : High Current Visit: No Onset Date: 12/11/15 (8) Acute kidney injury SNOMED Code(s): 66484880, 93008779 Code(s): N17.9 - ACUTE KIDNEY FAILURE, UNSPECIFIED Status: Acute Current Visit: Yes (9) Normocytic hypochromic anemia SNOMED Code(s): 61017470 Code(s): D50.9 - IRON DEFICIENCY ANEMIA, UNSPECIFIED Status: Acute Current Visit: Yes (10) Thrombocytopenia SNOMED Code(s): 150626655 Code(s): D69.6 - THROMBOCYTOPENIA, UNSPECIFIED Status: Acute Current Visit: Yes (11) Hyperphosphatemia SNOMED Code(s): 28004751 Code(s): E83.39 - OTHER DISORDERS OF PHOSPHORUS METABOLISM Status: Acute Current Visit: Yes (12) MRSA (methicillin resistant Staphylococcus aureus) colonization SNOMED Code(s): 560752512 Code(s): Z22.322 - CARRIER OR SUSPECTED CARRIER OF METHICILLIN RESIS STAPH Status: Acute Current Visit: Yes (13) Hypoxemia requiring supplemental oxygen SNOMED Code(s): 964591865 Code(s): R09.02 - HYPOXEMIA; Z99.81 - DEPENDENCE ON SUPPLEMENTAL OXYGEN Status: Acute Current Visit: Yes (14) Healthcare-associated pneumonia SNOMED Code(s): 900463974, 090978185 Code(s): J18.9 - PNEUMONIA, UNSPECIFIED ORGANISM Status: Acute Current Visit: Yes (15) Bilateral pleural effusion SNOMED Code(s): 527851660 Code(s): J90 - PLEURAL EFFUSION, NOT ELSEWHERE CLASSIFIED Status: Acute Current Visit: Yes (16) Breast mass, left SNOMED Code(s): 97898369 Code(s): N63.20 - UNSPECIFIED LUMP IN THE LEFT BREAST, UNSPECIFIED QUADRANT Status: Acute Current Visit: Yes (17) Acute hypoxemic respiratory failure SNOMED Code(s): 615745487 Code(s): J96.01 - ACUTE RESPIRATORY FAILURE WITH HYPOXIA Status: Acute Current Visit: Yes - Problem List Review Problem List Initiated/Reviewed/Updated: Yes - Plan Plan:: Bilateral healthcare associated pneumonia Acute hypoxemic respiratory failure Hypoxemia worsening + increased crackles and shortness of breath Repeat CXR highly suggestive of Bl pulmonary infiltrates --> CT chest performed and confirmed BL lower lobe consolidations Procalcitonin will be ordered more for a trend than to rule in bacterial infection PLAN - F/U respiratory panel, influenza swab, mycoplasma and strep pneumo serology - Vancomycin, Levaquin and Zosyn day 2 - Procalcitonin ordered - Leigha q8h - Vibrational CPT - Scheduled guaifenesin - F/U sputum Heart failure exacerbation, unknown EF Moderate bilateral pleural effusions Altered mental status Acute on Chronic renal insufficiency, stage IV (severe) Worsened anemia Hyperphosphatemia, worsened Hyponatremia, worsened Hyperkalemia, resolved Chronic hyponatremia--> ranges in high 120s--> admission 124-> decreased home diuretic dose 127->125->120->120 Started on metolazone prior to admission Adjusted diuretics on admission which increased Na mildly --> dropped again + 2kg weight gain + worsened physical exam--> Lasix IV yesterday--> 2kg weight gain again CT chest with moderate BL pleural effusion and vascular congestion in upper lobes No signs of blood loss Discussed risks and benefits or transfusion with daughter will hold off for now PLAN - Thoracentesis today - Increase Calcium acetate - Change Lasix to Bumex - Continue Metolazone - D/C hydrochlorothiazide - 1.5L fluid restriction + Daily weights - Increase sodium in diet - F/U echocardiogram result - Renally dosed medications, avoid nephrotoxic agents and monitor urine output Diabetes, unknown HbA1c Admission glucose 176 Trend 192-290 PLAN - Levemir 15u, Humalog 8u AM and lunch - QID accu-checks - Hypoglycemia protocol Hypertension, uncontrolled BP on admission 204/163 BP trend 130-143/50-90, adequate for age PLAN - Continue home amlodipine - PRN Hydralazine Incidental left breast mass CT imaging performed for lung parenchyma Incidental large mass on left breast suggestive of neoplastic process Also there are some lesions in mediastinum suggestive of metastatic disease Discussed with JORGE L and she does not want to pursue active diagnostic evaluation PROPHYLAXIS DVT- MAGNOLIA wraps GI- not indicated CODE STATUS: DNR/DNI DISPOSITION: Patient will remain admitted for diuresis under monitorization and IV antibiotics for pneumonia as well as oxygen supplementation She has had a steady decline in the past 2 days with minimal response to weight and no changes in serum sodium, I discussed this with JORGE L and explained the current situation with prognosis, she voiced understanding and all questions were answered. PROGNOSIS IS VERY POOR
--- NOTE | 2019-12-05 20:03 | PCM.PRNOTE ---
- Free Text/Narrative Note: Thoracentesis Date: 12/05/2019 Time: 15:36 Indication: Large right pleural effusion Attending: Usha Torre MD A time-out was completed verifying correct patient, procedure, site, positioning , and special equipment if applicable. The patients right side was prepped and draped in a sterile manner after the appropriate infiltration level was confirmed by ultrasound. 1% lidocaine was used anesthetize the surrounding skin. A finder needle was then used to locate fluid and clear yellow fluid was obtained. The thoracentesis catheter was then threaded without difficulty. The patient had 825 of clear yellowish red fluid removed. A post-procedure chest x-ray was ordered and the fluid will be sent for several studies. Estimated Blood Loss: 20mL The patient tolerated the procedure well and there were no complications.
[2019-12-05] MEDS ORDERED: Bumetanide 1 MG/4 ML MDV IVPUSH ONE (20:37)
[2019-12-05] MEDS: Rosuvastatin 10 MG Tab PO SCH (21:08)
[2019-12-06] MEDS: Acetaminophen 325 MG Tab PO SCH (01:55)
[2019-12-06] MEDS: Albuterol/Ipratropium 3.0-0.5 MG/3 ML Neb Soln NEB SCH (03:09)
[2019-12-06 04:25] VITALS: BP 131/89; PULSE 71
[2019-12-06] MEDS: Bumetanide 1 MG Tab PO SCH (05:45)
[2019-12-06] MEDS ORDERED: Bumetanide 1 MG Tab PO ONE (05:51)
[2019-12-06] MEDS ORDERED: Albuterol/Ipratropium 3.0-0.5 MG/3 ML Neb Soln ONE (06:00)
[2019-12-06] MEDS ORDERED: Albuterol/Ipratropium 3.0-0.5 MG/3 ML Neb Soln NEB ONE (06:05)
[2019-12-06] MEDS: Insulin Lispro 100 Units/ML 3 ML Vial SUBCUT SCH (06:29)
--- NOTE | 2019-12-06 07:59 | PCM.SN ---
- Free Text/Narrative Note: RAPID RESPONSE NOTE - Patient was somnolent but responsive upon my evaluation in the morning, she took her medications with some water - A CXR was ordered to evaluate improvement of pleural effusion - When radiology arrived and propped patient up she vomited dark brown content and a rapid response was called. - Suctioning was performed and patient was still breathing with a pulse. - A couple of minutes later she went in to full cardiorespiratory arrest and was pronounced at 7:48AM
--- NOTE | 2019-12-06 07:59 | PCM.DCSUM1 ---
Discharge Summary - Hospital Course HPI Initial Comments: This is a 84 year old female with past medical history of heart failure, hyponatremia, anemia who came to the ED brought in by daughter after being called by brother who stated she didn't look well, When she got to snf today she found her sitting up, dozing off and decreased responsiveness Brother states that after using the restroom she had obvious heavy breathing As per daughter she was called by snf yesterday stating her hb was low and stating she had a bruise on her face which they don't know how she got it. - Discharge Data Discharge Date: 12/06/19 Discharge Disposition: 20 Preliminary Cause of *Q: Cardiac Arrest Condition: - Referral to Home Health Primary Care Physician: Naren Kim MD - Discharge Diagnosis/Problem(s) (1) CHF exacerbation SNOMED Code(s): 997513533, 17386966987117 ICD Code: I50.9 - HEART FAILURE, UNSPECIFIED Status: Acute Priority: High Current Visit: No Qualifiers: Heart failure type: unspecified Qualified Code(s): I50.9 - Heart failure, unspecified (2) Hyperkalemia SNOMED Code(s): 71146875 ICD Code: E87.5 - HYPERKALEMIA Status: Acute Current Visit: Yes (3) Bilateral leg edema SNOMED Code(s): 579303075, 15130153, 696866548 ICD Code: R60.0 - LOCALIZED EDEMA Status: Acute Priority: High Current Visit: No (4) Chronic renal insufficiency, stage IV (severe) SNOMED Code(s): 146312492 ICD Code: N18.4 - CHRONIC KIDNEY DISEASE, STAGE 4 (SEVERE) Status: Chronic Priority: High Current Visit: No (5) Diabetes SNOMED Code(s): 03166492 ICD Code: E11.9 - TYPE 2 DIABETES MELLITUS WITHOUT COMPLICATIONS Status: Chronic Priority: Medium Current Visit: No Onset Date: 12/24/15 Problem Details: Stable BS Qualifiers: Diabetes mellitus type: type 2 Diabetes mellitus complication status: with unspecified complications (6) Hypertension SNOMED Code(s): 93134391 ICD Code: I10 - ESSENTIAL (PRIMARY) HYPERTENSION Status: Chronic Priority : Medium Current Visit: No Onset Date: 12/24/15 Problem Details: Stable Qualifiers: Hypertension type: essential hypertension Qualified Code(s): I10 - Essential (primary) hypertension (7) Hyponatremia SNOMED Code(s): 46013833 ICD Code: E87.1 - HYPO-OSMOLALITY AND HYPONATREMIA Status: Acute Priority : High Current Visit: No Onset Date: 12/11/15 (8) Acute kidney injury SNOMED Code(s): 46233678, 38030870 ICD Code: N17.9 - ACUTE KIDNEY FAILURE, UNSPECIFIED Status: Acute Current Visit: Yes (9) Normocytic hypochromic anemia SNOMED Code(s): 09415373 ICD Code: D50.9 - IRON DEFICIENCY ANEMIA, UNSPECIFIED Status: Acute Current Visit: Yes (10) Thrombocytopenia SNOMED Code(s): 193311186 ICD Code: D69.6 - THROMBOCYTOPENIA, UNSPECIFIED Status: Acute Current Visit: Yes (11) Hyperphosphatemia SNOMED Code(s): 35885660 ICD Code: E83.39 - OTHER DISORDERS OF PHOSPHORUS METABOLISM Status: Acute Current Visit: Yes (12) MRSA (methicillin resistant Staphylococcus aureus) colonization SNOMED Code(s): 458046765 ICD Code: Z22.322 - CARRIER OR SUSPECTED CARRIER OF METHICILLIN RESIS STAPH Status: Acute Current Visit: Yes (13) Hypoxemia requiring supplemental oxygen SNOMED Code(s): 002199378 ICD Code: R09.02 - HYPOXEMIA; Z99.81 - DEPENDENCE ON SUPPLEMENTAL OXYGEN Status: Acute Current Visit: Yes (14) Healthcare-associated pneumonia SNOMED Code(s): 527767619, 494971730 ICD Code: J18.9 - PNEUMONIA, UNSPECIFIED ORGANISM Status: Acute Current Visit: Yes (15) Bilateral pleural effusion SNOMED Code(s): 509550471 ICD Code: J90 - PLEURAL EFFUSION, NOT ELSEWHERE CLASSIFIED Status: Acute Current Visit: Yes (16) Breast mass, left SNOMED Code(s): 63511760 ICD Code: N63.20 - UNSPECIFIED LUMP IN THE LEFT BREAST, UNSPECIFIED QUADRANT Status: Acute Current Visit: Yes (17) Acute hypoxemic respiratory failure SNOMED Code(s): 466360823 ICD Code: J96.01 - ACUTE RESPIRATORY FAILURE WITH HYPOXIA Status: Acute Current Visit: Yes - Patient Summary/Data Operative Procedure(s) Performed: 12/05/2019: Right thoracentesis with removal of 820mL of transudate fluid Consults: Consultations 12/01/19 21:08 Consult to Case Management/Public Works Inspector [CONS] Routine OT Evaluation and Treatment [CONS] Routine PT Evaluation and Treatment [CONS] Routine 12/03/19 16:50 IDENTIFICATION PRINTING MACHINE SETTER Eval and Treat [IDENTIFICATION PRINTING MACHINE SETTER Evaluation and Treatment] [CONS] Routine Hospital Course: Day 1 Patient was brought in by daughter for worsening mental status and shortness of breath Upon arrival to the ED patient was found to be hypoxemic and in respiratory distress--> Placed on nasal cannula She was also found to have hyponatremia, 124; this is a chronic problem but likely acutely worsened in part by adjustments made to diuretics as an outpatient BP on admission 204/162 CXR with BL pleural effusions and lung parenchyma suggestive of vascular congestion She was admitted with fluid restriction, daily weights and oxygen supplementation Day 2 - Hypervolemia minimally improved - Na improved from 124--> 127 - Home diuretic dosages were decreased - Mental status improved - Developed hyperphosphatemia started on calcium acetate - GFR declined from 13 to 9 Day 3 - Hypoxemia worsened - Repeat CXR highly suggestive of BL pulmonary infiltrates --> CT chest performed and confirmed BL lower lobe consolidations and worsening BL pleural effusions - Started on triple antibiotic coverage for HCAP - Na dropped back down to 125 - CT chest with incidental finding of large left breast mass suggestive of breast cancer 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 metastasis to mediastinum this was discussed with [facility] who indicated they would not proceed with aggressive diagnostic procedures or even treatment Day 4 - Started developing bradycardia - Gained 4kg - Sodium dropped to 120 - Changed Lasix to Bumex - Thoracentesis performed with removal of 825mL from right chest - Beckman catheter was placed for adequate urine output assessment - Given extra dose of Metolazone in the evening - Overnight patients urine output continued to drop and hypoxemia worsened significantly increasing her O2 requirements from 1-2L up to 6L to maintain O2 sats in low 90s - Patient also developed significant hypothermia with lowest core temperature down to 90.1 a bear hugger was placed which brought temperature up to 95.6 Day 5 - Patient was somnolent but responsive upon my evaluation in the morning, she took her medications with some water - A CXR was ordered to evaluate improvement of pleural effusion, when radiology arrived and propped patient up she vomited dark brown content and a rapid response was called. Suctioning was performed and patient was still breathing with a pulse. A couple of minutes later she went in to full arrest and was pronounced at 7:48AM - Discharge Plan *PRESCRIPTION DRUG MONITORING PROGRAM REVIEWED*: Not Applicable *COPY OF PRESCRIPTION DRUG MONITORING REPORT IN PATIENT ALAINA: Not Applicable Home Medications: Home Meds Insulin Aspart [NovoLOG] 0 units SUBCUT BID 07/14/18 [History] Lactobacillus Acidophilus [Acidophilus Lactobacilli] 1 cap PO BID 11/22/18 [ History] Acetaminophen [Tylenol] 650 mg PO Q6H 12/18/18 [History] Aspirin 81 mg PO DAILY 12/18/18 [History] Bumetanide [Bumex] 2 mg PO QPM 12/18/18 [History] Bumetanide [Bumex] 3 mg PO DAILY 12/18/18 [History] Calcium Carbonate [Tums] 200 mg PO Q6H PRN 12/18/18 [History] Lutein/Minerals/Vit A,C & E [Ocuvite] 1 tab PO DAILY 12/18/18 [History] Nystatin Powder. 1 dose TOP DAILY PRN 12/18/18 [History] Potassium. 20 meq PO QID 12/18/18 [History] Rosuvastatin [Crestor] 20 mg PO BEDTIME 12/18/18 [History] Vit C/E/Zn/Coppr/Lutein/Zeaxan [Preservision Areds 2 Softgel] 1 tab PO BID 12/18 [History] amLODIPine Besylate [Amlodipine Besylate] 10 mg PO DAILY 12/18/18 [History] bisacodyL [Dulcolax] 10 mg PO ASDIRECTED PRN 12/18/18 [History] guaiFENesin [Mucinex] 400 mg PO TID 12/18/18 [History] metOLazone [Metolazone] 2.5 mg PO DAILY 12/18/18 [History] modafiniL [Modafinil] 100 mg PO DAILY 12/18/18 [History] Insulin Degludec [Tresiba] 15 unit SQ DAILY 07/12/19 [History] Polyvinyl Alcohol/Povidone/Pf [Refresh Classic Eye Drops] 1 drop EYEBOTH TID PRN 07/12/19 [History] Sodium Chloride [Saline Nose Kevil] 1 spray NASBOTH Q4H PRN 07/12/19 [History] Insulin Aspart [NovoLOG] 8 units SQ BID 12/01/19 [History] Patient Handouts: Hyponatremia, [id number], Hyperkalemia, [id number], Sepsis, Adult, Chronic Kidney Disease, Adult Forms: ED Department Discharge Referrals: Naren Kim MD [Primary Care Provider] - - Discharge Summary/Plan Comment DC Time >30 min.: Yes - General Info Date of Service: 12/06/19 - Patient Data Vitals - Most Recent: Last Vital Signs Temp 95.6 F L 12/06/19 04:00 Pulse 71 12/06/19 04:00 Resp 21 H 12/06/19 04:00 BP 131/89 12/06/19 04:00 Pulse Ox 97 12/06/19 06:06 Weight - Most Recent: 105.279 kg
--- NOTE | 2019-12-06 08:29 | CR ---
Chest: Portable view of the chest was obtained. Comparison: Prior chest x-ray of 12/05/19. Heart is enlarged. Increasing lung markings on both sides of the chest most likely representing worsening pulmonary vascular congestion. Scattered degenerative change is noted within the spine. Bony structures are osteopenic. Impression: 1. Increasing lung markings most likely due to worsening pulmonary vascular congestion. 2. Findings seen previously within the left base shows improvement with better aeration. Diagnostic code #3 This report was dictated in [place] Standard Time
[2019-12-06] MEDS ORDERED: Levofloxacin/Dextrose 5%-Water 500 MG in Premix Bag 1 BAG IV SCH (11:00)
[2019-12-06] MEDS ORDERED: Bumetanide 1 MG Tab PO SCH (14:00)
== END 2019-12-06 12:18 | disposition expired | DRG 291 ==
LOC: JD.ED 18:37 → SUPCPDRO 18:37 → UNDOADMIN 21:08 → JD.MS 21:08
PROVIDERS: ADMIT Internal Medicine; ATTEND Internal Medicine
PROC: 0W993ZZ Drainage of Right Pleural Cavity, Percutaneous Approach (ICD-10-PCS; principal; 2019-12-05)
PROC: 0T9B70Z Drainage of Bladder with Drainage Device, Via Natural or Artificial Opening (ICD-10-PCS; 2019-12-05)
DX: I13.2 Hypertensive heart and chronic kidney disease with heart failure and with stage 5 chronic kidney disease, or end stage renal disease (principal); I13.0 Hypertensive heart and chronic kidney disease with heart failure and stage 1 through stage 4 chronic kidney disease, or unspecified chronic kidney disease; J18.9 Pneumonia, unspecified organism; N18.5 Chronic kidney disease, stage 5; J96.01 Acute respiratory failure with hypoxia; E87.1 Hypo-osmolality and hyponatremia; N17.9 Acute kidney failure, unspecified; N18.4 Chronic kidney disease, stage 4 (severe); I73.9 Peripheral vascular disease, unspecified; Z68.41 Body mass index [BMI] 40.0-44.9, adult; J90 Pleural effusion, not elsewhere classified; K44.9 Diaphragmatic hernia without obstruction or gangrene; R32 Unspecified urinary incontinence; Z66 Do not resuscitate; I46.9 Cardiac arrest, cause unspecified; E83.39 Other disorders of phosphorus metabolism; I50.9 Heart failure, unspecified; H91.90 Unspecified hearing loss, unspecified ear; D64.9 Anemia, unspecified; H54.7 Unspecified visual loss; H35.30 Unspecified macular degeneration; E78.00 Pure hypercholesterolemia, unspecified; K21.9 Gastro-esophageal reflux disease without esophagitis; E11.51 Type 2 diabetes mellitus with diabetic peripheral angiopathy without gangrene; M19.90 Unspecified osteoarthritis, unspecified site; S00.83XA Contusion of other part of head, initial encounter; M81.0 Age-related osteoporosis without current pathological fracture; E11.40 Type 2 diabetes mellitus with diabetic neuropathy, unspecified; E66.9 Obesity, unspecified; E87.5 Hyperkalemia; E11.22 Type 2 diabetes mellitus with diabetic chronic kidney disease; D50.9 Iron deficiency anemia, unspecified; D69.6 Thrombocytopenia, unspecified; N63.20 Unspecified lump in the left breast, unspecified quadrant; Y95 Nosocomial condition; T68.XXXA Hypothermia, initial encounter; Z79.82 Long term (current) use of aspirin; Z22.322 Carrier or suspected carrier of Methicillin resistant Staphylococcus aureus; Z98.49 Cataract extraction status, unspecified eye; Z79.4 Long term (current) use of insulin; Z90.710 Acquired absence of both cervix and uterus; Z99.81 Dependence on supplemental oxygen; Z79.899 Other long term (current) drug therapy; Z83.3 Family history of diabetes mellitus
CPT/HCPCS: 36415; 71045; 80053; 82962; 83735; 83880; 83930; 84484; 85025; 85610; 85652; 85730; 86140; 86850; 86900; 86901; 93005; 96374; 99285; A9270; J3490; 51701; 51702; 71046; 71046-26; 71250; 71250-26; 80048; 82570; 82945; 83615; 83935; 84100; 84145; 84157; 84300; 84478; 85027; 87070; 87205; 87486; 87581; 87632; 87641; 87798; 87804; 89050; 92610-GN; 93010; 93306; 94640; 94667; 94668; 94761; 97162-GP; 97165-GO; 97530-GO; 97530-GP; 97535-GO; 99222; 99232; 99238; C1729; J0461; J1815-GY; J1940; J1956; J2001; J2543; J3370; J7050; J7620-GY